=== PATIENT | male | born 1955 | race Caucasian/White ===

== ENCOUNTER 2023-02-25 12:20 | Outpatient (OUT) | payer MEDICARE, OTHER, SELFPAY ==
--- NOTE | 2023-02-25 | CT_ITS ---
The [address] [address] Patient Name: JC THOMAS MRN: [id number] date: 1955 Sex: M Assigned Patient Location: CT Current Patient Location: CT Accession/Order Number: [id number] Exam Date: 02/25/2023 12:36 Report Date: 02/25/2023 12:59 At the request of: AMALIA GAN Procedure: CT abdomen pelvis wo con EXAM: CT abdomen pelvis wo con HISTORY: Gross hematuria R31.0 COMPARISON: None. TECHNIQUE: Axial soft tissue windows of the abdomen and pelvis with coronal and sagittal reformats. CT dose reduction technique was used including Automated Exposure Control. . Findings: Lack of intravenous contrast limits evaluation. ABDOMEN: The liver, spleen, and pancreas are unremarkable. Small stones within the gallbladder. Unremarkable left adrenal gland. Within the medial limb of the right adrenal gland there is a 1.1 cm nodule. This has signal characteristics most consistent of lipid rich adenoma. Mild nonspecific bilateral perinephric fat stranding. There are bilateral peripelvic cysts. No renal stones or collecting system dilatation. The bilateral ureters are nondilated. Evaluation of the bowel is limited given the absence of oral contrast. There are colonic diverticula. No bowel obstruction. Small hiatal hernia. The appendix is nondilated definitely identified. The aorta is normal caliber. No enlarged abdominal lymph nodes or free abdominal fluid. Small fat-containing umbilicus hernia. Pelvis: The bladder is fluid-filled. There is a hyperdense mass measuring approximately 4.7 x 3.5 x 2.7 cm. This originates from the dome of the bladder. There are small calcifications The prostate is not significantly enlarged. No enlarged pelvic lymph nodes or free pelvic fluid. No aggressive sclerotic or lytic osseous lesions. 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 CT/CT abdomen pelvis wo con IMPRESSION: 1. No bladder mass concerning for malignancy. Recommend cystoscopy. 2. Cholelithiasis. 3. Right adrenal lipid rich adenoma 4. Bilateral renal peripelvic cyst 5. Diverticulosis. Electronically authenticated by: EARL DEAN Date: 02/25/2023 12:59
== END 2023-02-25 12:21 | disposition home or self-care (01) ==
LOC: CT 12:22
PROVIDERS: PCP Family Medicine; Visit Provider Nurse Practitioner Family
DX: R31.0 Gross hematuria (principal); K80.20 Calculus of gallbladder without cholecystitis without obstruction; K57.90 Diverticulosis of intestine, part unspecified, without perforation or abscess without bleeding; N28.1 Cyst of kidney, acquired
CPT/HCPCS: 74176

== ENCOUNTER 2023-03-16 08:51 | Outpatient (OUT) | payer MEDICARE, OTHER, SELFPAY ==
--- NOTE | 2023-03-16 08:53 | XR_ITS ---
The [address] [address] Patient Name: JC THOMAS MRN: [id number] date: 1955 Sex: M Assigned Patient Location: [facility] Current Patient Location: [facility] Accession/Order Number: [id number] Exam Date: 03/16/2023 09:40 Report Date: 03/16/2023 10:17 At the request of: SOLEDAD MEJIAS Procedure: XR chest 2V EXAM: XR chest 2V HISTORY: Preop exam COMPARISON: None. TECHNIQUE: PA and lateral views of the chest. FINDINGS: The cardiomediastinal silhouette is normal. No focal consolidation is identified. There is no pneumothorax. No pleural effusion is noted. The osseous structures are intact. XR/XR chest 2V IMPRESSION: No acute cardiopulmonary process. Electronically authenticated by: ENE STORM Date: 03/16/2023 10:17
--- NOTE | 2023-03-16 08:53 | ECG_ITS ---
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
[2023-03-16 09:56] LABS: INR 0.98; Partial Thromboplastin Time 26.2 sec (22.3-36.2); Prothrombin Time 10.4 sec (9.0-11.6)
== END 2023-03-16 08:52 | disposition home or self-care (01) ==
LOC: PST 08:51
PROVIDERS: PCP Family Medicine; Visit Provider Urology
DX: Z01.810 Encounter for preprocedural cardiovascular examination (principal); Z01.812 Encounter for preprocedural laboratory examination; D49.4 Neoplasm of unspecified behavior of bladder; R31.0 Gross hematuria; E78.5 Hyperlipidemia, unspecified; N28.1 Cyst of kidney, acquired; Z79.01 Long term (current) use of anticoagulants
CPT/HCPCS: 71046; 80048; 85610; 85730; 93005

== ENCOUNTER 2023-03-26 10:41 | Day surgery (SDC) | payer MEDICARE, OTHER, SELFPAY ==
[2023-03-16 09:25] VITALS: BP 134/81; PULSE 73; RESP 18; TEMP 36.5; O2SAT 97; BMI 34.7
[2023-03-26] VITALS (9 sets, daily range): BP systolic 118–135; BP diastolic 70–86; PULSE 64–84; RESP 12–20; TEMP 35.9–36.4; O2SAT 92–98; BMI 33.9
[2023-03-26] MEDS: LACTATED RINGER'S SOLUTION 1,000 ML 50 ML IV (11:18)
[2023-03-26] MEDS: CEFAZOLIN SODIUM/DEXTROSE,ISO 1 GM/50 ML IV.SOLN IV (12:19)
--- NOTE | 2023-03-26 13:55 | P.URON_ITS ---
Urology Surgery Operative Note Operative Note Procedure Date: 03/26/23 Time Out Performed: yes Pre-op Diagnosis: Bladder tumors Post-op Diagnosis: same as pre-op Procedures performed: #1. Cystoscopy. #2. 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 Specimens: bladder tumor pieces Drains: 22 Tristanian three-way coud? Keating catheter to gravity with irrigation port plugged Indications for Procedures: this gentleman had gross hematuria which led 2 cystoscopy. This revealed he has classic papillary TCC tumors started on the back wall anterior wall and left wall. He now presents for cystoscopy and transurethral resection of bladder tumors. He has signed an informed consent after all risks were explained. Detailed description of Procedure: The patient was brought to the operating room and placed on the operating room table in the supine position. SCDs were placed on the lower extremities and turn ed on and functioning during the entire case. Timeout was done by all parties in the room. We all agreed upon the patient's identification and the planned procedures for this patient. Genn. anesthesia was then administered. The patient was then repositioned into the modified dorsal lithotomy position. All pressure points were satisfactorily padded. Genitalia were sterilely prepped and draped in usual fashion.I started by passing a 26 Tristanian resectoscope with the standard bipolar loop electrode per urethra and into the bladder. The tumors were quite a bit proximal to the ureteral orifices. I started on the floor and uniformly and deeply resected all of the tumors. The resection bed was coagulated. I then did the tumors on the back wall. The left lateral wall tumors were then resected in a similar fashion. There were couple small ones on the right wall and these were similarly resected. After getting copious amounts of tumor out and the tissue was sent for pathology I then used the coagulation/vaporization loop and massively coagulated all of the resection beds. Upon completion there was no tumor remaining in the bladder. There was no bleeding. Clear urine effluxed from both ureteral orifices. Scope was removed. A 22 Tristanian three-way coud? catheter was placed in the bladder. 10 mL of fluid was placed in the balloon. It was manually irrigated and it was clear. A leg bag was then attached. The anesthetic was then reversed. He was then transferred to a [facility] bed and wheeled to PACU in stable condition. He will be discharged to home with a prescription for Keflex 500 mg twice a day #14 and Vesicare 10 mg daily #7. Follow-up will be in a week for catheter removal and to review the pathology.
[2023-03-26] MEDS: SOLIFENACIN SUCCINATE 10 MG TABLET PO (14:06)
== END 2023-03-26 14:48 | disposition home or self-care (01) ==
PROVIDERS: PCP Family Medicine; Visit Provider Urology
PROC: (CPT 52240; principal; 2023-03-26 11:50)
DX: C67.9 Malignant neoplasm of bladder, unspecified (principal); E78.5 Hyperlipidemia, unspecified; N28.1 Cyst of kidney, acquired; Z79.01 Long term (current) use of anticoagulants; Z96.659 Presence of unspecified artificial knee joint; R31.0 Gross hematuria
CPT/HCPCS: 52240; 36415; 88307

== ENCOUNTER 2023-04-16 03:18 | Emergency (ER) | payer MEDICARE, OTHER, SELFPAY ==
[2023-04-16 03:21] VITALS: BP 130/97; PULSE 80; RESP 16; TEMP 36.5; O2SAT 97; BMI 33.5
[2023-04-16] MEDS: LIDOCAINE 2% JELLY 10 ML UR (03:28)
--- NOTE | 2023-04-16 03:57 | ED_ITS ---
HPI - Male Genitourinary General Chief complaint: Urogenital-Male Stated complaint: URINARY ISSUE Time Seen by Provider: 04/16/23 03:28 Source: patient Mode of arrival: walk-in Limitations: no limitations History of Present Illness HPI Narrative: This 68-year-old male presents for evaluation of acute urinary retention. The patient was recently diagnosed with bladder cancer after having a cystoscopy. He is supposed to have bacille Calmette-Carol instilled into his bladder but the medication is not readily available. He states that after his cystoscopy he had a Stevens catheter for a week. He has been passing bright red blood and some clots and his urine has been dark. He has not been able to empty his bladder for the past 7 hours. He states he has been dribbling a little bit and feels that there is a clot obstructing his urine flow. He has discomfort in his lower abdomen. He has no nausea or vomiting. He has no flank pain. He has not had a fever. Related Data Home Medications Medication Instructions Recorded Confirmed omega 7-qim-mid-fish oil 1,000 mg 1 cap PO DAILY 03/16/23 03/26/23 (120 mg-180 mg) capsule (Fish Oil) pravastatin 40 mg tablet 40 mg PO DAILY 03/16/23 04/16/23 Previous Rx's Medication Instructions Recorded solifenacin 10 mg tablet (Vesicare) 10 mg PO DAILY #7 tabs 03/26/23 Allergies Allergy/AdvReac Type Severity Reaction Status Date / Time No Known Drug Allergies Allergy Verified 04/16/23 03:24 Review of Systems ROS Status of ROS 10 or more systems reviewed and unremarkable except as noted in history and below [facility] Medical History (Updated 04/16/23 @ 04:57 by La Faria MD) Bladder mass ?N32.89 - Other specified disorders of bladder (ICD-10) Bladder tumor ?D49.4 - Neoplasm of unspecified behavior of bladder (ICD-10) Gross hematuria ?R31.0 - Gross hematuria (ICD-10) High cholesterol ?E78.00 - Pure hypercholesterolemia, unspecified (ICD-10) Lesion of bladder ?N32.9 - Bladder disorder, unspecified (ICD-10) Osteoarthritis ?M19.90 - Unspecified osteoarthritis, unspecified site (ICD-10) Renal cyst ?N28.1 - Cyst of kidney, acquired (ICD-10) Surgical History (Updated 03/16/23 @ 09:16 by Mary Moreira NP) History of appendectomy ?Z90.49 - Acquired absence of other specified parts of digestive tract (ICD- 10) History of arthroplasty of knee ?Z96.659 - Presence of unspecified artificial knee joint (ICD-10) History of arthroplasty of knee ?Z96.659 - Presence of unspecified artificial knee joint (ICD-10) History of arthroscopy of knee ?Z98.890 - Other specified postprocedural states (ICD-10) History of arthroscopy of knee ?Z98.890 - Other specified postprocedural states (ICD-10) History of arthroscopy of shoulder ?Z98.890 - Other specified postprocedural states (ICD-10) History of colonoscopy ?Z98.890 - Other specified postprocedural states (ICD-10) History of foot surgery ?Z98.890 - Other specified postprocedural states (ICD-10) History of hernia repair ?Z98.890 - Other specified postprocedural states (ICD-10) ?Z87.19 - Personal history of other diseases of the digestive system (ICD-10) History of nasal septoplasty ?Z98.890 - Other specified postprocedural states (ICD-10) History of tonsillectomy ?Z90.89 - Acquired absence of other organs (ICD-10) Family History (Updated 03/16/23 @ 09:16 by Mary Moreira NP) Other Family history of colon cancer Family history of emphysema Social History (Updated 03/16/23 @ 09:11 by Mary Moreira NP) Within the past year, how often did you have a drink containing alcohol: never Score interpretation: A score less than 4 is consistent with normal alcohol consumption. Smoking status: Never smoker Highest level of school completed/degree received: high school graduate Exam Narrative Exam Narrative: Nurses note and vital signs reviewed and patient is not hypoxic. Blood pressure is noted to be elevated at 130/97 General: The patient appears well and in no apparent distress. Patient is resting comfortably on cart. Skin: Warm, dry, no pallor noted. There is no rash noted. Head: Normocephalic, atraumatic Eye: Normal conjunctiva, no drainage, EOMI. PERRL Ears, Nose, Mouth, and Throat: oral mucosa is moist. Cardiovascular: Regular Rate and Rhythm Respiratory: Patient is in no distress, no accessory muscle use, lungs are clear to auscultation, no wheezing, rales or rhonchi Back: non-tender, no CVA tenderness bilaterally to percussion. GI: Normal bowel sounds, no tenderness to palpation, Fullness over urinary bladder, Bladder scan noted >600cc of urine in the bladder Neurological: A&O x4, normal speech Psychiatric: Cooperative Constitutional Vital Signs, click to edit/add: Last Vital Signs Temp 97.7 F 04/16/23 03:21 Pulse 80 04/16/23 03:21 Resp 16 04/16/23 03:21 BP 130/97 H 04/16/23 03:21 Pulse Ox 97 04/16/23 03:21 O2 Del Method Room Air 04/16/23 03:21 Course Vital Signs Vital signs: Vital Signs Temperature 97.7 F 04/16/23 03:21 Pulse Rate 80 04/16/23 03:21 Respiratory Rate 16 04/16/23 03:21 Blood Pressure 130/97 H 04/16/23 03:21 Pulse Oximetry 97 04/16/23 03:21 Oxygen Delivery Method Room Air 04/16/23 03:21 Temperature 97.7 F 04/16/23 03:21 Pulse Rate 80 04/16/23 03:21 Respiratory Rate 16 04/16/23 03:21 Blood Pressure 130/97 H 04/16/23 03:21 Pulse Oximetry 97 04/16/23 03:21 Oxygen Delivery Method Room Air 04/16/23 03:21 MDM - Male Genitourinary MDM Narrative Medical decision making narrative: This 68-year-old male who was recently diagnosed with bladder cancer after having a cystoscopy due to painless hematuria presents for evaluation of urinary retention that has been present for the past 7 hours. He has been dribbling. He has been passing small clots in his urine has been dark. He has not had a fever. He denies any abdominal pain but has some fullness over his urinary bladder. He has no flank pain or vomiting. A 3 way stevens catheter was placed for drainage and irrigation purposes. The urine was dark and cloudy and sent for culture. Bladder irrigation was performed until clear. He will be discharged home with the stevens in place for 48-72 hours and instructed to return to the ER for recu rrent blood in his urine or if the catheter stops draining. Discharge Plan Discharge Chief Complaint: Urogenital-Male Clinical Impression: Acute retention of urine, Hematuria Prescriptions / Home Meds: No Action pravastatin 40 mg tablet 40 mg PO DAILY omega 5-vhq-igl-fish oil [Fish Oil] 1,000 mg (120 mg-180 mg) capsule 1 cap PO DAILY solifenacin [Vesicare] 10 mg tablet 10 mg PO DAILY Qty: 7 0RF Referrals: ISIS LILLY [Primary Care Provider] - 1 week
[2023-04-16] MEDS: WATER FOR IRRIGATION, STERILE 1,000 ML IRRIG.SOLN 1000 ML IRR (04:07)
== END 2023-04-16 05:31 | disposition home or self-care (01) ==
LOC: ER 03:23
PROVIDERS: Emergency Provider Emergency Medicine; PCP Family Medicine
DX: R33.9 Retention of urine, unspecified (principal); R31.9 Hematuria, unspecified; C67.9 Malignant neoplasm of bladder, unspecified; E78.00 Pure hypercholesterolemia, unspecified; M19.90 Unspecified osteoarthritis, unspecified site; Z79.899 Other long term (current) drug therapy; Z90.49 Acquired absence of other specified parts of digestive tract; Z96.659 Presence of unspecified artificial knee joint; Z98.890 Other specified postprocedural states; Z90.89 Acquired absence of other organs
CPT/HCPCS: 51702; 87086; 99284

== ENCOUNTER 2023-04-17 18:29 | Emergency (ER) | payer MEDICARE, OTHER, SELFPAY ==
[2023-04-17 18:57] VITALS: BP 128/88; PULSE 96; RESP 20; TEMP 37; O2SAT 98; BMI 33.5
[2023-04-17 19:36] VITALS: BP 146/94; PULSE 88; RESP 20; O2SAT 97
--- NOTE | 2023-04-17 19:53 | PC.NURSE ---
Keating catheter irrigated with 120 ml of NS with immediate return 530 ml of everett colored urine with a few small flecks of blood clot noted. Patient reports immediate relief from bladder discomfort. Keating draining dark yellow/pink urine at this time.
--- NOTE | 2023-04-17 20:23 | ED.GENADUL1 ---
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 Patient had hematuria in early to mid February and a mass was found on his bladder on CT scanning. He had cystoscopy with removal of bladder lesions on Mar 26 and had been doing well until yesterday when he developed hematuria and had to have a 3 way urethral bladder placed. There was a lot of blood and so he had a 3L bag flush of the bladder before being discharged home yesterday. He now returns - complaining of abdominal pain and bladder fullness with nothing passing out of the urethral catheter for the last several hours. Related Data Home Medications Medication Instructions Recorded Confirmed omega 2-ips-nya-fish oil 1,000 mg 1 cap PO DAILY 03/16/23 03/26/23 (120 mg-180 mg) capsule (Fish Oil) pravastatin 40 mg tablet 40 mg PO DAILY 03/16/23 04/16/23 Previous Rx's Medication Instructions Recorded solifenacin 10 mg tablet (Vesicare) 10 mg PO DAILY #7 tabs 03/26/23 Allergies Allergy/AdvReac Type Severity Reaction Status Date / Time No Known Drug Allergies Allergy Verified 04/16/23 03:24 [facility] Medical History (Updated 04/17/23 @ 20:29 by Phuc Coleman) Bladder mass ?N32.89 - Other specified disorders of bladder (ICD-10) Bladder tumor ?D49.4 - Neoplasm of unspecified behavior of bladder (ICD-10) Gross hematuria ?R31.0 - Gross hematuria (ICD-10) High cholesterol ?E78.00 - Pure hypercholesterolemia, unspecified (ICD-10) Lesion of bladder ?N32.9 - Bladder disorder, unspecified (ICD-10) Osteoarthritis ?M19.90 - Unspecified osteoarthritis, unspecified site (ICD-10) Renal cyst ?N28.1 - Cyst of kidney, acquired (ICD-10) Surgical History (Updated 03/16/23 @ 09:16 by Mary Moreira NP) History of appendectomy ?Z90.49 - Acquired absence of other specified parts of digestive tract (ICD-10) History of arthroplasty of knee ?Z96.659 - Presence of unspecified artificial knee joint (ICD-10) History of arthroplasty of knee ?Z96.659 - Presence of unspecified artificial knee joint (ICD-10) History of arthroscopy of knee ?Z98.890 - Other specified postprocedural states (ICD-10) History of arthroscopy of knee ?Z98.890 - Other specified postprocedural states (ICD-10) History of arthroscopy of shoulder ?Z98.890 - Other specified postprocedural states (ICD-10) History of colonoscopy ?Z98.890 - Other specified postprocedural states (ICD-10) History of foot surgery ?Z98.890 - Other specified postprocedural states (ICD-10) History of hernia repair ?Z98.890 - Other specified postprocedural states (ICD-10) ?Z87.19 - Personal history of other diseases of the digestive system (ICD-10) History of nasal septoplasty ?Z98.890 - Other specified postprocedural states (ICD-10) History of tonsillectomy ?Z90.89 - Acquired absence of other organs (ICD-10) Family History (Updated 03/16/23 @ 09:16 by Mary Moreira NP) Other Family history of colon cancer Family history of emphysema Social History (Updated 03/16/23 @ 09:11 by Mary Moreira NP) Within the past year, how often did you have a drink containing alcohol: never Score interpretation: A score less than 4 is consistent with normal alcohol consumption. Smoking status: Never smoker Highest level of school completed/degree received: high school graduate Exam Narrative Exam Narrative: Nurses notes and vital signs reviewed and patient is not hypoxic. afebrile General: Well-appearing and in no apparent distress. Skin: Warm, dry, no pallor noted. Eye: Pupils are equal, round and EOMI. No scleral icterus. Cardiovascular: Regular Rate and Rhythm without murmur, gallop or rub. Respiratory: No accessory muscle use or respiratory distress. Lungs are clear to auscultation, no wheezing, rales or rhonchi Back: No CVA tenderness GI: Abdomen is soft, non-distended. Normal bowel sounds. No masses appreciated. Suprapubic tenderness to palpation initially =- gone after stevens draining following flush. No rebound, guarding, or rigidity noted. Neurological: A&O x4. No cranial nerve dysfunction observed. No truncal ataxia. Moves all extremities. Sensation intact. Psychiatric: Cooperative and interactive. Normal mood and affect. Constitutional Vital Signs, click to edit/add: Last Vital Signs Temp 98.6 F 04/17/23 18:57 Pulse 88 04/17/23 19:36 Resp 20 04/17/23 19:36 BP 146/94 H 04/17/23 19:36 Pulse Ox 97 04/17/23 19:36 O2 Del Method Room Air 04/17/23 18:57 Course Vital Signs Vital signs: Vital Signs Temperature 98.6 F 04/17/23 18:57 Pulse Rate 96 H 04/17/23 18:57 Respiratory Rate 20 04/17/23 18:57 Blood Pressure 128/88 04/17/23 18:57 Pulse Oximetry 98 04/17/23 18:57 Oxygen Delivery Method Room Air 04/17/23 18:57 Temperature 98.6 F 04/17/23 18:57 Pulse Rate 88 04/17/23 19:36 Respiratory Rate 20 04/17/23 19:36 Blood Pressure 146/94 H 04/17/23 19:36 Pulse Oximetry 97 04/17/23 19:36 Oxygen Delivery Method Room Air 04/17/23 18:57 Medical Decision Making MDM Narrative Medical decision making narrative: Greater than 400mL on bladder scan. ED nurse flushed the stevens and retrieved some debris/small clots and the urine began to flow freely - more yellow than red and the patient had immediate relief. Now the urine passing is yellow. Patient discharged home and will see the urologist on Thursday - he had spoken with them by phone earlier today when the office was open. ED return if he worsens. Discharge Plan Discharge Chief Complaint: Recheck/Abnormal Lab/Rx Clinical Impression: Indwelling urethral catheter present, Acute retention of urine Time of Disposition Decision: 20:28 Prescriptions / Home Meds: No Action pravastatin 40 mg tablet 40 mg PO DAILY omega 7-oee-fqx-fish oil [Fish Oil] 1,000 mg (120 mg-180 mg) capsule 1 cap PO DAILY solifenacin [Vesicare] 10 mg tablet 10 mg PO DAILY Qty: 7 0RF Instructions: Urinary Retention in Men (ED), How to Care for Your Suprapubic Catheter (DC) Stand Alone Forms: Portal Instructions Referrals: [facility] LILLY [Primary Care Provider] - 1 week
== END 2023-04-17 20:48 | disposition home or self-care (01) ==
PROVIDERS: Emergency Provider Emergency Medicine; PCP Family Medicine
DX: R39.9 Unspecified symptoms and signs involving the genitourinary system (principal); Z96.0 Presence of urogenital implants; Z79.899 Other long term (current) drug therapy; E78.00 Pure hypercholesterolemia, unspecified; M19.90 Unspecified osteoarthritis, unspecified site; Z90.49 Acquired absence of other specified parts of digestive tract; Z96.659 Presence of unspecified artificial knee joint; Z98.890 Other specified postprocedural states; Z90.89 Acquired absence of other organs
CPT/HCPCS: 99284

== ENCOUNTER 2023-07-03 09:25 | Outpatient (OUT) | payer MEDICARE, OTHER, SELFPAY ==
--- OUTSIDE RECORDS SUMMARY | 2023-07-03 09:28 | XMS_ITS | CCD ---
Author Name Unknown Address [address] [place] [address] Organization [facility] Care Team Providers Care Java Lead Developer Name Role Phone DIDIER CYNTHIA Unavailable Unavailable DIDIER, CYNTHIA Unavailable Unavailable MAXXDAVID ArandaEN Unavailable Unavailable DIDIER, CYNTHIA Unavailable Unavailable LORRAINE LANDAVERDE Unavailable Unavailable CAMERON MARCUM Unavailable Unavailable ISIS LILLY Primary Care Physician Isis Lilly MD Unavailable Immanuel Osorio MD Unavailable [phone] Ian PROGRAMMING SPECIALIST.Edel SUTHERLAND Unavailable Xochilt RN, Isaías Unavailable Isis Lilly MD Primary Care Provider IMMANUEL OSORIO Attending Unavailable SOLEDAD SANDERS Referring Unavailable EDEL CHRISTINE Referring Unavailable EDEL CHRISTINE Referring Unavailable EDEL CHRISTINE Referring Unavailable IMMANUEL OSORIO Referring Unavailable IMMANUEL OSORIO Attending Unavailable MAXX, RUGEN MABALAY Primary Care Unavailable EDEL CHRISTINE Referring Unavailable MAXX, RUGEN MABALAY Primary Care Unavailable EDEL CHRISTINE Referring Unavailable MAXX, RUGEN MABALAY Primary Care Unavailable MAXX, RUGEN MABALAY Primary Care Unavailable EDEL CHRISTINE Referring Unavailable LITOANKIMMANUEL ALLEN Referring Unavailable ABIMMANUEL BABCOCK Attending Unavailable MAXX, RUGEN MABALAY Primary Care Unavailable Soledad SANDERS Attending Unavailable Soledad SANDERS Attending Unavailable Soledad SANDERS Attending Unavailable Soledad SANDERS Attending Unavailable ISAMAR DAVIDSON COMPLIANCE SPECIALIST-C Referring Unavailable Soledad SANDERS Referring Unavailable Soledad SANDERS Attending Unavailable Soledad SANDERS Admitting Unavailable Soledad SANDERS Admitting Unavailable MAGALIE Soledad Linton Attending Unavailable MAGALIE, Soledad Linton Attending Unavailable MAGALIE, Soledad Linton Admitting Unavailable MAGALIE, Soledad Linton Attending Unavailable MAGALIE, Soledad Linton Attending Unavailable Medications Current Medications Medication Drug Class(es) Dates Sig (Normalized) Sig (Original) Aspirin (4 sources) Platelet Aggregation Inhibitor, Nonsteroidal Anti-inflammatory Drug Start: 03-02-2023 aspirin Refills(s) 0 Start Date: 03/02/23 Status: Ordered Fish Oils (4 sources) Start: 10-23-2015 take 1 capsule by mouth twice daily Fish Oil 1200 mg oral capsule 1,200 mg = 1 cap(s), Oral, BID, Refills(s) 0 Start Date: 10/23/15 Status: Ordered pravastatin sodium 40 mg oral tablet (7 sources) HMG-CoA Reductase Inhibitor Start: 03-02-2023 pravastatin 40 mg Tab Refills(s) 0 Start Date: 03/02/23 Status: Ordered Comment on above: TAKE 1 TABLET BY PORFIRIO TH EVERY DAY AT THE SAME TIME Completed/Discontinued Medications Medication Drug Class(es) Dates Sig (Normalized) Sig (Original) ciprofloxacin 500 mg oral tablet (3 sources) Quinolone Antimicrobial Start: 04-24-2023 take 1 tablet by mouth every three months Cipro 500 mg Tab 500 mg = 1 tab(s), Oral, Daily, Take 1 tablet the day before the procedure and 1 tablet after the procedure every 3 months, # 8 tab(s), Refills(s) 0, Pharmacy: [facility]/pharmacy #[id number], 180, cm, 04/03/23 10:43:00 EST, Height/Length Dosing, 109, kg, 04/03/23 10:43:00 EST, Weight Dosing Start Date: 04/24/23 Status: Ordered ferrous sulfate 325 mg oral tablet (1 source) take 1 tablet by mouth once daily ferrous sulfate (IRON) 325 mg (65 mg iron) tablet Take 325 mg by mouth once daily. 0 Active Comment on above: Take 325 mg by mouth once daily. omega-3 DHA-EPA (FISH OIL) 1,200 (144-216) mg capsule (3 sources) omega-3 DHA-EPA (FISH OIL) 1,200 (144-216) mg capsule 1 capsule. 0 Active Comment on above: 1 capsule. Problems Problem Classification Problem Date Documented Date Episodic/Chronic Cancer of bladder (10 sources) Malignant tumor of urinary bladder; Translations: [Malignant neoplasm of bladder, unspecified] Onset: 04-03-2023 Chronic Deficiency and other anemia (2 sources) Iron deficiency anemia due to blood loss; Translations: [Iron deficiency anemia secondary to blood loss (chronic)] Onset: 06-18-2023 06-18-2023 Chronic Disorders of lipid metabolism (8 sources) Hypercholesterolemia; Translations: [Hypertriglyceridemia ] 10-23-2015 Chronic Joint disorders and dislocations; trauma-related (4 sources) Tear of medial meniscus of knee 10-23-2015 Episodic Comment on above: left knee Osteoarthritis (4 sources) Osteoarthritis 10-23-2015 Chronic Other diseases of bladder and urethra (4 sources) Mass of urinary bladder 03-02-2023 Chronic Other diseases of kidney and ureters (1 source) Acquired renal cyst without neoplastic change; Translations: [Cyst of kidney, acquired] Onset: 04-03-2023 Episodic Other diseases of kidney and ureters (4 sources) Cyst of kidney 03-02-2023 Episodic Results Test Name Value Interpretation Reference Range Facility Ambulatory Visit Summaryon 0 06-29-2023 Ambulatory Visit Summary JC CAMACHO :1955 Visit Date:06/29/2023 Ambulatory Visit Instructions Your Diagnosis Bladder cancer Your Care Team Attending Physician - MAGALIE DORMAN, Soledad Linton Primary Care Physician - MAXX DORMAN, ISIS Stoddard This Is Your Medications List aspirin ciprofloxacin (Cipro 500 mg Tab) omega-3 polyunsaturated fatty acids (Fish Oil 1200 mg oral capsule) pravastatin (pravastatin 40 mg Tab) Procedures Performed TURBT - Transurethral resection of bladder tumor (03/26/2023), Total knee replacement (07/08/2021), Arthroscopic knee operation (11/02/2015), Appendix, Arthroscopy of knee, Bilateral bone spurs of shoulders, Colonoscopy, FESS - Functional endoscopic sinus surgery, inguinal hernia repair, Knee arthroplasty, multiple surgeries right knee, Plantar fasciitis, Plantar fasciotomy, Tonsillectomy. What to do next You Need to Complete the Following Urine Cytology ([facility]), Urine, Routine collect, 06/29/23, Order for future visit, Nurse collect, Bladder cancer, Not Required, Print Label By Order Location, Voided, 1, Urine, Technical Only Medications What How Much When Instructions Unchanged aspirin Unchanged ciprofloxacin (Cipro 500 mg Tab) 1 Tablets By Mouth Every day Take 1 tablet the day before the procedure and 1 tablet after the procedure every 3 months Unchanged omega-3 polyunsaturated fatty acids (Fish Oil 1200 mg oral capsule) 1 Capsules By Mouth 2 times a day Unchanged pravastatin (pravastatin 40 mg Tab) Allergies No Known Allergies Problems Ongoing - Any problem that you are currently receiving treatment for. Bilateral renal cysts Bladder cancer Bladder mass Patient Survey You may receive a survey via text or e-mail asking about your office visit. Please share your experience with us by completing your survey. We appreciate your feedback and thank you for choosing us for your care. [facility] Consultation Noteon 06-19-19 24 Consultation Note [id number]. [id number] [facility] CNOVSPon 06-18-2023 CNOVSP Visit (SP) Office ([place]) JC CAMACHO ([id number]) 1955 M Date Time Provider Department 06/18/23 3:15 PM IMMANUEL OSORIO During your visit today, we recorded the following information about you: Temperature Pulse Respiration Blood pressure 98 degrees 108/minute 18/minute 134/89 Weight Height 114.4 kg 1.803 m Immanuel Osorio MD 06/18/2023 9:23 PM Signed NAME: Jc Camacho CLINIC NO.: [id number] DATE OF SERVICE: June 18, 2023 (Amber) Some elements in this clinic note that are critical to medical decision making have been carefully reviewed and included from a prior clinic note dated: May 21, 2023 (Amber) Referring Provider: Soledad Sanders Additional Clinicians involved in Jc Orozcogermaine's care: DIAGNOSIS: High-grade bladder cancer ASSESSMENT: 68 year old man with a 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 Given extent of disease, he will need immunotherapy with BCG. Anemia - Appears to be improving with iron replacement. 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 Satellite tumors noted adjacent to the mass on the floor of the bladder. 02/25/2023 - CT abdomen pelvis without contrast: hyperdense mass measuring 4.7 x 3.5 x 2.7 cm in the bladder. Bilateral renal parapelvic cysts. Updated Visit, June 18, 2023: Jc returns today with Snehal, doing pretty good. Completed his induction BCG last week. His Hgb has improved but he is still anemic. B12 is lower, which is normal. He has scopes scheduled for next month (07/06). Updated Visit, May 21, 2023: Jc returns today with his Snehal. He denies any problems since starting the BCG. Reviewed his labs, his anemia appears to be improving. We discussed taking his iron supplements with water or something acidic, as opposed to something like milk that will neutralize the acid in his stomach. Discussed surveillance plans once he finishes last BCG, he will need maintenance doses around September and November. Reports he has been dealing with a cough the past few weeks and is planning to discuss with his PCP, not a productive cough. Taking Robitussin-D and feels he has gotten a little better, Snehal disagrees and thinks he has sounded the same. Initial Visit, April 30, 2023: Jc Camacho presents today accompanied by his Snehal for Hematology and Oncology evaluation. He is a 68 year old male who first noticed a large amount of bleeding in his urine for the first time back in early February 2023. He had a catheter placed at the ER, which was removed on 03/03 after his cystoscopy. The day before Thanksgiving on 04/15, he ended up in the ER due to the presence of blood once again. He needed a catheter due to clotting. Starting 04/21, he has not had any bleeding and has had the cath removed. Reports exposure to many different chemicals through his work even with extended efforts to maximize efficiency of PPE. He also had significant exposure to asbestos due to taking care of that with work too. We reviewed his labs, he is slightly anemic. This is likely as a result of the bleeding in his urine. 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 - REVIEW OF SYSTEMS Per HPI and otherwise negative by full review of organ systems. - ECOG PERFORMANCE STATUS: 0 PHYSICAL EXAMINATION: Vitals: BP 134/89 Pulse 108 Temp (Src) 98 (Temporal) Resp 18 Ht 5' 10.984 (1.80m) Wt 252 lb 3.3 oz (114.4kg) SpO2 96% BMI 35.19 kg/(m2). Body surface area is 2.39 meters squared. Exam limited to gross visualization where appropriate. Gen.: This is an age-appropriate patient in no acute distress. Head: Appears atraumatic with no visible lesions. Eyes: Pupils equally round and reactive to light, extraocular muscles are intact. Neck: Supple. Respiratory: Appears to be respiring comfortably. Neurologic: Nonfocal to gross visualization. Alert and oriented ?3. Psychiatric: No evidence of maurice (more content not included)... Normal [facility] Reminderson 06-16-2023 Reminders - From: Carole Garcia To: EU - Recalls Sanders; Cc: Carole Garcia; Sent: 04/03/2023 11:38:24 EST Show up: 05/25/2023 11:38:00 EST Subject: Cysto/FISH/cytol Due Date/Time: 06/15/2023 11:38:00 EST Reminder/Recall Patient is due in Jun 2023 for 3 month cysto/fish/Cytol (bt ck) Patient sched for 07/06/23 at [facility]. He will be due in September 2023.LG Normal [facility] CBC W Auto Differential pane l (Bld)on 06-11-2023 Basophils (Bld) [#/Vol] 0.04 10*3/uL Normal <0.11 [facility] Comment on above: Order Comment: Annmarie craven Type: BLOOD SPECIMENOrdering Facility: [facility] Address: [address] [place] [address] Performed By: #### 5 7021-8 ####[facility] LABCLIA [id number] [place] [address] Basophils/100 WBC (Bld) 0.7 % Normal [facility] Comment on above: Order Comment: Annmarie craven Type: BLOOD SPECIMENOrdering Facility: [facility] Address: [address] [place] [address] Performed By: #### 5 7021-8 ####[facility] LABCLIA [id number] [place] [address] Differential cell count method Nom (Bld) Auto Normal [facility] Comment on above: Order Comment: Annmarie craven Type: BLOOD SPECIMENOrdering Facility: [facility] Address: [address] [place] [address] Performed By: #### 5 7021-8 ####[facility] LABCLIA [id number] [place] [address] Eosinophils (Bld) [#/Vol] 0.18 10*3/uL Normal <0.46 [facility] Comment on above: Order Comment: Speci men Type: BLOOD SPECIMENOrdering Facility: [facility] Address: [address] [place] [address] Performed By: #### 5 7021-8 ####[facility] LABCLIA [id number] [place] [address] Eosinophils/100 WBC (Bld) 3.3 % Normal [facility] Comment on above: Order Comment: Speci men Type: BLOOD SPECIMENOrdering Facility: [facility] Address: [address] [place] [address] Performed By: #### 5 7021-8 ####[facility] LABCLIA [id number] [place] [address] Erythrocyte distribution width (RBC) [Ratio] 21.7 % High 11.5-15.0 [facility] Comment on above: Order Comment: Speci men Type: BLOOD SPECIMENOrdering Facility: [facility] Address: [address] [place] [address] Performed By: #### 5 7021-8 ####[facility] LABCLIA [id number] [place] [address] Hematocrit (Bld) [Volume fraction] 42.9 % Normal 39.0-51.0 [facility] Comment on above: Order Comment: Speci men Type: BLOOD SPECIMENOrdering Facility: [facility] Address: [address] [place] [address] Performed By: #### 5 7021-8 ####[facility] LABCLIA [id number] [place] [address] Hemoglobin (Bld) [Mass/Vol] 13.2 g/dL Normal 13.0-17.0 [facility] Comment on above: Order Comment: Speci men Type: BLOOD SPECIMENOrdering Facility: [facility] Address: [address] [place] [address] Performed By: #### 5 7021-8 ####[facility] LABCLIA [id number] [place] [address] Immature granulocytes (Bld) [#/Vol] 0.04 10*3/uL Normal <0.10 [facility] Comment on above: Order Comment: Speci men Type: BLOOD SPECIMENOrdering Facility: [facility] Address: [address] [place] [address] Performed By: #### 5 7021-8 ####[facility] LABCLIA [id number] [place] [address] Immature granulocytes/100 WBC (Bld) 0.7 % Normal [facility] Comment on above: Order Comment: Speci men Type: BLOOD SPECIMENOrdering Facility: [facility] Address: [address] [place] [address] Performed By: #### 5 7021-8 ####[facility] LABCLIA [id number] [place] [address] Lymphocytes (Bld) [#/Vol] 1.28 10*3/uL Normal 1.00-4.00 [facility] Comment on above: Order Comment: Speci men Type: BLOOD SPECIMENOrdering Facility: [facility] Address: [address] [place] [address] Performed By: #### 5 7021-8 ####[facility] LABCLIA [id number] [place] [address] Lymphocytes/100 WBC (Bld) 23.3 % Normal [facility] Comment on above: Order Comment: Speci men Type: BLOOD SPECIMENOrdering Facility: [facility] Address: [address] [place] [address] Performed By: #### 5 7021-8 ####[facility] LABCLIA [id number] [place] [address] MCH (RBC) [Entitic mass] 25.4 pg Low 26.0-34.0 [facility] Comment on above: Order Comment: Speci men Type: BLOOD SPECIMENOrdering Facility: [facility] Address: [address] [place] [address] Performed By: #### 5 7021-8 ####[facility] LABCLIA [id number] [place] [address] MCHC (RBC) [Mass/Vol] 30.8 g/dL Normal 30.5-36.0 [facility] Comment on above: Order Comment: Speci men Type: BLOOD SPECIMENOrdering Facility: [facility] Address: [address] [place] [address] Performed By: #### 5 7021-8 ####[facility] LABCLIA [id number] [place] [address] MCV (RBC) [Entitic vol] 82.7 fL Normal 80.0-100.0 [facility] Comment on above: Order Comment: Speci men Type: BLOOD SPECIMENOrdering Facility: [facility] Address: [address] [place] [address] Performed By: #### 5 7021-8 ####[facility] LABCLIA [id number] [place] [address] Monocytes (Bld) [#/Vol] 0.65 10*3/uL Normal <0.87 [facility] Comment on above: Order Comment: Speci men Type: BLOOD SPECIMENOrdering Facility: [facility] Address: [address] [place] [address] Performed By: #### 5 7021-8 ####[facility] LABCLIA [id number] [place] [address] Monocytes/100 WBC (Bld) 11.8 % Normal [facility] Comment on above: Order Comment: Speci men Type: BLOOD SPECIMENOrdering Facility: [facility] Address: [address] [place] [address] Performed By: #### 5 7021-8 ####[facility] LABCLIA [id number] [place] [address] Neutrophils (Bld) [#/Vol] 3.31 10*3/uL Normal 1.45-7.50 [facility] Comment on above: Order Comment: Speci men Type: BLOOD SPECIMENOrdering Facility: [facility] Address: [address] [place] [address] Performed By: #### 5 7021-8 ####[facility] LABCLIA [id number] [place] [address] Neutrophils/100 WBC (Bld) 60.2 % Normal [facility] Comment on above: Order Comment: Speci men Type: BLOOD SPECIMENOrdering Facility: [facility] Address: [address] [place] [address] Performed By: #### 5 7021-8 ####[facility] LABCLIA [id number] [place] [address] Nucleated RBC (Bld) [#/Vol] 10*3/uL Normal <0.01 [facility] Comment on above: Order Comment: Speci men Type: BLOOD SPECIMENOrdering Facility: [facility] Address: [address] [place] [address] Performed By: #### 5 7021-8 ####[facility] LABCLIA [id number] [place] [address] Nucleated RBC/100 WBC (Bld) [Ratio] 0.0 /100 WBC Normal [facility] Comment on above: Order Comment: Speci men Type: BLOOD SPECIMENOrdering Facility: [facility] Address: [address] [place] [address] Performed By: #### 5 7021-8 ####[facility] LABCLIA [id number] [place] [address] Platelet mean volume (Bld) [Entitic vol] 9.3 fL Normal 9.0-12.7 [facility] Comment on above: Order Comment: Speci men Type: BLOOD SPECIMENOrdering Facility: [facility] Address: [address] [place] [address] Performed By: #### 5 7021-8 ####[facility] LABCLIA [id number] [place] [address] Platelets (Bld) [#/Vol] 281 10*3/uL Normal 150-400 [facility] Comment on above: Order Comment: Speci men Type: BLOOD SPECIMENOrdering Facility: [facility] Address: [address] [place] [address] Performed By: #### 5 7021-8 ####[facility] LABIA [id number] [place] [address] RBC (Bld) [#/Vol] 5.19 10*6/uL Normal 4.20-6.00 [facility] Comment on above: Order Comment: Speci men Type: BLOOD SPECIMENOrdering Facility: [facility] Address: [address] [place] [address] Performed By: #### 5 7021-8 ####[facility] LABIA [id number] [place] [address] WBC (Bld) [#/Vol] 5.50 10*3/uL Normal 3.70-11.00 [facility] Comment on above: Order Comment: Speci men Type: BLOOD SPECIMENOrdering Facility: [facility] Address: [address] [place] [address] Performed By: #### 5 7021-8 ####[facility] LABIA [id number] [place] [address] Comprehensive metabolic 2000 panelon 06-11-2023 Albumin [Mass/Vol] 4.3 g/dL Normal 3.9-4.9 [facility] Comment on above: Order Comment: Speci men Type: BLOOD SPECIMENOrdering Facility: [facility] Address: [address] [place] [address] Performed By: #### 2 4323-8 ####[facility] LABCLIA [id number] [place] [address] ALP [Catalytic activity/Vol] 88 U/L Normal 38-113 [facility] Comment on above: Order Comment: Speci men Type: BLOOD SPECIMENOrdering Facility: [facility] Address: [address] [place] [address] Performed By: #### 2 4323-8 ####[facility] LABCLIA [id number] [place] [address] ALT [Catalytic activity/Vol] 17 U/L Normal 10-54 [facility] Comment on above: Order Comment: Speci men Type: BLOOD SPECIMENOrdering Facility: [facility] Address: [address] [place] [address] Performed By: #### 2 4323-8 ####[facility] LABCLIA [id number] [place] [address] Anion gap [Moles/Vol] 10 mmol/L Normal 9-18 [facility] Comment on above: Order Comment: Speci men Type: BLOOD SPECIMENOrdering Facility: [facility] Address: [address] [place] [address] Performed By: #### 2 4323-8 ####[facility] LABCLIA [id number] [place] [address] AST [Catalytic activity/Vol] 19 U/L Normal 14-40 [facility] Comment on above: Order Comment: Speci men Type: BLOOD SPECIMENOrdering Facility: [facility] Address: [address] [place] [address] Performed By: #### 2 4323-8 ####[facility] LABCLIA [id number] [place] [address] Bilirubin [Mass/Vol] 0.4 mg/dL Normal 0.2-1.3 [facility] Comment on above: Order Comment: Speci men Type: BLOOD SPECIMENOrdering Facility: [facility] Address: [address] [place] [address] Performed By: #### 2 4323-8 ####[facility] LABCLIA [id number] [place] [address] Calcium [Mass/Vol] 9.7 mg/dL Normal 8.5-10.2 [facility] Comment on above: Order Comment: Speci men Type: BLOOD SPECIMENOrdering Facility: [facility] Address: [address] [place] [address] Performed By: #### 2 4323-8 ####[facility] LABCLIA [id number] [place] [address] Chloride [Moles/Vol] 105 mmol/L Normal 97-105 [facility] Comment on above: Order Comment: Speci men Type: BLOOD SPECIMENOrdering Facility: [facility] Address: [address] [place] [address] Performed By: #### 2 4323-8 ####[facility] LABCLIA [id number] [place] [address] CO2 [Moles/Vol] 27 mmol/L Normal 22-30 [facility] Comment on above: Order Comment: Speci men Type: BLOOD SPECIMENOrdering Facility: [facility] Address: [address] [place] [address] Performed By: #### 2 4323-8 ####[facility] LABCLIA [id number] [place] [address] Creatinine [Mass/Vol] 0.90 mg/dL Normal 0.73-1.22 [facility] Comment on above: Order Comment: Speci men Type: BLOOD SPECIMENOrdering Facility: [facility] Address: [address] [place] [address] Performed By: #### 2 4323-8 ####[facility] LABCLIA [id number] [place] [address] Creatinine and Glomerular filtration rate.predicted panel (S/P/Bld) 93 mL/min/1.73m??? Normal >=60 [facility] Comment on above: Order Comment: Annmarie craven Type: BLOOD SPECIMENOrdering Facility: [facility] Address: [address] [place] [address] Result Comment: Bouchra mated Glomerular Filtration Rate (eGFR) is calculated using the 2020 CKD-EPI creatinine equation. This equation utilizes serum creatinine, sex, and age as parameters. The creatinine assay has traceable calibration to isotope dilution-mass spectrometry. Refer to KDIGO guidelines for clinical interpretation. In patients with unstable renal function, e.g. those with acute kidney injury, the eGFR may not accurately reflect actual GFR. Performed By: #### 2 4323-8 ####[facility] LABCLIA [id number] [place] [address] Glucose [Mass/Vol] 98 mg/dL Normal 74-99 [facility] Comment on above: Order Comment: Annmarie craven Type: BLOOD SPECIMENOrdering Facility: [facility] Address: [address] [place] [address] Result Comment: The [place] Diabetes Association (ADA) provides guidance for cutoff values for fasting glucose and random glucose. The ADA defines fasting as no caloric intake for at least 8 hours. Fasting plasma glucose results between 100 to 125 mg/dL indicate increased risk for diabetes (prediabetes). Fasting plasma glucose results greater than or equal to 126 mg/dL meet the criteria for diagnosis of diabetes. In the absence of unequivocal hyperglycemia, results should be confirmed by repeat testing. In a patient with classic symptoms of hyperglycemia or hyperglycemic crisis, random plasma glucose results greater than or equal to 200 mg/dL meet the criteria for diagnosis of diabetes. Reference: Standards of Medical Care in Diabetes 2016, [place] Diabetes Association. Diabetes Care. 2016.39(Suppl 1). Performed By: #### 2 4323-8 ####[facility] LABCLIA [id number] [place] [address] Potassium [Moles/Vol] 4.5 mmol/L Normal 3.7-5.1 [facility] Comment on above: Order Comment: Annmarie craven Type: BLOOD SPECIMENOrdering Facility: [facility] Address: [address] [place] [address] Performed By: #### 2 4323-8 ####[facility] LABCLIA [id number] [place] [address] Protein [Mass/Vol] 7.4 g/dL Normal 6.3-8.0 [facility] Comment on above: Order Comment: Speci men Type: BLOOD SPECIMENOrdering Facility: [facility] Address: [address] [place] [address] Performed By: #### 2 4323-8 ####[facility] LABCLIA [id number] [place] [address] Sodium [Moles/Vol] 142 mmol/L Normal 136-144 [facility] Comment on above: Order Comment: Speci men Type: BLOOD SPECIMENOrdering Facility: [facility] Address: [address] [place] [address] Performed By: #### 2 4323-8 ####[facility] LABCLIA [id number] [place] [address] Urea nitrogen [Mass/Vol] 21 mg/dL Normal 9-24 [facility] Comment on above: Order Comment: Speci men Type: BLOOD SPECIMENOrdering Facility: [facility] Address: [address] [place] [address] Performed By: #### 2 4323-8 ####[facility] LABCLIA [id number] [place] [address] Ferritin [facility] Ferritin [Mass/Vol] 54.3 ng/mL Normal 30.3-565.7 [facility] Comment on above: Order Comment: Speci men Type: BLOOD SPECIMENOrdering Facility: [facility] Address: [address] [place] [address] Performed By: #### 5 0190-8, 2132-9, 2276-4, 2284-8 ####[facility] LABCLIA [id number] [place] [address] [place] Folate SerPl-mCncon 06-11-19 Folate [Mass/Vol] 12.7 ng/mL Normal >4.7 [facility] Comment on above: Order Comment: Speci men Type: BLOOD SPECIMENOrdering Facility: [facility] Address: [address] [place] [address] Performed By: #### 5 0190-8, 9, 2275-08, 2283-12 ####[facility] LABCLIA [id number] [place] [address] [place] Iron and Iron binding capaci ty panelon 06-11-2023 Iron [Mass/Vol] 39 ug/dL Low 41-186 [facility] Comment on above: Order Comment: Speci men Type: BLOOD SPECIMENOrdering Facility: [facility] Address: [address] [place] [address] Performed By: #### 5 0190-8, 9, 2275-08, 2283-12 ####[facility] LABIA [id number] [place] [address] [place] Iron binding capacity [Mass/Vol] 420 ug/dL High 232-386 [facility] Comment on above: Order Comment: Speci men Type: BLOOD SPECIMENOrdering Facility: [facility] Address: [address] [place] [address] Performed By: #### 5 0190-8, 9, 2275-08, 2283-12 ####[facility] LABIA [id number] [place] [id number] [place] Iron/TIBC [Molar ratio] 9.3 % Low 15.0-57.0 [facility] Comment on above: Order Comment: Speci men Type: BLOOD SPECIMENOrdering Facility: [facility] Address: [address] [place] [address] Performed By: #### 5 0190-8, 9, 2275-08, 2283-12 ####[facility] LABCLIA [id number] [place] [address] [place] Vit B12 [facility] 01-18-2 024 Cobalamin (Vitamin B12) [Mass/Vol] 527 pg/mL Normal 232-1245 [facility] Comment on above: Order Comment: Speci men Type: BLOOD SPECIMENOrdering Facility: [facility] Address: [address] [place] [address] Performed By: #### 5 0190-8, 2132-9, 2276-4, 2284-8 ####[facility] LABCLIA [id number] [place] [address] [place] CBC W Auto Differential pane l (Bld)on 05-21-2023 Basophils (Bld) [#/Vol] 10*3/uL Normal <0.11 [facility] Comment on above: Order Comment: Speci men Type: BLOOD SPECIMENOrdering Facility: [facility] Address: [address] [place] [address] Performed By: #### 5 7021-8 ####[facility] LABIA [id number] [place] [address] Basophils/100 WBC (Bld) 0.5 % Normal [facility] Comment on above: Order Comment: Speci men Type: BLOOD SPECIMENOrdering Facility: [facility] Address: [address] [place] [address] Performed By: #### 5 7021-8 ####[facility] LABCLIA [id number] [place] [address] Differential cell count method Nom (Bld) Auto Normal [facility] Comment on above: Order Comment: Speci men Type: BLOOD SPECIMENOrdering Facility: [facility] Address: [address] [place] [address] Performed By: #### 5 7021-8 ####[facility] LABCLIA [id number] [place] [address] Eosinophils (Bld) [#/Vol] 0.14 10*3/uL Normal <0.46 [facility] Comment on above: Order Comment: Speci men Type: BLOOD SPECIMENOrdering Facility: [facility] Address: [address] [place] [address] Performed By: #### 5 7021-8 ####[facility] LABCLIA [id number] [place] [address] Eosinophils/100 WBC (Bld) 3.5 % Normal [facility] Comment on above: Order Comment: Speci men Type: BLOOD SPECIMENOrdering Facility: [facility] Address: [address] [place] [address] Performed By: #### 5 7021-8 ####[facility] LABCLIA [id number] [place] [address] Erythrocyte distribution width (RBC) [Ratio] 19.9 % High 11.5-15.0 [facility] Comment on above: Order Comment: Speci men Type: BLOOD SPECIMENOrdering Facility: [facility] Address: [address] [place] [address] Performed By: #### 5 7021-8 ####[facility] LABCLIA [id number] [place] [address] Hematocrit (Bld) [Volume fraction] 39.6 % Normal 39.0-51.0 [facility] Comment on above: Order Comment: Speci men Type: BLOOD SPECIMENOrdering Facility: [facility] Address: [address] [place] [address] Performed By: #### 5 7021-8 ####[facility] LABCLIA [id number] [place] [address] Hemoglobin (Bld) [Mass/Vol] 12.0 g/dL Low 13.0-17.0 [facility] Comment on above: Order Comment: Speci men Type: BLOOD SPECIMENOrdering Facility: [facility] Address: [address] [place] [address] Performed By: #### 5 7021-8 ####[facility] LABCLIA [id number] [place] [address] Immature granulocytes (Bld) [#/Vol] 10*3/uL Normal <0.10 [facility] Comment on above: Order Comment: Speci men Type: BLOOD SPECIMENOrdering Facility: [facility] Address: [address] [place] [address] Performed By: #### 5 7021-8 ####[facility] LABCLIA [id number] [place] [address] Immature granulocytes/100 WBC (Bld) 0.5 % Normal [facility] Comment on above: Order Comment: Speci men Type: BLOOD SPECIMENOrdering Facility: [facility] Address: [address] [place] [address] Performed By: #### 5 7021-8 ####[facility] LABCLIA [id number] [place] [address] Lymphocytes (Bld) [#/Vol] 1.33 10*3/uL Normal 1.00-4.00 [facility] Comment on above: Order Comment: Speci men Type: BLOOD SPECIMENOrdering Facility: [facility] Address: [address] [place] [address] Performed By: #### 5 7021-8 ####[facility] LABCLIA [id number] [place] [address] Lymphocytes/100 WBC (Bld) 33.6 % Normal [facility] Comment on above: Order Comment: Speci men Type: BLOOD SPECIMENOrdering Facility: [facility] Address: [address] [place] [address] Performed By: #### 5 7021-8 ####[facility] LABCLIA [id number] [place] [address] MCH (RBC) [Entitic mass] 24.6 pg Low 26.0-34.0 [facility] Comment on above: Order Comment: Speci men Type: BLOOD SPECIMENOrdering Facility: [facility] Address: [address] [place] [address] Performed By: #### 5 7021-8 ####[facility] LABCLIA [id number] [place] [address] MCHC (RBC) [Mass/Vol] 30.3 g/dL Low 30.5-36.0 [facility] Comment on above: Order Comment: Speci men Type: BLOOD SPECIMENOrdering Facility: [facility] Address: [address] [place] [address] Performed By: #### 5 7021-8 ####[facility] LABCLIA [id number] [place] [address] MCV (RBC) [Entitic vol] 81.3 fL Normal 80.0-100.0 [facility] Comment on above: Order Comment: Speci men Type: BLOOD SPECIMENOrdering Facility: [facility] Address: [address] [place] [address] Performed By: #### 5 7021-8 ####[facility] LABCLIA [id number] [place] [address] Monocytes (Bld) [#/Vol] 0.38 10*3/uL Normal <0.87 [facility] Comment on above: Order Comment: Speci men Type: BLOOD SPECIMENOrdering Facility: [facility] Address: [address] [place] [address] Performed By: #### 5 7021-8 ####[facility] LABCLIA [id number] [place] [address] Monocytes/100 WBC (Bld) 9.6 % Normal [facility] Comment on above: Order Comment: Speci men Type: BLOOD SPECIMENOrdering Facility: [facility] Address: [address] [place] [address] Performed By: #### 5 7021-8 ####[facility] LABCLIA [id number] [place] [address] Neutrophils (Bld) [#/Vol] 2.07 10*3/uL Normal 1.45-7.50 [facility] Comment on above: Order Comment: Speci men Type: BLOOD SPECIMENOrdering Facility: [facility] Address: [address] [place] [address] Performed By: #### 5 7021-8 ####[facility] LABCLIA [id number] [place] [address] Neutrophils/100 WBC (Bld) 52.3 % Normal [facility] Comment on above: Order Comment: Speci men Type: BLOOD SPECIMENOrdering Facility: [facility] Address: [address] [place] [address] Performed By: #### 5 7021-8 ####[facility] LABCLIA [id number] [place] [address] Nucleated RBC (Bld) [#/Vol] 10*3/uL Normal <0.01 [facility] Comment on above: Order Comment: Speci men Type: BLOOD SPECIMENOrdering Facility: [facility] Address: [address] [place] [address] Performed By: #### 5 7021-8 ####[facility] LABCLIA [id number] [place] [address] Nucleated RBC/100 WBC (Bld) [Ratio] 0.0 /100 WBC Normal [facility] Comment on above: Order Comment: Speci men Type: BLOOD SPECIMENOrdering Facility: [facility] Address: [address] [place] [address] Performed By: #### 5 7021-8 ####[facility] LABCLIA [id number] [place] [address] Platelet mean volume (Bld) [Entitic vol] 9.4 fL Normal 9.0-12.7 [facility] Comment on above: Order Comment: Speci men Type: BLOOD SPECIMENOrdering Facility: [facility] Address: [address] [place] [address] Performed By: #### 5 7021-8 ####[facility] LABIA [id number] [place] [address] Platelets (Bld) [#/Vol] 280 10*3/uL Normal 150-400 [facility] Comment on above: Order Comment: Speci men Type: BLOOD SPECIMENOrdering Facility: [facility] Address: [address] [place] [address] Performed By: #### 5 7021-8 ####[facility] LABIA [id number] [place] [address] RBC (Bld) [#/Vol] 4.87 10*6/uL Normal 4.20-6.00 [facility] Comment on above: Order Comment: Speci men Type: BLOOD SPECIMENOrdering Facility: [facility] Address: [address] [place] [address] Performed By: #### 5 7021-8 ####[facility] [id number] [place] [address] WBC (Bld) [#/Vol] 3.96 10*3/uL Normal 3.70-11.00 [facility] Comment on above: Order Comment: Speci men Type: BLOOD SPECIMENOrdering Facility: [facility] Address: [address] [place] [address] Performed By: #### 5 7021-8 ####[facility] [id number] [place] [address] CNOVSPon 05-21-2023 CNOVS Visit (SP) Office ([facility]) JC CAMACHO ([id number]) 1955 M Date Time Provider Department 05/21/23 8:30 AM IMMANUEL OSORIO During your visit today, we recorded the following information about you: Temperature Pulse Respiration Blood pressure 98.3 degrees 85/minute 16/minute 146/73 Weight Height 111.6 kg 1.803 m Immanuel Osorio MD 05/22/2023 8:15 AM Signed NAME: Jc Camacho CLINIC NO.: [id number] DATE OF SERVICE: May 21, 2023 (Amber) Some elements in this clinic note that are critical to medical decision making have been carefully reviewed and included from a prior clinic note dated: April 30, 2023 (Amber). 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 Given extent of disease, he will need immunotherapy with BCG. Anemia - Appears to be improving with iron replacement. PLAN: Continue BCG weekly as scheduled x 6 next week. On last day of BCG on , draw anemia labs. 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 Satellite tumors noted adjacent to the mass on the floor of the bladder. 02/25/2023 - CT abdomen pelvis without contrast: hyperdense mass measuring 4.7 x 3.5 x 2.7 cm in the bladder. Bilateral renal parapelvic cysts. Updated Visit, May 21, 2023: Jc returns today with his Snehal. He denies any problems since starting the BCG. Reviewed his labs, his anemia appears to be improving. We discussed taking his iron supplements with water or something acidic, as opposed to something like milk that will neutralize the acid in his stomach. Discussed surveillance plans once he finishes last BCG, he will need maintenance doses around September and November. Reports he has been dealing with a cough the past few weeks and is planning to discuss with his PCP, not a productive cough. Taking Robitussin-D and feels he has gotten a little better, Snehal disagrees and thinks he has sounded the same. Initial Visit, April 30, 2023: Jc Camacho presents today accompanied by his Snehal for Hematology and Oncology evaluation. He is a 68 year old male who first noticed a large amount of bleeding in his urine for the first time back in early February 2023. He had a catheter placed at the ER, which was removed on 03/03 after his cystoscopy. The day before Thanksgiving on 04/15, he ended up in the ER due to the presence of blood once again. He needed a catheter due to clotting. Starting 04/21, he has not had any bleeding and has had the cath removed. Reports exposure to many different chemicals through his work even with extended efforts to maximize efficiency of PPE. He also had significant exposure to asbestos due to taking care of that with work too. We reviewed his labs, he is slightly anemic. This is likely as a result of the bleeding in his urine. 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 - REVIEW OF SYSTEMS Per HPI and otherwise negative by full review of organ systems. - ECOG PERFORMANCE STATUS: 0 PHYSICAL EXAMINATION: Vitals: BP 146/73 Pulse 85 Temp (Src) 98.3 (Temporal) Resp 16 Ht 5' 10.984 (1.80m) Wt 246 lb 0.5 oz (111.6kg) SpO2 96% BMI 34.33 kg/(m2). Body surface area is 2.36 meters squared. Exam limited to gross visualization where appropriate. Gen.: This is an age-appropriate patient in no acute distress. Head: Appears atraumatic with no visible lesions. Eyes: Pupils equally round and reactive to light, extraocular muscles are intact. Neck: Supple. Respiratory: Appears to be respiring comfortably. Neurologic: Nonfocal to gross visualization. Alert and oriented ?3. Psychiatric: No evidence of inappropriate anxiety or depression. Skin: Visible areas of skin without rash, lesions, wounds or petechiae. - ALLERGIES: ALLERGIES No Known Allergies MED (more content not included)... Normal [facility] Comprehensive metabolic 2000 panelon 05-21-2023 Albumin [Mass/Vol] 4.0 g/dL Normal 3.9-4.9 [facility] Comment on above: Order Comment: Speci men Type: BLOOD SPECIMENOrdering Facility: [facility] Address: [address] [place] [address] Performed By: #### 2 4323-8 ####[facility] LABCLIA [id number] [place] [address] ALP [Catalytic activity/Vol] 114 U/L High 38-113 [facility] Comment on above: Order Comment: Speci men Type: BLOOD SPECIMENOrdering Facility: [facility] Address: [address] [place] [address] Performed By: #### 2 4323-8 ####[facility] LABCLIA [id number] [place] [address] ALT [Catalytic activity/Vol] 39 U/L Normal 10-54 [facility] Comment on above: Order Comment: Speci men Type: BLOOD SPECIMENOrdering Facility: [facility] Address: [address] [place] [address] Performed By: #### 2 4323-8 ####[facility] LABCLIA [id number] [place] [address] Anion gap [Moles/Vol] 11 mmol/L Normal 9-18 [facility] Comment on above: Order Comment: Speci men Type: BLOOD SPECIMENOrdering Facility: [facility] Address: [address] [place] [address] Performed By: #### 2 4323-8 ####[facility] LABCLIA [id number] [place] [address] AST [Catalytic activity/Vol] 46 U/L High 14-40 [facility] Comment on above: Order Comment: Speci men Type: BLOOD SPECIMENOrdering Facility: [facility] Address: [address] [place] [address] Performed By: #### 2 4323-8 ####[facility] LABCLIA [id number] [place] [address] Bilirubin [Mass/Vol] 0.2 mg/dL Normal 0.2-1.3 [facility] Comment on above: Order Comment: Speci men Type: BLOOD SPECIMENOrdering Facility: [facility] Address: [address] [place] [address] Performed By: #### 2 4323-8 ####[facility] LABCLIA [id number] [place] [address] Calcium [Mass/Vol] 9.1 mg/dL Normal 8.5-10.2 [facility] Comment on above: Order Comment: Speci men Type: BLOOD SPECIMENOrdering Facility: [facility] Address: [address] [place] [address] Performed By: #### 2 4323-8 ####[facility] LABCLIA [id number] [place] [address] Chloride [Moles/Vol] 104 mmol/L Normal 97-105 [facility] Comment on above: Order Comment: Speci men Type: BLOOD SPECIMENOrdering Facility: [facility] Address: [address] [place] [address] Performed By: #### 2 4323-8 ####[facility] LABCLIA [id number] [place] [address] CO2 [Moles/Vol] 26 mmol/L Normal 22-30 [facility] Comment on above: Order Comment: Speci men Type: BLOOD SPECIMENOrdering Facility: [facility] Address: [address] [place] [address] Performed By: #### 2 4323-8 ####[facility] LABCLIA [id number] [place] [address] Creatinine [Mass/Vol] 0.84 mg/dL Normal 0.73-1.22 [facility] Comment on above: Order Comment: Speci men Type: BLOOD SPECIMENOrdering Facility: [facility] Address: [address] [place] [address] Performed By: #### 2 4323-8 ####[facility] LABCLIA [id number] [place] [address] Creatinine and Glomerular filtration rate.predicted panel (S/P/Bld) 95 mL/min/1.73m??? Normal >=60 [facility] Comment on above: Order Comment: Speci men Type: BLOOD SPECIMENOrdering Facility: [facility] Address: [address] [place] [address] Result Comment: Bouchra mated Glomerular Filtration Rate (eGFR) is calculated using the 2020 CKD-EPI creatinine equation. This equation utilizes serum creatinine, sex, and age as parameters. The creatinine assay has traceable calibration to isotope dilution-mass spectrometry. Refer to KDIGO guidelines for clinical interpretation. In patients with unstable renal function, e.g. those with acute kidney injury, the eGFR may not accurately reflect actual GFR. Performed By: #### 2 4323-8 ####[facility] LABCLIA [id number] [place] [address] Glucose [Mass/Vol] 208 mg/dL High 74-99 [facility] Comment on above: Order Comment: Annmarie craven Type: BLOOD SPECIMENOrdering Facility: [facility] Address: [address] [place] [id number] Result Comment: The [place] Diabetes [employer] (ADA) provides guidance for cutoff values for fasting glucose and random glucose. The ADA defines fasting as no caloric intake for at least 8 hours. Fasting plasma glucose results between 100 to 125 mg/dL indicate increased risk for diabetes (prediabetes). Fasting plasma glucose results greater than or equal to 126 mg/dL meet the criteria for diagnosis of diabetes. In the absence of unequivocal hyperglycemia, results should be confirmed by repeat testing. In a patient with classic symptoms of hyperglycemia or hyperglycemic crisis, random plasma glucose results greater than or equal to 200 mg/dL meet the criteria for diagnosis of diabetes. Reference: Standards of Medical Care in Diabetes 2016, [place] [employer]. Diabetes Care. 2016.39(Suppl 1). Performed By: #### 2 4323-8 ####[facility] LABCLIA [id number] [place] [address] Potassium [Moles/Vol] 4.0 mmol/L Normal 3.7-5.1 [facility] Comment on above: Order Comment: Annmarie craven Type: BLOOD SPECIMENOrdering Facility: [facility] Address: [address] [place] [address] Performed By: #### 2 4323-8 ####[facility] LABCLIA [id number] [place] [address] Protein [Mass/Vol] 7.1 g/dL Normal 6.3-8.0 [facility] Comment on above: Order Comment: Annmarie craven Type: BLOOD SPECIMENOrdering Facility: [facility] Address: [address] [place] [address] Performed By: #### 2 4323-8 ####[facility] [facility] [id number] [place] [address] Sodium [Moles/Vol] 141 mmol/L Normal 136-144 [facility] Comment on above: Order Comment: Speci men Type: BLOOD SPECIMENOrdering Facility: [facility] Address: [address] [place] [address] Performed By: #### 2 4323-8 ####[facility] LABCLIA [id number] [place] [address] Urea nitrogen [Mass/Vol] 20 mg/dL Normal 9-24 [facility] Comment on above: Order Comment: Speci men Type: BLOOD SPECIMENOrdering Facility: [facility] Address: [address] [place] [address] Performed By: #### 2 4323-8 ####[facility] LABCLIA [id number] [place] [address] [place] 05-14-2023 CNPN Telephone (HEMTSA) JC CAMACHO ([id number]) 1955 M Date Time Provider Department 05/14/23 FINANCIAL NAVIGATOR TY HEMTSA During your visit today, we recorded the following information about you: Cb Roberto 05/14/2023 9:29 AM Signed Patient on 1st time treatment. Patient getting BCG treatment (non chemo) Patient holds medicare coverage with supplement. No financial liability at this time. Allergies As of Date: 05/14/2023 (No Known Allergies) Date Reviewed: 05/07/2023 Reviewed by: Taylor Tovar RN - Fully Assessed Reason for Visit: Benefits Investigation [3758] Prescriptions as of 05/14/2023 - pravastatin (PRAVACHOL) 40 mg tablet TAKE 1 TABLET BY MOUTH EVERY DAY AT THE SAME TIME - omega-3 DHA-EPA (FISH OIL) 1,200 (144-216) mg capsule 1 capsule. Problem List As Of Date: 05/14/2023 (None) Encounter Status:Closed by CB ROBERTO on 05/14/23 [facility] 05-11-2023 CNPN Telephone (HEMASA) JC CAMACHO ([id number]) 1955 M Date Time Provider Department 05/11/23 ISAÍAS LEMON During your visit today, we recorded the following information about you: Isaías Lemon RN 05/11/2023 3:46 PM Signed CYCLE 1/DAY 1 POST TREATMENT CALL Today's date: May 11, 2023 Treatment Regimen: BCG C1D1 Date: 05/07/23 Called patient to follow-up on symptom management. Spoke with patient. SYMPTOM ASSESSMENT Neuro: None CV/Resp: None GI/: Bladder/Urinary Changes: None Integument: None Activity: Patient reported no changes in energy level, energy level good Pain: No=0 (pain 0 on a scale of 0-10). Fever: No Chills: No Any new referrals needed? No Reinforced CURRENT treatment education based on current and anticipated symptoms. Discussed port/line care and patient verbalizes understanding: Not Applicable Patient instructed to contact office or after hours Hematology/Oncology fellow for: temperature ? 100.4; questions or concerns. Patient verbalized understanding of when to seek medical attention and after hours number protocol. Isaías Lemon RN Allergies As of Date: 05/11/2023 (No Known Allergies) Date Reviewed: 05/07/2023 Reviewed by: [place] Tovar RN - Fully Assessed Reason for Visit: Care Coordination [8704] Cmt: C1D1 Post Treatment Call Prescriptions as of 05/11/2023 - pravastatin (PRAVACHOL) 40 mg tablet TAKE 1 TABLET BY MOUTH EVERY DAY AT THE SAME TIME - omega-3 DHA-EPA (FISH OIL) 1,200 (144-216) mg capsule 1 capsule. Problem List As Of Date: 05/11/2023 (None) Encounter Status:Closed by ISAÍAS LEMON on 05/11/23 [facility] [place] 05-08-2023 CNPN Telephone (HEMASA) JC CAMACHO ([id number]) 1955 M Date Time Provider Department 05/08/23 ELLYN OROURKE HEMASA During your visit today, we recorded the following information about you: Ellyn Orourke RN 05/08/2023 3:38 PM Signed ----- Message from Immanuel Osorio MD sent at 05/08/2023 3:30 PM EST ----- He needs iron infusions weekly with BCG. Or if he wants to try oral iron first. Needs iron studies when he returns Ellyn Orourke RN 05/08/2023 3:41 PM Signed KIKI: Pt wants to try oral first. He will get the OTC and start KARLENE. When do you want the levels rechecked? With labs 05/14 or your visit appt? CHRISTINA Cárdenas Vivek, MD 05/09/2023 10:08 AM Signed Just CBC on return with me I'll order next set of labs for 3 months.. Allergies As of Date: 05/08/2023 (No Known Allergies) Date Reviewed: 05/07/2023 Reviewed by: [place] Tovar RN - Fully Assessed Reason for Visit: Results [95] Primary Visit Diagnosis:Malignant neoplasm of overlapping sites of bladder (HCC) [C67.8] Other Visit Diagnosis:Iron deficiency anemia due to chronic blood loss [D50.0] Order(s):CBC + DIFF [SQCBCDIF] Order #: [id number] FUTURE COMP METABOLIC PANEL [SQCMP] Order #: [id number] FUTURE IRON + TIBC [SQIRON] Order #: [id number] FUTURE FERRITIN BLD [SQFERR] Order #: [id number] FUTURE VITAMIN B12 BLOOD [SQB12] Order #: [id number] FUTURE FOLATE SERUM [SQSERFOL] Order #: [id number] FUTURE Prescriptions as of 05/11/2023 - pravastatin (PRAVACHOL) 40 mg tablet TAKE 1 TABLET BY MOUTH EVERY DAY AT THE SAME TIME - omega-3 DHA-EPA (FISH OIL) 1,200 (144-216) mg capsule 1 capsule. Problem List As Of Date: 05/08/2023 (None) Encounter Status:Closed by ELLYN OROURKE on 05/11/23 Normal [facility] CBC W Auto Differential pane l (Bld)on 05-07-2023 Basophils (Bld) [#/Vol] 10*3/uL Normal <0.11 [facility] Comment on above: Order Comment: Speci men Type: BLOOD SPECIMENOrdering Facility: [facility] Address: [address] [place] [address] Performed By: #### 5 7021-8 ####[facility]CLIA [id number] [place] [address] Basophils/100 WBC (Bld) 0.4 % Normal [facility] Comment on above: Order Comment: Speci men Type: BLOOD SPECIMENOrdering Facility: [facility] Address: [address] [place] [address] Performed By: #### 5 7021-8 ####[facility]CLIA [id number] [place] [address] Differential cell count method Nom (Bld) Auto Normal [facility] Comment on above: Order Comment: Speci men Type: BLOOD SPECIMENOrdering Facility: [facility] Address: [address] [place] [address] Performed By: #### 5 7021-8 ####[facility]CLIA [id number] [place] [address] Eosinophils (Bld) [#/Vol] 0.13 10*3/uL Normal <0.46 [facility] Comment on above: Order Comment: Speci men Type: BLOOD SPECIMENOrdering Facility: [facility] Address: [address] [place] [address] Performed By: #### 5 7021-8 ####[facility]CL[facility] [id number] [place] [address] Eosinophils/100 WBC (Bld) 2.9 % Normal [facility] Comment on above: Order Comment: Speci men Type: BLOOD SPECIMENOrdering Facility: [facility] Address: [address] [place] [address] Performed By: #### 5 7021-8 ####[facility]CLIA [id number] [place] [address] Erythrocyte distribution width (RBC) [Ratio] 17.0 % High 11.5-15.0 [facility] Comment on above: Order Comment: Speci men Type: BLOOD SPECIMENOrdering Facility: [facility] Address: [address] [place] [address] Performed By: #### 5 7021-8 ####[facility]CLIA [id number] [place] [address] Hematocrit (Bld) [Volume fraction] 36.5 % Low 39.0-51.0 [facility] Comment on above: Order Comment: Speci men Type: BLOOD SPECIMENOrdering Facility: [facility] Address: [address] [place] [address] Performed By: #### 5 7021-8 ####[facility]CL[facility] [id number] [place] [address] Hemoglobin (Bld) [Mass/Vol] 11.1 g/dL Low 13.0-17.0 [facility] Comment on above: Order Comment: Speci men Type: BLOOD SPECIMENOrdering Facility: [facility] Address: [address] [place] [address] Performed By: #### 5 7021-8 ####[facility]CL[facility] [id number] [place] [address] Immature granulocytes (Bld) [#/Vol] 10*3/uL Normal <0.10 [facility] Comment on above: Order Comment: Speci men Type: BLOOD SPECIMENOrdering Facility: [facility] Address: [address] [place] [address] Performed By: #### 5 7021-8 ####[facility]CL[facility] [id number] [place] [address] Immature granulocytes/100 WBC (Bld) 0.4 % Normal [facility] Comment on above: Order Comment: Speci men Type: BLOOD SPECIMENOrdering Facility: [facility] Address: [address] [place] [address] Performed By: #### 5 7021-8 ####[facility]CLIA [id number] [place] [address] Lymphocytes (Bld) [#/Vol] 1.35 10*3/uL Normal 1.00-4.00 [facility] Comment on above: Order Comment: Speci men Type: BLOOD SPECIMENOrdering Facility: [facility] Address: [address] [place] [address] Performed By: #### 5 7021-8 ####[facility]CL[facility] [id number] [place] [address] Lymphocytes/100 WBC (Bld) 29.6 % Normal [facility] Comment on above: Order Comment: Speci men Type: BLOOD SPECIMENOrdering Facility: [facility] Address: [address] [place] [address] Performed By: #### 5 7021-8 ####[facility]CLIA [id number] [place] [address] MCH (RBC) [Entitic mass] 23.6 pg Low 26.0-34.0 [facility] Comment on above: Order Comment: Speci men Type: BLOOD SPECIMENOrdering Facility: [facility] Address: [address] [place] [address] Performed By: #### 5 7021-8 ####[facility] LABIA [id number] [place] [address] MCHC (RBC) [Mass/Vol] 30.4 g/dL Low 30.5-36.0 [facility] Comment on above: Order Comment: Speci men Type: BLOOD SPECIMENOrdering Facility: [facility] Address: [address] [place] [address] Performed By: #### 5 7021-8 ####[facility] LABIA [id number] [place] [address] MCV (RBC) [Entitic vol] 77.5 fL Low 80.0-100.0 [facility] Comment on above: Order Comment: Speci men Type: BLOOD SPECIMENOrdering Facility: [facility] Address: [address] [place] [address] Performed By: #### 5 7021-8 ####[facility] LABIA [id number] [place] [address] Monocytes (Bld) [#/Vol] 0.39 10*3/uL Normal <0.87 [facility] Comment on above: Order Comment: Speci men Type: BLOOD SPECIMENOrdering Facility: [facility] Address: [address] [place] [address] Performed By: #### 5 7021-8 ####[facility] LABIA [id number] [place] [address] Monocytes/100 WBC (Bld) 8.6 % Normal [facility] Comment on above: Order Comment: Speci men Type: BLOOD SPECIMENOrdering Facility: [facility] Address: [address] [place], [place] [address] Performed By: #### 5 7021-8 ####[facility]CLIA [id number] [place] [address] Neutrophils (Bld) [#/Vol] 2.65 10*3/uL Normal 1.45-7.50 [facility] Comment on above: Order Comment: Speci men Type: BLOOD SPECIMENOrdering Facility: [facility] Address: [address] [place] [address] Performed By: #### 5 7021-8 ####[facility]CLIA [id number] [place] [address] Neutrophils/100 WBC (Bld) 58.1 % Normal [facility] Comment on above: Order Comment: Speci men Type: BLOOD SPECIMENOrdering Facility: [facility] Address: [address] [place] [address] Performed By: #### 5 7021-8 ####[facility]CLIA [id number] [place] [address] Nucleated RBC (Bld) [#/Vol] 10*3/uL Normal <0.01 [facility] Comment on above: Order Comment: Speci men Type: BLOOD SPECIMENOrdering Facility: [facility] Address: [address] [place] [address] Performed By: #### 5 7021-8 ####[facility]CLIA [id number] [place] [address] Nucleated RBC/100 WBC (Bld) [Ratio] 0.0 /100 WBC Normal [facility] Comment on above: Order Comment: Speci men Type: BLOOD SPECIMENOrdering Facility: [facility] Address: [address] [place] [address] Performed By: #### 5 7021-8 ####[facility]CLIA [id number] [place] [address] Platelet mean volume (Bld) [Entitic vol] 9.2 fL Normal 9.0-12.7 [facility] Comment on above: Order Comment: Speci men Type: BLOOD SPECIMENOrdering Facility: [facility] Address: [address] [place] [address] Performed By: #### 5 7021-8 ####[facility] LABIA [id number] [place] [address] Platelets (Bld) [#/Vol] 318 10*3/uL Normal 150-400 [facility] Comment on above: Order Comment: Speci men Type: BLOOD SPECIMENOrdering Facility: [facility] Address: [address] [place] [address] Performed By: #### 5 7021-8 ####[facility] [id number] [place] [address] RBC (Bld) [#/Vol] 4.71 10*6/uL Normal 4.20-6.00 [facility] Comment on above: Order Comment: Speci men Type: BLOOD SPECIMENOrdering Facility: [facility] Address: [address] [place] [address] Performed By: #### 5 7021-8 ####[facility] LABIA [id number] [place] [address] WBC (Bld) [#/Vol] 4.56 10*3/uL Normal 3.70-11.00 [facility] Comment on above: Order Comment: Speci men Type: BLOOD SPECIMENOrdering Facility: [facility] Address: [address] [place] [address] Performed By: #### 5 7021-8 ####[facility] LABIA [id number] [place] [address] Comprehensive metabolic 2000 panelon 05-07-2023 Albumin [Mass/Vol] 4.1 g/dL Normal 3.9-4.9 [facility] Comment on above: Order Comment: Speci men Type: BLOOD SPECIMENOrdering Facility: [facility] Address: [address] [place] [address] Performed By: #### 2 4323-8 ####[facility] LABCLIA [id number] [place] [address] ALP [Catalytic activity/Vol] 117 U/L High 38-113 [facility] Comment on above: Order Comment: Speci men Type: BLOOD SPECIMENOrdering Facility: [facility] Address: [address] [place] [address] Performed By: #### 2 4323-8 ####[facility] LABCLIA [id number] [place] [address] ALT [Catalytic activity/Vol] 31 U/L Normal 10-54 [facility] Comment on above: Order Comment: Speci men Type: BLOOD SPECIMENOrdering Facility: [facility] Address: [address] [place] [address] Performed By: #### 2 4323-8 ####[facility] LABCLIA [id number] [place] [address] Anion gap [Moles/Vol] 8 mmol/L Low 9-18 [facility] Comment on above: Order Comment: Speci men Type: BLOOD SPECIMENOrdering Facility: [facility] Address: [address] [place] [address] Performed By: #### 2 4323-8 ####[facility] LABCLIA [id number] [place] [address] AST [Catalytic activity/Vol] 29 U/L Normal 14-40 [facility] Comment on above: Order Comment: Speci men Type: BLOOD SPECIMENOrdering Facility: [facility] Address: [address] [place] [address] Performed By: #### 2 4323-8 ####[facility] LABCLIA [id number] [place] [address] Bilirubin [Mass/Vol] 0.2 mg/dL Normal 0.2-1.3 [facility] Comment on above: Order Comment: Speci men Type: BLOOD SPECIMENOrdering Facility: [facility] Address: [address] [place] [address] Performed By: #### 2 4323-8 ####[facility] LABCLIA [id number] [place] [address] Calcium [Mass/Vol] 8.9 mg/dL Normal 8.5-10.2 [facility] Comment on above: Order Comment: Speci men Type: BLOOD SPECIMENOrdering Facility: [facility] Address: [address] [place] [address] Performed By: #### 2 4323-8 ####[facility] LABCLIA [id number] [place] [address] Chloride [Moles/Vol] 105 mmol/L Normal 97-105 [facility] Comment on above: Order Comment: Speci men Type: BLOOD SPECIMENOrdering Facility: [facility] Address: [address] [place] [address] Performed By: #### 2 4323-8 ####[facility] LABCLIA [id number] [place] [address] CO2 [Moles/Vol] 26 mmol/L Normal 22-30 [facility] Comment on above: Order Comment: Speci men Type: BLOOD SPECIMENOrdering Facility: [facility] Address: [address] [place] [address] Performed By: #### 2 4323-8 ####[facility] LABCLIA [id number] [place] [address] Creatinine [Mass/Vol] 0.88 mg/dL Normal 0.73-1.22 [facility] Comment on above: Order Comment: Speci men Type: BLOOD SPECIMENOrdering Facility: [facility] Address: [address] [place] [address] Performed By: #### 2 4323-8 ####[facility] LABCLIA [id number] [place] [address] Creatinine and Glomerular filtration rate.predicted panel (S/P/Bld) 94 mL/min/1.73m??? Normal >=60 [facility] Comment on above: Order Comment: Annmarie craven Type: BLOOD SPECIMENOrdering Facility: [facility] Address: [place] [address] Result Comment: Bouchra mated Glomerular Filtration Rate (eGFR) is calculated using the 2020 CKD-EPI creatinine equation. This equation utilizes serum creatinine, sex, and age as parameters. The creatinine assay has traceable calibration to isotope dilution-mass spectrometry. Refer to KDIGO guidelines for clinical interpretation. In patients with unstable renal function, e.g. those with acute kidney injury, the eGFR may not accurately reflect actual GFR. Performed By: #### 2 4323-8 ####[facility] LABCLIA [id number] [place] [address] Glucose [Mass/Vol] 146 mg/dL High 74-99 [facility] Comment on above: Order Comment: Annmarie craven Type: BLOOD SPECIMENOrdering Facility: [facility] Address: [place] [address] Result Comment: The [place] Diabetes Association (ADA) provides guidance for cutoff values for fasting glucose and random glucose. The ADA defines fasting as no caloric intake for at least 8 hours. Fasting plasma glucose results between 100 to 125 mg/dL indicate increased risk for diabetes (prediabetes). Fasting plasma glucose results greater than or equal to 126 mg/dL meet the criteria for diagnosis of diabetes. In the absence of unequivocal hyperglycemia, results should be confirmed by repeat testing. In a patient with classic symptoms of hyperglycemia or hyperglycemic crisis, random plasma glucose results greater than or equal to 200 mg/dL meet the criteria for diagnosis of diabetes. Reference: Standards of Medical Care in Diabetes 2016, [place] Diabetes Association. Diabetes Care. 2016.39(Suppl 1). Performed By: #### 2 4323-8 ####[facility] LABCLIA [id number] [place] [address] Potassium [Moles/Vol] 4.1 mmol/L Normal 3.7-5.1 [facility] Comment on above: Order Comment: Annmarie craven Type: BLOOD SPECIMENOrdering Facility: [facility] Address: [address] [id number] Performed By: #### 2 4323-8 ####[facility] LABCLIA [id number] [place] [address] Protein [Mass/Vol] 7.3 g/dL Normal 6.3-8.0 [facility] Comment on above: Order Comment: Speci men Type: BLOOD SPECIMENOrdering Facility: [facility] Address: [address] [place] [address] Performed By: #### 2 4323-8 ####[facility] LABCLIA [id number] [place] [address] Sodium [Moles/Vol] 139 mmol/L Normal 136-144 [facility] Comment on above: Order Comment: Speci men Type: BLOOD SPECIMENOrdering Facility: [facility] Address: [address] [place] [address] Performed By: #### 2 4323-8 ####[facility] LABCLIA [id number] [place] [address] Urea nitrogen [Mass/Vol] 24 mg/dL Normal 9-24 [facility] Comment on above: Order Comment: Speci men Type: BLOOD SPECIMENOrdering Facility: [facility] Address: [address] [place] [address] Performed By: #### 2 4323-8 ####[facility] LABCLIA [id number] [place] [address] Ferritin SerPl-mCncon 2022 Ferritin [Mass/Vol] 31.2 ng/mL Normal 30.3-565.7 [facility] Comment on above: Order Comment: Speci men Type: BLOOD SPECIMENOrdering Facility: [facility] Address: [address] [place] [address] Performed By: #### 2 284-8, 35277-9, 2132-9, 2276-4 ####[facility] LABCLIA [id number] [place] [address] [address] [place] Folate SerPl-mCncon 05-07-20 Folate [Mass/Vol] 15.3 ng/mL Normal >4.7 [facility] Comment on above: Order Comment: Speci men Type: BLOOD SPECIMENOrdering Facility: [facility] Address: [address] [place] [address] Performed By: #### 2 284-8, 57650-2, 2132-9, 6-4 ####[facility] LABCLIA [id number] [place] [address] [place] Iron and Iron binding capaci panel 05-07-2023 Iron [Mass/Vol] 18 ug/dL Low 41-186 [facility] Comment on above: Order Comment: Speci men Type: BLOOD SPECIMENOrdering Facility: [facility] Address: [address] [place] [address] Performed By: #### 2 284-8, 18953-8, 2131-9, 6-4 ####[facility] LABCLIA [id number] [place] [address] [place] Iron binding capacity [Mass/Vol] 399 ug/dL High 232-386 [facility] Comment on above: Order Comment: Speci men Type: BLOOD SPECIMENOrdering Facility: [facility] Address: [address] [place] [address] Performed By: #### 2 284-8, 81157-9, 2131-9, 2275-4 ####[facility] LABCLIA [id number] [place] [address] [place] Iron/TIBC [Molar ratio] 4.5 % Low 15.0-57.0 [facility] Comment on above: Order Comment: Speci men Type: BLOOD SPECIMENOrdering Facility: [facility] Address: [address] [place] [address] Performed By: #### 2 284-8, 19469-1, 2132-9, 6-4 ####[facility] LABCLIA [id number] [place] [address] [place] Vit B12 [facility] 14-2 023 Cobalamin (Vitamin B12) [Mass/Vol] 984 pg/mL Normal 232-1245 [facility] Comment on above: Order Comment: Speci men Type: BLOOD SPECIMENOrdering Facility: [facility] Address: [address] [place] [address] Performed By: #### 2 284-8, 65707-0, 2132-9, 2276-4 ####[facility] LABCLIA [id number] [place] [address] [place] Consultation Noteon 05-05-20 Consultation Note [id number] .[id number] Normal [facility] Consent for Procedure/Surger yon 05-01-2023 Consent for Procedure/Surgery [id number] .[id number] Normal [facility] CBC W Auto Differential pane l (Bld)on 04-30-2023 Basophils (Bld) [#/Vol] 0.06 10*3/uL Normal <0.11 [facility] Comment on above: Order Comment: Speci men Type: BLOOD SPECIMENOrdering Facility: [facility] Address: [address] [place] [address] Performed By: #### 5 7021-8 ####[facility] LABCLIA [id number] [place] [address] Basophils/100 WBC (Bld) 0.6 % Normal [facility] Comment on above: Order Comment: Speci men Type: BLOOD SPECIMENOrdering Facility: [facility] Address: [address] [place] [address] Performed By: #### 5 7021-8 ####[facility] LABCLIA [id number] [place] [address] Differential cell count method Nom (Bld) Auto Normal [facility] Comment on above: Order Comment: Speci men Type: BLOOD SPECIMENOrdering Facility: [facility] Address: [address] [place] [address] Performed By: #### 5 7021-8 ####[facility] LABCLIA [id number] [place] [address] Eosinophils (Bld) [#/Vol] 0.15 10*3/uL Normal <0.46 [facility] Comment on above: Order Comment: Speci men Type: BLOOD SPECIMENOrdering Facility: [facility] Address: [address] [place] [address] Performed By: #### 5 7021-8 ####[facility] LABCLIA [id number] [place] [address] Eosinophils/100 WBC (Bld) 1.5 % Normal [facility] Comment on above: Order Comment: Speci men Type: BLOOD SPECIMENOrdering Facility: [facility] Address: [address] [place] [address] Performed By: #### 5 7021-8 ####[facility] LABCLIA [id number] [place] [address] Erythrocyte distribution width (RBC) [Ratio] 17.1 % High 11.5-15.0 [facility] Comment on above: Order Comment: Speci men Type: BLOOD SPECIMENOrdering Facility: [facility] Address: [address] [place] [address] Performed By: #### 5 7021-8 ####[facility] LABCLIA [id number] [place] [address] Hematocrit (Bld) [Volume fraction] 38.0 % Low 39.0-51.0 [facility] Comment on above: Order Comment: Speci men Type: BLOOD SPECIMENOrdering Facility: [facility] Address: [address] [place] [address] Performed By: #### 5 7021-8 ####[facility] LABCLIA [id number] [place] [address] Hemoglobin (Bld) [Mass/Vol] 11.9 g/dL Low 13.0-17.0 [facility] Comment on above: Order Comment: Speci men Type: BLOOD SPECIMENOrdering Facility: [facility] Address: [address] [place] [address] Performed By: #### 5 7021-8 ####[facility] LABCLIA [id number] [place] [address] Immature granulocytes (Bld) [#/Vol] 0.04 10*3/uL Normal <0.10 [facility] Comment on above: Order Comment: Speci men Type: BLOOD SPECIMENOrdering Facility: [facility] Address: [address] [place] [address] Performed By: #### 5 7021-8 ####[facility] LABCLIA [id number] [place] [address] Immature granulocytes/100 WBC (Bld) 0.4 % Normal [facility] Comment on above: Order Comment: Speci men Type: BLOOD SPECIMENOrdering Facility: [facility] Address: [address] [place] [address] Performed By: #### 5 7021-8 ####[facility] LABCLIA [id number] [place] [address] Lymphocytes (Bld) [#/Vol] 1.44 10*3/uL Normal 1.00-4.00 [facility] Comment on above: Order Comment: Speci men Type: BLOOD SPECIMENOrdering Facility: [facility] Address: [address] [place] [address] Performed By: #### 5 7021-8 ####[facility] LABCLIA [id number] [place] [address] Lymphocytes/100 WBC (Bld) 14.6 % Normal [facility] Comment on above: Order Comment: Speci men Type: BLOOD SPECIMENOrdering Facility: [facility] Address: [address] [place] [address] Performed By: #### 5 7021-8 ####[facility] LABCLIA [id number] [place] [address] MCH (RBC) [Entitic mass] 24.1 pg Low 26.0-34.0 [facility] Comment on above: Order Comment: Speci men Type: BLOOD SPECIMENOrdering Facility: [facility] Address: [address] [place] [address] Performed By: #### 5 7021-8 ####[facility] LABCLIA [id number] [place] [address] MCHC (RBC) [Mass/Vol] 31.3 g/dL Normal 30.5-36.0 [facility] Comment on above: Order Comment: Speci men Type: BLOOD SPECIMENOrdering Facility: [facility] Address: [address] [place] [address] Performed By: #### 5 7021-8 ####[facility] LABCLIA [id number] [place] [address] MCV (RBC) [Entitic vol] 77.1 fL Low 80.0-100.0 [facility] Comment on above: Order Comment: Speci men Type: BLOOD SPECIMENOrdering Facility: [facility] Address: [address] [place] [address] Performed By: #### 5 7021-8 ####[facility] LABCLIA [id number] [place] [address] Monocytes (Bld) [#/Vol] 0.91 10*3/uL High <0.87 [facility] Comment on above: Order Comment: Speci men Type: BLOOD SPECIMENOrdering Facility: [facility] Address: [address] [place] [address] Performed By: #### 5 7021-8 ####[facility] LABCLIA [id number] [place] [address] Monocytes/100 WBC (Bld) 9.2 % Normal [facility] Comment on above: Order Comment: Speci men Type: BLOOD SPECIMENOrdering Facility: [facility] Address: [address] [place] [address] Performed By: #### 5 7021-8 ####[facility] LABCLIA [id number] [place] [address] Neutrophils (Bld) [#/Vol] 7.26 10*3/uL Normal 1.45-7.50 [facility] Comment on above: Order Comment: Speci men Type: BLOOD SPECIMENOrdering Facility: [facility] Address: [address] [place] [address] Performed By: #### 5 7021-8 ####[facility] LABCLIA [id number] [place] [address] Neutrophils/100 WBC (Bld) 73.7 % Normal [facility] Comment on above: Order Comment: Speci men Type: BLOOD SPECIMENOrdering Facility: [facility] Address: [address] [place] [address] Performed By: #### 5 7021-8 ####[facility] LABCLIA [id number] [place] [address] Nucleated RBC (Bld) [#/Vol] 10*3/uL Normal <0.01 [facility] Comment on above: Order Comment: Speci men Type: BLOOD SPECIMENOrdering Facility: [facility] Address: [address] [place] [address] Performed By: #### 5 7021-8 ####[facility] LABCLIA [id number] [place] [address] Nucleated RBC/100 WBC (Bld) [Ratio] 0.0 /100 WBC Normal [facility] Comment on above: Order Comment: Speci men Type: BLOOD SPECIMENOrdering Facility: [facility] Address: [address] [place] [address] Performed By: #### 5 7021-8 ####[facility] LABCLIA [id number] [place] [address] Platelet mean volume (Bld) [Entitic vol] 9.5 fL Normal 9.0-12.7 [facility] Comment on above: Order Comment: Speci men Type: BLOOD SPECIMENOrdering Facility: [facility] Address: [address] [place] [address] Performed By: #### 5 7021-8 ####[facility] LABCLIA [id number] [place] [address] Platelets (Bld) [#/Vol] 293 10*3/uL Normal 150-400 [facility] Comment on above: Order Comment: Speci men Type: BLOOD SPECIMENOrdering Facility: [facility] Address: [address] [place] [address] Performed By: #### 5 7021-8 ####[facility] LABIA [id number] [place] [address] RBC (Bld) [#/Vol] 4.93 10*6/uL Normal 4.20-6.00 [facility] Comment on above: Order Comment: Speci men Type: BLOOD SPECIMENOrdering Facility: [facility] Address: [address] [place] [address] Performed By: #### 5 7021-8 ####[facility] LABCLIA [id number] [place] [address] WBC (Bld) [#/Vol] 9.86 10*3/uL Normal 3.70-11.00 [facility] Comment on above: Order Comment: Speci men Type: BLOOD SPECIMENOrdering Facility: [facility] Address: [address] [place] [address] Performed By: #### 5 7021-8 ####[facility] LABCLIA [id number] [place] [address] Basophils (Bld) [#/Vol] 0.06 10*3/uL <0.11 k/uL [facility] Basophils/100 WBC (Bld) 0.6 % [facility] Differential cell count method Nom (Bld) Auto [facility] Eosinophils (Bld) [#/Vol] 0.15 10*3/uL <0.46 k/uL [facility] Eosinophils/100 WBC (Bld) 1.5 % [facility] Erythrocyte distribution width (RBC) [Ratio] 17.1 % High 11.5 - 15.0 % [facility] Hematocrit (Bld) [Volume fraction] 38.0 % Low 39.0 - 51.0 % [facility] Hemoglobin (Bld) [Mass/Vol] 11.9 g/dL Low 13.0 - 17.0 g/dL [facility] Immature granulocytes (Bld) [#/Vol] 0.04 10*3/uL <0.10 k/uL [facility] Immature granulocytes/100 WBC (Bld) 0.4 % [facility] Lymphocytes (Bld) [#/Vol] 1.44 10*3/uL 1.00 - 4.00 k/uL [facility] Lymphocytes/100 WBC (Bld) 14.6 % [facility] MCH (RBC) [Entitic mass] 24.1 pg Low 26.0 - 34.0 pg [facility] MCHC (RBC) [Mass/Vol] 31.3 g/dL 30.5 - 36.0 g/dL [facility] MCV (RBC) [Entitic vol] 77.1 fL Low 80.0 - 100.0 fL [facility] Monocytes (Bld) [#/Vol] 0.91 10*3/uL High <0.87 k/uL [facility] Monocytes/100 WBC (Bld) 9.2 % [facility] Neutrophils (Bld) [#/Vol] 7.26 10*3/uL 1.45 - 7.50 k/uL [facility] Neutrophils/100 WBC (Bld) 73.7 % [facility] Nucleated RBC (Bld) [#/Vol] <0.01 k/uL [facility] Nucleated RBC/100 WBC (Bld) [Ratio] 0.0 /100 WBC [facility] Platelet mean volume (Bld) [Entitic vol] 9.5 fL 9.0 - 12.7 fL [facility] Platelets (Bld) [#/Vol] 293 10*3/uL 150 - 400 k/uL [facility] RBC (Bld) [#/Vol] 4.93 10*6/uL 4.20 - 6.0 0 m/uL [facility] WBC (Bld) [#/Vol] 9.86 10*3/uL 3.70 - 11. 00 k/uL [facility] CNOVSPon 04-30-2023 CNOVSP Visit (SP) Office ([place]) JC CAMACHO ([id number]) 1955 M Date Time Provider Department 04/30/23 3:45 PM IMMANUEL OSORIO During your visit today, we recorded the following information about you: Temperature Pulse Respiration Blood pressure 99.1 degrees 102/minute 18/minute 143/82 Weight Height 111.9 kg 1.803 m Immanuel Osorio MD 04/30/2023 8:05 PM Signed NAME: Jc Camacho [facility] NO.: [id number] DATE OF SERVICE: April 30, 2023 (Amber) Referring Provider: Soledad Sanders Consultation requested by Dr. Sanders for an opinion regarding Mr. Jc Camacho, and my final recommendations will be communicated back to the requesting physician by way of shared medical record or letter via US mail. 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 Given extent of disease, he will need immunotherapy with BCG. Will also evaluate cause of anemia - most likely due to significant bleeding from bladder tumor recently. PLAN: Start BCG weekly x 6 next week. Labs on day of start to include anemia labs. RTC with me the third week of BCG. CBC same day. 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 Satellite tumors noted adjacent to the mass on the floor of the bladder. 02/25/2023 - CT abdomen pelvis without contrast: hyperdense mass measuring 4.7 x 3.5 x 2.7 cm in the bladder. Bilateral renal parapelvic cysts. Initial Visit, April 30, 2023: Jc Camacho presents today accompanied by his Snehal for Hematology and Oncology evaluation. He is a 68 year old male who first noticed a large amount of bleeding in his urine for the first time back in early February 2023. He had a catheter placed at the ER, which was removed on 03/03 after his cystoscopy. The day before Thanksgiving on 04/15, he ended up in the ER due to the presence of blood once again. He needed a catheter due to clotting. Starting 04/21, he has not had any bleeding and has had the cath removed. Reports exposure to many different chemicals through his work even with extended efforts to maximize efficiency of PPE. He also had significant exposure to asbestos due to taking care of that with work too. We reviewed his labs, he is slightly anemic. This is likely as a result of the bleeding in his urine. 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 - REVIEW OF SYSTEMS Per HPI and otherwise negative by full review of organ systems. - ECOG PERFORMANCE STATUS: 0 PHYSICAL EXAMINATION: Vitals: BP 143/82 Pulse 102 Temp (Src) 99.1 (Temporal) Resp 18 Ht 5' 11 (1.80m) Wt 246 lb 12.8 oz (111.9kg) SpO2 95% BMI 34.44 kg/(m2). Body surface area is 2.37 meters squared. Exam limited to gross visualization where appropriate. Gen.: This is an age-appropriate patient in no acute distress. Head: Appears atraumatic with no visible lesions. Eyes: Pupils equally round and reactive to light, extraocular muscles are intact. Neck: Supple. Respiratory: Appears to be respiring comfortably. Neurologic: Nonfocal to gross visualization. Alert and oriented ?3. Psychiatric: No evidence of inappropriate anxiety or depression. Skin: Visible areas of skin without rash, lesions, wounds or petechiae. - ALLERGIES: ALLERGIES No Known Allergies MEDICATIONS: pravastatin (PRAVACHOL) 40 mg tablet TAKE 1 TABLET BY MOUTH EVERY DAY AT THE SAME TIME omega-3 DHA-EPA (FISH OIL) 1,200 (144-216) mg capsule 1 capsule. - LABORATORY VALUES: WBC (k/uL) Date Value 04/30/2023 9.86 RBC (m/uL) Date Value 04/30/2023 4.93 Hemoglobin (g/dL) Date Value 04/30/2023 11.9 (L) Hematocrit (%) Date Value 04/30/2023 38.0 (L) MCV (fL) Date Value 04/30/2023 77.1 (L) MCH (pg) Date Value 04/30/2023 24.1 (L) MCHC (g/dL) Date Value 04/30/2023 31. (more content not included)... Normal [facility] Comprehensive metabolic 2000 panelon 04-30-2023 Albumin [Mass/Vol] 4.4 g/dL Normal 3.9-4.9 [facility] Comment on above: Order Comment: Speci men Type: BLOOD SPECIMENOrdering Facility: [facility] Address: [address] [place] [address] Performed By: #### 2 4323-8 ####[facility] LABCLIA [id number] [place] [address] ALP [Catalytic activity/Vol] 106 U/L Normal 38-113 [facility] Comment on above: Order Comment: Speci men Type: BLOOD SPECIMENOrdering Facility: [facility] Address: [address] [place] [address] Performed By: #### 2 4323-8 ####[facility] LABCLIA [id number] [place] [address] ALT [Catalytic activity/Vol] 19 U/L Normal 10-54 [facility] Comment on above: Order Comment: Speci men Type: BLOOD SPECIMENOrdering Facility: [facility] Address: [address] [place] [address] Performed By: #### 2 4323-8 ####[facility] LABCLIA [id number] [place] [address] Anion gap [Moles/Vol] 9 mmol/L Normal 9-18 [facility] Comment on above: Order Comment: Speci men Type: BLOOD SPECIMENOrdering Facility: [facility] Address: [address] [place] [address] Performed By: #### 2 4323-8 ####[facility] LABCLIA [id number] [place] [address] AST [Catalytic activity/Vol] 22 U/L Normal 14-40 [facility] Comment on above: Order Comment: Speci men Type: BLOOD SPECIMENOrdering Facility: [facility] Address: [address] [place] [address] Performed By: #### 2 4323-8 ####[facility] LABCLIA [id number] [place] [address] Bilirubin [Mass/Vol] 0.4 mg/dL Normal 0.2-1.3 [facility] Comment on above: Order Comment: Speci men Type: BLOOD SPECIMENOrdering Facility: [facility] Address: [address] [place] [address] Performed By: #### 2 4323-8 ####[facility] LABCLIA [id number] [place] [address] Calcium [Mass/Vol] 9.4 mg/dL Normal 8.5-10.2 [facility] Comment on above: Order Comment: Speci men Type: BLOOD SPECIMENOrdering Facility: [facility] Address: [address] [place] [address] Performed By: #### 2 4323-8 ####[facility] LABCLIA [id number] [place] [address] Chloride [Moles/Vol] 104 mmol/L Normal 97-105 [facility] Comment on above: Order Comment: Speci men Type: BLOOD SPECIMENOrdering Facility: [facility] Address: [address] [place] [address] Performed By: #### 2 4323-8 ####[facility] LABCLIA [id number] [place] [address] CO2 [Moles/Vol] 27 mmol/L Normal 22-30 [facility] Comment on above: Order Comment: Speci men Type: BLOOD SPECIMENOrdering Facility: [facility] Address: [address] [place] [address] Performed By: #### 2 4323-8 ####[facility] LABCLIA [id number] [place] [address] Creatinine [Mass/Vol] 0.88 mg/dL Normal 0.73-1.22 [facility] Comment on above: Order Comment: Speci men Type: BLOOD SPECIMENOrdering Facility: [facility] Address: [address] [place] [address] Performed By: #### 2 4323-8 ####[facility] LABCLIA [id number] [place] [address] Creatinine and Glomerular filtration rate.predicted panel (S/P/Bld) 94 mL/min/1.73m??? Normal >=60 [facility] Comment on above: Order Comment: Trani herber Type: BLOOD SPECIMENOrdering Facility: [facility] Address: [address] [place] [address] Result Comment: Bouchra mated Glomerular Filtration Rate (eGFR) is calculated using the 2020 CKD-EPI creatinine equation. This equation utilizes serum creatinine, sex, and age as parameters. The creatinine assay has traceable calibration to isotope dilution-mass spectrometry. Refer to KDIGO guidelines for clinical interpretation. In patients with unstable renal function, e.g. those with acute kidney injury, the eGFR may not accurately reflect actual GFR. Performed By: #### 2 4323-8 ####[facility] LABCLIA [id number] [place] [address] Glucose [Mass/Vol] 115 mg/dL High 74-99 [facility] Comment on above: Order Comment: Annmarie craven Type: BLOOD SPECIMENOrdering Facility: [facility] Address: [address] [place] [address] Result Comment: The [place] Diabetes Association (ADA) provides guidance for cutoff values for fasting glucose and random glucose. The ADA defines fasting as no caloric intake for at least 8 hours. Fasting plasma glucose results between 100 to 125 mg/dL indicate increased risk for diabetes (prediabetes). Fasting plasma glucose results greater than or equal to 126 mg/dL meet the criteria for diagnosis of diabetes. In the absence of unequivocal hyperglycemia, results should be confirmed by repeat testing. In a patient with classic symptoms of hyperglycemia or hyperglycemic crisis, random plasma glucose results greater than or equal to 200 mg/dL meet the criteria for diagnosis of diabetes. Reference: Standards of Medical Care in Diabetes 2016, [place] Diabetes Association. Diabetes Care. 2016.39(Suppl 1). Performed By: #### 2 4323-8 ####[facility] LABCLIA [id number] [place] [address] Potassium [Moles/Vol] 4.2 mmol/L Normal 3.7-5.1 [facility] Comment on above: Order Comment: Speci men Type: BLOOD SPECIMENOrdering Facility: [facility] Address: [address] [place] [address] Performed By: #### 2 4323-8 ####[facility] LABCLIA [id number] [place] [address] Protein [Mass/Vol] 7.5 g/dL Normal 6.3-8.0 [facility] Comment on above: Order Comment: Speci men Type: BLOOD SPECIMENOrdering Facility: [facility] Address: [address] [place] [address] Performed By: #### 2 4323-8 ####[facility] LABCLIA [id number] [place] [address] Sodium [Moles/Vol] 140 mmol/L Normal 136-144 [facility] Comment on above: Order Comment: Speci men Type: BLOOD SPECIMENOrdering Facility: [facility] Address: [address] [place] [address] Performed By: #### 2 4323-8 ####[facility] LABCLIA [id number] [place] [address] Urea nitrogen [Mass/Vol] 28 mg/dL High 9-24 [facility] Comment on above: Order Comment: Speci men Type: BLOOD SPECIMENOrdering Facility: [facility] Address: [address] [place], [place] [address] [address] Performed By: #### 2 4323-8 ####[facility] LABCLIA [id number] [place] [address] Albumin [Mass/Vol] 4.4 g/dL 3.9 - 4.9 g/dL [facility] ALP [Catalytic activity/Vol] 106 U/L 38 - 113 U/L [facility] ALT [Catalytic activity/Vol] 19 U/L 10 - 54 U/L [facility] Anion gap [Moles/Vol] 9 mmol/L 9 - 18 mmol/L [facility] AST [Catalytic activity/Vol] 22 U/L 14 - 40 U/L [facility] Bilirubin [Mass/Vol] 0.4 mg/dL 0.2 - 1.3 mg/dL [facility] Calcium [Mass/Vol] 9.4 mg/dL 8.5 - 10. 2 mg/dL [facility] Chloride [Moles/Vol] 104 mmol/L 97 - 105 mmol/L [facility] CO2 [Moles/Vol] 27 mmol/L 22 - 30 mmol/L [facility] Creatinine [Mass/Vol] 0.88 mg/dL 0.73 - 1.22 mg/dL [facility] Estimated Glomerular Filtration Rate 94 mL/min/1.73m >=60 mL/min/1.73m [facility] Glucose [Mass/Vol] 115 mg/dL High 74 - 99 mg/dL [facility] Potassium [Moles/Vol] 4.2 mmol/L 3.7 - 5.1 mmol/L [facility] Protein [Mass/Vol] 7.5 g/dL 6.3 - 8.0 g/dL [facility] Sodium [Moles/Vol] 140 mmol/L 136 - 144 mmol/L [facility] Urea nitrogen [Mass/Vol] 28 mg/dL High 9 - 24 mg/dL [facility] Ambulatory Visit Summaryon 06-25-2022 Ambulatory Visit Summary JC CAMACHO Thiago :1955 Visit Date:04/24/2023 Ambulatory Visit Instructions Your Care Team Attending Physician - MAGALIE DORMAN, Soledad Linton Primary Care Physician - MAXX DORMAN, ISIS Stoddard This Is Your Medications List aspirin omega-3 polyunsaturated fatty acids (Fish Oil 1200 mg oral capsule) pravastatin (pravastatin 40 mg Tab) Procedures Performed TURBT - Transurethral resection of bladder tumor (03/26/2023), Total knee replacement (07/08/2021), Arthroscopic knee operation (11/02/2015), Appendix, Arthroscopy of knee, Bilateral bone spurs of shoulders, Colonoscopy, FESS - Functional endoscopic sinus surgery, inguinal hernia repair, Knee arthroplasty, multiple surgeries right knee, Plantar fasciitis, Plantar fasciotomy, Tonsillectomy. What to do next Scheduled Follow-Up Appointments Thursday 9:00 AM EST Where: [facility] ED Note-Physicianon 04-21-20 ED Note-Physician [id number]. 00TIFF [facility] Physician Orderon 04-08-2023 Physician Order [id number] .00TIFF [facility] Ambulatory Visit Summaryon 1 06-03-2022 Ambulatory Visit Summary JC CAMACHO :1955 Visit Date:04/03/2023 Ambulatory Visit Instructions Your Diagnosis Bladder cancer Bilateral renal cysts Your Care Team Attending Physician - MAGALIE DORMAN, Soledad Linton Primary Care Physician - MAXX DORMAN, ISIS Stoddard This Is Your Medications List Contact prescribing physician if questions or concerns aspirin omega-3 polyunsaturated fatty acids (Fish Oil 1200 mg oral capsule) pravastatin (pravastatin 40 mg Tab) Procedures Performed TURBT - Transurethral resection of bladder tumor (03/26/2023), Total knee replacement (07/08/2021), Arthroscopic knee operation (11/02/2015), Appendix, Arthroscopy of knee, Bilateral bone spurs of shoulders, Colonoscopy, FESS - Functional endoscopic sinus surgery, inguinal hernia repair, Knee arthroplasty, multiple surgeries right knee, Plantar fasciitis, Plantar fasciotomy, Tonsillectomy. Discharge Vitals Heart Rate (Peripheral) 75 Respiratory Rate 16 Blood Pressure 138/88 Height 180 cm Height 71 in Weight 109 kg Weight 239.8 lb BMI 33.64 What to do next You Need to Schedule the Following Appointments Follow Up with MAGALIE DORMAN, DARLENE Patel When: Comments: 6 BCGs in 2 wks Where: [facility] [address] [place] [address] [phone] Medications What How Much When Instructions Unchanged aspirin Contact prescribing physician if questions or concerns Unchanged omega-3 polyunsaturated fatty acids (Fish Oil 1200 mg oral capsule) 1 Capsules By Mouth 2 times a day Contact prescribing physician if questions or concerns Unchanged pravastatin (pravastatin 40 mg Tab) Contact prescribing physician if questions or concerns Allergies No Known Allergies Problems Ongoing - Any problem that you are currently receiving treatment for. Bilateral renal cysts Bladder cancer Bladder mass Patient Survey You may receive a survey via text or e-mail asking about your office visit. Please share your experience with us by completing your survey. We appreciate your feedback and thank you for choosing us for your care. Education Materials Bladder Cancer Bladder cancer is a condition where abnormal tissue (a tumor) grows in the bladder. The bladder is the organ that holds urine. Two tubes (ureters) carry urine from the kidneys to the bladder. The bladder wall is made of layers of tissue. Cancer that spreads through these layers of the bladder wall becomes more difficult to treat. What increases the risk? The following factors may make you more likely to develop this condition: ? Smoking. ? Working where there are risks (occupational exposures), such as working with rubber, leather, clothing fabric, dyes, chemicals, or paint. ? Being 55 years of age or older. ? Being male. ? Having long-term bladder inflammation. ? Having a history of cancer. This includes: ? A family history of bladder cancer. ? Having had bladder cancer before. ? Having had certain treatments for cancer before, such as: ? Medicines to kill cancer cells (chemotherapy). ? Strong X-ray beams or high-energy capsules to kill cancer cells and shrink tumors (radiation therapy). ? Having been exposed to arsenic. This is a poisonous substance. What are the signs or symptoms? Early symptoms of this condition include: ? Blood in your urine. ? Pain when urinating. ? Infections of your urinary system (urinary tract infections or UTIs) that happen often. ? Having to urinate sooner or more often than normal. Late symptoms of this condition include: ? Not being able to urinate. ? Pain on one side of your lower back. ? Loss of appetite. ? Weight loss. ? Tiredness (fatigue). ? Swelling in your feet. ? Bone pain. How is this diagnosed? This condition is diagnosed based on: ? Your medical history. ? A physical exam. ? Lab tests, such as urine tests. ? Imaging tests. ? Your symptoms. You may also have other tests or procedures, such as: ? A cystoscopy. This involves putting a narrow tube into your urethra. The urethra is the organ that carries urine from your bladder to the outside of your body. This procedure is done to view the lining of your bladder for tumors. ? A biopsy. This involves removing a tissue sample to look at under a microscope to check for cancer. Blood tests or imaging tests may be needed. These show how far into the bladder wall cancer has grown, and if cancer has spread to any other parts of your body. Tests may include: ? CT scan. ? MRI. ? Bone scan. ? X-ray. How is this treated? Your health care provider may recommend one or more types of treatment based on the stage of your cancer. The most common treatments are: ? Surgery to remove the cancer. Types of surgeries include: ? Removing a tumor on the inside wall of the bladder (transurethral resection). ? Removing the bl (more content not included)... Normal [facility] Pathology Noteon 04-03-2023 Pathology Note [id number] .00TIFF Normal [facility] Patient Educationon 04-03-20 Patient Education Oncology Bladder Cancer Bladder cancer is a condition where abnormal tissue (a tumor) grows in the bladder. The bladder is the organ that holds urine. Two tubes (ureters) carry urine from the kidneys to the bladder. The bladder wall is made of layers of tissue. Cancer that spreads through these layers of the bladder wall becomes more difficult to treat. What increases the risk? The following factors may make you more likely to develop this condition: ? Smoking. ? Working where there are risks (occupational exposures), such as working with rubber, leather, clothing fabric, dyes, chemicals, or paint. ? Being 55 years of age or older. ? Being male. ? Having long-term bladder inflammation. ? Having a history of cancer. This includes: ? A family history of bladder cancer. ? Having had bladder cancer before. ? Having had certain treatments for cancer before, such as: ? Medicines to kill cancer cells (chemotherapy). ? Strong X-ray beams or high-energy capsules to kill cancer cells and shrink tumors (radiation therapy). ? Having been exposed to arsenic. This is a poisonous substance. What are the signs or symptoms? Early symptoms of this condition include: ? Blood in your urine. ? Pain when urinating. ? Infections of your urinary system (urinary tract infections or UTIs) that happen often. ? Having to urinate sooner or more often than normal. Late symptoms of this condition include: ? Not being able to urinate. ? Pain on one side of your lower back. ? Loss of appetite. ? Weight loss. ? Tiredness (fatigue). ? Swelling in your feet. ? Bone pain. How is this diagnosed? This condition is diagnosed based on: ? Your medical history. ? A physical exam. ? Lab tests, such as urine tests. ? Imaging tests. ? Your symptoms. You may also have other tests or procedures, such as: ? A cystoscopy. This involves putting a narrow tube into your urethra. The urethra is the organ that carries urine from your bladder to the outside of your body. This procedure is done to view the lining of your bladder for tumors. ? A biopsy. This involves removing a tissue sample to look at under a microscope to check for cancer. Blood tests or imaging tests may be needed. These show how far into the bladder wall cancer has grown, and if cancer has spread to any other parts of your body. Tests may include: ? CT scan. ? MRI. ? Bone scan. ? X-ray. How is this treated? Your health care provider may recommend one or more types of treatment based on the stage of your cancer. The most common treatments are: ? Surgery to remove the cancer. Types of surgeries include: ? Removing a tumor on the inside wall of the bladder (transurethral resection). ? Removing the bladder (cystectomy). ? Radiation therapy. This is often combined with chemotherapy. ? Chemotherapy. ? Immunotherapy. This uses medicines to help your body's disease-fighting system (immune system) destroy cancer cells. Follow these instructions at home: ? Take rnhy-sbp-qntkvtx and prescription medicines only as told by your health care provider. ? If you were prescribed an antibiotic medicine, take it as told by your health care provider. Do not stop using the antibiotic even if you start to feel better. ? Eat a healthy diet. Some treatments might affect your appetite. ? Do not use any products that contain nicotine or tobacco. These products include cigarettes, chewing tobacco, and vaping devices, such as e-cigarettes. If you need help quitting, ask your health care provider. ? Consider joining a support group. This may help you learn to deal with the stress of having bladder cancer. ? Tell your cancer care team if you develop side effects. Your team may be able to recommend ways to get relief. ? Keep all follow-up visits. This is important. Where to find more information ? [place] [employer] (ACS): cancer.org ? [employer] [place] (NCI): cancer.gov Contact a health care provider if: ? You have symptoms of a UTI. These include: ? Fever. ? Chills. ? Weakness. ? Muscle aches. ? Pain in your abdomen. ? Urge to urinate that is stronger and happens more often than normal. ? Burning in the bladder or urethra when you urinate. Get help right away if: ? There is blood in your urine. ? You cannot urinate. ? You have severe pain or other symptoms that do not go away. Summary ? Bladder cancer is a condition where tumors grow in the bladder. ? Diagnosis is based on your medical history, a physical exam, lab tests, imaging tests, and your symptoms. ? Your health care provider may recommend one or more types of treatment based on the stage of your cancer. ? Consider joining a support group. This may help you learn to deal with the stress of having bladder cancer. This information is not intended to replace advice given to you by your health care provider. Make sure you discuss any questions you have wi (more content not included)... Normal [facility] Urology Office/Clinic Noteon 04-03-2023 Urology Office/Clinic Note Chief Complaint bladder cancer HPI Staff F/u to TURBT for catheter removal and to review pathology. Previous dx of gross hematuria, bladder mass and bilateral renal cysts. Pt states that he last saw any blood in his urine on this past Thursday and it was small and cleared up quickly. Pt finished his Vesicare and Cephalexin prescriptions given after surgery yesterday. Hematuria: no Abdominal pain: no Flank pain: no History of Present Illness Tests reviewed: reviewed path report I have reviewed the previous health record information and history for this patient from Dr. Sanders. I have reviewed and verified the staff HPI to be accurate for this encounter. Review of Systems ROS - Provider Constitutional: denies weight loss, denies hot flashes. Eyes: denies eye problems. Gastrointestinal: denies nausea, denies vomiting. Cardiovascular: denies chest pain or angina. Integumentary: no dryness Musculoskeletal: denies musculoskeletal symptoms. ENMT: denies otolaryngeal symptoms. Respiratory: no shortness of breath. Heme/Lymph: denies easy bleeding tendency, denies easy bruising tendency. Psychiatric: no confusion, no anxiety. Genitourinary: See HPI. Physical Exam Vitals & Measurements HR: 75(Peripheral) RR: 16 BP: 138/88 HT: 71 in HT: 180 cm WT: 109 kg WT: 239.8 lb BMI: 33.64 General Appearance: alert, no distress, well nourished, well developed male. Genitourinary: normal scrotum, normal testes, normal urethra, normal epididymis, normal vas deferens/spermatic cord. Flank Pain: none. Bladder: nonpalpable. Procedure Pt's catheter has been removed in office with no complications. They have been advised to drink plenty of fluids. Pt. has been instructed to call the office in the event that they are not able to void in the next 4-6 hrs. Advised pt. to go to the ER if they experience any severe bleeding, fever over 101, and/or shaking chills. Assessment/Plan 1. Bladder cancer (C67.9: Malignant neoplasm of bladder, unspecified) No hx of smoking. 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 AP wo con 02/25/23 - hyperdense mass measuring 4.7 x 3.5 x 2.7 cm. S/p Cysto 03/03/23 - large blood clot/neoplasm with apparent necrosis on the floor of the bladder. Satellite tumors noted adjacent to mass on floor of the bladder. S/p TURBT 03/26/23 - multiple papillary TCC tumors on the anterior and back wall and the left wall. Pathology report showed invasive high-grade urothelial carcinoma with glandular differentiation. I had a long session of counseling with the patient today. The pathology report reveals that bladder cancer is present, and I discussed the nature of this cancer in detail, including the grade of the cancer and the apparent stage, utilizing diagrams. Discussed that pt's cancer is not invasive into the deep muscle but is invasive into the lamina propria. We discussed the different treatment options for the cancer, based on the grade and stage of tumor. Pt understands he is a candidate for BCG treatment. -6 BCGs in 2 weeks at [facility] oncology (due to BCG nathional shortage) -Cysto 1 month after completion of 6 BCGs 2. Bilateral renal cysts (N28.1: Cyst of kidney, acquired) CT AP wo con 02/25/23 - bilat renal peripelvic cysts. No indication for treatment. Follow-up With When Contact Information MAGALIE DORMAN, Soledad Linton, [facility] [address], [place] [address] [phone] Additional Instructions: 6 BCGs in 2 wks Patient Education Bladder Cancer I, Catherine Oseguera, personally scribed for Dr. Sanders on 04/03/2023 11:20:25. . Documentation recorded by the scribe, Catherine Oseguera, accurately reflects the services(s) I performed and decisions made by me. Authenticated by Dr. Sanders on 04/03/2023 11:24:07. Problem List/Past Medical History Ongoing Bilateral renal cysts Bladder cancer Bladder mass Historical No qualifying data Procedure/Surgical History TURBT - Transurethral resection of bladder tumor (03/26/2023), Total knee replacement (07/08/2021), Arthroscopic knee operation (11/02/2015), Appendix, Arthroscopy of knee, Bilateral bone spurs of shoulders, Colonoscopy, FESS - Functional endoscopic sinus surgery, inguinal hernia repair, Knee arthroplasty, multiple surgeries right knee, Plantar fasciitis, Plantar fasciotomy, Tonsillectomy. Medications aspirin Fish Oil 1200 mg oral capsule, 1200 mg= 1 cap(s), Oral, BID pravastatin 40 mg Tab Allergies No Known Allergies Social History Alcohol - Denies Alcohol Use, 10/23/2015 Substance Abuse - Denies Substance Abuse, 10/23/2015 Tobacco - Denies Tobacco Use, 10/23/2015 Never (less than 100 in lifetime) Tobacco Use:. Never Smokeless Tobacco Use:. Household tobacco concerns: No. Yes, 03/02/2023 Family History Emphysema: Father. Primary malignant neoplasm of colon: Mother. Immunizations Vaccine Date Status Comments influenza virus vaccine, inactivat (more content not included)... Normal [facility] Comment on above: Result Comment: Elec tronically Signed By: Soledad SANDERS MD\.br\Date and Time Signed: 04/03/23 11:24 EST\.br\Electronically Co-Signed By: Catherine Oseguera\.br\Date and Time Co-Signed: 04/03/23 11:21 EST Operative Reporton Operative Report [id number] .00TIFF Normal [facility] Lab Reportson 03-25-2023 Lab Reports [id number] .00TIFF Normal [facility] ECG 12-Leadon 03-18-2023 ECG 12-Lead [id number] .00TIFF Normal [facility] Lab Reportson 03-18-2023 Lab Reports [id number] .00TIFF Normal [facility] RAD - MISCon 03-18-2023 RAD - MISC [id number] .00TIFF Normal [facility] UroVysion Fish and Urine Cyt o ([facility])on 03-11-2023 UVFISH & UC Diagnosis Info Invalid Interpretation Code [facility] Comment on above: Result Comment: A:Ur ine,Urine:Voided Diagnosis Summary - 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 Diagnosis Summary - The UroVysion FISH product insert calls for at least 25 urothelial cells to be scored before a result can be rendered. This sample of urine is hypocellular and as such an appropriate UroVyion FISH result can not be reported on this sample. If clinically indicated a repeat UroVysion FISH test, correlation with urine cytology, and continued follow-up are recommended.* CPT 54605, 90233. Microscopic Notes - Microscopic Notes - Abnormal cells 9p21 deletions: Abnormal cells aneploid events: Total cells analyzed: 19 Hematuria: Gross Description Site ID:A color Brown fixative Alcohol Received 90 mls of cloudy brown fluid with the patient's name and, Urine on the vial. Electronically signed by : on: 03/11/2023 10:51:04 Performed By: #### 1 [id number] #### [facility] [address] [place] [address] Physician Orderon 03-09-2023 Physician Order [id number] 0 [id number] .00TIFF Normal [facility] Physician Order [id number] .00TIFF Normal [facility] RAD - CT Reporton 03-06-2023 RAD - CT Report [id number] .00TIFF Normal [facility] Physician Referralon 023 Physician Referral [id number] .00TIFF [facility] Consent for Procedure/Surger yon 03-03-2023 Consent for Procedure/Surgery [id number] .00TIFF [facility] Consent for Treatmenton 02-22 Consent for Treatment [id number] .00TIFF [facility] IntraOperative Documentson 1 IntraOperative Documents [id number] .00TIFF [facility] Main OR Intraoperative Recor don 03-03-2023 Main OR Intraoperative Record IntraOp Document Type FTURO Summary Primary Physician: Soledad SANDERS MD Finalized Date/Time: 03/03/23 08:29:11 Pt. Name: JC CAMACHO/Sex: 1955 Male Med Rec #: [id number] Physician: Soledad SANDERS MD Financial #: [id number] Pt. Type: O Room/Bed: / Admit/Disch: 03/03/23 07:08:25 - Institution: Case Times FTURO Entry 1 Patient Times In Room 03/03/23 08:13:00 Out Room 03/03/23 08:28:00 Procedure Times Start 03/03/23 08:22:00 Stop 03/03/23 08:25:00 Anesthesia Times Last Modified By: Deepa Rodriguez RN 03/03/23 08:28:53 Case Attendance FTURO Entry 1 Entry 2 Entry 3 Case Attendee Soledad SANDERS MD, CST, Deepa Flores RN Role Performed Surgeon - Primary Scrub - Primary Plywood Stock Grader - Primary Time In 03/03/23 08:13:00 03/03/23 08:13:00 03/03/23 08:13:00 Time Out 03/03/23 08:28:00 03/03/23 08:28:00 03/03/23 08:28:00 Procedure CYSTOSCOPY LOCAL(.) CYSTOSCOPY LOCAL(.) CYSTOSCOPY LOCAL(.) Comments Last Modified By: Deepa Rodriguez RN, RN, Deepa Jordan RN 03/03/23 08:29:00 03/03/23 08:29:00 03/03/23 08:29:00 Surgical Procedures FTURO Entry 1 Procedure Description Procedure CYSTOSCOPY LOCAL Modifiers . Surgeon Description CYSTOSCOPY LOCAL Primary Procedure Yes Primary Surgeon Soledad SANDERS MD Start 03/03/23 08:22:00 Stop 03/03/23 08:25:00 Anesthesia Type Local Surgical Service Urology Wound Class 2 - Clean-Contaminated Last Modified By: Deepa Rodriguez RN 03/03/23 08:25:47 General Case Data FTURO Pre-Care Text: Classifies surgical wound, implements aseptic technique, initiates traffic control Entry 1 Case Information OR URO 1 FT Case Level None Wound Class 2 - Clean-Contaminated Specialty Urology Preop Diagnosis GROSS HEMATURIA, Postop Same As Preop Yes BLADDER MASS Postop Diagnosis GROSS HEMATURIA, Outcomes Met? Yes BLADDER MASS Last Modified By: Deepa Rodriguez RN 03/03/23 07:58:18 Post-Care Text: The patient is free from signs and symptoms of infection EU IntraOp - FTURO Pre-Care Text: Implements protective measures prior to operative or invasive procedure, confirms identity before the operative or invasive procedure, verifies operative procedure, surgical site, and laterality Entry 1 EU Perioperative Protocols Procedure(s) CYSTOSCOPY LOCAL(.) Patient Identity Birthday, ID Band Verified (select at Check, Patient least 2): Participation Consents / H and P HandP, Surgery/Procedure Operative Site N/A Verified Consent Marking Verified Surgical Site Yes Laterality Verified Yes Verified Procedure Verified Yes Correct Patient Yes Position Verified Availability Equipment, Medication Time Out Soledad SANDERS MD, Verified (If Participants Deepa Oropeza CST) Jennifer Aranda RN, Kimberly Y Time Out Complete 03/03/23 08:14:00 Allergies Reviewed? Yes Allergies Reviewed Self/Patient With Body Position Supine Prep Area PENIS Prep Agents Betadine Solution Skin. Condition Dry, Warm, Unable to Description UNABLE TO VISIUALIZE Visualize DUE TO PATIENT PARTIALLY CLOTHED Additional None Specimens Collected Vitals - EU Blood Pressure 160/98 Pulse 76 bpm Respirations 16 br/min SPO2 98 % EBL 0 IandO - EU Total Intake 0 mL Total Output 0 mL Outcomes Met? Yes Last Modified By: Deepa Rodriguez RN 03/03/23 08:15:34 Post-Care Text: The patient is free from signs and symptoms of injury caused by extraneous objects Sign Out FTURO Entry 1 Before Patient Leaves OR Nurse verbally Yes Nurse verbally Yes confirms with the confirms with the team the name of team that the procedure(s) instrument, sponge, recorded and needle counts are correct (or N/A) Nurse verbally Yes Nurse verbally Yes confirms with the confirms with the team how the team whether there specimen is labeled are any equipment (including patient problems to be name), if applicable addressed Sign Out Complete 03/03/23 08:25:00 Last Modified By: Deepa Rodriguez RN 03/03/23 08:25:45 Case Comments Finalized By: Deepa Rodriguez RN Document Signatures Signed By: Deepa Rodriguez RN 03/03/23 08:29 Normal [facility] Main OR Preoperative Recordo n 03-03-2023 Main OR Preoperative Record Holding Area Document Type FTURO Summary Primary Physician: Soledad SANDERS MD Finalized Date/Time: 03/03/23 08:06:38 Pt. Name: JC CAMACHO /Sex: 1955 Male Med Rec #: [id number] Physician: Soledad SANDERS MD Financial #: [id number] Pt. Type: O Room/Bed: / Admit/Disch: 03/03/23 07:08:25 - Institution: Case Times Holding FTURO Pre-Care Text: Verifies consent for planned procedure, identifies individual values and wishes concerning care, includes family members in perioperative teaching Secures patient's records' belongings, and valuables, maintains patient's dignity and privacy, and maintains patient confidentiality Entry 1 In Holding 03/03/23 07:41:00 Outcomes Met? Yes Last Modified By: Alba Childers LPN 03/03/23 07:41:24 Post-Care Text: The patient participates in decisions affecting his or her perioperative plan of care The patient's right to privacy is maintained Surgery Checklist FTURO Entry 1 Patient Birthday, ID Band Procedure Surgical Consent, With Identification: Check, Patient Verification: Patient Participation NPO after Midnight: n/a Date/Time: 03/03/23 07:41:00 Personal Items: Glasses, Jewelry Personal Items glasses, wedding band Comment: Complaints of Pain: n/a Skin Integrity Intact, [place], Warm, & Dry Vitals - EU Blood Pressure 160/98 Pulse 76 bpm Respirations 16 br/min SPO2 98 % RN Reviewed Yes Last Modified By: Deepa Rodriguez RN 03/03/23 08:06:36 General Comments: Temp 99.3 Finalized By: Deepa Rodriguez RN Document Signatures Signed By: Alba Childers LPN 03/03/23 07:45 Deepa Rodriguez RN 03/03/23 08:06 Normal [facility] Operative Reporton 3 Operative Report Patient: JC CAMACHO Age: 68 years Sex: Male : 1955 Associated Diagnoses: None Author: Soledad SANDERS MD Procedure Operative Information Pre-Op Dx: Gross Hematuria - R31.0. Post-Op Dx: Same. Anesthesia Type: Local. Procedure: Local Cystoscopy. Complications: None. Risks/Benefits/Inform ed Consent: Surgical risks, benefits, details of the procedure have been explained to the patient, Full informed consent has been obtained. Intraoperative Information Prepped: Patient is brought back to the endoscopy suite, Patient is placed in supine position, Patient prepped in the usual fashion with Betadine solution, 2% Xylocaine Jelly is placed per Urethra, After waiting several minutes the Cystoscope is introduced. The Bladder is: Abnormal, Trabeculated (Mild (1), Large blood clot /neoplasm with apparent necrosis on the floor of the bladder. I am unable to determine if it is occluding the ureteral orifices. I tried not to to do anything aggressive so as to stir up bleeding from this mass. 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 I could not appreciate any other tumors on the lateral nelson or the anterior surface.). The ureteral orifices: Show efflux of clear urine. Devices Implanted: None. Removal: Cystoscope is removed, The patient tolerated it well. Postoperative Information Discharge: Patient is discharged home with antibiotic coverage, Follow up arranged. We will get him scheduled for cystoscopy/TURBT/poss ible bilateral ureteroscopy and stent placement.. Normal [facility] Comment on above: Result Comment: Elec tronically Signed By: MAGALIE DORMAN, Soledad Linton\.br\Date and Time Signed: 03/03/23 08:43 EDT Physician Referralon 023 Physician Referral [id number] .00TIFF Normal [facility] Ambulatory Visit Summaryon 1 Ambulatory Visit Summary JC CAMACHO :1955 Visit Date:03/02/2023 Ambulatory Visit Instructions Your Diagnosis Gross hematuria Bladder mass Bilateral renal cysts Tests Performed Urnls Dip Stick Auto w/o Microscopy POC 35794 Your Care Team Attending Physician - MAGALIE DORMAN, Soledad Linton Primary Care Physician - MAXX DORMAN, ISIS Stoddard Referring Physician - ISAMAR DAVIDSON This Is Your Medications List Contact prescribing physician if questions or concerns aspirin ciprofloxacin (ciprofloxacin 500 mg Tab) omega-3 polyunsaturated fatty acids (Fish Oil 1200 mg oral capsule) pravastatin (pravastatin 40 mg Tab) Procedures Performed Total knee replacement (07/08/2021), Arthroscopic knee operation (11/02/2015), Appendix, Arthroscopy of knee, Bilateral bone spurs of shoulders, Colonoscopy, FESS - Functional endoscopic sinus surgery, inguinal hernia repair, Knee arthroplasty, multiple surgeries right knee, Plantar fasciitis, Plantar fasciotomy, Tonsillectomy. Discharge Vitals Heart Rate (Peripheral) 79 Respiratory Rate 16 Blood Pressure 140/87 Height 180 cm Height 71 in Weight 109 kg Weight 239.8 lb BMI 33.64 What to do next You Need to Schedule the Following Appointments Follow Up with MAGALIE DORMAN, DARLENE Patel When: Comments: Sched Cysto Where: [facility] [address], [place] [address]- Medications What How Much When Instructions Unchanged aspirin Contact prescribing physician if questions or concerns Unchanged ciprofloxacin (ciprofloxacin 500 mg Tab) Contact prescribing physician if questions or concerns Unchanged omega-3 polyunsaturated fatty acids (Fish Oil 1200 mg oral capsule) 1 Capsules By Mouth 2 times a day Contact prescribing physician if questions or concerns Unchanged pravastatin (pravastatin 40 mg Tab) Contact prescribing physician if questions or concerns Test Results Urnls Dip Stick Auto w/o Microscopy POC 37101 (03/02/2023) Bilirubin Urine Dipstick - 1+ Small Blood Urine Dipstick - 3+ Large Glucose Urine Dipstick - Negative Ketones Urine Dipstick - Negative Leukocytes Urine Dipstick - Negative Nitrite Urine Dipstick - Negative Protein Urine Dipstick - 3+ (300 mg/dl) Specific [place] Urine Dipstick - >=1.030 Urine Appearance Urine Dipstick - Cloudy Urine Color Urine Dipstick - Rahel Urobilinogen Urine Dipstick - Normal 0.2-1 EU/dl pH Urine Dipstick - 8.5 Allergies No Known Allergies Problems Ongoing - Any problem that you are currently receiving treatment for. Bilateral renal cysts Bladder mass Education Materials Cystoscopy Cystoscopy is a procedure that is used to help diagnose and sometimes treat conditions that affect the lower urinary tract. The lower urinary tract includes the bladder and the urethra. The urethra is the tube that drains urine from the bladder. Cystoscopy is done using a thin, tube-shaped instrument with a light and camera at the end (cystoscope). The cystoscope may be hard or flexible, depending on the goal of the procedure. The cystoscope is inserted through the urethra, into the bladder. Cystoscopy may be recommended if you have: ? Urinary tract infections that keep coming back. ? Blood in the urine (hematuria). ? An inability to control when you urinate (urinary incontinence) or an overactive bladder. ? Unusual cells found in a urine sample. ? A blockage in the urethra, such as a urinary stone. ? Painful urination. ? An abnormality in the bladder found during an intravenous pyelogram (IVP) or CT scan. Cystoscopy may also be done to remove a sample of tissue to be examined under a microscope (biopsy). Tell a health care provider about: ? Any allergies you have. ? All medicines you are taking, including vitamins, herbs, eye drops, creams, and genm-mwb-bpbkmoi medicines. ? Any problems you or family members have had with anesthetic medicines. ? Any blood disorders you have. ? Any surgeries you have had. ? Any medical conditions you have. ? Whether you are or may be . What are the risks? Generally, this is a safe procedure. However, problems may occur, including: ? Infection. ? Bleeding. ? Allergic reactions to medicines. ? Damage to other structures or organs. What happens before the procedure? Medicines Ask your health care provider about: ? Changing or stopping your regular medicines. This is especially important if you are taking diabetes medicines or blood thinners. ? Taking medicines such as aspirin and ibuprofen. These medicines can thin your blood. Do not take these medicines unless your health care provider tells you to take them. ? Taking atnp-dgx-sjpkrqp medicines, vitamins, herbs, and supplements. Tests You may have an exam or testing, such as: ? X-rays of the bladder, urethra, or kidneys. ? CT scan of the abdomen or pelvis. ? Urine tests to check for sig (more content not included)... Normal [facility] Fish and Urine Cyt o ([facility])on 03-02-2023 [facility] Method of Extraction Voided Normal [facility] Comment on above: Performed By: #### 1 [id number] #### [facility] [address] [place] [address] [facility] Number of Jars 1 Invalid Interpretation Code [facility] Comment on above: Performed By: #### 1 [id number] #### [facility] [address] [place] [address] [facility] Specimen Urine Normal [facility] Comment on above: Performed By: #### 1 [id number] #### [facility] [address] [place] [address] [facility] Type of Service Technical Only Normal [facility] Comment on above: Performed By: #### 1 [id number] #### [facility] [address] [place] [address] Complete Blood Count with Au to Diffon 05-16-2021 Basophils (Bld) [#/Vol] 0.02 10*3/uL Normal 0.00-0.20 [facility] [employer] Comment on above: Performed By: #### C BCAD, CMP, LIPD #### [facility] [address] [place], [place] [id number] Basophils/100 WBC (Bld) 0.4 % Normal [facility] Specialist Comment on above: Performed By: #### C BCAD, CMP, LIPD #### [facility] [address] [place], [place] [id number] Eosinophils (Bld) [#/Vol] 0.22 10*3/uL Normal 0.02-0.50 [facility] [employer] Comment on above: Performed By: #### C BCAD, CMP, LIPD #### [facility] [address] [place], [place] [id number] Eosinophils/100 WBC (Bld) 4.5 % Normal [facility] [employer] Comment on above: Performed By: #### C BCAD, CMP, LIPD #### [facility] [address] [place], [place] [id number] Erythrocyte distribution width (RBC) [Ratio] 13.6 % Normal 11.0-15.0 [facility] [employer] Comment on above: Performed By: #### C BCAD, CMP, LIPD #### [facility] [address] [place], [place] [id number] Hematocrit (Bld) [Volume fraction] 46.8 % Normal 38.5-50.0 [facility] [employer] Comment on above: Performed By: #### C BCAD, CMP, LIPD #### [facility] [address] [facility] [place] [id number] Hemoglobin (Bld) [Mass/Vol] 15.3 g/dL Normal 13.0-17.1 [facility] Specialist Comment on above: Performed By: #### C BCAD, CMP, LIPD #### [facility] [address] [facility] [place] [id number] Lymphocytes (Bld) [#/Vol] 1.4 10*3/uL Normal 0.9-3.9 [facility] Special[facility] Comment on above: Performed By: #### C BCAD, CMP, LIPD #### [facility] [address] [facility] [place] [id number] Lymphocytes/100 WBC (Bld) 29.2 % Normal [facility] Special[facility] Comment on above: Performed By: #### C BCAD, CMP, LIPD #### [facility] [address] [place], [place] [id number] MCH (RBC) [Entitic mass] 30.2 pg Normal 27.0-33.0 [facility] Comment on above: Performed By: #### C BCAD, CMP, LIPD #### [facility] [address] [facility] [place] [id number] MCHC (RBC) [Mass/Vol] 32.7 g/dL Normal 32.0-36.0 [facility] Comment on above: Performed By: #### C BCAD, CMP, LIPD #### [facility] [address] [facility] [place] [id number] MCV (RBC) [Entitic vol] 92 fL Normal 80-100 [facility] Comment on above: Performed By: #### C BCAD, CMP, LIPD #### [facility] [address] [facility] [place] [id number] Monocytes (Bld) [#/Vol] 0.4 10*3/uL Normal 0.2-0.9 [facility] Comment on above: Performed By: #### C BCAD, CMP, LIPD #### [facility] [address] [facility] [place] [id number] Monocytes/100 WBC (Bld) 8.0 % Normal [facility] Special[facility] Comment on above: Performed By: #### C BCAD, CMP, LIPD #### [facility] [address] [place], [place] [id number] Neutrophils (Bld) [#/Vol] 2.8 10*3/uL Normal 1.5-7.8 [facility] Comment on above: Performed By: #### C BCAD, CMP, LIPD #### [facility] [address] [place], [place] [id number] Neutrophils/100 WBC (Bld) 57.5 % Normal [facility] Special[facility] Comment on above: Performed By: #### C BCAD, CMP, LIPD #### [facility] [address] [place], [place] [id number] Platelet mean volume (Bld) [Entitic vol] 10.20 fL Normal 7.50-12.50 [facility] Special[facility] Comment on above: Performed By: #### C BCAD, CMP, LIPD #### [facility] [address] [place], [place] [id number] Platelets (Bld) [#/Vol] 251 10*3/uL Normal 140-400 [facility] Special[facility] Comment on above: Performed By: #### C BCAD, CMP, LIPD #### [facility] [address] [place], [place] [id number] RBC (Bld) [#/Vol] 5.07 10*6/uL Normal 4.20-5.80 [facility] Special[facility] Comment on above: Performed By: #### C BCAD, CMP, LIPD #### [facility] [address] [place], [place] [id number] RDW-SD 46.2 fL Normal 37.0-50.0 [facility] Special[facility] Comment on above: Performed By: #### C BCAD, CMP, LIPD #### [facility] [address] [place], [place] [id number] WBC (Bld) [#/Vol] 4.9 10*3/uL Normal 3.8-11.0 [facility] Specialist Comment on above: Performed By: #### C BCAD, CMP, LIPD #### [facility] [address] [place], [place] [id number] Comprehensive Metabolic Pane sara 12-23-2021 Albumin [Mass/Vol] 4.5 g/dL Normal 3.6-5.1 [facility] Comment on above: Performed By: #### C BCAD, CMP, LIPD #### [facility] [address] [place], [place] [id number] Albumin/Globulin [Mass ratio] 1.8 {ratio} Normal 1.0-2.5 [facility] Comment on above: Performed By: #### C BCAD, CMP, LIPD #### [facility] [address] [place], [place] [id number] ALP [Catalytic activity/Vol] 83 U/L Normal 40-129 [facility] Comment on above: Performed By: #### C BCAD, CMP, LIPD #### [facility] [address] [place], [place] [id number] ALT [Catalytic activity/Vol] 24 U/L Normal 9-46 [facility] Comment on above: Result Comment: 04/24 Female reference range changed. Performed By: #### C BCAD, CMP, LIPD #### [facility] [address] [place], [place] [id number] Anion gap [Moles/Vol] 18 mmol/L Normal 12-20 [facility] Special[facility] Comment on above: Result Comment: Effe ctive 05/30/2019 reference range changed. Performed By: #### C BCAD, CMP, LIPD #### [facility] [address] [place], [place] [id number] AST [Catalytic activity/Vol] 21 U/L Normal 10-40 [facility] Comment on above: Performed By: #### C BCAD, CMP, LIPD #### [facility] [address] [facility] [place] [id number] Bilirubin [Mass/Vol] 0.50 mg/dL Normal 0.30-1.20 [facility] Comment on above: Performed By: #### C BCAD, CMP, LIPD #### [facility] [address] [facility] [place] [id number] BUN/CREA 36 Ratio High 6-22 [facility] Special[facility] Comment on above: Performed By: #### C BCAD, CMP, LIPD #### [facility] [address] [facility] [place] [id number] Calcium [Mass/Vol] 9.5 mg/dL Normal 8.6-10.2 [facility] Clerk Cashier Comment on above: Performed By: #### C BCAD, CMP, LIPD #### [facility] [address] [facility] [place] [id number] Chloride [Moles/Vol] 105 mmol/L Normal 98-107 [facility] [employer] Comment on above: Performed By: #### C BCAD, CMP, LIPD #### [facility] [address] [facility] [place] [id number] CO2 [Moles/Vol] 23 mmol/L Normal 20-31 [facility] Special[facility] Comment on above: Performed By: #### C BCAD, CMP, LIPD #### [facility] [address] [facility] [place] [id number] Creatinine [Mass/Vol] 0.7 mg/dL Normal 0.7-1.4 [facility] Special[facility] Comment on above: Performed By: #### C BCAD, CMP, LIPD #### [facility] [address] [facility] [place] [id number] eGFRAA 130 mL/min/1.73m2 Normal >60 [facility] Store Clerk Cashier Comment on above: Performed By: #### C BCAD, CMP, LIPD #### [facility] [address] [facility] [place] [id number] eGFRNAA 107 mL/min/1.73m2 Normal >60 [facility] Store Clerk Cashier Comment on above: Performed By: #### C BCAD, CMP, LIPD #### [facility] [address] [place], [place] [id number] Globulin (S) [Mass/Vol] 2.5 g/dL Normal 1.9-3.7 [facility] [employer] Comment on above: Performed By: #### C BCAD, CMP, LIPD #### [facility] [address] [facility] [place] [id number] Glucose [Mass/Vol] 100 mg/dL High 65-99 [facility] Store Clerk Cash[employer] Comment on above: Result Comment: For FASTING Glucose --- ADA reference ranges: Normal 65-99 mg/dl Prediabetes 100-125 Diabetes >/= 126 Performed By: #### C BCAD, CMP, LIPD #### [facility] [address] [place], [place] [id number] Potassium [Moles/Vol] 4.3 mmol/L Normal 3.5-5.5 [facility] [employer] Comment on above: Performed By: #### C BCAD, CMP, LIPD #### [facility] [address] [place], [place] [id number] Protein [Mass/Vol] 7.0 g/dL Normal 6.1-8.1 [facility] [place] [facility] [employer] Comment on above: Performed By: #### C BCAD, CMP, LIPD #### [facility] [address] [place], [place] [id number] Sodium [Moles/Vol] 142 mmol/L Normal 135-146 [facility] [place] [facility] [employer] Comment on above: Performed By: #### C BCAD, CMP, LIPD #### [facility] [address] [place], [place] [id number] Urea nitrogen [Mass/Vol] 26 mg/dL High 7-25 [facility] [employer] Comment on above: Performed By: #### C BCAD, CMP, LIPD #### [facility] [address] [place], [place] [id number] Lipid Panelon 05-16-2021 Cholesterol [Mass/Vol] 215 mg/dL High 125-200 [facility] [employer] Comment on above: Result Comment: Low risk < 200mg/dL Borderline risk 201-239 mg/dl High risk > or equal to 240 Performed By: #### C BCAD, CMP, LIPD #### [facility] [address] [place], [place] [id number] Cholesterol in HDL [Mass/Vol] 50 mg/dL Normal >40 [facility] [employer] Comment on above: Result Comment: High Cardiovascular Risk HDL <40 mg/dL Low Cardiovascular Risk HDL > or equal to 60 mg/dl Performed By: #### C BCAD, CMP, LIPD #### [facility] [address] [place], [place] [id number] Cholesterol in LDL [Mass/Vol] 122 mg/dL Normal [facility] [employer] Comment on above: Result Comment: LDL ATP III CLASSIFICATION LDL less than 100 mg/dl Optimal LDL 100-129 mg/dl Near or above optimal LDL 130-159 Borderline high LDL 160-189 High LDL greater than 189 mg/dl Very High Performed By: #### C BCAD, CMP, LIPD #### [facility] [address] [place], [place] [id number] Cholesterol in VLDL [Mass/Vol] 43 mg/dL Normal [facility] Special[facility] Comment on above: Performed By: #### C BCAD, CMP, LIPD #### [facility] [address] [place], [place] [id number] Cholesterol.total/C holesterol in HDL [Mass ratio] 4 {ratio} Normal [facility] Special[facility] Comment on above: Performed By: #### C BCAD, CMP, LIPD #### [facility] [address] [place], [place] [id number] Triglyceride [Mass/Vol] 214 mg/dL High 30-150 [facility] [employer] Comment on above: Result Comment: TRIG ATPIII CLASSIFICATIONS TRIG less than 150 mg/dl Normal TRIG 150-199 mg/dl Borderline High TRIG 200-500 mg/dl High TRIG greather than 500 mg/dl Very High Performed By: #### C BCAD, CMP, LIPD #### [facility] [address] [place], [place] [id number] PSA SCREEN (MEDICARE)on 04-25 TPSA 1.060 ng/mL Normal <4.000 [facility] Specialist Comment on above: Result Comment: PSA Test Method: ECLIA/Ronnie e 601 Performed By: #### P SA #### [facility] [address] [place], [place] [id number] OPERATIVE NOTEon 04-20-2017 OPERATIVE NOTE OPERATIVE NOTEOPERATION DATE: 93-65-16DMURVBHZET:IV sedation, MAC.PREOPERATIVE DIAGNOSIS:Screening colonoscopy.POSTOPERA TIVE DIAGNOSIS: Diverticulosis coli.PROCEDURE NAME:Colonoscopy to the cecum.ESTIMATED BLOOD LOSS: None.COMPLICATIONS: None.DISPOSITION: To the Recovery Room in stable condition.PROCEDURE: The patient was brought to the Endoscopy Suite where monitoringdevices were attached. He was sedated, prepped and draped in the usual fashionfor this procedure. A digital rectal examination demonstrated no mucosalabnormalities. An Olympus colonoscope was inserted into the rectal vault andadvanced under direct visualization through to the cecum. It was then carefullywithdrawn. The cecum, ascending, transverse, descending and sigmoid colons wereunremarkable. The sigmoid colon was notable only for diverticulosis coli. Thereis no sign of diverticulitis. In the rectal vault the scope was retroverted andthere were no mucosal abnormalities seen. The scope was withdrawn. The patienttolerated the procedure well and was taken to the Recovery Room in stablecondition. He should undergo a repeat colonoscopy in 7-10 years. Normal [facility] Vital Signs Date Time Vital Sign Value Performing Clinician Facility 06-18-2023 15:16-0500 Body height 180.3 cm Immanuel Osorio MD Work Phone: [facility] 06-18-2023 15:16-0500 Body temperature 98.01 [degF] Immanuel Osorio MD Work Phone: [facility] 06-18-2023 15:16-0500 Body weight 114.4 kg Immanuel Osorio MD Work Phone: [facility] 06-18-2023 15:16-0500 Diastolic blood pressure 89 mm[Hg] Immanule Osorio MD Work Phone: [facility] 06-18-2023 15:16-0500 Heart rate 108 /min Immanuel Osorio MD Work Phone: [facility] 06-18-2023 15:16-0500 Respiratory rate 18 /min Immanuel Osorio MD Work Phone: [facility] 06-18-2023 15:16-0500 SaO2% (BldA) [Mass fraction] 96 % Immanuel Osorio MD Work Phone: [facility] 06-18-2023 15:16-0500 Systolic blood pressure 134 mm[Hg] Immanuel Osorio MD Work Phone: [facility] 04-30-2023 15:54-0500 Body height 180.3 cm Immanuel Osorio MD Work Phone: [facility] 04-30-2023 15:54-0500 Body temperature 99.1 [degF] Immanuel Osorio MD Work Phone: [facility] 04-30-2023 15:54-0500 Body weight 111.95 kg Immanuel Osorio MD Work Phone: [facility] 04-30-2023 15:54-0500 Diastolic blood pressure 82 mm[Hg] Immanuel Osorio MD Work Phone: [facility] 04-30-2023 15:54-0500 Heart rate 102 /min Immanuel Osorio MD Work Phone: [facility] 04-30-2023 15:54-0500 Respiratory rate 18 /min Immanuel Osorio MD Work Phone: [facility] 04-30-2023 15:54-0500 SaO2% (BldA) [Mass fraction] 95 % Immanuel Osorio MD Work Phone: [facility] 04-30-2023 15:54-0500 Systolic blood pressure 143 mm[Hg] Immanuel Osorio MD Work Phone: [facility] 04-03-2023 10:41-0500 Blood Pressure Location Soledad SANDERS [facility] 04-03-2023 10:41-0500 Diastolic blood pressure 88 mm[Hg] Soledad SANDERS [facility] 04-03-2023 10:41-0500 Heart rate 75 /min Soledad SANDERS [facility] 04-03-2023 10:41-0500 Respiratory rate 16 /min Soledad SANDERS [facility] 04-03-2023 10:41-0500 Systolic blood pressure 138 mm[Hg] Soledad MAGALIE [facility] Encounters Encounter Date Encounter Type Care Provider Facility Start: 06-29-2023 End: 06-29-2023 Lab Drop off Soledad Shaila MAGALIE [facility] Start: 06-29-2023 End: 06-30-2023 ambulatory Soledad SANDERS Facility:[facility] Start: 06-29-2023 End: 06-29-2023 Patient encounter procedure Soledad SANDERS [facility] Start: 06-18-2023 End: 06-18-2023 ambulatory IMMANUEL OSORIO Facility:[facility] Start: 06-18-2023 End: 06-18-2023 Office outpatient visit 15 minutes Immanuel Osorio MD Work Phone: Hematology/Oncology Comment on above: Malignant neoplasm o f overlapping sites of bladder (HCC) (Primary Dx); Iron deficiency anemia due to chronic blood loss Start: 06-11-2023 End: 06-11-2023 ambulatory RUGEN MABALAY MAXX Facility:[facility] Start: 06-04-2023 End: 06-05-2023 ambulatory RUGEN MABALAY MAXX Facility:[facility] Start: 05-28-2023 End: 05-28-2023 ambulatory RUGEN MABALAY MAXX Facility:[facility] Start: 05-21-2023 End: 05-21-2023 ambulatory IMMANUEL ABHYNAPOLEON Facility:[facility] Start: 05-14-2023 Telephone encounter Financial Navigator Ty Work Phone: Hematology/Oncology Comment on above: Benefits Investigati on Start: 05-14-2023 End: 05-14-2023 ambulatory EDEL CHRISTINE Facility:[facility] Start: 05-07-2023 End: 05-08-2023 ambulatory EDEL CHRISTINE Facility:[facility] Start: 04-30-2023 End: 05-01-2023 ambulatory IMMANUEL OSORIO Facility:[facility] Start: 04-30-2023 End: 04-30-2023 Office outpatient new 60 minutes Immanuel Osorio MD Work Phone: Hematology/Oncology Comment on above: Malignant neoplasm o f overlapping sites of bladder (HCC) (Primary Dx) Start: 04-24-2023 End: 04-25-2023 ambulatory Soledad Shaila SANDERS Facility:[facility] Start: 04-24-2023 End: 04-24-2023 Patient encounter procedure Soledad SANDERS [facility] Start: 04-03-2023 End: 04-04-2023 ambulatory Soledadmary SANDRES Facility:[facility] Start: 04-03-2023 End: 04-03-2023 Patient encounter procedure Soledad SANDERS [facility] Start: 03-26-2023 End: 03-27-2023 ambulatory Soledad SANDERS Facility:[id number] Start: 03-03-2023 End: 03-04-2023 ambulatory Soledad R SANDERS Facility:[facility] Start: 03-02-2023 End: 03-03-2023 ambulatory Soledad R SANDERS Facility:[facility] Start: 03-02-2023 End: 03-03-2023 ambulatory Soledad Shaila SANDERS Facility:[facility] Start: 02-27-2023 ambulatory Soledad SANDERS Facility :[facility] Start: 04-20-2017 End: 04-20-2017 Ambulatory CYNTHIA VELÁSQUEZ Facility: Procedures Date Procedure Procedure Detail Performing Clinician Start: 03-26-2023 Transurethral resect ion of bladder neoplasm Soledad SANDERS Start: 02-27-2023 Lipid 1996 panel - S fabian or Plasma Immanuel Osorio MD Work Phone: Start: 07-08-2021 Total knee replacement Soledad SANDERS Start: 11-02-2015 Arthroscopic knee operation Soledad SANDERS Comment on above: left Appendix structure ( body structure) Soledad SANDERS Arthroplasty of knee Soledad SANDERS Comment on above: right Arthroscopy of knee Soledad SANDERS Bone spur of bilater al shoulders Soledad SANDERS Colonoscopy Soledad SANDERS Fasciotomy of foot Soledad TORRES Comment on above: left Functional endoscopi c sinus surgery (qualifier value) Soledad SANDERS Comment on above: x2 inguinal hernia repair Dwain SANDERS multiple surgeries r ight knee Soledad SANDERS Plantar fasciitis (disorder) Soledad SANDERS Tonsillectomy Soledad SANDERS Plan of Treatment Date Care Activity Detail Author Start: 02-28-2028 Lipid 1996 panel - S fabian or Plasma Lipid Screening [facility] Start: 02-28-2028 Lipid panel Lipid Screening [facility] Start: 02-28-2028 Prostate Cancer Screening Discussion Prostate Cancer Screening Discussion [facility] Start: 02-28-2028 Prostate specific antigen measurement Prostate Cancer Screening Discussion [facility] Start: 06-11-2026 Diabetes Screening Diabetes Screenin [facility] Start: 05-07-2026 Diabetes Screening Diabetes Screenin [facility] Start: 04-30-2026 Diabetes Screening Diabetes Screenin [facility] Start: 09-17-2023 End: 06-18-2024 CBC W Auto Differential panel - Blood CBC + DIFF Lab Routine Malignant neoplasm of overlapping sites of bladder (HCC) Iron deficiency anemia due to chronic blood loss Expected: 09/17/2023 (Approximate), Expires: 06/18/2024 [facility] Work Phone: Comment on above: Expected: 09/17/2023 (Approximate), Expires: 06/18/2024 Start: 09-17-2023 End: 06-18-2024 Cobalamin (Vitamin B12) [Mass/volume] in Serum or Plasma VITAMIN B12 BLOOD Lab Routine Malignant neoplasm of overlapping sites of bladder (HCC) Iron deficiency anemia due to chronic blood loss Expected: 09/17/2023 (Approximate), Expires: 06/18/2024 [facility] Work Phone: Comment on above: Expected: 09/17/2023 (Approximate), Expires: 06/18/2024 Start: 09-17-2023 End: 06-18-2024 Comprehensive metabolic 2000 panel - Serum or Plasma COMP METABOLIC PANEL Lab Routine Malignant neoplasm of overlapping sites of bladder (HCC) Iron deficiency anemia due to chronic blood loss Expected: 09/17/2023 (Approximate), Expires: 06/18/2024 [facility] Work Phone: Comment on above: Expected: 09/17/2023 (Approximate), Expires: 06/18/2024 Start: 09-17-2023 End: 06-18-2024 Ferritin [Mass/volume] in Serum or Plasma FERRITIN BLD Lab Routine Malignant neoplasm of overlapping sites of bladder (HCC) Iron deficiency anemia due to chronic blood loss Expected: 09/17/2023 (Approximate), Expires: 06/18/2024 [facility] Work Phone: Comment on above: Expected: 09/17/2023 (Approximate), Expires: 06/18/2024 Start: 09-17-2023 End: 06-18-2024 Folate [Mass/volume] in Serum or Plasma FOLATE SERUM Lab Routine Malignant neoplasm of overlapping sites of bladder (HCC) Iron deficiency anemia due to chronic blood loss Expected: 09/17/2023 (Approximate), Expires: 06/18/2024 [facility] Work Phone: Comment on above: Expected: 09/17/2023 (Approximate), Expires: 06/18/2024 Start: 09-17-2023 End: 06-18-2024 Iron and Iron binding capacity panel - Serum or Plasma IRON + TIBC Lab Routine Malignant neoplasm of overlapping sites of bladder (HCC) Iron deficiency anemia due to chronic blood loss Expected: 09/17/2023 (Approximate), Expires: 06/18/2024 [facility] Work Phone: Comment on above: Expected: 09/17/2023 (Approximate), Expires: 06/18/2024 Start: 07-06-2023 ambulatory Ambulatory Facility:C [id number] Start: 05-25-2023 Advance Directive Discussion Advance Directive Discussion [facility] Start: 05-25-2023 Depression Assessment Depression Ass essment [facility] Start: 05-07-2023 End: 04-30-2024 CBC W Auto Differential panel - Blood CBC + DIFF Lab Routine Malignant neoplasm of overlapping sites of bladder (HCC) Expected: 05/07/2023 (Approximate), Expires: 04/30/2024 [facility] Work Phone: Comment on above: Expected: 05/07/2023 (Approximate), Expires: 04/30/2024 Start: 05-07-2023 End: 04-30-2024 Cobalamin (Vitamin B12) [Mass/volume] in Serum or Plasma VITAMIN B12 BLOOD Lab Routine Malignant neoplasm of overlapping sites of bladder (HCC) Expected: 05/07/2023 (Approximate), Expires: 04/30/2024 [facility] Work Phone: Comment on above: Expected: 05/07/2023 (Approximate), Expires: 04/30/2024 Start: 05-07-2023 End: 04-30-2024 Comprehensive metabolic 2000 panel - Serum or Plasma COMP METABOLIC PANEL Lab Routine Malignant neoplasm of overlapping sites of bladder (HCC) Expected: 05/07/2023 (Approximate), Expires: 04/30/2024 [facility] Work Phone: Comment on above: Expected: 05/07/2023 (Approximate), Expires: 04/30/2024 Start: 05-07-2023 End: 04-30-2024 Ferritin [Mass/volume] in Serum or Plasma FERRITIN BLD Lab Routine Malignant neoplasm of overlapping sites of bladder (HCC) Expected: 05/07/2023 (Approximate), Expires: 04/30/2024 [facility] Work Phone: Comment on above: Expected: 05/07/2023 (Approximate), Expires: 04/30/2024 Start: 05-07-2023 End: 04-30-2024 Folate [Mass/volume] in Serum or Plasma FOLATE SERUM Lab Routine Malignant neoplasm of overlapping sites of bladder (HCC) Expected: 05/07/2023 (Approximate), Expires: 04/30/2024 [facility] Work Phone: Comment on above: Expected: 05/07/2023 (Approximate), Expires: 04/30/2024 Start: 05-07-2023 End: 04-30-2024 Iron and Iron binding capacity panel - Serum or Plasma IRON + TIBC Lab Routine Malignant neoplasm of overlapping sites of bladder (HCC) Expected: 05/07/2023 (Approximate), Expires: 04/30/2024 [facility] Work Phone: Comment on above: Expected: 05/07/2023 (Approximate), Expires: 04/30/2024 Start: 01-23-2023 Covid-19 Vaccine (2022- season) Covid-19 Vaccine (2022- season) [facility] Start: 05-25-2022 Advance Directive Discussion Advance Directive Discussion [facility] Start: 05-25-2022 Depression Assessment Depression Ass essment [facility] Start: 2015 RSV Vaccine (1 - 1-d ose 60+ series) RSV Vaccine (1 - 1-dose 60+ series) [facility] Start: 2005 Shingrix Vaccine (1 of 2) Shingrix Vaccine (1 of 2) [facility] Start: 01-30-2000 Cologuard (FIT-DNA) Cologuard (FIT-D NA) [facility] Start: 01-30-2000 Colonoscopy Colonoscopy [facility] Start: 01-30-2000 Colorectal Cancer Screening Colorectal Cancer Screening [facility] Start: 01-30-[address] Colonography [facility] Start: 01-30-2000 Fecal Occult Blood Fecal Occult Bloo d [facility] Start: 01-30-2000 Screening for malign ant neoplasm of colon [facility] Start: 01-30-2000 [facility] Start: 1974 Urine microalbumin profile DTaP,Tdap,Td Vaccine (1 - Tdap) [facility] Start: 1973 Hepatitis C Screening Hepatitis C [facility] Start: 1973 Hepatitis C screening Hepatitis C [facility] End: 04-29-2024 CBC W Auto Differential panel - Blood CBC + DIFF Lab Routine Malignant neoplasm of overlapping sites of bladder (HCC) Every 3 weeks for 18 Occurrences starting 04/30/2023 until 04/29/2024 [facility] Work Phone: Comment on above: Every 3 weeks for 18 Occurrences starting 04/30/2023 until 04/29/2024 End: 04-29-2024 Comprehensive metabolic 2000 panel - Serum or Plasma COMP METABOLIC PANEL Lab Routine Malignant neoplasm of overlapping sites of bladder (HCC) Every 3 weeks for 18 Occurrences starting 04/30/2023 until 04/29/2024 [facility] Work Phone: Comment on above: Every 3 weeks for 18 Occurrences starting 04/30/2023 until 04/29/2024 [facility] Immunizations Immunization Date Immunization Notes Care Provider [facility] 02-25-2023 influenza virus vacc ine, unspecified formulation Soledad SANDERS [facility] 03-28-2021 influenza virus vacc ine, unspecified formulation Soledad SANDERS [facility] 03-28-2021 pneumococcal polysaccharide vaccine, 23 valent Soledad SANDERS [facility] 08-17-2020 COVID-19, mRNA, LNP- S, PF, 30 mcg/0.3 mL dose Soledad SANDERS [facility] Comment on above: Reason for Medicatio n: Prophylaxis 07-27-2020 COVID-19, mRNA, LNP- S, PF, 30 mcg/0.3 mL dose Soledad SANDERS [facility] Comment on above: Reason for Medicatio n: Prophylaxis 04-05-2020 pneumococcal conjuga te vaccine, 13 valent Soledad SANDERS [facility] 03-22-2020 influenza virus vacc ine, unspecified formulation Soledadmary SANDERS [facility] 03-23-2019 influenza virus vacc ine, unspecified formulation Soledadmary SANDERS [facility] 02-27-2018 influenza virus vacc ine, unspecified formulation Soledad SANDERS [facility] 02-16-2017 influenza virus vacc ine, unspecified formulation Soledad SANDERS [facility] 02-28-2015 influenza virus vacc ine, unspecified formulation Soledad SANDERS [facility] 03-27-2014 influenza virus vacc ine, unspecified formulation Soledad SANDERS [facility] 03-14-2013 influenza virus vacc ine, unspecified formulation Soledadmary SANDERS [facility] Payers Date Payer Category Payer Unknown MMO MMO MEDICARE SUPPLEMENT [id number] 2022-Present [phone] [address] [place] [address] Indemnity [id number] 2021 Medicare [id number] 2020 Medicare MEDICARE MEDICAR E A AND B [id number] 2020-Present [phone] [address] [address] [place] [address] Medicare [id number] 2020 Medicare [id number] 1959 Private Health Insurance [id number] 1955 Unknown [id number] 1955 Unknown [id number] 1955 Unknown [id number] 1955 Unknown [id number] 1955 Unknown [id number] 727 1955 Unknown [id number] 727 1955 Unknown [id number] 727 1955 Unknown [id number] 727 1955 Unknown [id number] Social History Date Type Detail Facility Start: 03-02-2023 End: 04-30-2023 Tobacco smoking status Never smoked tobacco (finding) [facility] Tobacco smoking status Never [facility] Start: 04-30-2023 End: 06-18-2023 Sex Assigned At Male [facility] Start: 04-30-2023 Tobacco use and exposure Smokeless tobacco non-user [facility] Start: 04-30-2023 End: 06-18-2023 Alcohol intake Lifetime non-drinker (finding) [facility] Start: 04-30-2023 End: 06-18-2023 History of Social function [facility] Start: 1955 Sex Assigned At Not on file [facility] Medical Equipment Procedure Code Equipment Code Equipment Origin al Text Equipment Identifier Dates KNEE TOTAL ARTHROPLASTY Jalen Taylor DO 07/08/21 Non Biological Knee L [id number] 0630 [facility] Start: 07-08-2021 Functional Status Date Assessment Result Facility 04-03-2023 Functional Status N/A [facility] Clinical Notes 03-02-2023 to 06-29-2023 Patient InstructionsAbImmanuel babcock MD - 06/18/2023 3:15 PM ESTTelephone Encounter - Stief Rcm Fc, Cb Holliday - 05/14/2023 9:24 AM ESTPatient Instructions Note Date & Type Note Facility 06-29-2023 Evaluation + Plan note Diagnostic Tests PendingUrine Cytology ([facility]) 06/29/23 [facility] 06-18-2023 Note HNO ID: [id number] Author: IMMANUEL OSORIO MD Service: ? 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 Given extent of disease, he will need immunotherapy with BCG. Anemia - Appears to be improving with iron replacement. 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 Satellite tumors noted adjacent to the mass on the floor of the bladder. 02/25/2023 - CT abdomen pelvis without contrast: hyperdense mass measuring 4.7 x 3.5 x 2.7 cm in the bladder. Bilateral renal parapelvic cysts. Updated Visit, June 18, 2023: Jc returns today with Snehal, doing pretty good. Completed his induction BCG last week. His Hgb has improved but he is still anemic. B12 is lower, which is normal. He has scopes scheduled for next month (07/06). Updated Visit, May 21, 2023: Jc returns today with his Snehal. He denies any problems since starting the BCG. Reviewed his labs, his anemia appears to be improving. We discussed taking his iron supplements with water or something acidic, as opposed to something like milk that will neutralize the acid in his stomach. Discussed surveillance plans once he finishes last BCG, he will need maintenance doses around September and November. Reports he has been dealing with a cough the past few weeks and is planning to discuss with his PCP, not a productive cough. Taking Robitussin-D and feels he has gotten a little better, Snehal disagrees and thinks he has sounded the same. Initial Visit, April 30, 2023: Jc Camacho presents today accompanied by his Snehal for Hematology and Oncology evaluation. He is a 68 year old male who first noticed a large amount of bleeding in his urine for the first time back in early February 2023. He had a catheter placed at the ER, which was removed on 03/03 after his cystoscopy. The day before Thanksgiving on 04/15, he ended up in the ER due to the presence of blood once again. He needed a catheter due to clotting. Starting 04/21, he has not had any bleeding and has had the cath removed. Reports exposure to many different chemicals through his work even with extended efforts to maximize efficiency of PPE. He also had significant exposure to asbestos due to taking care of that with work too. We reviewed his labs, he is slightly anemic. This is likely as a result of the bleeding in his urine. 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 REVIEW OF SYSTEMS Per HPI and otherwise negative by full review of organ systems. ECOG PERFORMANCE STATUS: 0 PHYSICAL EXAMINATION: Vitals: BP 134/89 Pulse 108 Temp (Src) 98 (Temporal) Resp 18 Ht 5' 10.984 (1.80m) Wt 252 lb 3.3 oz (114.4kg) SpO2 96% BMI 35.19 kg/(m2). Body surface area is 2.39 meters squared. Exam limited to gross visualization where appropriate. Gen.: This is an age-appropriate patient in no acute distress. Head: Appears atraumatic with no visible lesions. Eyes: Pupils equally round and reactive to light, extraocular muscles are intact. Neck: Supple. Respiratory: Appears to be respiring comfortably. Neurologic: Nonfocal to gross visualization. Alert and oriented ?3. Psychiatric: No evidence of inappropriate anxiety or depression. Skin: Visible areas of skin without rash, lesions, wounds or petechiae. ALLERGIES: ALLERGIES No Known Allergies MEDICATIONS: ferrous sulfate (IRON) 325 mg (65 mg iron) tablet Take 325 mg (more content not included)... [facility] 06-18-2023 Instructions Jamilah Mckeon - 06/18/2023 3:29 PM EST Continue oral iron RTC in 3 months Anticipate maintenance BCG, labs same day documented in this encounter [facility] 06-18-2023 History of Presen t illness Narrative Images from the original note were not included. 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 Given extent of disease, he will need immunotherapy with BCG. Anemia - Appears to be improving with iron replacement. 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 Satellite tumors noted adjacent to the mass on the floor of the bladder. 02/25/2023 - CT abdomen pelvis without contrast: hyperdense mass measuring 4.7 x 3.5 x 2.7 cm in the bladder. Bilateral renal parapelvic cysts. Updated Visit, June 18, 2023: Jc returns today with Snehal, doing pretty good. Completed his induction BCG last week. His Hgb has improved but he is still anemic. B12 is lower, which is normal. He has scopes scheduled for next month (07/06). Updated Visit, May 21, 2023: Jc returns today with his Snehal. He denies any problems since starting the BCG. Reviewed his labs, his anemia appears to be improving. We discussed taking his iron supplements with water or something acidic, as opposed to something like milk that will neutralize the acid in his stomach. Discussed surveillance plans once he finishes last BCG, he will need maintenance doses around September and November. Reports he has been dealing with a cough the past few weeks and is planning to discuss with his PCP, not a productive cough. Taking Robitussin-D and feels he has gotten a little better, Snehal disagrees and thinks he has sounded the same. Initial Visit, April 30, 2023: Jc Camacho presents today accompanied by his Snehal for Hematology and Oncology evaluation. He is a 68 year old male who first noticed a large amount of bleeding in his urine for the first time back in early February 2023. He had a catheter placed at the ER, which was removed on 03/03 after his cystoscopy. The day before Thanksgiving on 04/15, he ended up in the ER due to the presence of blood once again. He needed a catheter due to clotting. Starting 04/21, he has not had any bleeding and has had the cath removed. Reports exposure to many different chemicals through his work even with extended efforts to maximize efficiency of PPE. He also had significant exposure to asbestos due to taking care of that with work too. We reviewed his labs, he is slightly anemic. This is likely as a result of the bleeding in his urine. He previously worked at a [employer] plant for over 30 years. REVIEW OF SYSTEMS Per HPI and otherwise negative by full review of organ systems. ECOG PERFORMANCE STATUS: 0 PHYSICAL EXAMINATION: Vitals: BP 134/89 Pulse 108 Temp (Src) 98 (Temporal) Resp 18 Ht 5' 10.984 (1.80m) Wt 252 lb 3.3 oz (114.4kg) SpO2 96% BMI 35.19 kg/(m^2). Body surface area is 2.39 meters squared. Exam limited to gross visualization where appropriate. Gen.: This is an age-appropriate patient in no acute distress. Head: Appears atraumatic with no visible lesions. Eyes: Pupils equally round and reactive to light, extraocular muscles are intact. Neck: Supple. Respiratory: Appears to be respiring comfortably. Neurologic: Nonfocal to gross visualization. Alert and oriented 3. Psychiatric: No evidence of inappropriate anxiety or depression. Skin: Visible areas of skin without rash, lesions, wounds or petechiae. ALLERGIES: ALLERGIES No Known Allergies MEDICATIONS: ferrous sulfate (IRON) 325 mg (65 mg iron) tablet Take 325 mg by mouth once daily. pravastatin (PRAVACHOL) 40 mg tablet TAKE 1 TABLET BY MOUTH EVERY DAY AT THE SAME TIME omega-3 DHA-EPA (FISH OIL) 1,200 (144-216) mg capsule 1 capsule. LABORATORY VALUES: WBC (k/uL) Date Value 06/11/2023 5.50 RBC (m/uL) Date Value 06/11/2023 5.19 Hemoglobin (g/dL) Date Value 06/11/2023 13.2 Hematocrit (%) Date Value 06/11/2023 42.9 MCV (fL) Date Value 06/11/2023 82.7 MCH (pg) Date Value 06/11/2023 25.4 (L) MCHC (g/dL) Date Value 06/11/2023 30.8 RDW-CV (%) Date Value 06/11/2023 21.7 (H) Platelet Count (k/uL) Date Value 06/11/2023 281 MPV (fL) Date Value 06/11/2023 9.3 Glucose (mg/dL) Date Value 06/11/2023 98 BUN (mg/dL) Date Value 06/11/2023 21 Creatinine (mg/dL) Date Value 06/11/2023 0.90 Sodium (mmol/L) Date Value 06/11/2023 142 Potassium (mmol/L) Date Value 06/11/2023 4.5 Chloride (mmol/L) Date Value 06/11/2023 105 CO2 (mmol/L) Date Value 06/11/2023 27 Protein, Total (g/dL) Date Value 06/11/2023 7.4 Albumin (g/dL) Date Value 06/11/2023 4.3 Calcium, Total (mg/dL) Date Value 06/11/2023 9.7 Alkaline Phosphatase (U/L) Date Value 06/11/2023 88 Bilirubin, Total (mg/dL) Date Value 06/11/2023 0.4 AST (U/L) Date Value 06/11/2023 19 ALT (U/L) Date Value 06/11/2023 17 DIAGNOSIS: (C67.8) Malignant neoplasm of overlapping sites of bladder (HCC) (primary encounter diagnosis) Plan: CBC + DIFF, COMP METABOLIC PANEL, IRON + TIBC, FERRITIN BLD, VITAMIN B12 BLOOD, FOLATE SERUM (D50.0) Iron deficiency anemia due to chronic blood loss Plan: CBC + DIFF, COMP METABOLIC PANEL, IRON + TIBC, FERRITIN BLD, VITAMIN B12 BLOOD, FOLATE SERUM PAST MEDICAL HISTORY Diagnosis Date Bladder cancer (HCC) Renal cyst PAST SURGICAL HISTORY Procedure Laterality Date COLONOSCOPY HERNIA REPAIR HX TONSILLECTOMY HX TOTAL KNEE REPLACEMENT Bilateral 7 knee surgeries Social History Tobacco Use Smoking status: Never Smokeless tobacco: Never Vaping Use Vaping Use: Never used Substance Use Topics Alcohol use: Never Drug use: Never FAMILY HISTORY Problem Relation Age of Onset Colon Cancer Mother Heart disease Mother Hypertension Mother Emphysema Father Alcohol abuse Maternal Grandmother I spent a total of 20 minutes on the date of the service which included preparing to see the patient, [id number] patient care, completing clinical documentation, performing a medically appropriate examination, counseling and educating the patient/family/caregiver, ordering medications, tests, or procedures, independently interpreting results (not separately reported), communicating results to the patient/family/caregiver, and care coordination (not separately reported). Immanuel Osorio MD, CPE Hematology and Oncology Services Provided at: [place], [place] Scribe Attestation: This note was scribed by Jamilah Mckeon on June 18, 2023 under the direction and supervision of Dr. Immanuel Osorio. I attest that all of the information documented is correct to the best of my knowledge. Provider Attestation: I, Immanuel Osorio MD, attest that all information documented by the above scribe is correct, and was supervised by me and under my direction. CC: Soledad Sanders [address] [place] [address] No primary care provider on file. No primary provider on file. documented in this encounter [facility] 06-11-2023 Note HNO ID: [id number] Author: TAYLOR TOVAR RN Service: ? Author Type: Registered Nurse Type: Progress Notes Filed: 06/11/2023 12:28 Note Text: Treatment complete. Stevens cath unclamped 500 ml total noted in collection bag. Stevens DC as ordered per policy, patient tolerated well. No further questions or concerns Taylor Tovar RN [facility] 06-11-2023 Note HNO ID: [id number] Author: TAYLOR TOVAR RN Service: ? Author Type: Registered Nurse Type: Progress Notes Filed: 06/11/2023 12:28 Note Text: Patient has arrived for #6/6 BCG, 16 fr stevens catheter inserted utilizing lidocaine as ordered per protocol. Patient tolerated well, approx 150 ml clear yellow urine noted in collection bag. Taylor Tovar RN [facility] 06-04-2023 Note HNO ID: [id number] Author: NOA GERARD RN Service: ? Author Type: Registered Nurse Type: Progress Notes Filed: 06/04/2023 11:56 Note Text: 0907 -- 16 fr stevens catheter placed via sterile technique with slight resistance during insertion. No pain for pt during attempt, eventually inserted with immediate clear, yellow urine drainage. Pt aware allowing bladder to fully drain prior to BCG instillation. No needs, tubing secured to right thigh, call narayan in reach. 0928 -- Pt feels bladder to be fully empty, 100 mL of clear, yellow urine noted in collection bag. Stevens tubing clamped at this time and BCG instilled per orders without issue. Pt aware and able to rotate self every 15 minutes for 2 hours. No needs, call narayan in reach. 1005 -- Pt resting in position of comfort on cart, rotating self every 15 minutes without issue, denies pain/leakage/spasms. Call narayan in reach, will continue to monitor. 1108 -- Pt resting in position of comfort on cart, no issues with spasms/leakage or pain. Pt continuing to rotate self every 15 mins for duration of BCG. Pt aware of remaining time, denies needs, call narayan in reach. 1128 -- BCG dwell time completed; no issues during time of instillation. Stevens tubing unclamped at this time, allowing bladder to drain prior to stevens d/c. 1139 -- Bladder drainage completed, 10 mL NS deflated from catheter balloon and stevens d/c'ed without issue. Pt dressing independently and ambulatory to exit. Noa Gerard RN [facility] 05-28-2023 Note HNO ID: [id number] Author: LORETTA DOWNEY RN Service: ? Author Type: Registered Nurse Type: Progress Notes Filed: 05/28/2023 11:52 Note Text: 0855: 16F stevens catheter inserted via sterile technique without problems. Clear yellow urine draining via gravity. 0915: 150 mL urine noted in drain bag prior to instillation. BCG instilled and stevens clamped. Pt instructed to turn from side to side every 15 minutes. Pt verbalizes understanding and using phone timer. Will monitor. 1015: Pt doing well, denies complaints and continues to turn. 1115: Stevens unclamped and draining via gravity. 1125: 600 mL total urine noted in drain bag. Stevens dc'd per protocol without problems. Pt tolerated well. Loretta Downey RN [facility] 05-21-2023 Note HNO ID: [id number] Author: Bobbi Garcia RN Service: ? Author Type: Registered Nurse Type: Progress Notes Filed: 05/21/2023 12:05 PM Note Text: 0930 inserted stevens catheter. Clear yellow urine draining to gravity. 0950 instilled BCG and instructed patient to turn every 15 minutes. Patient denied needing anything at this time. Catheter clamped with approximately 125 mls of clear yellow urine. 1050 patient lying on right side, comfortable, denies needs at this time. Will continue to monitor. 1150 unclamped patient's stevens to gravity drain. Patient tolerated BCG well. No questions or concerns. 1202-patient stevens d/c'd after approximately 150 mls clear yellow urine drained after BCG. No questions or concerns. Patient instructed to d/c home whenever he and his family member are ready. Bobbi Garcia RN [facility] 05-21-2023 Note HNO ID: [id number] Author: Immanuel Osorio MD Service: ? Author Type: Physician Type: Progress Notes Filed: 05/22/2023 8:15 AM Note Text: NAME: Jc Camacho CLINIC NO.: [id number] DATE OF SERVICE: May 21, 2023 (Amber) Some elements in this clinic note that are critical to medical decision making have been carefully reviewed and included from a prior clinic note dated: April 30, 2023 (Amber). 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 Given extent of disease, he will need immunotherapy with BCG. Anemia - Appears to be improving with iron replacement. PLAN: Continue BCG weekly as scheduled x 6 next week. On last day of BCG on , draw anemia labs. RTC in 4 weeks No labs HPI: CASE HISTORY: Reverse Chronological Order 03/26/2023 - TURBT-multiple papillary transitional cell carcinomas on the anterior and back wall and left wall pathology consistent with invasive high-grade urothelial carcinoma with glandular differentiation invasion into lamina propria but not into muscle 03/03/2023 - cystoscopy: notable for large blood clot with neoplasm and apparent necrosis on the floor the bladder. Satellite tumors noted adjacent to the mass on the floor of the bladder. 02/25/2023 - CT abdomen pelvis without contrast: hyperdense mass measuring 4.7 x 3.5 x 2.7 cm in the bladder. Bilateral renal parapelvic cysts. Updated Visit, May 21, 2023: Jc returns today with his Snehal. He denies any problems since starting the BCG. Reviewed his labs, his anemia appears to be improving. We discussed taking his iron supplements with water or something acidic, as opposed to something like milk that will neutralize the acid in his stomach. Discussed surveillance plans once he finishes last BCG, he will need maintenance doses around September and November. Reports he has been dealing with a cough the past few weeks and is planning to discuss with his PCP, not a productive cough. Taking Robitussin-D and feels he has gotten a little better, Snehal disagrees and thinks he has sounded the same. Initial Visit, April 30, 2023: Jc Camacho presents today accompanied by his Snehal for Hematology and Oncology evaluation. He is a 68 year old male who first noticed a large amount of bleeding in his urine for the first time back in early February 2023. He had a catheter placed at the ER, which was removed on 03/03 after his cystoscopy. The day before Thanksgiving on 04/15, he ended up in the ER due to the presence of blood once again. He needed a catheter due to clotting. Starting 04/21, he has not had any bleeding and has had the cath removed. Reports exposure to many different chemicals through his work even with extended efforts to maximize efficiency of PPE. He also had significant exposure to asbestos due to taking care of that with work too. We reviewed his labs, he is slightly anemic. This is likely as a result of the bleeding in his urine. 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 REVIEW OF SYSTEMS Per HPI and otherwise negative by full review of organ systems. ECOG PERFORMANCE STATUS: 0 PHYSICAL EXAMINATION: Vitals: BP 146/73 Pulse 85 Temp (Src) 98.3 (Temporal) Resp 16 Ht 5' 10.984 (1.80m) Wt 246 lb 0.5 oz (111.6kg) SpO2 96% BMI 34.33 kg/(m2). Body surface area is 2.36 meters squared. Exam limited to gross visualization where appropriate. Gen.: This is an age-appropriate patient in no acute distress. Head: Appears atraumatic with no visible lesions. Eyes: Pupils equally round and reactive to light, extraocular muscles are intact. Neck: Supple. Respiratory: Appears to be respiring comfortably. Neurologic: Nonfocal to gross visualization. Alert and oriented ?3. Psychiatric: No evidence of inappropriate anxiety or depression. Skin: Visible areas of skin without rash, lesions, wounds or petechiae. ALLERGIES: ALLERGIES No Known Allergies MEDICATIONS: ferrous sulfate (IRON) 325 mg (65 mg iron) tablet Take 325 mg by mouth once daily. pravastatin (PRAVACHOL) 40 mg tablet TAKE 1 TABLET BY MOUTH EVERY DAY AT THE SAME TIME omega-3 DHA-EPA (FISH OIL) 1,200 (144-216) mg capsule 1 capsule. (more content not included)... [facility] 05-14-2023 Note HNO ID: [id number] Author: Zoila Acosta RN Service: ? Author Type: Registered Nurse Type: Progress Notes Filed: 05/14/2023 11:54 AM Note Text: 0840: 16FR stevens catheter inserted successfully using sterile technique. Balloon intact prior to insertion. Approximately 100 ml clear yellow urine collected in urine bag. Patient denies any discomfort or needs at this time. 0901: BCG inserted through stevens then clamped. Patient aware to turn every 15 minutes and plans to time and turn himself. Pt denies needs at this time. 0928: Patient turning as instructed with no complaints at this time. 1010: Patient continues to turn as instructed with no complaints. 1047: Patient turning and denies any spasms or discomfort. 1101: Stevens catheter unclamped. 1109: Catheter discontinued, balloon intact. Approximately 200 ml clear yellow urine collected in urine bag. Side rail put down for pt to dress. Patient denies any needs and encouraged to leave when ready. Zoila Acosta RN [facility] 05-14-2023 Miscellaneous Notes Patient on 1st time treatment. Patient getting BCG treatment (non chemo) Patient holds medicare coverage with supplement. No financial liability at this time. documented in this encounter [facility] 05-07-2023 Note HNO ID: [id number] Author: Taylor Tovar RN Service: ? Author Type: Registered Nurse Type: Progress Notes Filed: 05/07/2023 4:41 PM Note Text: Instill time complete and stevens cath DC per protocol as ordered. 200 ml dark yellow urine noted in collection container. Patient has tolerated well Taylor Tovar RN [facility] 05-07-2023 Note Education (THIERRY) JC CAMACHO ([id number]) 1955 M Date Time Provider Department 05/07/23 ISAÍAS LEMON Reason for Visit: Non-Chemotherapy Treatment [795] Cmt: BCG Primary Visit Diagnosis:Malignant neoplasm of overlapping sites of bladder (HCC) [C67.8] During your visit today, we recorded the following information about you: Allergies As of Date: 05/07/2023 (No Known Allergies) Date Reviewed: 05/07/2023 Reviewed by: Isaías Lemon RN - Fully Assessed Prescriptions as of 05/07/2023 - pravastatin (PRAVACHOL) 40 mg tablet TAKE 1 TABLET BY MOUTH EVERY DAY AT THE SAME TIME - omega-3 DHA-EPA (FISH OIL) 1,200 (144-216) mg capsule 1 capsule. Encounter Status:Closed by ISAÍAS LEMON on 05/07/23 [facility] 05-07-2023 Note HNO ID: [id number] Author: Isaías Lemon RN Service: ? Author Type: Registered Nurse Type: Progress Notes Filed: 05/07/2023 12:05 PM Note Text: ONCOLOGY PATIENT EDUCATION NOTE TOPIC: Intravesicular Treatment, Medications: BCG READINESS TO LEARN: COGNITIVE ABILITY: Alert and oriented MOTIVATION TO LEARN: Interested FAMILY SUPPORT: High - Very involved in pt care INSTRUCTION PROVIDED TO: Patient and Spouse INSTRUCTION PROVIDED BY: Nurse Coordinator PATIENT LEARNS BEST BY: Multiple Methods FACTORS AFFECTING LEARNING: None PHYSICAL LIMITATIONS AFFECTING LEARNING: None LEARNING RESPONSE DIAGNOSIS: Bladder Cancer METHOD OF INSTRUCTION: Individual instruction Written instruction - handouts Verbal instruction PATIENT/FAMILY RESPONSE: Verbalizes understanding of: CHEMOTHERAPY-Regimen, toxicity and side effects EQUIPMENT USE-Correct use of Equipment INFECTION MANAGEMENT-Signs and symptoms of an infection and importance of contacting the physician POST-PROCEDURE INSTRUCTIONS-Correct actions to take to reduce post procedure complications PRE-PROCEDURE INSTRUCTIONS-Correct action to take to follow pre-procedure instructions SYMPTOM MANAGEMENT-Correct actions to take to manage symptoms associated with his/her disease/illness WORSENING CONDITION-Signs and symptoms of a worsening condition that warrant a call to the physician Information received as demonstrated by interest and questions FOLLOW UP PLAN: Patient instructed to call with any further issues Contact information given. SUPPLEMENTAL MATERIAL: Written material was provided at this visit with the following information: - Intravesicular education was provided by a pharmacist NO - Side effect management information was provided/discussed including but not limited to: fatigue, infection, hematuria, bladder irritation. YES - Provided important phone numbers and contacts during and after hours. YES - Provided information on symptoms that require immediate assistance. YES - Provided Intravesicular when to call handouts YES - Preventing infection. YES - Treatment schedule and confirmation of appointment times. YES - Available support groups. YES - The importance of contraception during the course of chemotherapy YES - 4th Hao Information. YES - Patient services information. YES Time Spent: 30 minutes REFERRAL (RECOMMENDATION): N/A Isaías Lemon RN [facility] 04-30-2023 Note HNO ID: [id number] Author: Immanuel Osorio MD Service: ? Author Type: Physician Type: Progress Notes Filed: 04/30/2023 8:05 PM Note Text: NAME: Jc Camacho [facility] NO.: [id number] DATE OF SERVICE: April 30, 2023 (Amber) Referring Provider: Soledad Sanders Consultation requested by Dr. Sanders for an opinion regarding Mr. Jc Camacho, and my final recommendations will be communicated back to the requesting physician by way of shared medical record or letter via [place] mail. 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 Given extent of disease, he will need immunotherapy with BCG. Will also evaluate cause of anemia - most likely due to significant bleeding from bladder tumor recently. PLAN: Start BCG weekly x 6 next week. Labs on day of start to include anemia labs. RTC with me the third week of BCG. CBC same day. 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 Satellite tumors noted adjacent to the mass on the floor of the bladder. 02/25/2023 - CT abdomen pelvis without contrast: hyperdense mass measuring 4.7 x 3.5 x 2.7 cm in the bladder. Bilateral renal parapelvic cysts. Initial Visit, April 30, 2023: Jc Camacho presents today accompanied by his Snehal for Hematology and Oncology evaluation. He is a 68 year old male who first noticed a large amount of bleeding in his urine for the first time back in early February 2023. He had a catheter placed at the ER, which was removed on 03/03 after his cystoscopy. The day before Thanksgiving on 04/15, he ended up in the ER due to the presence of blood once again. He needed a catheter due to clotting. Starting 04/21, he has not had any bleeding and has had the cath removed. Reports exposure to many different chemicals through his work even with extended efforts to maximize efficiency of PPE. He also had significant exposure to asbestos due to taking care of that with work too. We reviewed his labs, he is slightly anemic. This is likely as a result of the bleeding in his urine. 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 REVIEW OF SYSTEMS Per HPI and otherwise negative by full review of organ systems. ECOG PERFORMANCE STATUS: 0 PHYSICAL EXAMINATION: Vitals: BP 143/82 Pulse 102 Temp (Src) 99.1 (Temporal) Resp 18 Ht 5' 11 (1.80m) Wt 246 lb 12.8 oz (111.9kg) SpO2 95% BMI 34.44 kg/(m2). Body surface area is 2.37 meters squared. Exam limited to gross visualization where appropriate. Gen.: This is an age-appropriate patient in no acute distress. Head: Appears atraumatic with no visible lesions. Eyes: Pupils equally round and reactive to light, extraocular muscles are intact. Neck: Supple. Respiratory: Appears to be respiring comfortably. Neurologic: Nonfocal to gross visualization. Alert and oriented ?3. Psychiatric: No evidence of inappropriate anxiety or depression. Skin: Visible areas of skin without rash, lesions, wounds or petechiae. ALLERGIES: ALLERGIES No Known Allergies MEDICATIONS: pravastatin (PRAVACHOL) 40 mg tablet TAKE 1 TABLET BY MOUTH EVERY DAY AT THE SAME TIME omega-3 DHA-EPA (FISH OIL) 1,200 (144-216) mg capsule 1 capsule. LABORATORY VALUES: WBC (k/uL) Date Value 04/30/2023 9.86 RBC (m/uL) Date Value 04/30/2023 4.93 Hemoglobin (g/dL) Date Value 04/30/2023 11.9 (L) Hematocrit (%) Date Value 04/30/2023 38.0 (L) MCV (fL) Date Value 04/30/2023 77.1 (L) MCH (pg) Date Value 04/30/2023 24.1 (L) MCHC (g/dL) Date Value 04/30/2023 31.3 RDW-CV (%) Date Value 04/30/2023 17.1 (H) Platelet Count (k/uL) Date Value 04/30/2023 293 MPV (fL) Date Value 04/30/2023 9.5 Glucose (mg/dL) Date Value 04/30/2023 115 (H) BUN (mg/dL) Date Value 04/30/2023 28 (H) Creatinine (mg/dL) Date Value 04/30/2023 0.88 Sodium (mmol/L) Date (more content not included)... [facility] 04-30-2023 Instructions Immanuel Osorio MD - 04/30/2023 4:40 PM EST Start BCG weekly x 6 next week. Labs on day of start to include anemia labs. RTC with me the third week of BCG. CBC same day. documented in this encounter [facility] 04-30-2023 History of Presen t illness Narrative Images from the original note were not included. NAME: Jc Camacho [facility] NO.: [id number] DATE OF SERVICE: April 30, 2023 (Amber) Referring Provider: Soledad Sanders Consultation requested by Dr. Sanders for an opinion regarding Mr. Jc Camacho, and my final recommendations will be communicated back to the requesting physician by way of shared medical record or letter via [place] mail. 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 Given extent of disease, he will need immunotherapy with BCG. Will also evaluate cause of anemia - most likely due to significant bleeding from bladder tumor recently. PLAN: Start BCG weekly x 6 next week. Labs on day of start to include anemia labs. RTC with me the third week of BCG. CBC same day. 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 Satellite tumors noted adjacent to the mass on the floor of the bladder. 02/25/2023 - CT abdomen pelvis without contrast: hyperdense mass measuring 4.7 x 3.5 x 2.7 cm in the bladder. Bilateral renal parapelvic cysts. Initial Visit, April 30, 2023: Jc Camacho presents today accompanied by his Snehal for Hematology and Oncology evaluation. He is a 68 year old male who first noticed a large amount of bleeding in his urine for the first time back in early February 2023. He had a catheter placed at the ER, which was removed on 03/03 after his cystoscopy. The day before Thanksgiving on 04/15, he ended up in the ER due to the presence of blood once again. He needed a catheter due to clotting. Starting 04/21, he has not had any bleeding and has had the cath removed. Reports exposure to many different chemicals through his work even with extended efforts to maximize efficiency of PPE. He also had significant exposure to asbestos due to taking care of that with work too. We reviewed his labs, he is slightly anemic. This is likely as a result of the bleeding in his urine. 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 REVIEW OF SYSTEMS Per HPI and otherwise negative by full review of organ systems. ECOG PERFORMANCE STATUS: 0 PHYSICAL EXAMINATION: Vitals: BP 143/82 Pulse 102 Temp (Src) 99.1 (Temporal) Resp 18 Ht 5' 11 (1.80m) Wt 246 lb 12.8 oz (111.9kg) SpO2 95% BMI 34.44 kg/(m^2). Body surface area is 2.37 meters squared. Exam limited to gross visualization where appropriate. Gen.: This is an age-appropriate patient in no acute distress. Head: Appears atraumatic with no visible lesions. Eyes: Pupils equally round and reactive to light, extraocular muscles are intact. Neck: Supple. Respiratory: Appears to be respiring comfortably. Neurologic: Nonfocal to gross visualization. Alert and oriented 3. Psychiatric: No evidence of inappropriate anxiety or depression. Skin: Visible areas of skin without rash, lesions, wounds or petechiae. ALLERGIES: ALLERGIES No Known Allergies MEDICATIONS: pravastatin (PRAVACHOL) 40 mg tablet TAKE 1 TABLET BY MOUTH EVERY DAY AT THE SAME TIME omega-3 DHA-EPA (FISH OIL) 1,200 (144-216) mg capsule 1 capsule. LABORATORY VALUES: WBC (k/uL) Date Value 04/30/2023 9.86 RBC (m/uL) Date Value 04/30/2023 4.93 Hemoglobin (g/dL) Date Value 04/30/2023 11.9 (L) Hematocrit (%) Date Value 04/30/2023 38.0 (L) MCV (fL) Date Value 04/30/2023 77.1 (L) MCH (pg) Date Value 04/30/2023 24.1 (L) MCHC (g/dL) Date Value 04/30/2023 31.3 RDW-CV (%) Date Value 04/30/2023 17.1 (H) Platelet Count (k/uL) Date Value 04/30/2023 293 MPV (fL) Date Value 04/30/2023 9.5 Glucose (mg/dL) Date Value 04/30/2023 115 (H) BUN (mg/dL) Date Value 04/30/2023 28 (H) Creatinine (mg/dL) Date Value 04/30/2023 0.88 Sodium (mmol/L) Date Value 04/30/2023 140 Potassium (mmol/L) Date Value 04/30/2023 4.2 Chloride (mmol/L) Date Value 04/30/2023 104 CO2 (mmol/L) Date Value 04/30/2023 27 Protein, Total (g/dL) Date Value 04/30/2023 7.5 Albumin (g/dL) Date Value 04/30/2023 4.4 Calcium, Total (mg/dL) Date Value 04/30/2023 9.4 Alkaline Phosphatase (U/L) Date Value 04/30/2023 106 Bilirubin, Total (mg/dL) Date Value 04/30/2023 0.4 AST (U/L) Date Value 04/30/2023 22 ALT (U/L) Date Value 04/30/2023 19 DIAGNOSIS: (C67.8) Malignant neoplasm of overlapping sites of bladder (HCC) (primary encounter diagnosis) Plan: bcg 50 mg in NaCl 0.9% 50 mL, lidocaine urojet 2 % 11 mL topical gel (GLYDO), bcg 50 mg in NaCl 0.9% 50 mL, lidocaine urojet 2 % 11 mL topical gel (GLYDO), bcg 50 mg in NaCl 0.9% 50 mL, lidocaine urojet 2 % 11 mL topical gel (GLYDO), bcg 50 mg in NaCl 0.9% 50 mL, lidocaine urojet 2 % 11 mL topical gel (GLYDO), bcg 50 mg in NaCl 0.9% 50 mL, lidocaine urojet 2 % 11 mL topical gel (GLYDO), bcg 50 mg in NaCl 0.9% 50 mL, lidocaine urojet 2 % 11 mL topical gel (GLYDO), CBC + DIFF, COMP METABOLIC PANEL, CBC + DIFF, COMP METABOLIC PANEL, IRON + TIBC, FERRITIN BLD, VITAMIN B12 BLOOD, FOLATE SERUM, CBC + DIFF, COMP METABOLIC PANEL PAST MEDICAL HISTORY Diagnosis Date Bladder cancer (HCC) Renal cyst PAST SURGICAL HISTORY Procedure Laterality Date COLONOSCOPY HERNIA REPAIR HX TONSILLECTOMY HX TOTAL KNEE REPLACEMENT Bilateral 7 knee surgeries Social History Tobacco Use Smoking status: Never Smokeless tobacco: Never Vaping Use Vaping Use: Never used Substance Use Topics Alcohol use: Never Drug use: Never FAMILY HISTORY Problem Relation Age of Onset Colon Cancer Mother Heart disease Mother Hypertension Mother Emphysema Father Alcohol abuse Maternal Grandmother I spent a total of 60 minutes on the date of the service which included preparing to see the patient, [id number] patient care, completing clinical documentation, obtaining and/or reviewing separately obtained history, performing a medically appropriate examination, counseling and educating the patient/family/caregiver, ordering medications, tests, or procedures, independently interpreting results (not separately reported), communicating results to the patient/family/caregiver, and care coordination (not separately reported). Immanuel Osorio MD, CPE Hematology and Oncology Services Provided at: [place], [place] Scribe Attestation: This note was scribed by Rupinder aBrrera on April 30, 2023 under the direction and supervision of Dr. Immanuel Osorio. I attest that all of the information documented is correct to the best of my knowledge. Provider Attestation: I, Immanuel Osorio MD, attest that all information documented by the above scribe is correct, and was supervised by me and under my direction. CC: Soledad Shaila Sanders [address] [place] [address] No primary care provider on file. No primary provider on file. documented in this encounter [facility] 04-03-2023 Hospital Discharg e instructions Patient Education 04/03/2023 11:01:01 Bladder Cancer Bladder Cancer Bladder cancer is a condition where abnormal tissue (a tumor) grows in the bladder. The bladder is the organ that holds urine. Two tubes (ureters) carry urine from the kidneys to the bladder. The bladder wall is made of layers of tissue. Cancer that spreads through these layers of the bladder wall becomes more difficult to treat. What increases the risk? The following factors may make you more likely to develop this condition: Smoking. Working where there are risks (occupational exposures), such as working with rubber, leather, clothing fabric, dyes, chemicals, or paint. Being 55 years of age or older. Being male. Having long-term bladder inflammation. Having a history of cancer. This includes: ?A family history of bladder cancer. ?Having had bladder cancer before. ?Having had certain treatments for cancer before, such as: ?Medicines to kill cancer cells (chemotherapy). ?Strong X-ray beams or high-energy capsules to kill cancer cells and shrink tumors (radiation therapy). Having been exposed to arsenic. This is a poisonous substance. What are the signs or symptoms? Early symptoms of this condition include: Blood in your urine. Pain when urinating. Infections of your urinary system (urinary tract infections or UTIs) that happen often. Having to urinate sooner or more often than normal. Late symptoms of this condition include: Not being able to urinate. Pain on one side of your lower back. Loss of appetite. Weight loss. Tiredness (fatigue). Swelling in your feet. Bone pain. How is this diagnosed? This condition is diagnosed based on: Your medical history. A physical exam. Lab tests, such as urine tests. Imaging tests. Your symptoms. You may also have other tests or procedures, such as: A cystoscopy. This involves putting a narrow tube into your urethra. The urethra is the organ that carries urine from your bladder to the outside of your body. This procedure is done to view the lining of your bladder for tumors. A biopsy. This involves removing a tissue sample to look at under a microscope to check for cancer. Blood tests or imaging tests may be needed. These show how far into the bladder wall cancer has grown, and if cancer has spread to any other parts of your body. Tests may include: CT scan. MRI. Bone scan. X-ray. How is this treated? Your health care provider may recommend one or more types of treatment based on the stage of your cancer. The most common treatments are: Surgery to remove the cancer. Types of surgeries include: ?Removing a tumor on the inside wall of the bladder (transurethral resection). ?Removing the bladder (cystectomy). Radiation therapy. This is often combined with chemotherapy. Chemotherapy. Immunotherapy. This uses medicines to help your body's disease-fighting system (immune system) destroy cancer cells. Follow these instructions at home: Take myyj-gzc-ymrmnif and prescription medicines only as told by your health care provider. If you were prescribed an antibiotic medicine, take it as told by your health care provider. Do not stop using the antibiotic even if you start to feel better. Eat a healthy diet. Some treatments might affect your appetite. Do not use any products that contain nicotine or tobacco. These products include cigarettes, chewing tobacco, and vaping devices, such as e-cigarettes. If you need help quitting, ask your health care provider. Consider joining a support group. This may help you learn to deal with the stress of having bladder cancer. Tell your cancer care team if you develop side effects. Your team may be able to recommend ways to get relief. Keep all follow-up visits. This is important. Where to find more information [place] [employer] (ACS): cancer.org National Cancer [place] (NCI): cancer.gov Contact a health care provider if: You have symptoms of a UTI. These include: ?Fever. ?Chills. ?Weakness. ?Muscle aches. ?Pain in your abdomen. ?Urge to urinate that is stronger and happens more often than normal. ?Burning in the bladder or urethra when you urinate. Get help right away if: There is blood in your urine. You cannot urinate. You have severe pain or other symptoms that do not go away. Summary Bladder cancer is a condition where tumors grow in the bladder. Diagnosis is based on your medical history, a physical exam, lab tests, imaging tests, and your symptoms. Your health care provider may recommend one or more types of treatment based on the stage of your cancer. Consider joining a support group. This may help you learn to deal with the stress of having bladder cancer. This information is not intended to replace advice given to you by your health care provider. Make sure you discuss any questions you have with your health care provider. Document Revised: 04/21/2022 Document Reviewed: 04/21/2022 [employer] Patient Education 2022 [employer]. Follow Up Care 03/06/2023 14:30:19 With:MAGALIE DORMAN, Soledad Linton, URL Address: [facility] [address], [place] [address] [phone] When: Unknown Comments:6 BCGs in 2 wks [facility] 03-03-2023 Note [id number] [facility] 03-03-2023 Note Custom Cystoscopy ? Voiding after the procedure: there may be some pain, burning, urgency, frequency and blood tinged urine following the procedure. These symptoms usually resolve within 2-5 days. Drink the amount of fluid it takes to keep the urine pink to yellow or clear in color. Drinking enough water and fluids will help to ease any discomfort after your procedure. ? If you are having problems that seem out of the ordinary, please call. ? If unable to contact your physician and you feel it is an emergency, go to the nearest emergency room or call 911 ? Diet ? you may resume your normal diet. ? Activity ? you may resume your normal activities ? Call if you have a fever over 100 degrees. [facility] 03-02-2023 Note Chief Complaint Referral *Gross Hematuria HPI Staff Evaluation requested by Isamar Davidson NP due to gross hematuria & Bladder Mass. Pt is a new pt, never before seen in our office. CT 02/25/23 (No prior imaging) PSA 05/20/19- 1.020 PSA 05/15/20- 0.971 PSA 05/16/21- 1.290 PSA 02/27/23- 0.93 CMP 02/27/23 Bright red blood in urine that started this past Thursday morning. Denies Family Hx of Bladder/Prostate Cancer. Denies Hx of Smoking Denies Hx of Kidney Stones. No prior complications urinating. Feels like something in his urethra shuts off at the end of the stream, since seeing blood, does cause a little discomfort. History of Present Illness Tests reviewed: reviewed UA and External Records. I have reviewed the previous health record information and history for this patient from External Provider. I have reviewed and verified the staff HPI to be accurate for this encounter. There have been no associated fever, chills, flank pain, or blood in the urine. Denies any urinary infections since last encounter. Review of Systems PHQ Score Initial Depression Screen Score: 0 ROS - Provider Constitutional: denies weight loss, denies hot flashes. Eyes: denies eye problems. Gastrointestinal: denies nausea, denies vomiting. Cardiovascular: denies chest pain or angina. Integumentary: no dryness Musculoskeletal: denies musculoskeletal symptoms. ENMT: denies otolaryngeal symptoms. Respiratory: no shortness of breath. Heme/Lymph: denies easy bleeding tendency, denies easy bruising tendency. Psychiatric: no confusion, no anxiety. Genitourinary: See HPI. Physical Exam Vitals & Measurements HR: 79(Peripheral) RR: 16 BP: 140/87 HT: 71 in HT: 180 cm WT: 109 kg WT: 239.8 lb BMI: 33.64 General Appearance: alert, no distress, well nourished, well developed male. Head: normocephalic . Eyes: normal orbit and globe. ENMT: normal examination of external ears. Chest: Lungs CTA, respirations non labored. Cardiovascular: regular rate and rhythm. Abdomen: soft, non distended, no tenderness, no mass or organomegaly, no hernia. Genitourinary: normal scrotum, normal testes, normal urethra, normal epididymis, normal vas deferens/spermatic cord. Flank Pain: none. Bladder: nonpalpable. Penis: normal shaft, normal glans. Lymph Nodes: unremarkable palpation of the cervical area. Skin: warm, dry, no bruising. Psychiatric: cooperative, affect appropriate for age, normal judgement, euthymic mood. Assessment/Plan 1. Gross hematuria (R31.0: Gross hematuria) Bright red blood in urine that started this past Thursday morning, currently a purple color. Has past clots, has not passed any in the last day or so. Denies Family Hx of Bladder/Prostate Cancer. 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 Denies Hx of Smoking Denies Hx of Kidney Stones. No prior complications urinating. Feels like something in his urethra shuts off at the end of the stream, since seeing blood, does cause a little discomfort. Has a slight burning towards the end of voiding. Pt was started on Cipro 500mg BID h20sjop, has been on them for 5 days, still has to finish the course. UA today shows large blood and no signs of infection. Advised pt that a cysto is needed due to imaging findings and hx of working in a chemical plant. -Continue Cipro for Cysto. -See #3 2. Bladder mass (N32.89: Other specified disorders of bladder) CT AP wo Cont 02/25/23 - hyperdense mass measuring 4.7x3.5x2.7cm Advised pt that with the recent image done it is hard to determine if this is a true growth or clots. Recommended pt to have a cysto done. Pt states that he would like to do this. Counseled pt on the next steps depending on the findings from the cysto. Advised pt that there is a chance of bladder cancer due to occupational risks. -Will schedule cysto. The risks and benefits for cystoscopy have been discussed. The risks include bleeding, infection, and irritation of the bladder and urinary channel, among others. The patient, after being informed of procedural details and after questions have been answered, wishes to proceed. Full informed consent has been obtained. Will order Local anesthesia. 3. Bilateral renal cysts (N28.1: Cyst of kidney, acquired) CT AP wo Con 02/25/23 - bilat renal peripelvic cysts Follow-up With When Contact Information MAGALIE DORMAN, Soledad Linton, URL [facility] [address], [place] [address]- Additional Instructions: Sched Cysto Patient Education Cystoscopy I, Becca Downs , personally scribed for Dr. Sanders on 03/02/2023 11:44:16. . Documentation recorded by the Becca perry, accurately reflects the services(s) I performed and decisions made by me. Problem List/Past Medical History Ongoing Bilateral renal cysts Bladder mass Historical No qualifying data Procedure/Surgical History (more content not included)... [facility] Comment on above: Result Comment: Elec tronically Signed By: Soledad SANDERS MD\.br\Date and Time Signed: 03/02/23 11:47 EDT\.br\Electronically Co-Signed By: Becca Downs\.br\Date and Time Co-Signed: 03/02/23 11:44 EDT 03-02-2023 Note Urology Cystoscopy Cystoscopy is a procedure that is used to help diagnose and sometimes treat conditions that affect the lower urinary tract. The lower urinary tract includes the bladder and the urethra. The urethra is the tube that drains urine from the bladder. Cystoscopy is done using a thin, tube-shaped instrument with a light and camera at the end (cystoscope). The cystoscope may be hard or flexible, depending on the goal of the procedure. The cystoscope is inserted through the urethra, into the bladder. Cystoscopy may be recommended if you have: ? Urinary tract infections that keep coming back. ? Blood in the urine (hematuria). ? An inability to control when you urinate (urinary incontinence) or an overactive bladder. ? Unusual cells found in a urine sample. ? A blockage in the urethra, such as a urinary stone. ? Painful urination. ? An abnormality in the bladder found during an intravenous pyelogram (IVP) or CT scan. Cystoscopy may also be done to remove a sample of tissue to be examined under a microscope (biopsy). Tell a health care provider about: ? Any allergies you have. ? All medicines you are taking, including vitamins, herbs, eye drops, creams, and ygig-aof-dbxmwcn medicines. ? Any problems you or family members have had with anesthetic medicines. ? Any blood disorders you have. ? Any surgeries you have had. ? Any medical conditions you have. ? Whether you are or may be . What are the risks? Generally, this is a safe procedure. However, problems may occur, including: ? Infection. ? Bleeding. ? Allergic reactions to medicines. ? Damage to other structures or organs. What happens before the procedure? Medicines Ask your health care provider about: ? Changing or stopping your regular medicines. This is especially important if you are taking diabetes medicines or blood thinners. ? Taking medicines such as aspirin and ibuprofen. These medicines can thin your blood. Do not take these medicines unless your health care provider tells you to take them. ? Taking ypdp-sck-nzaixcd medicines, vitamins, herbs, and supplements. Tests You may have an exam or testing, such as: ? X-rays of the bladder, urethra, or kidneys. ? CT scan of the abdomen or pelvis. ? Urine tests to check for signs of infection. General instructions ? Follow instructions from your health care provider about eating or drinking restrictions. ? Ask your health care provider what steps will be taken to help prevent infection. These steps may include: ? Washing skin with a germ-killing soap. ? Taking antibiotic medicine. ? Plan to have a responsible adult take you home from the hospital or clinic. What happens during the procedure? ? You will be given one or more of the following: ? A medicine to help you relax (sedative). ? A medicine to numb the area (local anesthetic). ? The area around the opening of your urethra will be cleaned. ? The cystoscope will be passed through your urethra into your bladder. ? Germ-free (sterile) fluid will flow through the cystoscope to fill your bladder. The fluid will stretch your bladder so that your health care provider can clearly examine your bladder nelson. ? Your doctor will look at the urethra and bladder. Your doctor may take a biopsy or remove stones. ? The cystoscope will be removed, and your bladder will be emptied. The procedure may vary among health care providers and hospitals. What can I expect after the procedure? After the procedure, it is common to have: ? Some soreness or pain in your abdomen and urethra. ? Urinary symptoms. These include: ? Mild pain or burning when you urinate. Pain should stop within a few minutes after you urinate. This may last for up to 1 week. ? A small amount of blood in your urine for several days. ? Feeling like you need to urinate but producing only a small amount of urine. Follow these instructions at home: Medicines ? Take gzft-fuo-lyzjwgo and prescription medicines only as told by your health care provider. ? If you were prescribed an antibiotic medicine, take it as told by your health care provider. Do not stop taking the antibiotic even if you start to feel better. General instructions ? Return to your normal activities as told by your health care provider. Ask your health care provider what activities are safe for you. ? If you were given a sedative during the procedure, it can affect you for several hours. Do not drive or operate machinery until your health care provider says that it is safe. ? Watch for any blood in your urine. If the amount of blood in your urine increases, call your health care provider. ? Follow instructions from your health care provider about eating or drinking restrictions. ? If a tissue sample was removed for testing (biopsy) during your procedure, it is up to you to get your test results. Ask your health care provider, or the department th (more content not included)... [facility] Evaluation + Plan note No data available for this section [facility] Evaluation + Plan note Future Appointments Appointment Date:06/29/2023 09:00:00 AM Scheduled Provider: Location:[facility] Appointment Type:URO Nurse Visit [facility] Evaluation note Diagnosis Malignant neoplasm of overlapping sites of bladder (HCC)- Primary Malignant neoplasm of other specified sites of bladder [facility] Malignant neoplasm of overlapping sites of bladder (HCC)- Primary Malignant neoplasm of other specified sites of bladder Iron deficiency anemia due to chronic blood loss Iron deficiency anemia secondary to blood loss (chronic) documented in this encounter [facility] Discharge instructions No data available for this section [facility] progress note No data available for this section [facility] Summary Purpose Family History No Family History Records FoundNo Family History Records Found No data available for this section No data available for this section No Family History Records FoundNo Family History Records Found No data available for this section No data available for this section Advance Directives No Advanced Directives Records FoundNo Advanced Directives Records FoundNo Advanced Directives Records FoundNo Advanced Directives Records Found Additional Source Comments (unrecognized sect ion and content) No Status Records FoundNo Status Records FoundNo Status Records FoundNo Status Records Found INFORMATION SOURCE (unrecogn ized section and content) DATE CREATED AUTHOR 11/17/2017 [facility] [place] [facility] DATE CREATED AUTHOR AUTHOR'S ORGANIZ ATION 05/17/2021 [facility] dical Specialist DATE CREATED AUTHOR AUTHOR'S ORGANIZ ATION 06/20/2023 [facility] DATE CREATED AUTHOR AUTHOR'S ORGANIZ ATION 06/30/2023 [facility] Patient Care team informatio n (unrecognized section and content) Personnel Name: MAXX DORMAN, ISIS Stoddard Address: Address: [address] [place] [address] Java Lead Developer Relationship Specialty Start Date End Date Isis Lilly MD [address] [place] [address] [address] [place] [address] Family Medicine 04/30/23 Java Lead Developer Relationship Specialty Start Date End Date Isis Lilly MD [address] [place] [address] [address] [place] [address] Family Medicine 04/30/23 Immanuel Osorio MD [address] [place] [address] [place] [address] Physician Hematology/Oncology 05/04/23 Edel Christine APRN.RESIDENCE LEASING AGENT [address] [place] [address] Nurse Practitioner Hematology/Oncology 05/04/23 Isaías Lemon, CHRISTINA [address] [place] [address] Specialty Director Of Music Hematology/Oncology 05/04/23 Java Lead Developer Relationship Specialty Start Date End Date Isis Lilly MD [address] [facility] [address] [place] [address] PCP - General Family Medicine 05/28/23 Isis Lilly MD [address] [place] [address] Family Medicine 04/30/23 Immanuel Osorio MD [address] [place] [address] Physician Hematology/Oncology 05/04/23 Edel Christine APRN.RESIDENCE LEASING AGENT [address] [place] [address] Nurse Practitioner Hematology/Oncology 05/04/23 Isaías Lemon, CHRISTINA [address] [place] [address] Specialty Director Of Music Hematology/Oncology 05/04/23 Source Comments (unrecognize d section and content) In the event this informatio n is protected by the Federal Confidentiality of Alcohol and Drug Abuse Patient Records regulations: The Federal rules restrict any use of the information to criminally investigate or prosecute any alcohol or drug abuse patient.[facility] the event this information is protected by the Federal Confidentiality of Alcohol and Drug Abuse Patient Records regulations: The Federal rules restrict any use of the information to criminally investigate or prosecute any alcohol or drug abuse patient.[facility] the event this information is protected by the Federal Confidentiality of Alcohol and Drug Abuse Patient Records regulations: The Federal rules restrict any use of the information to criminally investigate or prosecute any alcohol or drug abuse patient.[facility] Reason for Visit (unrecogniz ed section and content) Reason Comments Consult Reason Comments Benefits Investigation Reason Comments Bladder Cancer FOR RECORDS PERTAINING TO PATIENTS WHO ARE OR HAVE BEEN ENROLLED IN A CHEMICAL DEPENDENCY/SUBSTANCEABUSE PROGRAM, SOME INFORMATION MAY BE OMITTED. This clinical summary was aggregated from multiple sources. Caution should be exercised in using it in the provision of clinical care. This summary normalizes information from multiple sources, and as a consequence, information in this document may materially change the coding, format and clinical context of patient data. In addition, data may be omitted in some cases. CLINICAL DECISIONS SHOULD BE BASED ON THE PRIMARY CLINICAL RECORDS. [employer] [facility]. provides no warranty or guarantee of the accuracy or completeness of information in this document.
== END 2023-07-03 09:26 | disposition home or self-care (01) ==
LOC: PST 09:25
PROVIDERS: PCP Family Medicine; Visit Provider Urology
DX: Z01.818 Encounter for other preprocedural examination (principal); Z85.51 Personal history of malignant neoplasm of bladder; E78.5 Hyperlipidemia, unspecified; N28.1 Cyst of kidney, acquired

== ENCOUNTER 2023-07-06 07:15 | Day surgery (SDC) | payer MEDICARE, OTHER, SELFPAY ==
--- OUTSIDE RECORDS SUMMARY | 2023-07-06 07:19 | XMS_ITS | CCD ---
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 Name Role Phone DIDIER CYNTHIA Unavailable Unavailable DIDIER, CYNTHIA Unavailable Unavailable MAXXDAVID ArandaEN Unavailable Unavailable DIDIER, CYNTHIA Unavailable Unavailable LORRAINE LANDAVERDE Unavailable Unavailable CAMERON MARCUM Unavailable Unavailable ISIS LILLY Primary Care Physician Isis Lilly MD Unavailable [phone] Immanuel Osorio MD Unavailable [phone] Ian AUTO BODY REPAIR TEACHER.Edel SUTHERLAND Unavailable Xochilt RN, Isaías Unavailable [phone] Isis Lilly MD Primary Care Provider IMAMNUEL OSORIO Attending Unavailable SOLEDAD SANDERS Referring Unavailable [...] Unavailable Soledad SANDERS Attending Unavailable ISAMAR DAVIDSON [employer]OM[employer] EXPERT-C Referring Unavailable Soledad SANDERS Referring Unavailable Soledad [...] months, # 8 tab(s), Refills(s) 0, Pharmacy: [id number], 180, cm, 04/03/23 10:43:00 EST, Height/Length [...] Test Name Value Interpretation Reference Range Facility Urine Cytology ( Labs)on 0 07-02-2023 Urine Cytology Diagnosis Info Invalid Interpretation Code [facility] Comment on above: Result Comment: A:Ur ine,Urine:Voided Interpretation - MicroScopic Description - Adequacy - Gross Description Site ID:A color Shanita fixative Alcohol Specimen designated Urine received in alcohol preservative and labeled with the patient?s name, consists of 100ml clear shanita fluid. Electronically signed by : on: 07/02/2023 10:21:32 Performed By: #### 1 [id number] #### [facility] [address] [place] [address] Ambulatory Visit Summaryon 0 06-29-2023 Ambulatory Visit [...] you for choosing us for your care. Normal [facility] Urine Cytology ([facility])on 06-29-2023 Method of Extraction Voided Normal [facility] Comment on above: Performed By: #### 1 [id number] #### [facility] [address] [id number] Number of Jars 1 Invalid Interpretation Code [facility] Comment on above: Performed By: #### 1 [id number] #### [facility] [address] [place] [address] Specimen Urine Normal [facility] Comment on above: Performed By: #### 1 [id number] #### [facility] [address] [place] [address] Type of Service Technical Only Normal Fi [facility] Comment on above: Performed By: #### 1 [id number] #### [facility] [address] [facility] [place] [address] Consultation Noteon 06-19-19 24 Consultation Note [id number]#1. 00TIFF Isa Babcock [facility] CNOVSPon 06-18-2023 OVSP Visit (SP) Office ([place]) JC CAMACHO ([id number]) 1955 M Date Time Provider Department 06/18/23 3:15 PM IMMANUEL OSORIO HEMSAVANA During your visit today, we recorded the following information about you: Temperature Pulse Respiration Blood pressure 98 degrees 108/minute 18/minute 134/89 Weight Height 114.4 kg 1.803 m Immanuel Osorio MD 06/18/2023 9:23 PM Signed NAME: Jc Camacho CLINIC NO.: [id number] DATE OF SERVICE: June 18, 2023 (Amber) Some elements in this clinic note that are critical to medical decision making have been carefully reviewed and included from a prior clinic note dated: May 21, 2023 (Amber) Referring Provider: Soledad Sanders Additional Clinicians involved in Jc Thiago Camacho's care: DIAGNOSIS: High-grade bladder cancer ASSESSMENT: [...] of maurice (more content not included)... Normal [facility] Reminderson 06-16-2023 Reminders - From: Carole Garcia To: EU - Recalls Sanders; Cc: Carole Garcia; Sent: 04/03/2023 11:38:24 EST Show up: 05/25/2023 11:38:00 EST Subject: Cysto/FISH/cytol Due Date/Time: 06/15/2023 11:38:00 EST Reminder/Recall Patient is due in Jun 2023 for 3 month cysto/fish/Cytol (bt ck) Patient sched for 07/06/23 at [facility]. He will be due in September 2023.LG Normal [facility] CBC W Auto Differential pane l (Bld)on 06-11-2023 Basophils (Bld) [#/Vol] 0.04 10*3/uL Normal <0.11 [facility] Comment on above: Order Comment: Speci men Type: BLOOD SPECIMENOrdering Facility: [facility] Address: [address] [place] [address] Performed By: #### 5 7021-8 ####[facility] LABCLIA [id number] [place] [address] Basophils/100 WBC (Bld) 0.7 % Normal [facility] Comment on above: Order Comment: Speci men Type: BLOOD SPECIMENOrdering Facility: [facility] Address: [address] [place] [address] Performed By: #### 5 7021-8 ####[facility] LABCLIA [id number] [place] [address] Differential cell count method Nom (Bld) Auto Normal [facility] Comment on above: Order Comment: Speci men Type: BLOOD SPECIMENOrdering Facility: [facility] Address: [address] [place] [address] Performed By: #### 5 7021-8 ####[facility] LABCLIA [id number] [place] [address] Eosinophils (Bld) [#/Vol] 0.18 10*3/uL Normal <0.46 [facility] Comment on above: Order Comment: Speci men Type: BLOOD SPECIMENOrdering Facility: [facility] Address: [address] [place] [address] Performed By: #### 5 7021-8 ####[facility] LABCLIA [id number] [place] [address] Eosinophils/100 WBC (Bld) 3.3 % Normal [facility] Comment on above: Order Comment: Speci men Type: BLOOD SPECIMENOrdering Facility: [facility] Address: [address] [place] [address] Performed By: #### 5 7021-8 ####[facility] LABCLIA [id number] [place] [address] Erythrocyte distribution width (RBC) [Ratio] 21.7 % High 11.5-15.0 [facility] Comment on above: Order Comment: Speci men Type: BLOOD SPECIMENOrdering Facility: [facility] Address: [address] [place] [address] Performed By: #### 5 7021-8 ####[facility] LABCLIA [id number] [place] [address] Hematocrit (Bld) [Volume fraction] 42.9 % Normal 39.0-51.0 [facility] Comment on above: Order Comment: Speci men Type: BLOOD SPECIMENOrdering Facility: [facility] Address: [address] [place] [address] Performed By: #### 5 7021-8 ####[facility] LABCLIA [id number] [place] [address] Hemoglobin (Bld) [Mass/Vol] 13.2 g/dL Normal 13.0-17.0 [facility] Comment on above: Order Comment: Speci men Type: BLOOD SPECIMENOrdering Facility: [facility] Address: [address] [place] [address] Performed By: #### 5 7021-8 ####[facility] LABCLIA [id number] [place] [address] Immature granulocytes (Bld) [#/Vol] 0.04 10*3/uL Normal <0.10 [facility] Comment on above: Order Comment: Speci men Type: BLOOD SPECIMENOrdering Facility: [facility] Address: [address] [place] [address] Performed By: #### 5 7021-8 ####[facility] LABCLIA [id number] [place] [address] Immature granulocytes/100 WBC (Bld) 0.7 % Normal [facility] Comment on above: Order Comment: Speci men Type: BLOOD SPECIMENOrdering Facility: [facility] Address: [address] [place] [address] Performed By: #### 5 7021-8 ####[facility] LABCLIA [id number] [place] [address] Lymphocytes (Bld) [#/Vol] 1.28 10*3/uL Normal 1.00-4.00 [facility] Comment on above: Order Comment: Speci men Type: BLOOD SPECIMENOrdering Facility: [facility] Address: [address] [place] [address] Performed By: #### 5 7021-8 ####[facility] LABCLIA [id number] [place] [address] Lymphocytes/100 WBC (Bld) 23.3 % Normal [facility] Comment on above: Order Comment: Speci men Type: BLOOD SPECIMENOrdering Facility: [facility] Address: [address] [place] [address] Performed By: #### 5 7021-8 ####[facility] LABCLIA [id number] [place] [address] MCH (RBC) [Entitic mass] 25.4 pg Low 26.0-34.0 [facility] Comment on above: Order Comment: Speci men Type: BLOOD SPECIMENOrdering Facility: [facility] Address: [address] [place] [address] Performed By: #### 5 7021-8 ####[facility] LABCLIA [id number] [place] [address] MCHC (RBC) [Mass/Vol] 30.8 g/dL Normal 30.5-36.0 [facility] Comment on above: Order Comment: Speci men Type: BLOOD SPECIMENOrdering Facility: [facility] Address: [address] [place] [address] Performed By: #### 5 7021-8 ####[facility] LABCLIA [id number] [place] [address] MCV (RBC) [Entitic vol] 82.7 fL Normal 80.0-100.0 [facility] Comment on above: Order Comment: Speci men Type: BLOOD SPECIMENOrdering Facility: [facility] Address: [address] [place] [address] Performed By: #### 5 7021-8 ####[facility] LABCLIA [id number] [place] [address] Monocytes (Bld) [#/Vol] 0.65 10*3/uL Normal <0.87 [facility] Comment on above: Order Comment: Speci men Type: BLOOD SPECIMENOrdering Facility: [facility] Address: [address] [place] [address] Performed By: #### 5 7021-8 ####[facility] LABCLIA [id number] [place] [address] Monocytes/100 WBC (Bld) 11.8 % Normal [facility] Comment on above: Order Comment: Speci men Type: BLOOD SPECIMENOrdering Facility: [facility] Address: [address] [place] [address] Performed By: #### 5 7021-8 ####[facility] LABCLIA [id number] [place] [address] Neutrophils (Bld) [#/Vol] 3.31 10*3/uL Normal 1.45-7.50 [facility] Comment on above: Order Comment: Speci men Type: BLOOD SPECIMENOrdering Facility: [facility] Address: [address] [place] [address] Performed By: #### 5 7021-8 ####[facility] LABCLIA [id number] [place] [address] Neutrophils/100 WBC (Bld) 60.2 % Normal [facility] Comment on above: Order Comment: Speci men Type: BLOOD SPECIMENOrdering Facility: [facility] Address: [address] [place] [address] Performed By: #### 5 7021-8 ####[facility] LABCLIA [id number] [place] [address] Nucleated RBC (Bld) [#/Vol] 10*3/uL Normal <0.01 [facility] Comment on above: Order Comment: Speci men Type: BLOOD SPECIMENOrdering Facility: [facility] Address: [address] [place] [address] Performed By: #### 5 7021-8 ####[facility] LABCLIA [id number] [place] [address] Nucleated RBC/100 WBC (Bld) [Ratio] 0.0 /100 WBC Normal [facility] Comment on above: Order Comment: Speci men Type: BLOOD SPECIMENOrdering Facility: [facility] Address: [address] [place] [address] Performed By: #### 5 7021-8 ####[facility] LABCLIA [id number] [place] [address] Platelet mean volume (Bld) [Entitic vol] 9.3 fL Normal 9.0-12.7 [facility] Comment on above: Order Comment: Speci men Type: BLOOD SPECIMENOrdering Facility: [facility] Address: [address] [place] [address] Performed By: #### 5 7021-8 ####[facility] LABCLIA [id number] [place] [address] Platelets (Bld) [#/Vol] 281 10*3/uL Normal 150-400 [facility] Comment on above: Order Comment: Speci men Type: BLOOD SPECIMENOrdering Facility: [facility] Address: [address] [place] [address] Performed By: #### 5 7021-8 ####[facility] LABCLIA [id number] [place] [address] RBC (Bld) [#/Vol] 5.19 10*6/uL Normal 4.20-6.00 [facility] Comment on above: Order Comment: Speci men Type: BLOOD SPECIMENOrdering Facility: [facility] Address: [address] [place] [address] Performed By: #### 5 7021-8 ####[facility] LABCLIA [id number] [place] [address] WBC (Bld) [#/Vol] 5.50 10*3/uL Normal 3.70-11.00 [facility] Comment on above: Order Comment: Speci men Type: BLOOD SPECIMENOrdering Facility: [facility] Address: [address] [place] [address] Performed By: #### 5 7021-8 ####[facility] LABCLIA [id number] [place] [address] Comprehensive metabolic 2000 panelon 06-11-2023 Albumin [Mass/Vol] 4.3 g/dL Normal 3.9-4.[address] [facility] Comment on above: Order Comment: Speci men Type: BLOOD SPECIMENOrdering Facility: [facility] Address: [address] [place] [address] Performed By: #### 2 4323-8 ####[facility] LABCLIA [id number] [place] [address] ALP [Catalytic activity/Vol] 88 U/L Normal 38-113 [facility] Comment on above: Order Comment: Speci men Type: BLOOD SPECIMENOrdering Facility: [facility] Address: [address] [place] [address] Performed By: #### 2 4323-8 ####[facility] LABCLIA [id number] [place] [address] ALT [Catalytic activity/Vol] 17 U/L Normal 10-54 [facility] Comment on above: Order Comment: Speci men Type: BLOOD SPECIMENOrdering Facility: [facility] Address: [address] [place] [address] Performed By: #### 2 4323-8 ####[facility] LABCLIA [id number] [place] [address] Anion gap [Moles/Vol] 10 mmol/L Normal 9-18 [facility] Comment on above: Order Comment: Speci men Type: BLOOD SPECIMENOrdering Facility: [facility] Address: [address] [place] [address] Performed By: #### 2 4323-8 ####[facility] LABCLIA [id number] [place] [address] AST [Catalytic activity/Vol] 19 U/L Normal 14-40 [facility] Comment on above: Order Comment: Speci men Type: BLOOD SPECIMENOrdering Facility: [facility] Address: [address] [place] [address] Performed By: #### 2 4323-8 ####[facility] LABCLIA [id number] [place] [address] Bilirubin [Mass/Vol] 0.4 mg/dL Normal 0.2-1.3 [facility] Comment on above: Order Comment: Speci men Type: BLOOD SPECIMENOrdering Facility: [facility] Address: [address] [place] [address] Performed By: #### 2 4323-8 ####[facility] LABCLIA [id number] [place] [address] Calcium [Mass/Vol] 9.7 mg/dL Normal 8.5-10.[address] [facility] Comment on above: Order Comment: Speci men Type: BLOOD SPECIMENOrdering Facility: [facility] Address: [address] [place] [address] Performed By: #### 2 4323-8 ####[facility] LABCLIA [id number] [place] [address] Chloride [Moles/Vol] 105 mmol/L Normal 97-105 [facility] Comment on above: Order Comment: Speci men Type: BLOOD SPECIMENOrdering Facility: [facility] Address: [address] [place] [address] Performed By: #### 2 4323-8 ####[facility] LABCLIA [id number] [place] [address] CO2 [Moles/Vol] 27 mmol/L Normal 22-30 [facility] Comment on above: Order Comment: Speci men Type: BLOOD SPECIMENOrdering Facility: [facility] Address: [address] [place] [address] Performed By: #### 2 4323-8 ####[facility] LABCLIA [id number] [place] [address] Creatinine [Mass/Vol] 0.90 mg/dL Normal 0.73-1.22 [facility] Comment on above: Order Comment: Speci men Type: BLOOD SPECIMENOrdering Facility: [facility] Address: [address] [place] [address] Performed By: #### 2 4323-8 ####[facility] LABCLIA [id number] [place] [address] Creatinine and Glomerular filtration rate.predicted panel (S/P/Bld) 93 mL/min/1.73m??? Normal >=60 [facility] Comment on above: Order Comment: Speci men Type: BLOOD SPECIMENOrdering Facility: [facility] Address: [address] [place] [address] Result Comment: Bouchra mated Glomerular Filtration Rate [...] actual GFR. Performed By: #### 2 4323-8 ####[facility] LABCLIA [id number] [place] [address] Glucose [Mass/Vol] 98 mg/dL Normal 74-[address] [facility] Comment on above: Order Comment: Speci men Type: BLOOD SPECIMENOrdering Facility: [facility] Address: [address] [place] [address] Result Comment: The [place] [employer] (ADA) provides guidance for cutoff [...] Standards of Medical Care in Diabetes 2016, [place] [employer]. Diabetes Care. 2016.39(Suppl 1). Performed By: #### 2 4323-8 ####[facility] LABCLIA [id number] [place] [address] Potassium [Moles/Vol] 4.5 mmol/L Normal 3.7-5.1 [facility] Comment on above: Order Comment: Speci men Type: BLOOD SPECIMENOrdering Facility: [facility] Address: [address] [place] [address] Performed By: #### 2 4323-8 ####[facility] LABCLIA [id number] [place] [address] Protein [Mass/Vol] 7.4 g/dL Normal 6.3-8.[address] [facility] Comment on above: Order Comment: Trani men Type: BLOOD SPECIMENOrdering Facility: [facility] Address: [address] [place] [address] Performed By: #### 2 4323-8 ####[facility] LABCLIA [id number] [place] [address] Sodium [Moles/Vol] 142 mmol/L Normal 136-[address] [facility] Comment on above: Order Comment: Speci men Type: BLOOD SPECIMENOrdering Facility: [facility] Address: [address] [place] [address] Performed By: #### 2 4323-8 ####[facility] LABCLIA [id number] [place] [address] Urea nitrogen [Mass/Vol] 21 mg/dL Normal 9-24 [facility] Comment on above: Order Comment: Speci men Type: BLOOD SPECIMENOrdering Facility: [facility] Address: [address] [place] [address] Performed By: #### 2 4323-8 ####[facility] LABCLIA [id number] [place] [address] Ferritin SerPl-mCncon 2023 Ferritin [Mass/Vol] 54.3 ng/mL Normal 30.3-565.7 [facility] Comment on above: Order Comment: Speci men Type: BLOOD SPECIMENOrdering Facility: [facility] Address: [address] [place] [address] Performed By: #### 5 0190-8, 2131-9, 2275-4, 2283-8 ####[facility] LABCLIA [id number] [place] [address] [place] Folate SerPl-mCncon 06-11-19 Folate [Mass/Vol] 12.7 ng/mL Normal >4.7 [facility] Comment on above: Order Comment: Speci men Type: BLOOD SPECIMENOrdering Facility: [facility] Address: [address] [place] [address] Performed By: #### 5 0190-8, 2131-9, 2275-4, 2283-8 ####[facility] LABCLIA [id number] [place] [address] [place] Iron and Iron binding capaci ty panelon 06-11-2023 Iron [Mass/Vol] 39 ug/dL Low 41-186 [facility] Comment on above: Order Comment: Speci men Type: BLOOD SPECIMENOrdering Facility: [facility] Address: [address] [place] [address] Performed By: #### 5 0190-8, 9, 2275-08, 2283-12 ####[facility] LABCLIA [id number] [place] [address] [place] Iron binding capacity [Mass/Vol] 420 ug/dL High 232-386 [facility] Comment on above: Order Comment: Speci men Type: BLOOD SPECIMENOrdering Facility: [facility] Address: [address] [place] [address] Performed By: #### 5 0190-8, 9, 2275-08, 2283-12 ####[facility] LABCLIA [id number] [place] [address] [place] Iron/TIBC [Molar ratio] 9.3 % Low 15.0-57.0 [facility] Comment on above: Order Comment: Speci men Type: BLOOD SPECIMENOrdering Facility: [facility] Address: [address] [place] [address] Performed By: #### 5 0190-8, 9, 2275-08, 2283-12 ####[facility] LABCLIA [id number] [place] [id number] [place] Vit B12 SerPl-mCncon 024 Cobalamin (Vitamin B12) [Mass/Vol] 527 pg/mL Normal 232-1245 [facility] Comment on above: Order Comment: Speci men Type: BLOOD SPECIMENOrdering Facility: [facility] Address: [address] [place] [address] Performed By: #### 5 0190-8, 2132-01, 2275-08, 2283-12 ####[facility] LABCLIA [id number] [facility] [place] [id number] [place] CBC W Auto Differential pane l (Bld)on 05-21-2023 Basophils (Bld) [#/Vol] 10*3/uL Normal <0.11 [facility] Comment on above: Order Comment: Speci men Type: BLOOD SPECIMENOrdering Facility: [facility] Address: [address] [place] [address] Performed By: #### 5 7021-8 ####[facility] LABCLIA [id number] [place] [address] Basophils/100 WBC (Bld) 0.5 % Normal [facility] Comment on above: Order Comment: Speci men Type: BLOOD SPECIMENOrdering Facility: [facility] Address: [address] [place] [address] Performed By: #### 5 7021-8 ####[facility] LABCLIA [id number] [place] [address] Differential cell count method Nom (Bld) Auto Normal [facility] Comment on above: Order Comment: Speci men Type: BLOOD SPECIMENOrdering Facility: [facility] Address: [address] [place] [address] Performed By: #### 5 7021-8 ####[facility] LABCLIA [id number] [place] [address] Eosinophils (Bld) [#/Vol] 0.14 10*3/uL Normal <0.46 [facility] Comment on above: Order Comment: Speci men Type: BLOOD SPECIMENOrdering Facility: [facility] Address: [address] [place] [address] Performed By: #### 5 7021-8 ####[facility] LABCLIA [id number] [place] [address] Eosinophils/100 WBC (Bld) 3.5 % Normal [facility] Comment on above: Order Comment: Speci men Type: BLOOD SPECIMENOrdering Facility: [facility] Address: [address] [place] [address] Performed By: #### 5 7021-8 ####[facility] LABCLIA [id number] [place] [address] Erythrocyte distribution width (RBC) [Ratio] 19.9 % High 11.5-15.0 [facility] Comment on above: Order Comment: Speci men Type: BLOOD SPECIMENOrdering Facility: [facility] Address: [address] [place] [address] Performed By: #### 5 7021-8 ####[facility] LABCLIA [id number] [place] [address] Hematocrit (Bld) [Volume fraction] 39.6 % Normal 39.0-51.0 [facility] Comment on above: Order Comment: Speci men Type: BLOOD SPECIMENOrdering Facility: [facility] Address: [address] [place] [address] Performed By: #### 5 7021-8 ####[facility] LABCLIA [id number] [place] [address] Hemoglobin (Bld) [Mass/Vol] 12.0 g/dL Low 13.0-17.0 [facility] Comment on above: Order Comment: Speci men Type: BLOOD SPECIMENOrdering Facility: [facility] Address: [address] [place] [address] Performed By: #### 5 7021-8 ####[facility] LABCLIA [id number] [place] [address] Immature granulocytes (Bld) [#/Vol] 10*3/uL Normal <0.10 [facility] [facility] Comment on above: Order Comment: Speci men Type: BLOOD SPECIMENOrdering Facility: [facility] Address: [address] [place] [address] Performed By: #### 5 7021-8 ####[facility] LABCLIA [id number] [place] [address] Immature granulocytes/100 WBC (Bld) 0.5 % Normal [facility] Comment on above: Order Comment: Speci men Type: BLOOD SPECIMENOrdering Facility: [facility] Address: [address] [place] [address] Performed By: #### 5 7021-8 ####[facility] LABCLIA [id number] [place] [address] Lymphocytes (Bld) [#/Vol] 1.33 10*3/uL Normal 1.00-4.00 [facility] Comment on above: Order Comment: Speci men Type: BLOOD SPECIMENOrdering Facility: [facility] Address: [address] [place] [address] Performed By: #### 5 7021-8 ####[facility] LABCLIA [id number] [place] [address] Lymphocytes/100 WBC (Bld) 33.6 % Normal [facility] Comment on above: Order Comment: Speci men Type: BLOOD SPECIMENOrdering Facility: [facility] Address: [address] [place] [address] Performed By: #### 5 7021-8 ####[facility] LABCLIA [id number] [place] [address] MCH (RBC) [Entitic mass] 24.6 pg Low 26.0-34.0 [facility] Comment on above: Order Comment: Speci men Type: BLOOD SPECIMENOrdering Facility: [facility] Address: [address] [place] [address] Performed By: #### 5 7021-8 ####[facility] LABCLIA [id number] [place] [address] MCHC (RBC) [Mass/Vol] 30.3 g/dL Low 30.5-36.0 [facility] Comment on above: Order Comment: Speci men Type: BLOOD SPECIMENOrdering Facility: [facility] Address: [address] [place] [address] Performed By: #### 5 7021-8 ####[facility] LABCLIA [id number] [place] [address] MCV (RBC) [Entitic vol] 81.3 fL Normal 80.0-100.0 [facility] Comment on above: Order Comment: Speci men Type: BLOOD SPECIMENOrdering Facility: [facility] Address: [address] [place] [address] Performed By: #### 5 7021-8 ####[facility] LABCLIA [id number] [place] [address] Monocytes (Bld) [#/Vol] 0.38 10*3/uL Normal <0.87 [facility] Comment on above: Order Comment: Speci men Type: BLOOD SPECIMENOrdering Facility: [facility] Address: [address] [place] [address] Performed By: #### 5 7021-8 ####[facility] LABCLIA [id number] [place] [address] Monocytes/100 WBC (Bld) 9.6 % Normal [facility] Comment on above: Order Comment: Speci men Type: BLOOD SPECIMENOrdering Facility: [facility] Address: [address] [place] [address] Performed By: #### 5 7021-8 ####[facility] LABCLIA [id number] [place] [address] Neutrophils (Bld) [#/Vol] 2.07 10*3/uL Normal 1.45-7.50 [facility] Comment on above: Order Comment: Speci men Type: BLOOD SPECIMENOrdering Facility: [facility] Address: [address] [place] [address] Performed By: #### 5 7021-8 ####[facility] LABCLIA [id number] [place] [address] Neutrophils/100 WBC (Bld) 52.3 % Normal [facility] Comment on above: Order Comment: Speci men Type: BLOOD SPECIMENOrdering Facility: [facility] Address: [address] [place] [address] Performed By: #### 5 7021-8 ####[facility] LABCLIA [id number] [place] [address] Nucleated RBC (Bld) [#/Vol] 10*3/uL Normal <0.01 [facility] Comment on above: Order Comment: Speci men Type: BLOOD SPECIMENOrdering Facility: [facility] Address: [address] [place] [address] Performed By: #### 5 7021-8 ####[facility] LABCLIA [id number] [place] [address] Nucleated RBC/100 WBC (Bld) [Ratio] 0.0 /100 WBC Normal [facility] Comment on above: Order Comment: Speci men Type: BLOOD SPECIMENOrdering Facility: [facility] Address: [address] [place] [address] Performed By: #### 5 7021-8 ####[facility] LABCLIA [id number] [place] [address] Platelet mean volume (Bld) [Entitic vol] 9.4 fL Normal 9.0-12.7 [facility] Comment on above: Order Comment: Speci men Type: BLOOD SPECIMENOrdering Facility: [facility] Address: [address] [place] [address] Performed By: #### 5 7021-8 ####[facility] LABCLIA [id number] [place] [address] Platelets (Bld) [#/Vol] 280 10*3/uL Normal 150-400 [facility] Comment on above: Order Comment: Speci men Type: BLOOD SPECIMENOrdering Facility: [facility] Address: [address] [place] [address] Performed By: #### 5 7021-8 ####[facility] LABCLIA [id number] [place] [address] RBC (Bld) [#/Vol] 4.87 10*6/uL Normal 4.20-6.00 [facility] Comment on above: Order Comment: Speci men Type: BLOOD SPECIMENOrdering Facility: [facility] Address: [address] [place] [id number] Performed By: #### 5 7021-8 ####[facility] LABCLIA [id number] [place] [address] WBC (Bld) [#/Vol] 3.96 10*3/uL Normal 3.70-11.00 [facility] Comment on above: Order Comment: Speci men Type: BLOOD SPECIMENOrdering Facility: [facility] Address: [address] [place] [address] Performed By: #### 5 7021-8 ####[facility] LABCLIA [id number] [place] [address] CNOVSPon 05-21-2023 CNOVSP Visit (SP) Office (HEMASA) JC CAMACHO ([id number]) 1955 M Date Time Provider Department 05/21/23 8:30 AM IMMANUEL OSORIO HEMASA During your visit today, we recorded the following information about you: Temperature Pulse Respiration Blood pressure 98.3 degrees 85/minute 16/minute 146/73 Weight Height 111.6 kg 1.803 m Immanuel Osorio MD 05/22/2023 8:15 AM Signed NAME: Janice Jc CLINIC NO.: [id number] DATE OF SERVICE: May 21, 2023 (Amber) [...] Allergies MED (more content not included)... Normal [facility] Comprehensive metabolic 2000 panelon 05-21-2023 Albumin [Mass/Vol] 4.0 g/dL Normal 3.9-4.[address] [facility] Comment on above: Order Comment: Speci men Type: BLOOD SPECIMENOrdering Facility: [facility] Address: [address] [place] [address] Performed By: #### 2 4323-8 ####[facility] LABCLIA [id number] [place] [address] ALP [Catalytic activity/Vol] 114 U/L High 38-113 [facility] Comment on above: Order Comment: Speci men Type: BLOOD SPECIMENOrdering Facility: [facility] Address: [address] [place] [address] Performed By: #### 2 4323-8 ####[facility] LABCLIA [id number] [place] [address] ALT [Catalytic activity/Vol] 39 U/L Normal 10-54 [facility] Comment on above: Order Comment: Speci men Type: BLOOD SPECIMENOrdering Facility: [facility] Address: [address] [place] [address] Performed By: #### 2 4323-8 ####[facility] LABCLIA [id number] [place] [address] Anion gap [Moles/Vol] 11 mmol/L Normal 9-18 [facility] Comment on above: Order Comment: Speci men Type: BLOOD SPECIMENOrdering Facility: [facility] Address: [address] [place] [address] Performed By: #### 2 4323-8 ####[facility] LABCLIA [id number] [place] [address] AST [Catalytic activity/Vol] 46 U/L High 14-40 [facility] Comment on above: Order Comment: Speci men Type: BLOOD SPECIMENOrdering Facility: [facility] Address: [address] [place] [address] Performed By: #### 2 4323-8 ####[facility] LABCLIA [id number] [place] [address] Bilirubin [Mass/Vol] 0.2 mg/dL Normal 0.2-1.3 [facility] Comment on above: Order Comment: Speci men Type: BLOOD SPECIMENOrdering Facility: [facility] Address: [address] [place] [address] Performed By: #### 2 4323-8 ####[facility] LABCLIA [id number] [place] [address] Calcium [Mass/Vol] 9.1 mg/dL Normal 8.5-10.[address] [facility] Comment on above: Order Comment: Speci men Type: BLOOD SPECIMENOrdering Facility: [facility] Address: [address] [place] [address] Performed By: #### 2 4323-8 ####[facility] LABCLIA [id number] [place] [address] Chloride [Moles/Vol] 104 mmol/L Normal 97-105 [facility] Comment on above: Order Comment: Speci men Type: BLOOD SPECIMENOrdering Facility: [facility] Address: [address] [place] [address] Performed By: #### 2 4323-8 ####[facility] LABCLIA [id number] [place] [address] CO2 [Moles/Vol] 26 mmol/L Normal 22-30 [facility] Comment on above: Order Comment: Speci men Type: BLOOD SPECIMENOrdering Facility: [facility] Address: [address] [place] [address] Performed By: #### 2 4323-8 ####[facility] LABCLIA [id number] [place] [address] Creatinine [Mass/Vol] 0.84 mg/dL Normal 0.73-1.22 [facility] Comment on above: Order Comment: Speci men Type: BLOOD SPECIMENOrdering Facility: [facility] Address: [address] [place] [address] Performed By: #### 2 4323-8 ####[facility] LABCLIA [id number] [place] [address] Creatinine and Glomerular filtration rate.predicted panel (S/P/Bld) 95 mL/min/1.73m??? Normal >=60 [facility] Comment on above: Order Comment: Speci men Type: BLOOD SPECIMENOrdering Facility: [facility] Address: [address] [place] [address] Result Comment: Bouchar mated Glomerular Filtration Rate (eGFR) is calculated [...] actual GFR. Performed By: #### 2 4323-8 ####[facility] LABCLIA [id number] [place] [address] Glucose [Mass/Vol] 208 mg/dL High 74-[address] [facility] Comment on above: Order Comment: Speci men Type: BLOOD SPECIMENOrdering Facility: [facility] Address: [address], [place] [address] Result Comment: The [place] [employer] (ADA) provides guidance for cutoff [...] Standards of Medical Care in Diabetes 2016, [place] [employer]. Diabetes Care. 2016.39(Suppl 1). Performed By: #### 2 4323-8 ####[facility] LABCLIA [id number] [place] [address] Potassium [Moles/Vol] 4.0 mmol/L Normal 3.7-5.1 [facility] Comment on above: Order Comment: Speci men Type: BLOOD SPECIMENOrdering Facility: [facility] Address: [address] [place] [address] Performed By: #### 2 4323-8 ####[facility] LABCLIA [id number] [place] [address] Protein [Mass/Vol] 7.1 g/dL Normal 6.3-8.[address] [facility] Comment on above: Order Comment: Speci men Type: BLOOD SPECIMENOrdering Facility: [facility] Address: [address] [place] [address] Performed By: #### 2 4323-8 ####[facility] LABCLIA [id number] [place] [address] Sodium [Moles/Vol] 141 mmol/L Normal 136-[address] [facility] Comment on above: Order Comment: Speci men Type: BLOOD SPECIMENOrdering Facility: [facility] Address: [address] [place] [address] Performed By: #### 2 4323-8 ####[facility] LABCLIA [id number] [place] [address] Urea nitrogen [Mass/Vol] 20 mg/dL Normal 9-24 [facility] Comment on above: Order Comment: Speci men Type: BLOOD SPECIMENOrdering Facility: [facility] Address: [place] [address] Performed By: #### 2 4323-8 ####[facility] LABCLIA [id number] [place] [address] [facility] 05-14-2023 CNPN Telephone (HEMTSA) JC CAMACHO ([id number]) 1955 Date Time Provider Department 05/14/23 [employer] TY PARTIDA During your visit today, we recorded the [...] Fully Assessed Reason for Visit: Benefits Investigation [4098] Prescriptions as of 05/14/2023 - pravastatin (PRAVACHOL) 40 mg tablet TAKE 1 TABLET BY MOUTH EVERY DAY AT THE SAME TIME - omega-3 DHA-EPA (FISH OIL) 1,200 (144-216) mg capsule 1 capsule. Problem List As Of Date: 05/14/2023 (None) Encounter Status:Closed by CB ROBERTO on 05/14/23 Normal [facility] CNPNon 05-11-2023 CNPN Telephone (HEMASA) JC CAMACHO ([id number]) 1955 M Date Time Provider Department 05/11/23 [...] Fully Assessed Reason for Visit: Care Coordination [3491] Cmt: C1D1 Post Treatment Call Prescriptions as of 05/11/2023 - pravastatin (PRAVACHOL) 40 mg tablet TAKE 1 TABLET BY MOUTH EVERY DAY AT THE SAME TIME - omega-3 DHA-EPA (FISH OIL) 1,200 (144-216) mg capsule 1 capsule. Problem List As Of Date: 05/11/2023 (None) Encounter Status:Closed by ISAÍAS LEMON on 05/11/23 [facility] [place] [facility] ([id number]) 1955 M Date Time Provider Department 05/08/23 ELLYN OROURKE During your visit today, we recorded the [...] [D50.0] Order(s):CBC + DIFF [SQCBCDIF] Order #: [id number] FUTURE COMP METABOLIC PANEL [SQCMP] Order #: [id number] FUTURE IRON + TIBC [SQIRON] Order #: [id number] FUTURE FERRITIN BLD [SQFERR] Order #: [id number] FUTURE VITAMIN B12 BLOOD [SQB12] Order #: [id number] FUTURE FOLATE SERUM [SQSERFOL] Order #: [id number] FUTURE Prescriptions as of 05/11/2023 - pravastatin (PRAVACHOL) 40 mg tablet TAKE 1 TABLET BY MOUTH EVERY DAY AT THE SAME TIME - omega-3 DHA-EPA (FISH OIL) 1,200 (144-216) mg capsule 1 capsule. Problem List As Of Date: 05/08/2023 (None) Encounter Status:Closed by ELLYN OROURKE on 05/11/23 Normal [facility] CBC W Auto Differential pane l (Bld)on 05-07-2023 Basophils (Bld) [#/Vol] 10*3/uL Normal <0.11 [facility] Comment on above: Order Comment: Speci men Type: BLOOD SPECIMENOrdering Facility: [facility] Address: [address] [place] [address] Performed By: #### 5 7021-8 ####[facility] LABCLIA [id number] [place] [address] Basophils/100 WBC (Bld) 0.4 % Normal [facility] Comment on above: Order Comment: Speci men Type: BLOOD SPECIMENOrdering Facility: [facility] Address: [address] [place] [address] Performed By: #### 5 7021-8 ####[facility] LABCLIA [id number] [place] [address] Differential cell count method Nom (Bld) Auto Normal [facility] Comment on above: Order Comment: Speci men Type: BLOOD SPECIMENOrdering Facility: [facility] Address: [address] [place] [address] Performed By: #### 5 7021-8 ####[facility] LABCLIA [id number] [place] [address] Eosinophils (Bld) [#/Vol] 0.13 10*3/uL Normal <0.46 [facility] Comment on above: Order Comment: Speci men Type: BLOOD SPECIMENOrdering Facility: [facility] Address: [address] [place] [address] Performed By: #### 5 7021-8 ####[facility] LABCLIA [id number] [place] [address] Eosinophils/100 WBC (Bld) 2.9 % Normal [facility] Comment on above: Order Comment: Speci men Type: BLOOD SPECIMENOrdering Facility: [facility] Address: [address] [place] [address] Performed By: #### 5 7021-8 ####[facility] LABCLIA [id number] [place] [address] Erythrocyte distribution width (RBC) [Ratio] 17.0 % High 11.5-15.0 [facility] Comment on above: Order Comment: Speci men Type: BLOOD SPECIMENOrdering Facility: [facility] Address: [address] [place] [address] Performed By: #### 5 7021-8 ####[facility] LABCLIA [id number] [place] [address] Hematocrit (Bld) [Volume fraction] 36.5 % Low 39.0-51.0 [facility] Comment on above: Order Comment: Speci men Type: BLOOD SPECIMENOrdering Facility: [facility] Address: [address] [place] [address] Performed By: #### 5 7021-8 ####[facility] LABCLIA [id number] [place] [address] Hemoglobin (Bld) [Mass/Vol] 11.1 g/dL Low 13.0-17.0 [facility] Comment on above: Order Comment: Speci men Type: BLOOD SPECIMENOrdering Facility: [facility] Address: [address] [place] [address] Performed By: #### 5 7021-8 ####[facility] LABCLIA [id number] [place] [address] Immature granulocytes (Bld) [#/Vol] 10*3/uL Normal <0.10 [facility] Comment on above: Order Comment: Speci men Type: BLOOD SPECIMENOrdering Facility: [facility] Address: [address] [place] [address] Performed By: #### 5 7021-8 ####[facility] LABCLIA [id number] [place] [address] Immature granulocytes/100 WBC (Bld) 0.4 % Normal [facility] Comment on above: Order Comment: Speci men Type: BLOOD SPECIMENOrdering Facility: [facility] Address: [address] [place] [address] Performed By: #### 5 7021-8 ####[facility] LABCLIA [id number] [place] [address] Lymphocytes (Bld) [#/Vol] 1.35 10*3/uL Normal 1.00-4.00 [facility] Comment on above: Order Comment: Speci men Type: BLOOD SPECIMENOrdering Facility: [facility] Address: [address] [place] [address] Performed By: #### 5 7021-8 ####[facility] LABCLIA [id number] [place] [address] Lymphocytes/100 WBC (Bld) 29.6 % Normal [facility] Comment on above: Order Comment: Speci men Type: BLOOD SPECIMENOrdering Facility: [facility] Address: [address] [place] [address] Performed By: #### 5 7021-8 ####[facility] LABCLIA [id number] [place] [address] MCH (RBC) [Entitic mass] 23.6 pg Low 26.0-34.0 [facility] Comment on above: Order Comment: Speci men Type: BLOOD SPECIMENOrdering Facility: [facility] Address: [address] [place] [address] Performed By: #### 5 7021-8 ####[facility] LABCLIA [id number] [place] [address] MCHC (RBC) [Mass/Vol] 30.4 g/dL Low 30.5-36.0 [facility] Comment on above: Order Comment: Speci men Type: BLOOD SPECIMENOrdering Facility: [facility] Address: [address] [place] [address] Performed By: #### 5 7021-8 ####[facility] LABCLIA [id number] [place] [address] MCV (RBC) [Entitic vol] 77.5 fL Low 80.0-100.0 [facility] Comment on above: Order Comment: Speci men Type: BLOOD SPECIMENOrdering Facility: [facility] Address: [address] [place] [address] Performed By: #### 5 7021-8 ####[facility] LABCLIA [id number] [place] [address] Monocytes (Bld) [#/Vol] 0.39 10*3/uL Normal <0.87 [facility] Comment on above: Order Comment: Speci men Type: BLOOD SPECIMENOrdering Facility: [facility] Address: [address] [place] [address] Performed By: #### 5 7021-8 ####[facility] LABIA [id number] [place] [address] Monocytes/100 WBC (Bld) 8.6 % Normal [facility] Comment on above: Order Comment: Speci men Type: BLOOD SPECIMENOrdering Facility: [facility] Address: [address] [place] [address] Performed By: #### 5 7021-8 ####[facility] LABCLIA [id number] [place] [address] Neutrophils (Bld) [#/Vol] 2.65 10*3/uL Normal 1.45-7.50 [facility] Comment on above: Order Comment: Speci men Type: BLOOD SPECIMENOrdering Facility: [facility] Address: [address] [place] [address] Performed By: #### 5 7021-8 ####[facility] LABCLIA [id number] [place] [address] Neutrophils/100 WBC (Bld) 58.1 % Normal [facility] Comment on above: Order Comment: Speci men Type: BLOOD SPECIMENOrdering Facility: [facility] Address: [address] [place] [address] Performed By: #### 5 7021-8 ####[facility] LABCLIA [id number] [place] [address] Nucleated RBC (Bld) [#/Vol] 10*3/uL Normal <0.01 [facility] Comment on above: Order Comment: Speci men Type: BLOOD SPECIMENOrdering Facility: [facility] Address: [address] [place] [address] Performed By: #### 5 7021-8 ####[facility] LABIA [id number] [place] [address] Nucleated RBC/100 WBC (Bld) [Ratio] 0.0 /100 WBC Normal [facility] Comment on above: Order Comment: Speci men Type: BLOOD SPECIMENOrdering Facility: [facility] Address: [address] [place] [address] Performed By: #### 5 7021-8 ####[facility] LABCLIA [id number] [place] [address] Platelet mean volume (Bld) [Entitic vol] 9.2 fL Normal 9.0-12.7 [facility] Comment on above: Order Comment: Speci men Type: BLOOD SPECIMENOrdering Facility: [facility] Address: [address] [place] [address] Performed By: #### 5 7021-8 ####[facility] LABCLIA [id number] [place] [address] Platelets (Bld) [#/Vol] 318 10*3/uL Normal 150-400 [facility] Comment on above: Order Comment: Speci men Type: BLOOD SPECIMENOrdering Facility: [facility] Address: [address] [place] [address] Performed By: #### 5 7021-8 ####[facility] LABCLIA [id number] [place] [address] RBC (Bld) [#/Vol] 4.71 10*6/uL Normal 4.20-6.00 [facility] Comment on above: Order Comment: Speci men Type: BLOOD SPECIMENOrdering Facility: [facility] Address: [address] [place] [address] Performed By: #### 5 7021-8 ####[facility] LABCLIA [id number] [place] [address] WBC (Bld) [#/Vol] 4.56 10*3/uL Normal 3.70-11.00 [facility] Comment on above: Order Comment: Speci men Type: BLOOD SPECIMENOrdering Facility: [facility] Address: [address] [place] [address] Performed By: #### 5 7021-8 ####[facility] LABIA [id number] [place] [address] Comprehensive metabolic 2000 panelon 05-07-2023 Albumin [Mass/Vol] 4.1 g/dL Normal 3.9-4.[address] [facility] Comment on above: Order Comment: Speci men Type: BLOOD SPECIMENOrdering Facility: [facility] Address: [address] [place] [address] Performed By: #### 2 4323-8 ####[facility] LABCLIA [id number] [place] [address] ALP [Catalytic activity/Vol] 117 U/L High 38-113 [facility] Comment on above: Order Comment: Speci men Type: BLOOD SPECIMENOrdering Facility: [facility] Address: [address] [place] [address] Performed By: #### 2 4323-8 ####[facility] LABCLIA [id number] [place] [address] ALT [Catalytic activity/Vol] 31 U/L Normal 10-54 [facility] Comment on above: Order Comment: Speci men Type: BLOOD SPECIMENOrdering Facility: [facility] Address: [address] [place] [address] Performed By: #### 2 4323-8 ####[facility] LABCLIA [id number] [place] [address] Anion gap [Moles/Vol] 8 mmol/L Low 9-18 [facility] [facility] Comment on above: Order Comment: Speci men Type: BLOOD SPECIMENOrdering Facility: [facility] Address: [address] [place] [address] Performed By: #### 2 4323-8 ####[facility] LABCLIA [id number] [place] [address] AST [Catalytic activity/Vol] 29 U/L Normal 14-40 [facility] Comment on above: Order Comment: Speci men Type: BLOOD SPECIMENOrdering Facility: [facility] Address: [address] [place] [address] Performed By: #### 2 4323-8 ####[facility] LABCLIA [id number] [place] [address] Bilirubin [Mass/Vol] 0.2 mg/dL Normal 0.2-1.3 [facility] Comment on above: Order Comment: Speci men Type: BLOOD SPECIMENOrdering Facility: [facility] Address: [address] [place] [address] Performed By: #### 2 4323-8 ####[facility] LABCLIA [id number] [place] [address] Calcium [Mass/Vol] 8.9 mg/dL Normal 8.5-10.[address] [facility] Comment on above: Order Comment: Speci men Type: BLOOD SPECIMENOrdering Facility: [facility] Address: [address] [place] [address] Performed By: #### 2 4323-8 ####[facility] LABCLIA [id number] [place] [address] Chloride [Moles/Vol] 105 mmol/L Normal 97-105 [facility] Comment on above: Order Comment: Speci men Type: BLOOD SPECIMENOrdering Facility: [facility] Address: [address] [place] [address] Performed By: #### 2 4323-8 ####[facility] LABCLIA [id number] [place] [address] CO2 [Moles/Vol] 26 mmol/L Normal 22-30 [facility] Comment on above: Order Comment: Speci men Type: BLOOD SPECIMENOrdering Facility: [facility] Address: [address] [place] [address] Performed By: #### 2 4323-8 ####[facility] LABCLIA [id number] [place] [address] Creatinine [Mass/Vol] 0.88 mg/dL Normal 0.73-1.22 [facility] Comment on above: Order Comment: Speci men Type: BLOOD SPECIMENOrdering Facility: [facility] Address: [address] [place] [address] Performed By: #### 2 4323-8 ####[facility] LABCLIA [id number] [place] [address] Creatinine and Glomerular filtration rate.predicted panel (S/P/Bld) 94 mL/min/1.73m??? Normal >=60 [facility] Comment on above: Order Comment: Speci men Type: BLOOD SPECIMENOrdering Facility: [facility] Address: [address] [place] [address] Result Comment: Bouchra mated Glomerular Filtration Rate [...] actual GFR. Performed By: #### 2 4323-8 ####[facility] LABCLIA [id number] [place] [address] Glucose [Mass/Vol] 146 mg/dL High 74-[address] [facility] Comment on above: Order Comment: Speci men Type: BLOOD SPECIMENOrdering Facility: [facility] Address: [address] [place] [address] Result Comment: The [place] [employer] (ADA) provides guidance for cutoff [...] Standards of Medical Care in Diabetes 2016, [place] [employer]. Diabetes Care. 2016.39(Suppl 1). Performed By: #### 2 4323-8 ####[facility] LABCLIA [id number] [place] [address] Potassium [Moles/Vol] 4.1 mmol/L Normal 3.7-5.1 [facility] Comment on above: Order Comment: Speci men Type: BLOOD SPECIMENOrdering Facility: [facility] Address: [address] [place] [address] Performed By: #### 2 4323-8 ####[facility] LABCLIA [id number] [place] [address] Protein [Mass/Vol] 7.3 g/dL Normal 6.3-8.[address] [facility] Comment on above: Order Comment: Speci men Type: BLOOD SPECIMENOrdering Facility: [facility] Address: [address] [place] [address] Performed By: #### 2 4323-8 ####[facility] LABCLIA [id number] [place] [address] Sodium [Moles/Vol] 139 mmol/L Normal 136-[address] [facility] Comment on above: Order Comment: Speci men Type: BLOOD SPECIMENOrdering Facility: [facility] Address: [address] [place] [id number] Performed By: #### 2 4323-8 ####[facility] LABCLIA [id number] [place] [address] Urea nitrogen [Mass/Vol] 24 mg/dL Normal 9-24 [facility] Comment on above: Order Comment: Speci men Type: BLOOD SPECIMENOrdering Facility: [facility] Address: [address] [place] [address] Performed By: #### 2 4323-8 ####[facility] LABCLIA [id number] [place] [address] Ferritin SerPl-mCncon 2022 Ferritin [Mass/Vol] 31.2 ng/mL Normal 30.3-565.7 [facility] Comment on above: Order Comment: Speci men Type: BLOOD SPECIMENOrdering Facility: [facility] Address: [address] [place] [address] Performed By: #### 2 284-8, 20047-4, 2131-9, 6-4 ####[facility] LABCLIA [id number] [place] [id number] [place] Folate SerPl-mCncon 05-07-20 Folate [Mass/Vol] 15.3 ng/mL Normal >4.7 [facility] Comment on above: Order Comment: Speci men Type: BLOOD SPECIMENOrdering Facility: [facility] Address: [address] [place] [address] Performed By: #### 2 284-8, 02049-6, 2-9, 6-4 ####[facility] LABCLIA [id number] [place] [id number] [place] Iron and Iron binding capaci ty panelon 05-07-2023 Iron [Mass/Vol] 18 ug/dL Low 41-186 [facility] Comment on above: Order Comment: Speci men Type: BLOOD SPECIMENOrdering Facility: [facility] Address: [address] [place] [address] Performed By: #### 2 284-8, 90828-7, 2131-9, 2275-4 ####[facility] LABCLIA [id number] [place] [address] [place] Iron binding capacity [Mass/Vol] 399 ug/dL High 232-386 [facility] Comment on above: Order Comment: Speci men Type: BLOOD SPECIMENOrdering Facility: [facility] Address: [address] [place] [address] Performed By: #### 2 284-8, 66930-4, 9, 2275-4 ####[facility] LABCLIA [id number] [place] [address] [place] Iron/TIBC [Molar ratio] 4.5 % Low 15.0-57.0 [facility] Comment on above: Order Comment: Speci men Type: BLOOD SPECIMENOrdering Facility: [facility] Address: [address] [place] [address] Performed By: #### 2 284-8, 90078-8, 9, 2275-4 ####[facility] LABCLIA [id number] [place] [id number] [place] Vit B12 [facility] Cobalamin (Vitamin B12) [Mass/Vol] 984 pg/mL Normal 232-1245 [facility] Comment on above: Order Comment: Speci men Type: BLOOD SPECIMENOrdering Facility: [facility] Address: [address] [place] [address] Performed By: #### 2 284-8, 71068-7, 9, 2275-4 ####[facility] LABCLIA [id number] [facility] [id number] [address] [place] Consultation Noteon 05-05-20 Consultation Note [id number]#1 .00TIFF Normal [facility] Consent for Procedure/Surger yon 05-01-2023 Consent for Procedure/Surgery [id number] .00TIFF Normal [facility] CBC W Auto Differential pane l (Bld)on 04-30-2023 Basophils (Bld) [#/Vol] 0.06 10*3/uL Normal <0.11 [facility] Comment on above: Order Comment: Speci men Type: BLOOD SPECIMENOrdering Facility: [facility] Address: [address] [place] [address] Performed By: #### 5 7021-8 ####[facility] LABCLIA [id number] [place] [address] Basophils/100 WBC (Bld) 0.6 % Normal [facility] Comment on above: Order Comment: Speci men Type: BLOOD SPECIMENOrdering Facility: [facility] Address: [address] [place] [address] Performed By: #### 5 7021-8 ####[facility] LABCLIA [id number] [place] [address] Differential cell count method Nom (Bld) Auto Normal [facility] Comment on above: Order Comment: Speci men Type: BLOOD SPECIMENOrdering Facility: [facility] Address: [address] [place] [address] Performed By: #### 5 7021-8 ####[facility] LABIA [id number] [place] [address] Eosinophils (Bld) [#/Vol] 0.15 10*3/uL Normal <0.46 [facility] Comment on above: Order Comment: Speci men Type: BLOOD SPECIMENOrdering Facility: [facility] Address: [address] [place] [address] Performed By: #### 5 7021-8 ####[facility] LABCLIA [id number] [place] [address] Eosinophils/100 WBC (Bld) 1.5 % Normal [facility] Comment on above: Order Comment: Speci men Type: BLOOD SPECIMENOrdering Facility: [facility] Address: [address] [place] [address] Performed By: #### 5 7021-8 ####[facility] LABCLIA [id number] [place] [address] Erythrocyte distribution width (RBC) [Ratio] 17.1 % High 11.5-15.0 [facility] Comment on above: Order Comment: Speci men Type: BLOOD SPECIMENOrdering Facility: [facility] Address: [address] [place] [address] Performed By: #### 5 7021-8 ####[facility] LABCLIA [id number] [place] [address] Hematocrit (Bld) [Volume fraction] 38.0 % Low 39.0-51.0 [facility] Comment on above: Order Comment: Speci men Type: BLOOD SPECIMENOrdering Facility: [facility] Address: [address] [place] [address] Performed By: #### 5 7021-8 ####[facility] LABCLIA [id number] [place] [address] Hemoglobin (Bld) [Mass/Vol] 11.9 g/dL Low 13.0-17.0 [facility] Comment on above: Order Comment: Speci men Type: BLOOD SPECIMENOrdering Facility: [facility] Address: [address] [place] [address] Performed By: #### 5 7021-8 ####[facility] LABCLIA [id number] [place] [address] Immature granulocytes (Bld) [#/Vol] 0.04 10*3/uL Normal <0.10 [facility] Comment on above: Order Comment: Speci men Type: BLOOD SPECIMENOrdering Facility: [facility] Address: [address] [place] [address] Performed By: #### 5 7021-8 ####[facility] LABCLIA [id number] [place] [address] Immature granulocytes/100 WBC (Bld) 0.4 % Normal [facility] Comment on above: Order Comment: Speci men Type: BLOOD SPECIMENOrdering Facility: [facility] Address: [address] [place] [address] Performed By: #### 5 7021-8 ####[facility] LABCLIA [id number] [place] [address] Lymphocytes (Bld) [#/Vol] 1.44 10*3/uL Normal 1.00-4.00 [facility] Comment on above: Order Comment: Speci men Type: BLOOD SPECIMENOrdering Facility: [facility] Address: [address] [place] [address] Performed By: #### 5 7021-8 ####[facility] LABCLIA [id number] [place] [address] Lymphocytes/100 WBC (Bld) 14.6 % Normal [facility] Comment on above: Order Comment: Speci men Type: BLOOD SPECIMENOrdering Facility: [facility] Address: [address] [place] [address] Performed By: #### 5 7021-8 ####[facility] LABCLIA [id number] [place] [address] MCH (RBC) [Entitic mass] 24.1 pg Low 26.0-34.0 [facility] Comment on above: Order Comment: Speci men Type: BLOOD SPECIMENOrdering Facility: [facility] Address: [address] [place] [address] Performed By: #### 5 7021-8 ####[facility] LABCLIA [id number] [place] [address] MCHC (RBC) [Mass/Vol] 31.3 g/dL Normal 30.5-36.0 [facility] Comment on above: Order Comment: Speci men Type: BLOOD SPECIMENOrdering Facility: [facility] Address: [address] [place] [address] Performed By: #### 5 7021-8 ####[facility] LABCLIA [id number] [place] [address] MCV (RBC) [Entitic vol] 77.1 fL Low 80.0-100.0 [facility] Comment on above: Order Comment: Speci men Type: BLOOD SPECIMENOrdering Facility: [facility] Address: [address] [place] [address] Performed By: #### 5 7021-8 ####[facility] LABCLIA [id number] [place] [address] Monocytes (Bld) [#/Vol] 0.91 10*3/uL High <0.87 [facility] Comment on above: Order Comment: Speci men Type: BLOOD SPECIMENOrdering Facility: [facility] Address: [address] [place] [address] Performed By: #### 5 7021-8 ####[facility] LABCLIA [id number] [place] [address] Monocytes/100 WBC (Bld) 9.2 % Normal [facility] Comment on above: Order Comment: Speci men Type: BLOOD SPECIMENOrdering Facility: [facility] Address: [address] [place] [address] Performed By: #### 5 7021-8 ####[facility] LABCLIA [id number] [place] [address] Neutrophils (Bld) [#/Vol] 7.26 10*3/uL Normal 1.45-7.50 [facility] Comment on above: Order Comment: Speci men Type: BLOOD SPECIMENOrdering Facility: [facility] Address: [address] [place] [address] Performed By: #### 5 7021-8 ####[facility] LABCLIA [id number] [place] [address] Neutrophils/100 WBC (Bld) 73.7 % Normal [facility] Comment on above: Order Comment: Speci men Type: BLOOD SPECIMENOrdering Facility: [facility] Address: [address] [place] [address] Performed By: #### 5 7021-8 ####[facility] LABCLIA [id number] [place] [address] Nucleated RBC (Bld) [#/Vol] 10*3/uL Normal <0.01 [facility] Comment on above: Order Comment: Speci men Type: BLOOD SPECIMENOrdering Facility: [facility] Address: [address] [place] [address] Performed By: #### 5 7021-8 ####[facility] LABCLIA [id number] [place] [address] Nucleated RBC/100 WBC (Bld) [Ratio] 0.0 /100 WBC Normal [facility] Comment on above: Order Comment: Speci men Type: BLOOD SPECIMENOrdering Facility: [facility] Address: [address] [place] [address] Performed By: #### 5 7021-8 ####[facility] LABIA [id number] [place] [address] Platelet mean volume (Bld) [Entitic vol] 9.5 fL Normal 9.0-12.7 [facility] Comment on above: Order Comment: Speci men Type: BLOOD SPECIMENOrdering Facility: [facility] Address: [address] [place] [address] Performed By: #### 5 7021-8 ####[facility] LABCLIA [id number] [place] [address] Platelets (Bld) [#/Vol] 293 10*3/uL Normal 150-400 [facility] Comment on above: Order Comment: Speci men Type: BLOOD SPECIMENOrdering Facility: [facility] Address: [address] [place] [address] Performed By: #### 5 7021-8 ####[facility] LABCLIA [id number] [place] [address] RBC (Bld) [#/Vol] 4.93 10*6/uL Normal 4.20-6.00 [facility] Comment on above: Order Comment: Speci men Type: BLOOD SPECIMENOrdering Facility: [facility] Address: [address] [place] [address] Performed By: #### 5 7021-8 ####[facility] LABCLIA [id number] [place] [address] WBC (Bld) [#/Vol] 9.86 10*3/uL Normal 3.70-11.00 [facility] Comment on above: Order Comment: Speci men Type: BLOOD SPECIMENOrdering Facility: [facility] Address: [address] [place] [address] Performed By: #### 5 7021-8 ####[facility] LABCLIA [id number] [place] [address] Basophils (Bld) [#/Vol] 0.06 10*3/uL <0.11 k/uL [facility] Basophils/100 WBC (Bld) 0.6 % [facility] Differential cell count method Nom (Bld) Auto [facility] Eosinophils (Bld) [#/Vol] 0.15 10*3/uL <0.46 k/uL [facility] Eosinophils/100 WBC (Bld) 1.5 % [facility] Erythrocyte distribution width (RBC) [Ratio] 17.1 % High 11.5 - 15.0 % [facility] Hematocrit (Bld) [Volume fraction] 38.0 % Low 39.0 - 51.0 % [facility] Hemoglobin (Bld) [Mass/Vol] 11.9 g/dL Low 13.0 - 17.0 g/dL [facility] Immature granulocytes (Bld) [#/Vol] 0.04 10*3/uL <0.10 k/uL [facility] Immature granulocytes/100 WBC (Bld) 0.4 % [facility] Lymphocytes (Bld) [#/Vol] 1.44 10*3/uL 1.00 - 4.00 k/uL [facility] Lymphocytes/100 WBC (Bld) 14.6 % [facility] MCH (RBC) [Entitic mass] 24.1 pg Low 26.0 - 34.0 pg [facility] MCHC (RBC) [Mass/Vol] 31.3 g/dL 30.5 - 36.0 g/dL [facility] MCV (RBC) [Entitic vol] 77.1 fL Low 80.0 - 100.0 fL [facility] Monocytes (Bld) [#/Vol] 0.91 10*3/uL High <0.87 k/uL [facility] Monocytes/100 WBC (Bld) 9.2 % [facility] Neutrophils (Bld) [#/Vol] 7.26 10*3/uL 1.45 - 7.50 k/uL [facility] Neutrophils/100 WBC (Bld) 73.7 % [facility] Nucleated RBC (Bld) [#/Vol] <0.01 k/uL [facility] Nucleated RBC/100 WBC (Bld) [Ratio] 0.0 /100 WBC [facility] Platelet mean volume (Bld) [Entitic vol] 9.5 fL 9.0 - 12.7 fL [facility] Platelets (Bld) [#/Vol] 293 10*3/uL 150 - 400 k/uL [facility] RBC (Bld) [#/Vol] 4.93 10*6/uL 4.20 - 6.0 0 m/uL [facility] WBC (Bld) [#/Vol] 9.86 10*3/uL 3.70 - 11. 00 k/uL [facility] CNOVSPon 04-30-2023 CNOVSP Visit (SP) Office ([facility]) JC CAMACHO ([id number]) 1955 M Date Time Provider Department 04/30/23 3:45 PM IMMANUEL OSORIO During your visit today, we recorded the following information about you: Temperature Pulse Respiration Blood pressure 99.1 degrees 102/minute 18/minute 143/82 Weight Height 111.9 kg 1.803 m Immanuel Osorio MD 04/30/2023 8:05 PM Signed NAME: Jc Camacho CLINIC NO.: [id number] DATE OF SERVICE: April 30, 2023 (Amber) [...] 04/30/2023 31. (more content not included)... Normal [facility] Comprehensive metabolic 2000 panelon 04-30-2023 Albumin [Mass/Vol] 4.4 g/dL Normal 3.9-4.[address] [facility] Comment on above: Order Comment: Speci men Type: BLOOD SPECIMENOrdering Facility: [facility] Address: [address] [place] [address] Performed By: #### 2 4323-8 ####[facility] LABCLIA [id number] [place] [address] ALP [Catalytic activity/Vol] 106 U/L Normal 38-113 [facility] Comment on above: Order Comment: Speci men Type: BLOOD SPECIMENOrdering Facility: [facility] Address: [address] [place] [address] Performed By: #### 2 4323-8 ####[facility] LABCLIA [id number] [place] [address] ALT [Catalytic activity/Vol] 19 U/L Normal 10-54 [facility] Comment on above: Order Comment: Speci men Type: BLOOD SPECIMENOrdering Facility: [facility] Address: [address] [place] [address] Performed By: #### 2 4323-8 ####[facility] LABCLIA [id number] [place] [address] Anion gap [Moles/Vol] 9 mmol/L Normal 9-18 [facility] Comment on above: Order Comment: Speci men Type: BLOOD SPECIMENOrdering Facility: [facility] Address: [address] [place] [address] Performed By: #### 2 4323-8 ####[facility] LABCLIA [id number] [place] [address] AST [Catalytic activity/Vol] 22 U/L Normal 14-40 [facility] Comment on above: Order Comment: Speci men Type: BLOOD SPECIMENOrdering Facility: [facility] Address: [address] [place] [address] Performed By: #### 2 4323-8 ####[facility] LABCLIA [id number] [place] [address] Bilirubin [Mass/Vol] 0.4 mg/dL Normal 0.2-1.3 [facility] Comment on above: Order Comment: Speci men Type: BLOOD SPECIMENOrdering Facility: [facility] Address: [address] [place] [address] Performed By: #### 2 4323-8 ####[facility] LABCLIA [id number] [place] [address] Calcium [Mass/Vol] 9.4 mg/dL Normal 8.5-10.[address] [facility] Comment on above: Order Comment: Speci men Type: BLOOD SPECIMENOrdering Facility: [facility] Address: [address] [place] [address] Performed By: #### 2 4323-8 ####[facility] LABCLIA [id number] [place] [address] Chloride [Moles/Vol] 104 mmol/L Normal 97-105 [facility] Comment on above: Order Comment: Speci men Type: BLOOD SPECIMENOrdering Facility: [facility] Address: [address] [place] [address] Performed By: #### 2 4323-8 ####[facility] LABCLIA [id number] [place] [address] CO2 [Moles/Vol] 27 mmol/L Normal 22-30 [facility] Comment on above: Order Comment: Speci men Type: BLOOD SPECIMENOrdering Facility: [facility] Address: [address] [place] [address] Performed By: #### 2 4323-8 ####[facility] LABCLIA [id number] [place] [address] Creatinine [Mass/Vol] 0.88 mg/dL Normal 0.73-1.22 [facility] Comment on above: Order Comment: Speci men Type: BLOOD SPECIMENOrdering Facility: [facility] Address: [address] [place] [address] Performed By: #### 2 4323-8 ####[facility] LABCLIA [id number] [place] [address] Creatinine and Glomerular filtration rate.predicted panel (S/P/Bld) 94 mL/min/1.73m??? Normal >=60 [facility] Comment on above: Order Comment: Speci men Type: BLOOD SPECIMENOrdering Facility: [facility] Address: [address] [place] [address] Result Comment: Bouchra mated Glomerular Filtration Rate [...] actual GFR. Performed By: #### 2 4323-8 ####[facility] LABCLIA [id number] [place] [address] Glucose [Mass/Vol] 115 mg/dL High 74-[address] [facility] Comment on above: Order Comment: Trani herber Type: BLOOD SPECIMENOrdering Facility: [facility] Address: [address] [place] [address] Result Comment: The [place] [employer] (ADA) provides guidance for cutoff [...] Standards of Medical Care in Diabetes 2016, [place] [employer]. Diabetes Care. 2016.39(Suppl 1). Performed By: #### 2 4323-8 ####[facility] LABCLIA [id number] [place] [address] Potassium [Moles/Vol] 4.2 mmol/L Normal 3.7-5.1 [facility] Comment on above: Order Comment: Speci men Type: BLOOD SPECIMENOrdering Facility: [facility] Address: [address] [place] [address] Performed By: #### 2 4323-8 ####[facility] LABCLIA [id number] [place] [address] Protein [Mass/Vol] 7.5 g/dL Normal 6.3-8.[address] [facility] Comment on above: Order Comment: Speci men Type: BLOOD SPECIMENOrdering Facility: [facility] Address: [address] [place] [address] Performed By: #### 2 4323-8 ####[facility] LABCLIA [id number] [place] [address] Sodium [Moles/Vol] 140 mmol/L Normal 136-[address] [facility] Comment on above: Order Comment: Speci men Type: BLOOD SPECIMENOrdering Facility: [facility] Address: [address] [place] [address] Performed By: #### 2 4323-8 ####[facility] LABCLIA [id number] [place] [address] Urea nitrogen [Mass/Vol] 28 mg/dL High 9-24 [facility] Comment on above: Order Comment: Speci men Type: BLOOD SPECIMENOrdering Facility: [facility] Address: [address] [place] [address] Performed By: #### 2 [id number] ####[facility] LABCLIA [id number] [place] [address] Albumin [Mass/Vol] 4.4 g/dL 3.9 - 4.9 g/dL [facility] ALP [Catalytic activity/Vol] 106 U/L 38 - 113 U/L [facility] ALT [Catalytic activity/Vol] 19 U/L 10 - 54 U/L [facility] Anion gap [Moles/Vol] 9 mmol/L 9 - 18 mmol/L [facility] AST [Catalytic activity/Vol] 22 U/L 14 - 40 U/L [facility] Bilirubin [Mass/Vol] 0.4 mg/dL 0.2 - 1.3 mg/dL [facility] Calcium [Mass/Vol] 9.4 mg/dL 8.5 - 10. 2 mg/dL [facility] Chloride [Moles/Vol] 104 mmol/L 97 - 105 mmol/L [facility] CO2 [Moles/Vol] 27 mmol/L 22 - 30 mmol/L [facility] Creatinine [Mass/Vol] 0.88 mg/dL 0.73 - 1.22 mg/dL [facility] Estimated Glomerular Filtration Rate 94 mL/min/1.73m >=60 mL/min/1.73m [facility] Glucose [Mass/Vol] 115 mg/dL High 74 - 99 mg/dL [facility] Potassium [Moles/Vol] 4.2 mmol/L 3.7 - 5.1 mmol/L [facility] Protein [Mass/Vol] 7.5 g/dL 6.3 - 8.0 g/dL [facility] Sodium [Moles/Vol] 140 mmol/L 136 - 144 mmol/L [facility] Urea nitrogen [Mass/Vol] 28 mg/dL High 9 - 24 mg/dL [facility] Ambulatory Visit Summaryon 1 06-25-2022 Ambulatory Visit Summary JC CAMACHO :1955 Visit Date:04/24/2023 Ambulatory Visit Instructions Your [...] 9:00 AM EST Where: [facility] ED Note-Physicianon 04-21-20 ED Note-Physician [id number]#1. 00TIFF [facility] Physician Orderon 04-08-2023 Physician Order [id number]#1 .00TIFF [facility] Ambulatory Visit Summaryon 1 06-03-2022 Ambulatory Visit Summary JC CAMACHO :1955 Visit Date:04/03/2023 Ambulatory Visit Instructions Your Diagnosis Bladder cancer Bilateral renal cysts Your Care Team Attending Physician - MAGALIE DORMAN, Soledad Linton Primary Care Physician - ISIS LILLY MD This Is Your Medications List Contact prescribing [...] Following Appointments Follow Up with MAGALIE DORMAN, Soledad Linton, URL When: Comments: 6 BCGs in 2 wks Where: [facility] [address] [place] [phone] Medications What How Much When Instructions Unchanged [...] the bl (more content not included)... Normal [facility] Pathology Noteon 04-03-2023 Pathology Note [id number]#1 .00TIFF Normal [facility] Patient Educationon 04-03-20 Patient Education Oncology Bladder [...] Follow these instructions at home: ? Take qrqz-vyh-ilxekmi and prescription medicines only as told by [...] important. Where to find more information ? [place] [employer] (ACS): cancer.org ? National Cancer [place] (NCI): cancer.gov Contact a health care provider [...] have wi (more content not included)... Normal [facility] Urology Office/Clinic Noteon 04-03-2023 Urology Office/Clinic Note [...] of smoking. 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 -6 BCGs in 2 weeks at [facility] oncology (due to BCG nathional shortage) -Cysto 1 month after completion of 6 BCGs 2. Bilateral renal cysts (N28.1: Cyst of kidney, acquired) CT AP wo con 02/25/23 - bilat renal peripelvic cysts. No indication for treatment. Follow-up With When Contact Information Soledad SANDERS MD, URL [facility] [address], [place] [phone] Additional Instructions: 6 BCGs in 2 wks [...] vaccine, inactivat (more content not included)... Normal [facility] Comment on above: Result Comment: Elec tronically Signed By: Soledad SANDERS MD\.br\Date and Time Signed: 04/03/23 11:24 EST\.br\Electronically Co-Signed By: Catherine Oseguera\.br\Date and Time Co-Signed: 04/03/23 11:21 EST Operative Reporton 3 Operative Report [id number]#1 .00TIFF Normal [facility] Lab Reportson 03-25-2023 Lab Reports [id number]#1 .00TIFF Normal [facility] ECG 12-Leadon 03-18-2023 ECG 12-Lead [id number]#1 .00TIFF Normal [facility] Lab Reportson 03-18-2023 Lab Reports [id number]#1 .00TIFF Normal [facility] RAD - MISCon 03-18-2023 RAD - MISC [id number]#1 .00TIFF Normal [facility] UroVysion Fish and Urine Cyt o ([facility])on 03-11-2023 UVFISH & UC Diagnosis Info Invalid Interpretation Code [facility] Comment on above: Result Comment: A:Ur ine,Urine:Voided [...] cytology, and continued follow-up are recommended.* CPT 14725, 23792. Microscopic Notes - Microscopic Notes - Abnormal cells 9p21 deletions: Abnormal cells aneploid events: Total cells analyzed: 19 Hematuria: Gross Description Site ID:A color Brown fixative Alcohol Received 90 mls of cloudy brown fluid with the patient's name and, Urine on the vial. Electronically signed by : on: 03/11/2023 10:51:04 Performed By: #### 1 [id number] #### [facility] [address] [place] [address] Physician Orderon 03-09-2023 Physician Order [id number]#1 .00TIFF Normal [facility] Physician Order [id number]#1 .00TIFF Normal [facility] RAD - CT Reporton 03-06-2023 RAD - CT Report [id number]#1 .00TIFF Normal [facility] Physician Referralon 023 Physician Referral [id number]#1 .00TIFF Normal [facility] Consent for Procedure/Surger yon 03-03-2023 Consent for Procedure/Surgery [id number]#1 .00[facility] Consent for Treatmenton 02-22 Consent for Treatment [id number]#1 .00TIFF [facility] IntraOperative Documentson IntraOperative Documents [id number]#1 .00TIFF [facility] Main OR Intraoperative Recor don 03-03-2023 Main OR Intraoperative Record IntraOp Document Type FTURO Summary Primary Physician: Soledad SANDERS MD Finalized Date/Time: 03/03/23 08:29:11 Pt. Name: JC CAMACHO/Sex: 1955 Male Med Rec #: [id number] Physician: Soledad SANDERS MD Financial #: [id number] Pt. Type: O Room/Bed: / Admit/Disch: 03/03/23 07:08:25 - Institution: Case Times FTURO Entry 1 Patient Times In Room 03/03/23 08:13:00 Out Room 03/03/23 08:28:00 Procedure Times Start 03/03/23 08:22:00 Stop 03/03/23 08:25:00 Anesthesia Times Last Modified By: Jennifer VASQUEZ, Deepa Perez 03/03/23 08:28:53 Case Attendance FTURO Entry 1 Entry 2 Entry 3 Case Attendee Soledad SANDERS MD B[employer] WORKER, Deepa Rodriguez RN, Deepa Perez Role Performed Surgeon - Primary Scrub - Primary Oncology Radiation Physician - Primary Time In 03/03/23 08:13:00 03/03/23 08:13:00 03/03/23 08:13:00 Time Out 03/03/23 08:28:00 03/03/23 08:28:00 03/03/23 08:28:00 Procedure CYSTOSCOPY LOCAL(.) CYSTOSCOPY LOCAL(.) CYSTOSCOPY LOCAL(.) Comments Last Modified By: Jennifer VASQUEZ, Deepa Rodriguez RN, Deepa Jordan RN 03/03/23 08:29:00 03/03/23 [...] SANDERS MD, Verified (If Participants Deepa Oropeza CST Applicable) Jennifer Aranda RN, Kimberly Y Time Out [...] By: Deepa Rodriguez RN 03/03/23 08:29 Normal [facility] Main OR Preoperative Recordo n 03-03-2023 Main OR Preoperative Record Holding Area Document Type FTURO Summary Primary Physician: Soledad SANDERS MD Finalized Date/Time: 03/03/23 08:06:38 Pt. Name: JC CAMACHO./Sex: 1955 Male Med Rec #: [id number] Physician: Soledad SANDERS MD Financial #: [id number] Pt. Type: O Room/Bed: / Admit/Disch: 03/03/23 [...] Complaints of Pain: n/a Skin Integrity Intact, [place], Warm, & Dry Vitals - EU Blood Pressure 160/98 Pulse 76 bpm Respirations 16 br/min SPO2 98 % RN Reviewed Yes Last Modified By: Deepa Rodriguez RN 03/03/23 08:06:36 General Comments: Temp 99.3 Finalized By: Deepa Rodriguez RN Document Signatures Signed By: Alba Childers LPN 03/03/23 07:45 Deepa Rodriguez RN 03/03/23 08:06 Normal [facility] Operative Reporton 3 Operative Report Patient: JC [...] ible bilateral ureteroscopy and stent placement.. Normal [facility] Comment on above: Result Comment: Elec tronically Signed By: MAGALIE DORMAN, Soledad Linton\.br\Date and Time Signed: 03/03/23 08:43 EDT Physician Referralon 023 Physician Referral [id number] .00TIFF Normal [facility] Ambulatory Visit Summaryon 1 Ambulatory Visit Summary JC CAMACHO :1955 Visit Date:03/02/2023 Ambulatory Visit Instructions Your Diagnosis Gross hematuria Bladder mass Bilateral renal cysts Tests Performed Urnls Dip Stick Auto w/o Microscopy POC 27694 Your Care Team Attending Physician - Soledad SANDERS MD Primary Care Physician - ISIS LILLY MD Referring Physician - ISAMAR [facility] This Is Your Medications List Contact prescribing [...] [facility] [address], [place] [address]- Medications What How Much When Instructions Unchanged [...] Urnls Dip Stick Auto w/o Microscopy POC 70804 (03/02/2023) Bilirubin Urine Dipstick - 1+ Small Blood Urine Dipstick - 3+ Large Glucose Urine Dipstick - Negative Ketones Urine Dipstick - Negative Leukocytes Urine Dipstick - Negative Nitrite Urine Dipstick - Negative Protein Urine Dipstick - 3+ (300 mg/dl) Specific Lares Urine Dipstick - >=1.030 Urine Appearance Urine Dipstick - Cloudy Urine Color Urine Dipstick - Shanita Urobilinogen Urine Dipstick - Normal 0.2-1 EU/dl [...] including vitamins, herbs, eye drops, creams, and cljv-gal-miszqyx medicines. ? Any problems you or family [...] tells you to take them. ? Taking gxbg-aqt-tpowepb medicines, vitamins, herbs, and supplements. Tests You may have an exam or testing, such as: ? X-rays of the bladder, urethra, or kidneys. ? CT scan of the abdomen or pelvis. ? Urine tests to check for sig (more content not included)... Normal [facility] UroVysion Fish and Urine Cyt o ([facility])on 03-02-2023 [facility] Method of Extraction Voided Normal [facility] Comment on above: Performed By: #### 1 [id number] #### [facility] [address] [place] [address] [facility] Number of Jars 1 Invalid Interpretation Code [facility] Comment on above: Performed By: #### 1 [id number] #### [facility] [address] [place] [address] [facility] Specimen Urine Normal [facility] Comment on above: Performed By: #### 1 [id number] #### [facility] [address] [place] [address] [facility] Type of Service Technical Only Normal [facility] Comment on above: Performed By: #### 1 [id number] #### [facility] [address] [place] [address] Complete Blood Count with Au to Diffon 05-16-2021 Basophils (Bld) [#/Vol] 0.02 10*3/uL Normal 0.00-0.20 [facility] [employer] Comment on above: Performed By: #### C BCAD, CMP, LIPD #### [facility] [address], [place] [id number] Basophils/100 WBC (Bld) 0.4 % Normal [facility] [employer] Comment on above: Performed By: #### C BCAD, CMP, LIPD #### [facility] [address], [place] [id number] Eosinophils (Bld) [#/Vol] 0.22 10*3/uL Normal 0.02-0.50 [facility] [employer] Comment on above: Performed By: #### C BCAD, CMP, LIPD #### [facility] [address], [place] [id number] Eosinophils/100 WBC (Bld) 4.5 % Normal [facility] [employer] Comment on above: Performed By: #### C BCAD, CMP, LIPD #### [facility] [address], [place] [id number] Erythrocyte distribution width (RBC) [Ratio] 13.6 % Normal 11.0-15.0 [facility] [employer] Comment on above: Performed By: #### C BCAD, CMP, LIPD #### [facility] [address], [place] [id number] Hematocrit (Bld) [Volume fraction] 46.8 % Normal 38.5-50.0 [facility] [employer] Comment on above: Performed By: #### C BCAD, CMP, LIPD #### [facility] [address], [place] [id number] Hemoglobin (Bld) [Mass/Vol] 15.3 g/dL Normal 13.0-17.1 [facility] [employer] Comment on above: Performed By: #### C BCAD, CMP, LIPD #### [facility] [address], [place] [id number] Lymphocytes (Bld) [#/Vol] 1.4 10*3/uL Normal 0.9-3.9 [facility] [employer] Comment on above: Performed By: #### C BCAD, CMP, LIPD #### [facility] [address] [facility] [place] [id number] Lymphocytes/100 WBC (Bld) 29.2 % Normal [facility] Specialist Comment on above: Performed By: #### C BCAD, CMP, LIPD #### [facility] [address], [place] [id number] MCH (RBC) [Entitic mass] 30.2 pg Normal 27.0-33.0 [facility] Specialist Comment on above: Performed By: #### C BCAD, CMP, LIPD #### [facility] [address], [place] [id number] MCHC (RBC) [Mass/Vol] 32.7 g/dL Normal 32.0-36.0 [facility] Specialist Comment on above: Performed By: #### C BCAD, CMP, LIPD #### [facility] [address], [place] [id number] MCV (RBC) [Entitic vol] 92 fL Normal 80-100 [facility] Specialist Comment on above: Performed By: #### C BCAD, CMP, LIPD #### [facility] [address], [place] [id number] Monocytes (Bld) [#/Vol] 0.4 10*3/uL Normal 0.2-0.9 [facility] Specialist Comment on above: Performed By: #### C BCAD, CMP, LIPD #### [facility] [address] [facility] [place] [id number] Monocytes/100 WBC (Bld) 8.0 % Normal [facility] Specialist Comment on above: Performed By: #### C BCAD, CMP, LIPD #### [facility] [address], [place] [id number] Neutrophils (Bld) [#/Vol] 2.8 10*3/uL Normal 1.5-7.8 [facility] Specialist Comment on above: Performed By: #### C BCAD, CMP, LIPD #### [facility] [address] [facility] [place] [id number] Neutrophils/100 WBC (Bld) 57.5 % Normal [facility] Specialist Comment on above: Performed By: #### C BCAD, CMP, LIPD #### [facility] [address], [place] [id number] Platelet mean volume (Bld) [Entitic vol] 10.20 fL Normal 7.50-12.50 [facility] [employer] Comment on above: Performed By: #### C BCAD, CMP, LIPD #### [facility] [address], [place] [id number] Platelets (Bld) [#/Vol] 251 10*3/uL Normal 140-400 [facility] [employer] Comment on above: Performed By: #### C BCAD, CMP, LIPD #### [facility] [address], [place] [id number] RBC (Bld) [#/Vol] 5.07 10*6/uL Normal 4.20-5.80 [facility] [employer] Comment on above: Performed By: #### C BCAD, CMP, LIPD #### [facility] [address], [place] [id number] RDW-SD 46.2 fL Normal 37.0-50.0 [facility] [employer] Comment on above: Performed By: #### C BCAD, CMP, LIPD #### [facility] [address], [place] [id number] WBC (Bld) [#/Vol] 4.9 10*3/uL Normal 3.8-11.0 [facility] [employer] Comment on above: Performed By: #### C BCAD, CMP, LIPD #### [facility] [address], [place] [id number] Comprehensive Metabolic Pane [facility] 05-16-2021 Albumin [Mass/Vol] 4.5 g/dL Normal 3.6-5.1 [facility] [employer] Comment on above: Performed By: #### C BCAD, CMP, LIPD #### [facility] [address], [place] [id number] Albumin/Globulin [Mass ratio] 1.8 {ratio} Normal 1.0-2.5 [facility] [employer] Comment on above: Performed By: #### C BCAD, CMP, LIPD #### [facility] [address], [place] [id number] ALP [Catalytic activity/Vol] 83 U/L Normal 40-129 [facility] Specialist Comment on above: Performed By: #### C BCAD, CMP, LIPD #### [facility] [address], [place] [id number] ALT [Catalytic activity/Vol] 24 U/L Normal 9-46 [facility] Specialist Comment on above: Result Comment: 04/24 Female reference range changed. Performed By: #### C BCAD, CMP, LIPD #### [facility] [address], [place] [id number] Anion gap [Moles/Vol] 18 mmol/L Normal 12-20 [facility] Specialist Comment on above: Result Comment: Effe ctive 05/30/2019 reference range changed. Performed By: #### C BCAD, CMP, LIPD #### [facility] [address], [place] [id number] AST [Catalytic activity/Vol] 21 U/L Normal 10-40 [facility] Specialist Comment on above: Performed By: #### C BCAD, CMP, LIPD #### [facility] [address], [place] [id number] Bilirubin [Mass/Vol] 0.50 mg/dL Normal 0.30-1.20 [facility] Specialist Comment on above: Performed By: #### C BCAD, CMP, LIPD #### [facility] [address], [place] [id number] BUN/CREA 36 Ratio High 6-22 [facility] Specialist Comment on above: Performed By: #### C BCAD, CMP, LIPD #### [facility] [address], [place] [id number] Calcium [Mass/Vol] 9.5 mg/dL Normal 8.6-10.2 [facility] Comment on above: Performed By: #### C BCAD, CMP, LIPD #### [facility] [address], [place] [id number] Chloride [Moles/Vol] 105 mmol/L Normal 98-107 [facility] Specialist Comment on above: Performed By: #### C BCAD, CMP, LIPD #### [facility] [address] [place], [place] [id number] CO2 [Moles/Vol] 23 mmol/L Normal 20-31 [facility] Specialist Comment on above: Performed By: #### C BCAD, CMP, LIPD #### [facility] [address], [place] [id number] Creatinine [Mass/Vol] 0.7 mg/dL Normal 0.7-1.4 [facility] Specialist Comment on above: Performed By: #### C BCAD, CMP, LIPD #### [facility] [address], [place] [id number] eGFRAA 130 mL/min/1.73m2 Normal >60 [facility] Comment on above: Performed By: #### C BCAD, CMP, LIPD #### [facility] [address], [place] [id number] eGFRNAA 107 mL/min/1.73m2 Normal >60 [facility] Comment on above: Performed By: #### C BCAD, CMP, LIPD #### [facility] [address], [place] [id number] Globulin (S) [Mass/Vol] 2.5 g/dL Normal 1.9-3.7 [facility] Specialist Comment on above: Performed By: #### C BCAD, CMP, LIPD #### [facility] [address], [place] [id number] Glucose [Mass/Vol] 100 mg/dL High 65-99 [facility] [place] Comment on above: Result Comment: For FASTING Glucose --- ADA reference ranges: Normal 65-99 mg/dl Prediabetes 100-125 Diabetes >/= 126 Performed By: #### C BCAD, CMP, LIPD #### [facility] [address], [place] [id number] Potassium [Moles/Vol] 4.3 mmol/L Normal 3.5-5.5 [facility] Specialist Comment on above: Performed By: #### C BCAD, CMP, LIPD #### [facility] [address], [place] [id number] Protein [Mass/Vol] 7.0 g/dL Normal 6.1-8.1 [facility] [place] [employer] Comment on above: Performed By: #### C BCAD, CMP, LIPD #### [facility] [address], [place] [id number] Sodium [Moles/Vol] 142 mmol/L Normal 135-146 Nora vasquez [place] [employer] Comment on above: Performed By: #### C BCAD, CMP, LIPD #### [facility] [address], [place] [id number] Urea nitrogen [Mass/Vol] 26 mg/dL High 7-25 [facility] [employer] Comment on above: Performed By: #### C BCAD, CMP, LIPD #### [facility] [address], [place] [id number] Lipid Panelon 05-16-2021 Cholesterol [Mass/Vol] 215 mg/dL High 125-200 [facility] [employer] Comment on above: Result Comment: Low risk < 200mg/dL Borderline risk 201-239 mg/dl High risk > or equal to 240 Performed By: #### C BCAD, CMP, LIPD #### [facility] [address], [place] [id number] Cholesterol in HDL [Mass/Vol] 50 mg/dL Normal >40 [facility] [employer] Comment on above: Result Comment: High Cardiovascular Risk HDL <40 mg/dL Low Cardiovascular Risk HDL > or equal to 60 mg/dl Performed By: #### C BCAD, CMP, LIPD #### [facility] [address], [place] [id number] Cholesterol in LDL [Mass/Vol] 122 mg/dL Normal [facility] [employer] Comment on above: Result Comment: LDL ATP III CLASSIFICATION LDL less than 100 mg/dl Optimal LDL 100-129 mg/dl Near or above optimal LDL 130-159 Borderline high LDL 160-189 High LDL greater than 189 mg/dl Very High Performed By: #### C BCAD, CMP, LIPD #### [facility] [address], [place] [id number] Cholesterol in VLDL [Mass/Vol] 43 mg/dL Normal [facility] [employer] Comment on above: Performed By: #### C BCAD, CMP, LIPD #### [facility] [address], [place] [id number] Cholesterol.total/C holesterol in HDL [Mass ratio] 4 {ratio} Normal [facility] [employer] Comment on above: Performed By: #### C BCAD, CMP, LIPD #### [facility] [address], [place] [id number] Triglyceride [Mass/Vol] 214 mg/dL High 30-150 [facility] [employer] Comment on above: Result Comment: TRIG ATPIII CLASSIFICATIONS TRIG less than 150 mg/dl Normal TRIG 150-199 mg/dl Borderline High TRIG 200-500 mg/dl High TRIG greather than 500 mg/dl Very High Performed By: #### C BCAD, CMP, LIPD #### [facility] [address], [place] [id number] PSA SCREEN (MEDICARE)on 04-25 TPSA 1.060 ng/mL Normal <4.000 [facility] [employer] Comment on above: Result Comment: PSA Test Method: ECLIA/Ronnie e 601 Performed By: #### P SA #### [facility] [address], [place] [id number] OPERATIVE NOTEon 04-20-2017 OPERATIVE NOTE OPERATIVE NOTEOPERATION DATE: 27-59-54ORZCVPLYGX:IV sedation, MAC.PREOPERATIVE DIAGNOSIS:Screening colonoscopy.POSTOPERA TIVE DIAGNOSIS: Diverticulosis [...] repeat colonoscopy in 7-10 years. Normal [facility] Vital Signs Date Time Vital Sign Value Performing Clinician Facility 06-18-2023 15:16-0500 Body height 180.3 cm Immanuel Osorio MD Work Phone: [facility] 06-18-2023 15:16-0500 Body temperature 98.01 [degF] Immanuel Osorio MD Work Phone: [facility] 06-18-2023 15:16-0500 Body weight 114.4 kg Immanuel Osorio MD Work Phone: [facility] 06-18-2023 15:16-0500 Diastolic blood pressure 89 mm[Hg] Immanuel Osorio MD Work Phone: [facility] 06-18-2023 15:16-0500 Heart rate 108 /min Immanuel Osorio MD Work Phone: [facility] 06-18-2023 15:16-0500 Respiratory rate 18 /min Immanuel Osorio MD Work Phone: [facility] 06-18-2023 15:16-0500 SaO2% (BldA) [Mass fraction] 96 % Immanuel Osorio MD Work Phone: [facility] 06-18-2023 15:16-0500 Systolic blood pressure 134 mm[Hg] Immanuel Osorio MD Work Phone: [facility] 04-30-2023 15:54-0500 Body height 180.3 cm Immanuel Osorio MD Work Phone: [facility] 04-30-2023 15:54-0500 Body temperature 99.1 [degF] Immanuel Osorio MD Work Phone: [facility] 04-30-2023 15:54-0500 Body weight 111.95 kg Immanuel Osorio MD Work Phone: [facility] 04-30-2023 15:54-0500 Diastolic blood pressure 82 mm[Hg] Immanuel Osorio MD Work Phone: [facility] 04-30-2023 15:54-0500 Heart rate 102 /min Immanuel Osorio MD Work Phone: [facility] 04-30-2023 15:54-0500 Respiratory rate 18 /min Immanuel Osorio MD Work Phone: [facility] 04-30-2023 15:54-0500 SaO2% (BldA) [Mass fraction] 95 % Immanuel Osorio MD Work Phone: [facility] 04-30-2023 15:54-0500 Systolic blood pressure 143 mm[Hg] Immanuel Osorio MD Work Phone: [facility] 04-03-2023 10:41-0500 Blood Pressure Location Soledad SANDERS [facility] 04-03-2023 10:41-0500 Diastolic blood pressure 88 mm[Hg] Soledad SANDERS [facility] 04-03-2023 10:41-0500 Heart rate 75 /min Soledad SANDERS [facility] 04-03-2023 10:41-0500 Respiratory rate 16 /min Soledad SANDERS [facility] 04-03-2023 10:41-0500 Systolic blood pressure 138 mm[Hg] Soledad SANDERS [facility] [facility] Encounters Encounter Date Encounter Type Care Provider Facility Start: 06-29-2023 End: 06-29-2023 Lab Drop off Soledad SANDERS [facility] Start: 06-29-2023 End: 06-30-2023 ambulatory Soledad SANDERS [place] [place]: 06-29-2023 End: 06-29-2023 Patient encounter procedure Soledad R SANDERS [facility] Start: 06-18-2023 End: 06-18-2023 ambulatory IMMANUEL ABHYANKAR Facility:[facility] Start: 06-18-2023 End: 06-18-2023 Office outpatient visit 15 minutes Immanuel Osorio MD Work Phone: Hematology/Oncology Comment on above: Malignant neoplasm o f overlapping sites of bladder (HCC) (Primary Dx); Iron deficiency anemia due to chronic blood loss Start: 06-11-2023 End: 06-11-2023 ambulatory RUGEN MABALAY MAXX Facility:[facility] Start: 06-04-2023 End: 06-05-2023 ambulatory [facility] Facility:[facility] Start: 05-28-2023 End: 05-28-2023 ambulatory [facility] Facility:[facility] Start: 05-21-2023 End: 05-21-2023 ambulatory IMMANUEL ABHYANKAR Facility:[facility] Start: 05-14-2023 Telephone encounter Financial Navigator Ty Work Phone: Hematology/Oncology Comment on above: Benefits Investigati on Start: 05-14-2023 End: 05-14-2023 ambulatory [facility] Facility:[facility] Start: 05-07-2023 End: 05-08-2023 ambulatory [facility] Facility:[facility] Start: 04-30-2023 End: 05-01-2023 ambulatory IMMANUEL ABHYSIMÓN Facility:[facility] Start: 04-30-2023 End: 04-30-2023 Office outpatient new 60 minutes Immanuel Osorio MD Work Phone: Hematology/Oncology Comment on above: Malignant neoplasm o f overlapping sites of bladder (HCC) (Primary Dx) Start: 04-24-2023 End: 04-25-2023 ambulatory Soledad SANDERS Facility: [place] Start: 04-24-2023 End: 04-24-2023 Patient encounter procedure Soledad SANDERS [facility] Start: 04-03-2023 End: 04-04-2023 ambulatory Soledad SANDERS Facility:[facility] [place] Start: 04-03-2023 End: 04-03-2023 Patient encounter procedure Soledad SANDERS [facility] Start: 03-26-2023 End: 03-27-2023 ambulatory Soledad SANDESR Facility:[id number] Start: 03-03-2023 End: 03-04-2023 ambulatory Soledad R SANDERS [place] [place] Start: 03-02-2023 End: 03-03-2023 ambulatory Soledad R SANDERS [place] [place] Start: 03-02-2023 End: 03-03-2023 ambulatory Soledad R MAGALIE Facility:[facility] Start: 02-27-2023 ambulatory Soledad SANDERS Facility :[facility] [place] Start: 04-20-2017 End: 04-20-2017 Ambulatory CYNTHIA VELÁSQUEZ Facility:[facility] Procedures Date Procedure Procedure Detail Performing Clinician Start: 03-26-2023 Transurethral resect ion of bladder neoplasm Soledad SANDERS Start: 02-27-2023 Lipid 1996 panel - S fabian or Jaylyn Osorio MD Work Phone: Start: 07-08-2021 Total knee replacement Soledad SANDERS Start: 11-02-2015 Arthroscopic knee operation Soledad SANDERS Comment on above: left Appendix structure ( body structure) Soledad SANDRES Arthroplasty of knee Soledad SANDERS Comment on above: right Arthroscopy of knee Soledad SANDERS Bone spur of bilater al shoulders Soledad SANDERS Colonoscopy Soledadmary SANDERS Fasciotomy of foot Soledad TORRES Comment on above: left Functional endoscopi c sinus surgery (qualifier value) Soledad SANDERS Comment on above: x2 inguinal hernia repair Dwain SANDERS multiple surgeries r ight knee Soledad SANDERS Plantar fasciitis (disorder) Soledad SANDERS Tonsillectomy Soledad SANDERS Plan of Treatment Date Care Activity Detail Author Start: 02-28-2028 Lipid 1996 panel - S fabian or Plasma Lipid Screening [facility] Start: 02-28-2028 Lipid panel Lipid Screening [facility] Start: 02-28-2028 Prostate Cancer Screening Discussion Prostate Cancer Screening Discussion [facility] Start: 02-28-2028 Prostate specific antigen measurement Prostate Cancer Screening Discussion [facility] Start: 06-11-2026 [facility]: 05-07-2026 [facility] Start: 04-30-2026 [facility] Start: 09-17-2023 End: 06-18-2024 CBC W Auto Differential panel - Blood CBC + DIFF Lab Routine Malignant neoplasm of overlapping sites of bladder (HCC) Iron deficiency anemia due to chronic blood loss Expected: 09/17/2023 (Approximate), Expires: 06/18/2024 [facility] Work Phone: Comment on above: Expected: 09/17/2023 (Approximate), Expires: 06/18/2024 Start: 09-17-2023 End: 06-18-2024 Cobalamin (Vitamin B12) [Mass/volume] in Serum or Plasma VITAMIN B12 BLOOD Lab Routine Malignant neoplasm of overlapping sites of bladder (HCC) Iron deficiency anemia due to chronic blood loss Expected: 09/17/2023 (Approximate), Expires: 06/18/2024 [facility] Work Phone: Comment on above: Expected: 09/17/2023 (Approximate), Expires: 06/18/2024 Start: 09-17-2023 End: 06-18-2024 Comprehensive metabolic 2000 panel - Serum or Plasma COMP METABOLIC PANEL Lab Routine Malignant neoplasm of overlapping sites of bladder (HCC) Iron deficiency anemia due to chronic blood loss Expected: 09/17/2023 (Approximate), Expires: 06/18/2024 [facility] Work Phone: Comment on above: Expected: 09/17/2023 (Approximate), Expires: 06/18/2024 Start: 09-17-2023 End: 06-18-2024 Ferritin [Mass/volume] in Serum or Plasma FERRITIN BLD Lab Routine Malignant neoplasm of overlapping sites of bladder (HCC) Iron deficiency anemia due to chronic blood loss Expected: 09/17/2023 (Approximate), Expires: 06/18/2024 [facility] Work Phone: Comment on above: Expected: 09/17/2023 (Approximate), Expires: 06/18/2024 Start: 09-17-2023 End: 06-18-2024 Folate [Mass/volume] in Serum or Plasma FOLATE SERUM Lab Routine Malignant neoplasm of overlapping sites of bladder (HCC) Iron deficiency anemia due to chronic blood loss Expected: 09/17/2023 (Approximate), Expires: 06/18/2024 [facility] Work Phone: Comment on above: Expected: 09/17/2023 (Approximate), Expires: 06/18/2024 Start: 09-17-2023 End: 06-18-2024 Iron and Iron binding capacity panel - Serum or Plasma IRON + TIBC Lab Routine Malignant neoplasm of overlapping sites of bladder (HCC) Iron deficiency anemia due to chronic blood loss Expected: 09/17/2023 (Approximate), Expires: 06/18/2024 [facility] Work Phone: Comment on above: Expected: 09/17/2023 (Approximate), Expires: 06/18/2024 Start: 07-06-2023 ambulatory Ambulatory Facility:C [id number] Start: 05-25-2023 Advance Directive Discussion Advance Directive Discussion [facility] Start: 05-25-2023 Depression Assessment Depression Ass essment [facility] Start: 05-07-2023 End: 04-30-2024 CBC W Auto Differential panel - Blood CBC + DIFF Lab Routine Malignant neoplasm of overlapping sites of bladder (HCC) Expected: 05/07/2023 (Approximate), Expires: 04/30/2024 [facility] Work Phone: Comment on above: Expected: 05/07/2023 (Approximate), Expires: 04/30/2024 Start: 05-07-2023 End: 04-30-2024 Cobalamin (Vitamin B12) [Mass/volume] in Serum or Plasma VITAMIN B12 BLOOD Lab Routine Malignant neoplasm of overlapping sites of bladder (HCC) Expected: 05/07/2023 (Approximate), Expires: 04/30/2024 [facility] Work Phone: Comment on above: Expected: 05/07/2023 (Approximate), Expires: 04/30/2024 Start: 05-07-2023 End: 04-30-2024 Comprehensive metabolic 2000 panel - Serum or Plasma COMP METABOLIC PANEL Lab Routine Malignant neoplasm of overlapping sites of bladder (HCC) Expected: 05/07/2023 (Approximate), Expires: 04/30/2024 [facility] Work Phone: Comment on above: Expected: 05/07/2023 (Approximate), Expires: 04/30/2024 Start: 05-07-2023 End: 04-30-2024 Ferritin [Mass/volume] in Serum or Plasma FERRITIN BLD Lab Routine Malignant neoplasm of overlapping sites of bladder (HCC) Expected: 05/07/2023 (Approximate), Expires: 04/30/2024 [facility] Work Phone: Comment on above: Expected: 05/07/2023 (Approximate), Expires: 04/30/2024 Start: 05-07-2023 End: 04-30-2024 Folate [Mass/volume] in Serum or Plasma FOLATE SERUM Lab Routine Malignant neoplasm of overlapping sites of bladder (HCC) Expected: 05/07/2023 (Approximate), Expires: 04/30/2024 [facility] Work Phone: Comment on above: Expected: 05/07/2023 (Approximate), Expires: 04/30/2024 Start: 05-07-2023 End: 04-30-2024 Iron and Iron binding capacity panel - Serum or Plasma IRON + TIBC Lab Routine Malignant neoplasm of overlapping sites of bladder (HCC) Expected: 05/07/2023 (Approximate), Expires: 04/30/2024 [facility] Work Phone: Comment on above: Expected: 05/07/2023 (Approximate), Expires: 04/30/2024 Start: 01-23-2023 Covid-19 Vaccine () Covid-19 Vaccine () [facility] Start: 05-25-2022 Advance Directive Discussion Advance Directive Discussion [facility] Start: 05-25-2022 Depression Assessment Depression Ass essment [facility] Start: 2015 RSV Vaccine (1 - 1-d ose 60+ series) RSV Vaccine (1 - 1-dose 60+ series) [facility] Start: 2005 Shingrix Vaccine (1 of 2) Shingrix Vaccine (1 of 2) [facility] Start: 01-30-2000 Cologuard (FIT-DNA) Cologuard (FIT-D NA) [facility] Start: 01-30-2000 Colonoscopy Colonoscopy [facility] Start: 01-30-2000 Colorectal Cancer Screening Colorectal Cancer Screening [facility] Start: 01-30-[address] Colonography [facility] Start: 01-30-2000 Fecal Occult Blood Fecal Occult Bloo d [facility] Start: 01-30-2000 Screening for malign ant neoplasm of colon [facility] Start: 01-30-2000 Sigmoidoscopy Sigmoidoscopy [facility] Start: 1974 Urine microalbumin profile DTaP,Tdap,Td Vaccine (1 - Tdap) [facility] Start: 1973 Hepatitis C Screening Hepatitis C [facility] Start: 1973 Hepatitis C screening Hepatitis C [facility] End: 04-29-2024 CBC W Auto Differential panel - Blood CBC + DIFF Lab Routine Malignant neoplasm of overlapping sites of bladder (HCC) Every 3 weeks for 18 Occurrences starting 04/30/2023 until 04/29/2024 [facility] Work Phone: Comment on above: Every 3 weeks for 18 Occurrences starting 04/30/2023 until 04/29/2024 End: 04-29-2024 Comprehensive metabolic 2000 panel - Serum or Plasma COMP METABOLIC PANEL Lab Routine Malignant neoplasm of overlapping sites of bladder (HCC) Every 3 weeks for 18 Occurrences starting 04/30/2023 until 04/29/2024 [facility] Work Phone: Comment on above: Every 3 weeks for 18 Occurrences starting 04/30/2023 until 04/29/2024 [facility] Immunizations Immunization Date Immunization Notes Care Provider Fa georgejamie 02-25-2023 influenza virus vacc ine, unspecified formulation Soledad SANDERS [facility] 03-28-2021 influenza virus vacc ine, unspecified formulation Soledad SANDERS [facility] 03-28-2021 pneumococcal polysaccharide vaccine, 23 valent Soledad SANDERS [facility] 08-17-2020 COVID-19, mRNA, LNP- S, PF, 30 mcg/0.3 mL dose Soledad Divitel [facility] Comment on above: Reason for Medicatio n: Prophylaxis 07-27-2020 COVID-19, mRNA, LNP- S, PF, 30 mcg/0.3 mL dose Soledad SANDERS [facility] Comment on above: Reason for Medicatio n: Prophylaxis 04-05-2020 pneumococcal conjuga te vaccine, 13 valent Soledad SANDERS [facility] 03-22-2020 influenza virus vacc ine, unspecified formulation Soledad SANDERS [facility] 03-23-2019 influenza virus vacc ine, unspecified formulation Soledad SANDERS [facility] 02-27-2018 influenza virus vacc ine, unspecified formulation Soleadd SANDERS [facility] 02-16-2017 influenza virus vacc ine, unspecified formulation Soledad SANDERS [facility] 02-28-2015 influenza virus vacc ine, unspecified formulation Soledad SANDERS [facility] 03-27-2014 influenza virus vacc ine, unspecified formulation Soledad SANDERS [facility] 03-14-2013 influenza virus vacc ine, unspecified formulation Soledad SANDERS [facility] Payers Date Payer Category Payer Unknown MMO MMO MEDICARE SUPPLEMENT [id number] 2022-Present [phone] [address] [place] [address] Indemnity [id number] 2021 Medicare [id number] 2020 Medicare MEDICARE MEDICAR E A AND B [id number] 2020-Present [phone] [address] [address] [place] [address] Medicare [id number] 2020 Medicare [id number] 1959 Private Health Insurance [id number] 1955 Unknown [id number] 1955 Unknown [id number] 727 1955 Unknown [id number] 727 1955 Unknown [id number] 727 1955 Unknown [id number] 727 1955 Unknown [id number] 727 1955 Unknown [id number] 727 1955 Unknown [id number] 727 1955 Unknown [id number] 72 Social History Date Type Detail Facility Start: 03-02-2023 End: 04-30-2023 Tobacco smoking status Never smoked tobacco (finding) [facility] Tobacco smoking status Never [facility] Start: 04-30-2023 End: 06-18-2023 Sex Assigned At Male [facility] Start: 04-30-2023 Tobacco use and exposure Smokeless tobacco non-user [facility] Start: 04-30-2023 End: 06-18-2023 Alcohol intake Lifetime non-drinker (finding) [facility] Start: 04-30-2023 End: 06-18-2023 History of Social function [facility] Start: 1955 Sex Assigned At Not on file [facility] Medical Equipment Procedure Code Equipment Code Equipment Origin al Text Equipment Identifier Dates KNEE TOTAL ARTHROPLASTY Jalen Taylor DO 07/08/21 Non Biological Knee L [id number] [id number] [facility] Start: 07-08-2021 Functional Status Date Assessment Result Facility 04-03-2023 Functional Status N/A [facility] Clinical Notes 03-02-2023 to 06-29-2023 Patient InstructionsAbImmanuel babcock MD - 06/18/2023 3:15 PM ESTTele[facility] - 05/14/2023 9:24 AM ESTPatient Instructions Note Date & Type Note Facility 06-29-2023 Evaluation + Plan note Diagnostic Tests PendingUrine Cytology ([facility]) 06/29/23 [facility] 06-18-2023 Note HNO ID: [id number] Author: IMMANUEL OSORIO MD Service: ? Author Type: Physician Type: Progress Notes Filed: 06/18/2023 21:23 Note Text: NAME: Jc Camacho CLINIC NO.: [id number] DATE OF SERVICE: June 18, 2023 (Amber) [...] Take 325 mg (more content not included)... [facility] 06-18-2023 Instructions Jamilah Mckeon - 06/18/2023 3:29 PM EST Continue oral iron RTC in 3 months Anticipate maintenance BCG, labs same day documented in this encounter [facility] 06-18-2023 History of Presen t illness Narrative Images from the original note were not included. NAME: Jc Camacho [facility] NO.: [id number] DATE OF SERVICE: June 18, 2023 (Amber) [...] which included preparing to see the patient, [id number] patient care, completing clinical documentation, performing a medically appropriate examination, counseling and educating the patient/family/caregiver, ordering medications, tests, or procedures, independently interpreting results (not separately reported), communicating results to the patient/family/caregiver, and care coordination (not separately reported). Immanuel Osorio MD, CPE Hematology and Oncology Services Provided at: [place], [place] Scribe Attestation: This note was scribed [...] and under my direction. CC: Soledad Sanders [address] [facility] [address] No primary care provider on file. No primary provider on file. documented in this encounter [facility] 06-11-2023 Note HNO ID: [id number] Author: TAYLOR TOVAR RN Service: ? Author Type: Registered Nurse Type: Progress Notes Filed: 06/11/2023 12:28 Note Text: Treatment complete. Stevens cath unclamped 500 ml total noted in collection bag. Stevens DC as ordered per policy, patient tolerated well. No further questions or concerns Taylor Tovar RN [facility] 06-11-2023 Note HNO ID: [id number] Author: TAYLOR TOVAR RN Service: ? Author Type: Registered Nurse Type: Progress Notes Filed: 06/11/2023 12:28 Note Text: Patient has arrived for #6/6 BCG, 16 fr stevens catheter inserted utilizing lidocaine as ordered per protocol. Patient tolerated well, approx 150 ml clear yellow urine noted in collection bag. Taylor Tovar RN [facility] 06-04-2023 Note HNO ID: [id number] Author: NOA GERARD RN Service: ? Author [...] and ambulatory to exit. Noa Gerard RN [facility] 05-28-2023 Note HNO ID: [id number] Author: LORETTA DOWNEY RN Service: ? Author [...] problems. Pt tolerated well. Loretta Downey RN [facility] 05-21-2023 Note HNO ID: [id number] Author: Bobbi Garcia RN Service: ? Author [...] family member are ready. Bobbi Garcia RN [facility] 05-21-2023 Note HNO ID: [id number] Author: Immanuel Osorio MD Service: ? Author Type: Physician Type: Progress Notes Filed: 05/22/2023 8:15 AM Note Text: NAME: Jc Camacho [facility] NO.: [id number] DATE OF SERVICE: May 21, 2023 (Amber) [...] capsule 1 capsule. (more content not included)... [facility] 05-14-2023 Note HNO ID: [id number] Author: Zoila Acosta RN Service: ? Author [...] to leave when ready. Zoila Acosta RN [facility] 05-14-2023 Miscellaneous Notes Patient on 1st time treatment. Patient getting BCG treatment (non chemo) Patient holds medicare coverage with supplement. No financial liability at this time. documented in this encounter [facility] 05-07-2023 Note HNO ID: [id number] Author: Taylor Tovar RN Service: ? Author Type: Registered Nurse Type: Progress Notes Filed: 05/07/2023 4:41 PM Note Text: Instill time complete and stevens cath DC per protocol as ordered. 200 ml dark yellow urine noted in collection container. Patient has tolerated well Taylor Tovar RN [facility] 05-07-2023 Note Education (HEMSAVANA) JC CAMACHO ([id number]) 1955 M Date Time Provider Department 05/07/23 ISAÍAS LEMON Reason for Visit: Non-Chemotherapy Treatment [795] Cmt: BCG Primary Visit Diagnosis:Malignant neoplasm of overlapping sites of bladder (HCC) [C67.8] During your visit today, we recorded the following information about you: Allergies As of Date: 05/07/2023 (No Known Allergies) Date Reviewed: 05/07/2023 Reviewed by: Isaías Lemon, CHRISTINA - Fully Assessed Prescriptions as of 05/07/2023 - pravastatin (PRAVACHOL) 40 mg tablet TAKE 1 TABLET BY MOUTH EVERY DAY AT THE SAME TIME - omega-3 DHA-EPA (FISH OIL) 1,200 (144-216) mg capsule 1 capsule. Encounter Status:Closed by ISAÍAS LEMON on 05/07/23 [facility] 05-07-2023 Note HNO ID: [id number] Author: Isaías Lemon RN Service: ? Author [...] minutes REFERRAL (RECOMMENDATION): N/A Isaías Lemon RN [facility] 04-30-2023 Note HNO ID: [id number] Author: Immanuel Osorio MD Service: ? Author Type: Physician Type: Progress Notes Filed: 04/30/2023 8:05 PM Note Text: NAME: Jc Camacho CLINIC NO.: [id number] DATE OF SERVICE: April 30, 2023 (Abhyankdarrion) Referring Provider: Soledad Sanders Consultation requested by [...] Sodium (mmol/L) Date (more content not included)... [facility] 04-30-2023 Instructions Immanuel Osorio MD - 04/30/2023 4:40 PM EST Start BCG weekly x 6 next week. Labs on day of start to include anemia labs. RTC with me the third week of BCG. CBC same day. documented in this encounter [facility] 04-30-2023 History of Presen t illness Narrative Images from the original note were not included. NAME: Jc Camacho [facility] NO.: [id number] DATE OF SERVICE: April 30, 2023 (Amber) [...] which included preparing to see the patient, rwev-fj-iqqs patient care, completing clinical documentation, obtaining and/or reviewing separately obtained history, performing a medically appropriate examination, counseling and educating the patient/family/caregiver, ordering medications, tests, or procedures, independently interpreting results (not separately reported), communicating results to the patient/family/caregiver, and care coordination (not separately reported). Immanuel Osorio MD, CPE Hematology and Oncology Services Provided at: [place], [place] Scribe Attestation: This note was scribed by Rupinder Barrera on April 30, 2023 under the direction and supervision of Dr. Immanuel Osorio. I attest that all of the information documented is correct to the best of my knowledge. Provider Attestation: I, Immanuel Osorio MD, attest that all information documented by the above scribe is correct, and was supervised by me and under my direction. CC: Soledad Sanders [address] [facility] [address] No primary care provider on file. No primary provider on file. documented in this encounter [facility] 04-03-2023 Hospital Discharg e instructions Patient Education [...] cells. Follow these instructions at home: Take uqqd-deh-ndgyizx and prescription medicines only as told by [...] is important. Where to find more information [employer] [employer] (ACS): cancer.org National Cancer [place] (NCI): cancer.gov Contact a health care provider [...] provider. Document Revised: 04/21/2022 Document Reviewed: 04/21/2022 Elsevier Patient Education 2022 [employer]. Follow Up Care 03/06/2023 14:30:19 With:MAGALIE DORMAN, Soledad Linton, URL Address: [facility] [address], [place] [id number] When: Unknown Comments:6 BCGs in 2 wks [facility] 03-03-2023 Note [id number] [facility] 03-03-2023 Note Custom Cystoscopy ? Voiding after [...] you have a fever over 100 degrees. [facility] 03-02-2023 Note Chief Complaint Referral *Gross Hematuria HPI Staff Evaluation requested by Isamar Davidson HOME ECONOMICS EXPERT due to gross hematuria & Bladder Mass. [...] Pt was started on Cipro 500mg BID [id number], has been on them for 5 days, [...] Soledad Linton, URL [facility] [address] [place] [address]- Additional Instructions: Sched Cysto Patient Education Cystoscopy I, Becca Downs , personally scribed for Dr. Sanders on 03/02/2023 11:44:16. . Documentation recorded by the scribeBecca, accurately reflects the services(s) I performed and decisions made by me. Problem List/Past Medical History Ongoing Bilateral renal cysts Bladder mass Historical No qualifying data Procedure/Surgical History (more content not included)... [facility] Comment on above: Result Comment: Elec tronically Signed By: Soledad SANDERS MD\.br\Date and Time Signed: 03/02/23 11:47 EDT\.br\Electronically Co-Signed By: Becca Downs.br\Date and Time Co-Signed: 03/02/23 11:44 EDT 03-02-2023 [...] including vitamins, herbs, eye drops, creams, and zami-pvl-dkhzwsk medicines. ? Any problems you or family [...] tells you to take them. ? Taking dakb-bsm-gaqjbrc medicines, vitamins, herbs, and supplements. Tests You [...] these instructions at home: Medicines ? Take xuav-qlg-twqkxqd and prescription medicines only as told by [...] the department th (more content not included)... [facility] Evaluation + Plan note No data available for this section [facility] Evaluation + Plan note Future Appointments Appointment Date:06/29/2023 09:00:00 AM Scheduled Provider: Location:[facility] Appointment Type:URO Nurse Visit [facility] Evaluation note Diagnosis Malignant neoplasm of overlapping sites of bladder (HCC)- Primary Malignant neoplasm of other specified sites of bladder [facility] Malignant neoplasm of overlapping sites of bladder (HCC)- Primary Malignant neoplasm of other specified sites of bladder Iron deficiency anemia due to chronic blood loss Iron deficiency anemia secondary to blood loss (chronic) [facility] No data available for this section [facility] progress note No data available for this section [facility] Summary Purpose Family History No Family History Records FoundNo Family History Records Found No data available for this section No data available for this section No Family History Records Found No data available for this section No data available for this section No Family History Records Found Advance Directives No Advanced Directives Records FoundNo Advanced Directives Records FoundNo Advanced Directives Records FoundNo Advanced Directives Records Found Additional Source Comments (unrecognized sect ion and content) No Status Records FoundNo Status Records FoundNo Status Records FoundNo Status Records Found INFORMATION SOURCE (unrecogn ized section and content) DATE CREATED AUTHOR 11/17/2017 [facility]ital DATE CREATED AUTHOR AUTHOR'S ORGANIZ ATION 05/17/2021 [facility] dical Specialist DATE CREATED AUTHOR AUTHOR'S ORGANIZ ATION 06/20/2023 [facility] DATE CREATED AUTHOR AUTHOR'S ORGANIZ ATION 07/03/2023 [facility] Patient Care team informatio n (unrecognized section and content) 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 Relationship Specialty Start Date End Date Isis Lilly MD [address] [facility] [address] [place] [address] Family Medicine 04/30/23 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 Relationship Specialty Start Date End Date Isis Lilly MD [address] [facility] [address] [place] [address] Family Medicine 04/30/23 Immanuel Osorio MD [address] [place] [address] Physician Hematology/Oncology 05/04/23 Edel Christine, AUTO BODY REPAIR TEACHER.INDUSTRIAL REHABILITATION CONSULTANT [address] [place] [address] Nurse Practitioner Hematology/Oncology 05/04/23 Isaías Lemon, CHRISTINA [address] [place] [address] Specialty Lead Caster Helper Hematology/Oncology 05/04/23 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 Relationship Specialty Start Date End Date Isis Lilly MD [address] [facility] [address] [place] [address] PCP - General Family Medicine 05/28/23 Isis Lilly MD [address] [facility] [address] [place] [address] Family Medicine 04/30/23 Immanuel Osorio MD [address] [place] [address] Physician Hematology/Oncology 05/04/23 Edel Christine, AUTO BODY REPAIR TEACHER.INDUSTRIAL REHABILITATION CONSULTANT [address] [place] [address] Nurse Practitioner Hematology/Oncology 05/04/23 Isaías Lemon, RN [address] [facility] [place] [place] [address] Specialty Lead Caster Helper Hematology/Oncology 05/04/23 Source Comments (unrecognize d section and content) In the event this informatio n is protected by the Federal Confidentiality of Alcohol and Drug Abuse Patient Records regulations: The Federal rules restrict any use of the information to criminally investigate or prosecute any alcohol or drug abuse patient.[facility] the event this information is protected by the Federal Confidentiality of Alcohol and Drug Abuse Patient Records regulations: The Federal rules restrict any use of the information to criminally investigate or prosecute any alcohol or drug abuse patient.[facility] the event this information is protected by the Federal Confidentiality of Alcohol and Drug Abuse Patient Records regulations: The Federal rules restrict any use of the information to criminally investigate or prosecute any alcohol or drug abuse patient.[facility] Reason for Visit (unrecogniz ed section and [...] BE BASED ON THE PRIMARY CLINICAL RECORDS. [facility] [employer] [facility] provides no warranty or guarantee of the accuracy or completeness of information in this document.
[2023-07-06 07:24] VITALS: BP 141/90; PULSE 87; RESP 20; TEMP 37; O2SAT 93
[2023-07-06] MEDS: LIDOCAINE 2% JELLY 10 ML UR (08:13)
[2023-07-06 08:16] VITALS: BP 124/80; PULSE 87; RESP 18; O2SAT 96
[2023-07-06 08:31] VITALS: BP 140/83; PULSE 77; RESP 18; O2SAT 95
--- NOTE | 2023-07-06 08:31 | P.URON_ITS ---
Urology Surgery Operative Note Operative Note Procedure Date: 07/06/23 Time Out Performed: yes Pre-op Diagnosis: High-grade invasive TCC of the bladder Post-op Diagnosis: same as pre-op Procedures performed: 1. Cystoscopy. Anesthesia: local Primary Surgeon: Blayne Sanders Complications: None Estimated blood loss (mL): 0 Findings: 1. No myah bladder tumors. 2. Diffuse erythematous irritation from BCG treatment done 3 weeks ago. Specimens: None Indications for Procedures: This gentleman had a TURBT on March 26, 2023. This revealed invasive high- grade TCC of the bladder. He has undergone 6 intravesical BCG treatments since then. He now presents for his first surveillance cystoscopy. He has signed an informed consent. Detailed description of Procedure: The patient was kept on the gurney bed and brought into the Endo suite. The genitalia were sterilely prepped and draped in the usual fashion. 2% lidocaine gel was passed per urethra. Timeout was done by all parties in the room. We all agreed upon the patient's identification and the planned procedures for this patient. I started by passing a flexible cystoscope per urethra and into the bladder. Anterior urethra was normal. Prostatic urethra showed bilobar obstruction. Careful panendoscopy in the bladder showed high-grade trabeculation with open diverticuli diffusely. There was fairly significant erythematous irritation to the mucosa on the floor and lateral wall. There was some bullous edema noted over prior resection sites also. No myah bladder tumors were seen. The scope was retroverted upon itself and no new findings were noted. The scope was then removed. He was then discharged to home. The plan will be that he will get 3 more treatments prior to his 3-month scope. We will make sure that it has been 1 full month since the last treatment before he gets his next scope.
== END 2023-07-06 08:37 | disposition home or self-care (01) ==
PROVIDERS: PCP Family Medicine; Visit Provider Urology
PROC: (CPT 52000; principal; 2023-07-06 07:45)
DX: Z85.51 Personal history of malignant neoplasm of bladder (principal)
CPT/HCPCS: 52000

== ENCOUNTER 2023-09-17 14:10 | Outpatient (OUT) | payer MEDICARE, OTHER, SELFPAY | END 2023-09-17 14:11 | disposition home or self-care (01) | LOC: PST 14:10 | PROVIDERS: PCP Family Medicine; Visit Provider Urology | DX: Z01.818 Encounter for other preprocedural examination (principal); Z85.51 Personal history of malignant neoplasm of bladder ==

== ENCOUNTER 2023-09-28 07:47 | Day surgery (SDC) | payer MEDICARE, OTHER, SELFPAY ==
[2023-09-28] MEDS: LIDOCAINE 2% JELLY 10 ML UR (08:47)
[2023-09-28 08:51] VITALS: BP 132/85; PULSE 73; O2SAT 95
[2023-09-28 09:01] VITALS: PULSE 72; O2SAT 97
--- NOTE | 2023-09-28 09:04 | P.URON_ITS ---
Urology Surgery Operative Note Operative Note Procedure Date: 09/28/23 Time Out Performed: yes Pre-op Diagnosis: Gross hematuria; history of high-grade invasive TCC of the bladder Post-op Diagnosis: other (Recurrent tumors now within the prostatic urethra) Procedures performed: 1. Cystoscopy. Anesthesia: local Primary Surgeon: Blayne Sanders Complications: None Estimated blood loss (mL): 5 Findings: 1. 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 Specimens: None Drains: None Indications for Procedures: This gentleman had a TURBT done March 26, 2023 and the path revealed high- grade invasive into the lamina propria but not the muscularis propria. He has undergone 6 BCG's and 3 maintenance. He did have 1 surveillance cystoscopy in June and this was essentially negative. He now presents for another cystoscopy because he has had intermittent bouts of gross hematuria since completing his BCG. He has signed an informed consent after risks were explained. Detailed description of Procedure: The patient was kept on his gurparrott bed and brought in the endoscopy suite. He was in the supine position. Timeout was done by all parties in the room. We all agreed upon the patient's identification and the planned procedures for this patient. 2% lidocaine gel was passed per urethra after the genitalia were sterilely prepped and draped in the usual fashion. I started by passing a flexible cystoscope per urethra. The anterior urethra was normal. Once I arrived at the Veru I found a dramatic change. He had bulky papillary TCC appearing tumors blocking his entire prostatic urethra. I was able to negotiate the scope underneath them and get into the bladder. It appeared as though these originated from the anterior prostatic urethral surface. Careful panendoscopy in the bladder showed no evidence of any tumors or stones. There was blood- tinged urine within the bladder so visibility was compromised. He did have high-grade trabeculation with open diverticuli diffusely. Minimal erythema within the bladder mucosa was appreciated. The scope was then removed. He was then discharged to home. The plan is that we will put him through a TURBT and TURP
[2023-09-28 09:05] VITALS: BP 155/72
== END 2023-09-28 09:13 | disposition home or self-care (01) ==
PROVIDERS: PCP Family Medicine; Visit Provider Urology
PROC: (CPT 52000; principal; 2023-09-28 08:30)
DX: C67.9 Malignant neoplasm of bladder, unspecified (principal); Z85.51 Personal history of malignant neoplasm of bladder; E78.00 Pure hypercholesterolemia, unspecified; N28.1 Cyst of kidney, acquired; R31.0 Gross hematuria; N32.89 Other specified disorders of bladder; Z96.659 Presence of unspecified artificial knee joint
CPT/HCPCS: 52000

== ENCOUNTER 2023-10-01 09:54 | Outpatient (OUT) | payer MEDICARE, OTHER, SELFPAY ==
--- NOTE | 2023-10-01 10:01 | ECG_ITS ---
[facility] Test Date: 2023-10-01 Pat Name: JC THOMAS Department: Room: - Gender: Male Clinic Supervisor: : 1955 Requested By: SOLEDAD MEJIAS Order Number: [id number] Reading MD: KIERRA HDEZ Measurements Intervals [place] Rate: 69 P: 17 MN: 144 QRS: 79 QRSD: 92 T: 54 QT: 345 QTc: 370 Interpretive Statements SINUS RHYTHM Compared to ECG 03/16/2023 09:28:23 No significant changes Electronically Signed On 10-02-2023 7:05:28 EDT by KIERRA HDEZ
--- NOTE | 2023-10-01 10:01 | XR_ITS ---
The [address] [address] Patient Name: JC THOMAS MRN: [id number] date: 1955 Sex: M Assigned Patient Location: [facility] Current Patient Location: Accession/Order Number: [id number] Exam Date: 10/01/2023 11:14 Report Date: 10/02/2023 10:13 At the request of: SOLEDAD MEJIAS Procedure: XR chest 2V EXAMINATION: XR chest 2V HISTORY: COPD COMPARISON: XR chest 03/16/2023 FINDINGS: LUNGS: Stable opacity within left lung base favoring a prominent pericardial fat pad. No acute infiltrates. VASCULATURE: No increased pulmonary vasculature. PLEURA: No pneumothorax, effusion, or pleural thickening. CARDIAC: No cardiomegaly or cardiac silhouette abnormality. MEDIASTINUM: No visible mass or adenopathy. BONES: No fracture or visible bone lesion. OTHER: Negative. XR/XR chest 2V IMPRESSION: 1. No acute cardiopulmonary process. 2. No significant hyperexpansion. Electronically authenticated by: ADA BROWN Date: 10/02/2023 10:13
--- OUTSIDE RECORDS SUMMARY | 2023-10-01 10:11 | XMS_ITS | CCD ---
Author Organization [facility] Care Team Providers Care Master Ship Name Role Phone SARAHY VELÁSQUEZIP Unavailable Unavailable DIDIER, CYNTHIA Unavailable Unavailable MAXX, RUGEN Unavailable Unavailable DIDIER, CYNTHIA Unavailable Unavailable LORRAINE LANDAVERDE Unavailable Unavailable CAMERON MARCUM Unavailable Unavailable ISIS LILLY Primary Care Physician Isis Lilly MD Unavailable [phone] Jo DORMAN, Immanuel Unavailable Edel Christine APRN.CNP Unavailable Xochilt RN, Isaías Unavailable [phone] Isis Lilly MD Primary Care Provider SARAN GUNN Referring Unavailable SARAN GUNN Attending Unavailable EDEL CHRISTINE Referring Unavailable MAXX, RUGEN MABALAY Primary Care Unavailable MAXX, RUGEN MABALAY Primary Care Unavailable NANCIEDEL Referring Unavailable MAXX, RUGEN MABALAY Primary Care Unavailable IMMANUEL OSORIO Attending Unavailable IMMANUEL OSORIO Referring Unavailable MAXX, RUGEN MABALAY Primary Care Unavailable EDEL CHRISTINE Referring Unavailable MAXX, RUGEN MABALAY Primary Care Unavailable NANCIANNAY Referring Unavailable MAXX, RUGEN MABALAY Primary Care Unavailable EDEL CHRISTINE Referring Unavailable MAXX, RUGEN MABALAY Primary Care Unavailable IMMANUEL OSORIO Attending Unavailable IMMANUEL OSORIO Referring Unavailable EDEL CHRISTINE Referring Unavailable MICHAELARIMMANUEL Attending Unavailable SOLEDAD MEJIAS Referring Unavailable EDEL CHRISTINE Referring Unavailable EDEL CHRISTINE Referring Unavailable EDEL CHRISTINE Referring Unavailable MAXX, RUGEN MABALAY Primary Care Unavailable Soledad MEJIAS Attending Unavailable Soledad MEJIAS Attending Unavailable Soledad MEJIAS Attending Unavailable Orzech, Geraldine X Attending Unavailable MEJIAS, Soledad R Attending Unavailable MEJIAS, Soledad R Attending Unavailable MEJIAS, Soledad R Attending Unavailable MEJIAS, Soledad R Attending Unavailable MEJIAS, Soledad R Attending Unavailable MEJIAS, Soledad R Attending Unavailable ISAMAR GAN Referring Unavailable MEJIAS, Soledad R Attending Unavailable MEJIAS, Soledad R Attending Unavailable MEJIAS, Soledad R Referring Unavailable MEJIAS, Soledad R Admitting Unavailable Orzech, Geraldine X Admitting Unavailable Orzech, Geraldine X Attending Unavailable MEJIAS, Soledad R Admitting Unavailable MEJIAS, Soledad R Attending Unavailable MEJIAS, Soledad R Attending Unavailable MEJIAS, Soledad R Admitting Unavailable MEJIAS, Soledad R Admitting Unavailable MEJIAS, Soledad R Attending Unavailable MEJIAS, Soledad R Attending Unavailable Medications Current Medications Medication Drug Class(es) Dates Sig (Normalized) Sig (Original) Aspirin (8 sources) Platelet Aggregation Inhibitor, Nonsteroidal Anti-inflammatory Drug Start: 03-02-2023 aspirin Refills(s) 0 Start Date: 03/02/23 Status: Ordered cephalexin 500 mg oral capsule (2 sources) Cephalosporin Antibacterial Start: 09-18-2023 End: 09-25-2023 take 1 capsule by mouth every twelve hours cephalexin 500 mg Cap 500 mg = 1 cap(s), Oral, q12hr, X 7 day(s), # 14 cap(s), Refills(s) 0, Pharmacy: [facility]/pharmacy #[id number], 180, cm, 04/03/23 10:43:00 EST, Height/Length Dosing, 109, kg, 04/03/23 10:43:00 EST, Weight Dosing Start Date: 09/18/23 Stop Date: 09/25/23 Status: Ordered Fish Oils (8 sources) Start: 10-23-2015 take 1 capsule by mouth twice daily Fish Oil 1200 mg oral capsule 1,200 mg = 1 cap(s), Oral, BID, Refills(s) 0 Start Date: 10/23/15 Status: Ordered pravastatin sodium 40 mg oral tablet (16 sources) HMG-CoA Reductase Inhibitor Start: 03-02-2023 pravastatin 40 mg Tab Refills(s) 0 Start Date: 03/02/23 Status: Ordered Comment on above: TAKE 1 TABLET BY PORFIRIO TH EVERY DAY AT THE SAME TIME Completed/Discontinued Medications Medication Drug Class(es) Dates Sig (Normalized) Sig (Original) bcg 50 mg in NaCl 0.9% 50 mL (3 sources) Start: 08-25-2023 End: 08-25-2023 bcg 50 mg in NaCl 0.9% 50 mL Start: 08-18-2023 End: 08-18-2023 bcg 50 mg in NaCl 0.9% 50 mL Start: 08-11-2023 End: 08-11-2023 bcg 50 mg in NaCl 0.9% 50 mL ciprofloxacin 500 mg oral tablet (7 sources) Quinolone Antimicrobial Start: 04-24-2023 take 1 tablet by mouth every three months Cipro 500 mg Tab 500 mg = 1 tab(s), Oral, Daily, Take 1 tablet the day before the procedure and 1 tablet after the procedure every 3 months, # 8 tab(s), Refills(s) 0, Pharmacy: [facility]/pharmacy #[id number], 180, cm, 04/03/23 10:43:00 EST, Height/Length Dosing, 109, kg, 04/03/23 10:43:00 EST, Weight Dosing Start Date: 04/24/23 Status: Ordered ferrous sulfate 325 mg oral tablet (6 sources) take 1 tablet by mouth once daily ferrous sulfate (IRON) 325 mg (65 mg iron) tablet Take 325 mg by mouth once daily. 0 Active Comment on above: Take 325 mg by mouth once daily. lidocaine hydrochloride 0.02 mg/mg topical gel (3 sources) Antiarrhythmic, Amide Local Anesthetic Start: 08-25-2023 End: 08-25-2023 lidocaine urojet 2 % 11 mL topical gel (GLYDO) Start: 08-18-2023 End: 08-18-2023 lidocaine urojet 2 % 11 mL t opical gel (GLYDO) Start: 08-11-2023 End: 08-11-2023 lidocaine urojet 2 % 11 mL t opical gel (GLYDO) omega-3 DHA-EPA (FISH OIL) 1 ,200 (144-216) mg capsule (8 sources) omega-3 DHA-EPA (FISH OIL) 1,200 (144-216) mg capsule 1 capsule. 0 Active Comment on above: 1 capsule. Problems Problem Classification Problem Date Documented Date Episodic/Chronic Cancer of bladder (20 sources) Malignant tumor of urinary bladder; Translations: [Malignant neoplasm of bladder, unspecified] Onset: 11-10-2023 Chronic Deficiency and other anemia (7 sources) Iron deficiency anemia due to blood loss; Translations: [Iron deficiency anemia secondary to blood loss (chronic)] Onset: 06-18-2023 06-18-2023 Chronic Disorders of lipid metabolism (16 sources) Hypercholesterolemia; Translations: [Hypertriglyceridemia ] 10-23-2015 Chronic Joint disorders and dislocations; trauma-related (8 sources) Tear of medial meniscus of knee 10-23-2015 Episodic Comment on above: left knee Osteoarthritis (8 sources) Osteoarthritis 10-23-2015 Chronic Other diseases of bladder and urethra (8 sources) Mass of urinary bladder 03-02-2023 Chronic Other diseases of kidney and ureters (1 source) Acquired renal cyst without neoplastic change; Translations: [Cyst of kidney, acquired] Onset: 04-03-2023 Episodic Other diseases of kidney and ureters (8 sources) Cyst of kidney 03-02-2023 Episodic Results Test Name Value Interpretation Reference Range Facility Consent for Procedure/Surger n 09-28-2023 Consent for Procedure/Surgery [id number] .00TIFF Normal [facility] Ambulatory Visit Summaryon 0 09-21-2023 Ambulatory Visit Summary JC THOMAS :1955 Visit Date:09/21/2023 Ambulatory Visit Instructions Your Diagnosis Bladder cancer Your Care Team Attending Physician - MAGALIE DORMAN, Soledad Linton Primary Care Physician - MAXX DORMAN, ISIS Stoddard This Is Your Medications List aspirin cephalexin (cephalexin 500 mg Cap) ciprofloxacin (Cipro 500 mg Tab) omega-3 polyunsaturated [...] knee, Plantar fasciitis, Plantar fasciotomy, Tonsillectomy. Medications What How Much When Instructions Unchanged aspirin Unchanged cephalexin (cephalexin 500 mg Cap) 1 Capsules By Mouth Every 12 hours Duration: 7 Days Unchanged ciprofloxacin (Cipro 500 mg Tab) 1 [...] you for choosing us for your care. [facility] C Urineon 09-17-2023 Bacteria identified Cx Nom (U) Microbiology PROCEDURE: Urine Culture [R1] SOURCE: U CleanCatch BODY SITE: COLLECTED DATE/TIME: 09/14/2023 13:31 EDT RECEIVED DATE/TIME: 09/14/2023 19:16 EDT START DATE/TIME: 09/14/2023 19:16 EDT FREE TEXT SOURCE: SARY Soares APRN, SARY Soares APRN, Geraldine X Geraldine X FINAL REPORTS Final Report [] Verified Date/Time: 09/17/2023 15:21 EDT 75,000 cfu/ml Staphylococcus hominis subsp. hominis SUSCEPTIBILITY RESULTS LEGEND: S=Susceptible, N/R=Not Reported, Blank=Data not available, or drug not advisable or tested, I=Intermediate, ESBL=Extended spectrum beta-lactamase, R=Resistant, TFG=Thymidine-depende nt strain, VALERIA=Beta-lactamase positive, XIANG=mcg/m;(mg/L), S*=Predicted susceptible interp, R*=Predicted resistant interp Stahomh Antibiotic XIANG Dilutn XIANG Interp Amoxicillin/ <=4/2 S Clavulanate Ampicillin/ <=8/4 S Sulbactam Cefazolin <=8 S Ciprofloxacin <=1 S Daptomycin <=1 S Gentamicin <=4 S Levofloxacin <=1 S Linezolid <=2 S Nitrofurantoin <=32 S Oxacillin <=0.25 S Penicillin <=0.03 S Rifampin <=1 S Tetracycline <=4 S Trimethoprim/ <=0.5/9.5 S Sulfa Vancomycin <=0.5 S Performing Locations R1: This test was performed at: [facility], [address] [place] [address], [facility] , , [facility] Comment on above: Performed By: #### 2 [id number] ####[place] [address] Ambulatory Visit Summaryon 0 09-14-2023 Ambulatory Visit Summary JC THOMAS :1955 Visit Date:09/14/2023 Ambulatory Visit Instructions Your Diagnosis Bladder cancer Your Care Team Attending Physician - Fany MCDERMOTT, SARY, Geraldine Lu Primary Care Physician - SIIS LILLY MD This Is Your Medications List aspirin ciprofloxacin [...] to do next Scheduled Follow-Up Appointments Thursday 10:30 AM EDT Where: [facility] Consent for Procedure/Surger yon 09-07-2023 Consent for Procedure/Surgery [id number] .00TIFF [facility] Reminderson 08-31-2023 Reminders - From: Carole Garcia To: [place] - Recalls Mejias; Cc: Carole Garcia; Sent: 04/03/2023 11:38:24 EST Show up: 05/25/2023 11:38:00 EST Subject: Cysto/FISH/cytol Due Date/Time: 06/15/2023 11:38:00 EST Reminder/Recall Patient is due in Jun 2023 for 3 month cysto/fish/Cytol (bt ck) Patient sched for 07/06/23 at [facility]. He will be due in September 2023.LG Patient sched for 09/28/23 at [facility]. He will be due in December 2023.[facility] 08-10-2023 CNPN Telephone (THIERRY) JC THOMAS ([id number]) 1955 M Date Time Provider Department 08/10/23 CANDICE SNYDER During your visit today, we recorded the following information about you: Candice Snyder RPh 08/10/2023 1:56 PM Signed Dory is on for BCG tomorrow, please place orders. Thank you Kei Snyder, PharmD, BCOP Immanuel Osorio MD 08/11/2023 9:45 AM Signed Orders in Allergies As of Date: 08/10/2023 (No Known Allergies) Date Reviewed: 06/18/2023 Reviewed by: Nidia Leone - Fully Assessed Reason for Visit: Treatment Planning [881] Cmt: Need for BCG orders to be placed Primary Visit Diagnosis:Malignant neoplasm of overlapping sites of bladder (HCC) [C67.8] Prescriptions as of 08/11/2023 - ferrous sulfate (IRON) 325 mg (65 mg iron) tablet Take 325 mg by mouth once daily. - pravastatin (PRAVACHOL) 40 mg tablet TAKE 1 TABLET BY MOUTH EVERY DAY AT THE SAME TIME - omega-3 DHA-EPA (FISH OIL) 1,200 (144-216) mg capsule 1 capsule. Problem List As Of Date 08/10/2023 Noted Resolved Malignant neoplasm of overlapping sites of blad*06/18/2023 Iron deficiency anemia due to chronic blood los*06/18/2023 Encounter Status:Closed by CANDICE SNYDER on 08/11/23 [facility] Telephone ([place]) JC THOMAS ([id number]) 1955 M Date Time Provider Department 08/10/23 ISAÍAS CRUZ During your visit today, we recorded the following information about you: Isaías Cruz, CHRISTINA 08/10/2023 12:08 PM Signed Pt's next round of maintenance BCG is due September 09. Dr Cast's office requests that this be moved up so that they can do his cysto in August. Would like him scheduled to start this week if possible. Kiki: Spoke w/ Ashley Glynn. Pt could come tomorrow afternoon for BCG. Are you ok w/ prewriting his treatment or do you need to see him this cycle? Isaías Cruz, Isaías Grider, CHRISTINA 08/10/2023 1:07 PM Signed Spoke w/ Dr Osorio. He does not need to see pt this cycle. Would like to see him following his cystoscopy. Bianca @ [facility] notified and will call and inform the pt of tomorrow's appointment at 1 PM. Anticipates pt's cystoscopy to be 09/28/23. Clerical: Pt will need scheduled for BCG once weekly x3. Will be in tomorrow @ 1 PM for his first of 3. Please schedule and make sure pt gets his appointment reminder at tomorrow's treatment. Thanks! Kiki: Please place orders for BCG x 3. CHRISTINA Barragan Anne M 08/10/2023 1:16 PM Signed Patient has been added for 3 doses of BCG in our Tx room. 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 Allergies As of Date: 08/10/2023 (No Known Allergies) Date Reviewed: 06/18/2023 Reviewed by: Nidia Leone - Fully Assessed Reason for Visit: Care Coordination [3491] Cmt: Treatment Request Prescriptions as of 08/10/2023 - ferrous sulfate (IRON) 325 mg (65 mg iron) tablet Take 325 mg by mouth once daily. - pravastatin (PRAVACHOL) 40 mg tablet TAKE 1 TABLET BY MOUTH EVERY DAY AT THE SAME TIME - omega-3 DHA-EPA (FISH OIL) 1,200 (144-216) mg capsule 1 capsule. Problem List As Of Date 08/10/2023 Noted Resolved Malignant neoplasm of overlapping sites of blad*06/18/2023 Iron deficiency anemia due to chronic blood los*06/18/2023 Encounter Status:Closed by NAN GOLDBERG on 08/10/23 [facility] Operative Reporton Operative Report [id number] .00TIFF Normal [facility] Urine Cytology ([facility])on 0 07-02-2023 Urine Cytology Diagnosis Info Invalid Interpretation Code [facility] Comment on above: Result Comment: A:Ur ine,Urine:Voided Interpretation - MicroScopic Description - Adequacy - Gross Description Site ID:A color Shanita fixative Alcohol Specimen designated Urine received in alcohol preservative and labeled with the patient?s name, consists of 100ml clear shanita fluid. Electronically signed by : on: 07/02/2023 10:21:32 Performed By: #### 1 [id number] ####[facility] [address] [place] [address] Ambulatory Visit Summaryon 0 06-29-2023 Ambulatory Visit Summary JC THOMAS :1955 Visit Date:06/29/2023 Ambulatory Visit Instructions Your [...] for choosing us for your care. Normal [facility] Urine Cytology ([facility])on 0 06-29-2023 Method of Extraction Voided Normal [facility] Comment on above: Performed By: #### 1 [id number] ####[facility] [id number] Number of Jars 1 Invalid Interpretation Code [facility] Comment on above: Performed By: #### 1 [id number] ####[facility] [id number] Specimen Urine Normal [facility] Comment on above: Performed By: #### 1 [id number] ####[place] [id number] Type of Service Technical Only Normal Fi [facility] Comment on above: Performed By: #### 1 [id number] ####[place] [address] Consultation Noteon 06-19-19 Consultation Note [id number]#1. 00TIFF Normal [facility] CNOVSPon 06-18-2023 CNOVSP Visit (SP) Office ([place]) JC THOMAS ([id number]) 1955 M Date Time Provider Department 06/18/23 3:15 PM IMMANUEL OSORIO During your visit today, we recorded the following information about you: Temperature Pulse Respiration Blood pressure 98 degrees 108/minute 18/minute 134/89 Weight Height 114.4 kg 1.803 m Immanuel Osorio MD 06/18/2023 9:23 PM Signed NAME: Jc Thomas CLINIC NO.: [id number] DATE OF SERVICE: June 18, 2023 (Jo) Some elements in this clinic note that are critical to medical decision making have been carefully reviewed and included from a prior clinic note dated: May 21, 2023 (Jo) Referring Provider: Soledad Mejias Additional Clinicians involved in Jc Thomas's care: DIAGNOSIS: High-grade bladder cancer ASSESSMENT: 68 [...] same. Initial Visit, April 30, 2023: Jc Thomas presents today accompanied by his Snehal for [...] of maurice (more content not included)... Normal [facility] CBC W Auto Differential pane l (Bld)on 06-11-2023 Basophils (Bld) [#/Vol] 0.04 10*3/uL Normal <0.11 [facility] Comment on above: Order Comment: Speci men Type: BLOOD SPECIMENOrdering Facility: [facility] Address: [address] [place] [address] Performed By: #### 5 7021-8 ####[facility] LABCLIA [id number] [place] [address] Basophils/100 WBC (Bld) 0.7 % Normal [facility] Comment on above: Order Comment: Speci men Type: BLOOD SPECIMENOrdering Facility: [facility] Address: [address] [place] [address] Performed By: #### 5 7021-8 ####[facility] LABCLIA [id number] [place] [address] Differential cell count method Nom (Bld) Auto Normal [facility] Comment on above: Order Comment: Speci men Type: BLOOD SPECIMENOrdering Facility: [facility] Address: [address] [place] [address] Performed By: #### 5 7021-8 ####[facility] LABCLIA [id number] [place] [address] Eosinophils (Bld) [#/Vol] 0.18 10*3/uL Normal <0.46 [facility] Comment on above: Order Comment: Speci men Type: BLOOD SPECIMENOrdering Facility: [facility] Address: [address] [place] [address] Performed By: #### 5 7021-8 ####[facility] LABCLIA [id number] [place] [address] Eosinophils/100 WBC (Bld) 3.3 % Normal [facility] Comment on above: Order Comment: Speci men Type: BLOOD SPECIMENOrdering Facility: [facility] Address: [address] [place] [address] Performed By: #### 5 7021-8 ####[facility] LABCLIA [id number] [place] [address] Erythrocyte distribution width (RBC) [Ratio] 21.7 % High 11.5-15.0 [facility] Comment on above: Order Comment: Speci men Type: BLOOD SPECIMENOrdering Facility: [facility] Address: [address] [place] [address] Performed By: #### 5 7021-8 ####[facility] LABCLIA [id number] [place] [address] Hematocrit (Bld) [Volume fraction] 42.9 % Normal 39.0-51.0 [facility] Comment on above: Order Comment: Speci men Type: BLOOD SPECIMENOrdering Facility: [facility] Address: [address] [place] [address] Performed By: #### 5 7021-8 ####[facility] LABCLIA [id number] [place] [address] Hemoglobin (Bld) [Mass/Vol] 13.2 g/dL Normal 13.0-17.0 [facility] Comment on above: Order Comment: Speci men Type: BLOOD SPECIMENOrdering Facility: [facility] Address: [address] [place] [address] Performed By: #### 5 7021-8 ####[facility] LABCLIA [id number] [place] [address] Immature granulocytes (Bld) [#/Vol] 0.04 10*3/uL Normal <0.10 [facility] Comment on above: Order Comment: Speci men Type: BLOOD SPECIMENOrdering Facility: [facility] Address: [address] [place] [address] Performed By: #### 5 7021-8 ####[facility] LABCLIA [id number] [place] [address] Immature granulocytes/100 WBC (Bld) 0.7 % Normal [facility] Comment on above: Order Comment: Speci men Type: BLOOD SPECIMENOrdering Facility: [facility] Address: [address] [place] [address] Performed By: #### 5 7021-8 ####[facility] LABCLIA [id number] [place] [address] Lymphocytes (Bld) [#/Vol] 1.28 10*3/uL Normal 1.00-4.00 [facility] Comment on above: Order Comment: Speci men Type: BLOOD SPECIMENOrdering Facility: [facility] Address: [address] [place] [address] Performed By: #### 5 7021-8 ####[facility] LABCLIA [id number] [place] [address] Lymphocytes/100 WBC (Bld) 23.3 % Normal [facility] Comment on above: Order Comment: Speci men Type: BLOOD SPECIMENOrdering Facility: [facility] Address: [address] [place] [address] Performed By: #### 5 7021-8 ####[facility] LABCLIA [id number] [place] [address] MCH (RBC) [Entitic mass] 25.4 pg Low 26.0-34.0 [facility] Comment on above: Order Comment: Speci men Type: BLOOD SPECIMENOrdering Facility: [facility] Address: [address] [place] [address] Performed By: #### 5 7021-8 ####[facility] LABCLIA [id number] [place] [address] MCHC (RBC) [Mass/Vol] 30.8 g/dL Normal 30.5-36.0 [facility] Comment on above: Order Comment: Speci men Type: BLOOD SPECIMENOrdering Facility: [facility] Address: [address] [place] [address] Performed By: #### 5 7021-8 ####[facility] LABCLIA [id number] [place] [address] MCV (RBC) [Entitic vol] 82.7 fL Normal 80.0-100.0 [facility] Comment on above: Order Comment: Speci men Type: BLOOD SPECIMENOrdering Facility: [facility] Address: [address] [place] [address] Performed By: #### 5 7021-8 ####[facility] LABCLIA [id number] [place] [address] Monocytes (Bld) [#/Vol] 0.65 10*3/uL Normal <0.87 [facility] Comment on above: Order Comment: Speci men Type: BLOOD SPECIMENOrdering Facility: [facility] Address: [address] [place] [address] Performed By: #### 5 7021-8 ####[facility] LABCLIA [id number] [place] [address] Monocytes/100 WBC (Bld) 11.8 % Normal [facility] Comment on above: Order Comment: Speci men Type: BLOOD SPECIMENOrdering Facility: [facility] Address: [address] [place] [address] Performed By: #### 5 7021-8 ####[facility] LABCLIA [id number] [place] [address] Neutrophils (Bld) [#/Vol] 3.31 10*3/uL Normal 1.45-7.50 [facility] Comment on above: Order Comment: Speci men Type: BLOOD SPECIMENOrdering Facility: [facility] Address: [address] [place] [address] Performed By: #### 5 7021-8 ####[facility] LABCLIA [id number] [place] [address] Neutrophils/100 WBC (Bld) 60.2 % Normal [facility] Comment on above: Order Comment: Speci men Type: BLOOD SPECIMENOrdering Facility: [facility] Address: [address] [place] [address] Performed By: #### 5 7021-8 ####[facility] LABCLIA [id number] [place] [address] Nucleated RBC (Bld) [#/Vol] 10*3/uL Normal <0.01 [facility] Comment on above: Order Comment: Speci men Type: BLOOD SPECIMENOrdering Facility: [facility] Address: [address] [place] [address] Performed By: #### 5 7021-8 ####[facility] LABCLIA [id number] [place] [address] Nucleated RBC/100 WBC (Bld) [Ratio] 0.0 /100 WBC Normal [facility] Comment on above: Order Comment: Speci men Type: BLOOD SPECIMENOrdering Facility: [facility] Address: [address] [place] [address] Performed By: #### 5 7021-8 ####[facility] LABCLIA [id number] [place] [address] Platelet mean volume (Bld) [Entitic vol] 9.3 fL Normal 9.0-12.7 [facility] Comment on above: Order Comment: Speci men Type: BLOOD SPECIMENOrdering Facility: [facility] Address: [address] [place] [address] Performed By: #### 5 7021-8 ####[facility] LABCLIA [id number] [place] [address] Platelets (Bld) [#/Vol] 281 10*3/uL Normal 150-400 [facility] Comment on above: Order Comment: Speci men Type: BLOOD SPECIMENOrdering Facility: [facility] Address: [address] [place] [address] Performed By: #### 5 7021-8 ####[facility] LABCLIA [id number] [place] [address] RBC (Bld) [#/Vol] 5.19 10*6/uL Normal 4.20-6.00 [facility] Comment on above: Order Comment: Speci men Type: BLOOD SPECIMENOrdering Facility: [facility] Address: [address] [place] [address] Performed By: #### 5 7021-8 ####[facility] LABCLIA [id number] [place] [address] WBC (Bld) [#/Vol] 5.50 10*3/uL Normal 3.70-11.00 [facility] Comment on above: Order Comment: Speci men Type: BLOOD SPECIMENOrdering Facility: [facility] Address: [address] [place] [address] Performed By: #### 5 7021-8 ####[facility] LABCLIA [id number] [place] [address] Comprehensive metabolic 2000 panelon 06-11-2023 Albumin [Mass/Vol] 4.3 g/dL Normal 3.9-4.9 [facility] Comment on above: Order Comment: Speci men Type: BLOOD SPECIMEN [facility]ing Facility: [facility] Address: [address] [place] [address] Performed By: #### 5 7021-8 #### [facility] CLIA [id number] [address] [place] [address] ALP [Catalytic activity/Vol] 88 U/L Normal 38-113 [facility] Comment on above: Order Comment: Speci men Type: BLOOD SPECIMEN Ordering Facility: [facility] Address: [address] [place] [address] Performed By: #### 5 7021-8 #### [facility] CLIA [id number] [address] [place] [address] ALT [Catalytic activity/Vol] 17 U/L Normal 10-54 [facility] Comment on above: Order Comment: Speci men Type: BLOOD SPECIMEN Ordering Facility: [facility] Address: [address] [place] [address] Performed By: #### 5 7021-8 #### [facility] CLIA [id number] [address] [place] [address] Anion gap [Moles/Vol] 10 mmol/L Normal 9-18 [facility] Comment on above: Order Comment: Speci men Type: BLOOD SPECIMEN Ordering Facility: [facility] Address: [address] [place] [address] Performed By: #### 5 7021-8 #### [facility] CLIA [id number] [address] [place] [address]257 AST [Catalytic activity/Vol] 19 U/L Normal 14-40 [facility] Comment on above: Order Comment: Speci men Type: BLOOD SPECIMEN [facility]ing Facility: [facility] Address: [address] [place] [address] Performed By: #### 5 7021-8 #### [facility] CLIA [id number] [address] [place] [address] Bilirubin [Mass/Vol] 0.4 mg/dL Normal 0.2-1.3 [facility] Comment on above: Order Comment: Speci men Type: BLOOD SPECIMEN [facility]ing Facility: [facility] Address: [address] [place] [address] Performed By: #### 5 7021-8 #### [facility] CLIA [id number] [address] [place] [address] Calcium [Mass/Vol] 9.7 mg/dL Normal 8.5-10.2 [facility] Comment on above: Order Comment: Speci men Type: BLOOD SPECIMEN [facility]ing Facility: [facility] Address: [address] [place] [address] Performed By: #### 5 7021-8 #### [facility] CLIA [id number] [address] [place] [address]7021 Chloride [Moles/Vol] 105 mmol/L Normal 97-105 [facility] Comment on above: Order Comment: Speci men Type: BLOOD SPECIMEN [facility]ing [facility] Address: [address] [place] [address] Performed By: #### 5 7021-8 #### [facility] CLIA [id number] [address] [place] [address] CO2 [Moles/Vol] 27 mmol/L Normal 22-30 [facility] Comment on above: Order Comment: Speci men Type: BLOOD SPECIMEN [facility]ing [facility] Address: [address] [place] [address] Performed By: #### 5 7021-8 #### [facility] CLIA [id number] [address] [place] [address] Creatinine [Mass/Vol] 0.90 mg/dL Normal 0.73-1.22 [facility] Comment on above: Order Comment: Speci men Type: BLOOD SPECIMEN [facility] Address: [address] [place] [address] Performed By: #### 5 7021-8 #### [facility] CLIA [id number] [address] [place] [address] Creatinine and Glomerular filtration rate.predicted panel (S/P/Bld) 93 mL/min/1.73m??? Normal >=60 [facility] Comment on above: Order Comment: Speci men Type: BLOOD SPECIMEN [facility]: [facility] Address: [address] [place] [address] Result Comment: Bouchra mated Glomerular Filtration Rate [...] accurately reflect actual GFR. Performed By: #### 5 7021-8 #### [facility] CLIA [id number] [address] [place] [address] Glucose [Mass/Vol] 98 mg/dL Normal 74-99 [facility] Comment on above: Order Comment: Speci men Type: BLOOD SPECIMEN Ordering Facility: [facility] Address: [address] [place] [address] Result Comment: The [place] [employer] (ADA) provides guidance for cutoff [...] Standards of Medical Care in Diabetes 2016, [place] [employer]. Diabetes Care. 2016.39(Suppl 1). Performed By: #### 5 7021-8 #### [facility] CLIA [id number] [address] [place] [address]771 Potassium [Moles/Vol] 4.5 mmol/L Normal 3.7-5.1 [facility] Comment on above: Order Comment: Speci men Type: BLOOD SPECIMEN Ordering Facility: [facility] Address: [address] [place] [address] Performed By: #### 5 7021-8 #### [facility] CLIA [id number] [address] [place] [address] Protein [Mass/Vol] 7.4 g/dL Normal 6.3-8.0 [facility] Comment on above: Order Comment: Speci men Type: BLOOD SPECIMEN [facility] Address: [address] [place] [address] Performed By: #### 5 7021-8 #### [facility] CLIA [id number] [address] [place] [address]120 Sodium [Moles/Vol] 142 mmol/L Normal 136-144 [facility] Comment on above: Order Comment: Speci men Type: BLOOD SPECIMEN [facility] Address: [address] [place] [address] Performed By: #### 5 7021-8 #### [facility] CLIA [id number] [address] [place] [address]308 Urea nitrogen [Mass/Vol] 21 mg/dL Normal 9-24 [facility] Comment on above: Order Comment: Speci men Type: BLOOD SPECIMEN [facility] Address: [address] [place] [address] Performed By: #### 5 7021-8 #### [facility] CLIA [id number] [address] [place] [address] Ferritin SerPl-mCncon 2023 Ferritin [Mass/Vol] 54.3 ng/mL Normal 30.3-565.7 [facility] Comment on above: Order Comment: Speci men Type: BLOOD SPECIMEN Order[facility] Address: [address] [place] [address] Performed By: #### 5 7021-8 #### [facility] CLIA [id number] [address] [place] [address] Folate SerPl-mCncon 06-11-19 Folate [Mass/Vol] 12.7 ng/mL Normal >4.7 [facility] Comment on above: Order Comment: Speci men Type: BLOOD SPECIMEN Order[facility] Address: [address] [place] [address] Performed By: #### 5 7021-8 #### [facility] CLIA [id number] [address] [place] [address]006 Iron and Iron binding capaci ty panelon 06-11-2023 Iron [Mass/Vol] 39 ug/dL Low 41-186 [facility] Comment on above: Order Comment: Speci men Type: BLOOD SPECIMEN [facility] Address: [address] [place] [address] Performed By: #### 5 7021-8 #### [facility] CLIA [id number] [address] [place], [place] [address] Iron binding capacity [Mass/Vol] 420 ug/dL High 232-386 [facility] Comment on above: Order Comment: Speci men Type: BLOOD SPECIMEN [facility] Address: [address] [place] [address] Performed By: #### 5 7021-8 #### [facility] CLIA [id number] [address] [place], [place] [address] Iron/TIBC [Molar ratio] 9.3 % Low 15.0-57.0 [facility] Comment on above: Order Comment: Speci men Type: BLOOD SPECIMEN [facility] Address: [address] [place] [address] Performed By: #### 5 7021-8 #### [facility] CLIA [id number] [address] [place], [place] [address] Vit B12 SerPl-ncon 024 Cobalamin (Vitamin B12) [Mass/Vol] 527 pg/mL Normal 232-1245 [facility] Comment on above: Order Comment: Speci men Type: BLOOD SPECIMEN [facility] Address: [address] [place] [address] Performed By: #### 5 7021-8 #### [facility] CLIA [id number] [address] [place] [address] 61327 CBC W Auto Differential pane l (Bld)on 05-21-2023 Basophils (Bld) [#/Vol] 10*3/uL Normal <0.11 [facility] Comment on above: Order Comment: Speci men Type: BLOOD SPECIMENOrdering Facility: [facility] Address: [address] [place] [address] Performed By: #### 5 7021-8 ####[facility] [id number] [place] [address] Basophils/100 WBC (Bld) 0.5 % Normal [facility] Comment on above: Order Comment: Speci men Type: BLOOD SPECIMENOrdering Facility: [facility] Address: [address] [place] [address] Performed By: #### 5 7021-8 ####[facility] [id number] [place] [address] Differential cell count method Nom (Bld) Auto Normal [facility] Comment on above: Order Comment: Speci men Type: BLOOD SPECIMENOrdering Facility: [facility] Address: [address] [place] [address] Performed By: #### 5 7021-8 ####[facility] [id number] [place] [address] Eosinophils (Bld) [#/Vol] 0.14 10*3/uL Normal <0.46 [facility] Comment on above: Order Comment: Speci men Type: BLOOD SPECIMENOrdering Facility: [facility] Address: [address] [place] [address] Performed By: #### 5 7021-8 ####[facility] [id number] [place] [address] Eosinophils/100 WBC (Bld) 3.5 % Normal [facility] Comment on above: Order Comment: Speci men Type: BLOOD SPECIMENOrdering Facility: [facility] Address: [address] [place] [address] Performed By: #### 5 7021-8 ####[facility] [id number] [place] [address] Erythrocyte distribution width (RBC) [Ratio] 19.9 % High 11.5-15.0 [facility] Comment on above: Order Comment: Speci men Type: BLOOD SPECIMENOrdering Facility: [facility] Address: [address] [place] [address] Performed By: #### 5 7021-8 ####[facility] [id number] [place] [address] Hematocrit (Bld) [Volume fraction] 39.6 % Normal 39.0-51.0 [facility] Comment on above: Order Comment: Speci men Type: BLOOD SPECIMENOrdering Facility: [facility] Address: [address] [place] [address] Performed By: #### 5 7021-8 ####[facility] [id number] [place] [address] Hemoglobin (Bld) [Mass/Vol] 12.0 g/dL Low 13.0-17.0 [facility] Comment on above: Order Comment: Speci men Type: BLOOD SPECIMENOrdering Facility: [facility] Address: [address] [place] [address] Performed By: #### 5 7021-8 ####[facility] [id number] [place] [address] Immature granulocytes (Bld) [#/Vol] 10*3/uL Normal <0.10 [facility] Comment on above: Order Comment: Speci men Type: BLOOD SPECIMENOrdering Facility: [facility] Address: [address] [place] [address] Performed By: #### 5 7021-8 ####[facility] [id number] [place] [address] Immature granulocytes/100 WBC (Bld) 0.5 % Normal [facility] Comment on above: Order Comment: Speci men Type: BLOOD SPECIMENOrdering Facility: [facility] Address: [address] [place] [address] Performed By: #### 5 7021-8 ####[facility] [id number] [place] [address] Lymphocytes (Bld) [#/Vol] 1.33 10*3/uL Normal 1.00-4.00 [facility] Comment on above: Order Comment: Speci men Type: BLOOD SPECIMENOrdering Facility: [facility] Address: [address] [place] [address] Performed By: #### 5 7021-8 ####[facility] [id number] [place] [address] Lymphocytes/100 WBC (Bld) 33.6 % Normal [facility] Comment on above: Order Comment: Speci men Type: BLOOD SPECIMENOrdering Facility: [facility] Address: [address] [place] [address] Performed By: #### 5 7021-8 ####[facility] [id number] [place] [address] MCH (RBC) [Entitic mass] 24.6 pg Low 26.0-34.0 [facility] Comment on above: Order Comment: Speci men Type: BLOOD SPECIMENOrdering Facility: [facility] Address: [address] [place] [address] Performed By: #### 5 7021-8 ####[facility] [id number] [place] [address] MCHC (RBC) [Mass/Vol] 30.3 g/dL Low 30.5-36.0 [facility] Comment on above: Order Comment: Speci men Type: BLOOD SPECIMENOrdering Facility: [facility] Address: [address] [place] [address] Performed By: #### 5 7021-8 ####[facility] [id number] [place] [address] MCV (RBC) [Entitic vol] 81.3 fL Normal 80.0-100.0 [facility] Comment on above: Order Comment: Speci men Type: BLOOD SPECIMENOrdering Facility: [facility] Address: [address] [place] [address] Performed By: #### 5 7021-8 ####[facility] [id number] [place] [address] Monocytes (Bld) [#/Vol] 0.38 10*3/uL Normal <0.87 [facility] Comment on above: Order Comment: Speci men Type: BLOOD SPECIMENOrdering Facility: [facility] Address: [address] [place] [address] Performed By: #### 5 7021-8 ####[facility] [id number] [place] [address] Monocytes/100 WBC (Bld) 9.6 % Normal [facility] Comment on above: Order Comment: Speci men Type: BLOOD SPECIMENOrdering Facility: [facility] Address: [address] [place] [address] Performed By: #### 5 7021-8 ####[facility] [id number] [place] [address] Neutrophils (Bld) [#/Vol] 2.07 10*3/uL Normal 1.45-7.50 [facility] Comment on above: Order Comment: Speci men Type: BLOOD SPECIMENOrdering Facility: [facility] Address: [address] [place] [address] Performed By: #### 5 7021-8 ####[facility] [id number] [place] [address] Neutrophils/100 WBC (Bld) 52.3 % Normal [facility] Comment on above: Order Comment: Speci men Type: BLOOD SPECIMENOrdering Facility: [facility] Address: [address] [place] [address] Performed By: #### 5 7021-8 ####[facility] [id number] [place] [address] Nucleated RBC (Bld) [#/Vol] 10*3/uL Normal <0.01 [facility] Comment on above: Order Comment: Speci men Type: BLOOD SPECIMENOrdering Facility: [facility] Address: [address] [place] [address] Performed By: #### 5 7021-8 ####[facility] [id number] [place] [address] Nucleated RBC/100 WBC (Bld) [Ratio] 0.0 /100 WBC Normal [facility] Comment on above: Order Comment: Speci men Type: BLOOD SPECIMENOrdering Facility: [facility] Address: [address] [place] [address] Performed By: #### 5 7021-8 ####[facility] [id number] [place] [address] Platelet mean volume (Bld) [Entitic vol] 9.4 fL Normal 9.0-12.7 [facility] Comment on above: Order Comment: Speci men Type: BLOOD SPECIMENOrdering Facility: [facility] Address: [address] [place] [address] Performed By: #### 5 7021-8 ####[facility] [id number] [place] [address] Platelets (Bld) [#/Vol] 280 10*3/uL Normal 150-400 [facility] Comment on above: Order Comment: Speci men Type: BLOOD SPECIMENOrdering Facility: [facility] Address: [address] [place] [address] Performed By: #### 5 7021-8 ####[facility] [id number] [place] [address] RBC (Bld) [#/Vol] 4.87 10*6/uL Normal 4.20-6.00 [facility] Comment on above: Order Comment: Speci men Type: BLOOD SPECIMENOrdering Facility: [facility] Address: [address] [place] [address] Performed By: #### 5 7021-8 ####[facility] [id number] [place] [address] WBC (Bld) [#/Vol] 3.96 10*3/uL Normal 3.70-11.00 [facility] Comment on above: Order Comment: Speci men Type: BLOOD SPECIMENOrdering Facility: [facility] Address: [place] [address] Performed By: #### 5 7021-8 ####[facility]IA [id number] [place] [address] CNOVSPon 05-21-2023 CNOVSP Visit (SP) Office (HEMASA) ROBISebastianDORYJC Thiago ([id number]) 1955 M Date Time Provider Department 05/21/23 8:30 AM IMMANUEL OSORIO During your visit today, we recorded the following information about you: Temperature Pulse Respiration Blood pressure 98.3 degrees 85/minute 16/minute 146/73 Weight Height 111.6 kg 1.803 m Immanuel Osorio MD 05/22/2023 8:15 AM Signed NAME: Jc Thomas CLINIC NO.: [id number] DATE OF SERVICE: May 21, 2023 (Jo) Some elements in this clinic note that are critical to medical decision making have been carefully reviewed and included from a prior clinic note dated: April 30, 2023 (Jo). Referring Provider: Soledad Mejias Additional Clinicians involved in Jc Thomas's care: DIAGNOSIS: High-grade bladder cancer ASSESSMENT: 68 [...] same. Initial Visit, April 30, 2023: Jc Thomas presents today accompanied by his Snehal for [...] Allergies MED (more content not included)... Normal [facility] Comprehensive metabolic 2000 panelon 05-21-2023 Albumin [Mass/Vol] 4.0 g/dL Normal 3.9-4.9 [facility] Comment on above: Order Comment: Speci men Type: BLOOD SPECIMEN [facility] Address: [address] [place] [address] Performed By: #### 5 7021-8 #### [facility] CLIA [id number] [address] [place] [address] ALP [Catalytic activity/Vol] 114 U/L High 38-113 [facility] Comment on above: Order Comment: Speci men Type: BLOOD SPECIMEN [facility] Address: [address] [place] [address] Performed By: #### 5 7021-8 #### [facility] CLIA [id number] [address] [place] [address] 38082 ALT [Catalytic activity/Vol] 39 U/L Normal 10-54 [facility] Comment on above: Order Comment: Speci men Type: BLOOD SPECIMEN [facility] Address: [address] [place] [address] Performed By: #### 5 7021-8 #### [facility] CLIA [id number] [address] [place] [address] Anion gap [Moles/Vol] 11 mmol/L Normal 9-18 [facility] Comment on above: Order Comment: Speci men Type: BLOOD SPECIMEN [facility] Address: [address] [place] [address] Performed By: #### 5 7021-8 #### [facility] CLIA [id number] [address] [place] [address]75 AST [Catalytic activity/Vol] 46 U/L High 14-40 [facility] Comment on above: Order Comment: Speci men Type: BLOOD SPECIMEN [facility] Address: [address] [place] [address] Performed By: #### 5 7021-8 #### [facility] CLIA [id number] [address] [place] [address] Bilirubin [Mass/Vol] 0.2 mg/dL Normal 0.2-1.3 [facility] Comment on above: Order Comment: Speci men Type: BLOOD SPECIMEN [facility] Address: [address] [place] [address] Performed By: #### 5 7021-8 #### [facility] CLIA [id number] [address] [place] [address] Calcium [Mass/Vol] 9.1 mg/dL Normal 8.5-10.2 [facility] Comment on above: Order Comment: Speci men Type: BLOOD SPECIMEN [facility] Address: [address] [place] [address] Performed By: #### 5 7021-8 #### [facility] CLIA [id number] [address] [place] [address] Chloride [Moles/Vol] 104 mmol/L Normal 97-105 [facility] Comment on above: Order Comment: Speci men Type: BLOOD SPECIMEN [facility] Address: [address] [place] [address] Performed By: #### 5 7021-8 #### [facility] CLIA [id number] [address] [place] [address] CO2 [Moles/Vol] 26 mmol/L Normal 22-30 [facility] Comment on above: Order Comment: Speci men Type: BLOOD SPECIMEN [facility] Address: [address] [place] [address] Performed By: #### 5 7021-8 #### [facility] CLIA [id number] [address] [place] [address] Creatinine [Mass/Vol] 0.84 mg/dL Normal 0.73-1.22 [facility] Comment on above: Order Comment: Annmarie craven Type: BLOOD SPECIMEN [facility] Address: [address] [place] [address] Performed By: #### 5 7021-8 #### [facility] CLIA [id number] [address] [place] [address]83 Creatinine and Glomerular filtration rate.predicted panel (S/P/Bld) 95 mL/min/1.73m??? Normal >=60 [facility] Comment on above: Order Comment: Annmarie craven Type: BLOOD SPECIMEN [facility] Address: [address] [place] [address] Result Comment: Bouchra mated Glomerular Filtration Rate [...] accurately reflect actual GFR. Performed By: #### 5 7021-8 #### [facility] CLIA [id number] [address] [place] [address] Glucose [Mass/Vol] 208 mg/dL High 74-99 [facility] Comment on above: Order Comment: Annmarie craven Type: BLOOD SPECIMEN [facility] Address: [address] [place] [address] Result Comment: The [place] [employer] (ADA) provides guidance for cutoff [...] Standards of Medical Care in Diabetes 2016, [place] [employer]. Diabetes Care. 2016.39(Suppl 1). Performed By: #### 5 7021-8 #### [facility] CLIA [id number] [address] [place] [address] Potassium [Moles/Vol] 4.0 mmol/L Normal 3.7-5.1 [facility] Comment on above: Order Comment: Speci men Type: BLOOD SPECIMEN [facility] Address: [address] [place] [address] Performed By: #### 5 7021-8 #### [facility] CLIA [id number] [address] [place] [address] Protein [Mass/Vol] 7.1 g/dL Normal 6.3-8.0 [facility] Comment on above: Order Comment: Speci men Type: BLOOD SPECIMEN [facility] Address: [address] [place] [address] Performed By: #### 5 7021-8 #### [facility] CLIA [id number] [address] [place] [address] Sodium [Moles/Vol] 141 mmol/L Normal 136-144 [facility] Comment on above: Order Comment: Speci men Type: BLOOD SPECIMEN [facility] Address: [address] [place] [address] Performed By: #### 5 7021-8 #### [facility] CLIA [id number] [address] [place] [address] Urea nitrogen [Mass/Vol] 20 mg/dL Normal 9-24 [facility] Comment on above: Order Comment: Speci men Type: BLOOD SPECIMEN [facility] Address: [address] [place] [address] Performed By: #### 5 7021-8 #### [facility] CLIA [id number] [address] [place] [address] CNPNon 05-14-2023 CNPN Telephone (HEMTSA) JC THOMAS ([id number]) 1955 Date Time Provider Department 05/14/23 [employer] TYRosi RIVERARosi During your visit today, we recorded the following information about you: Cb Roberto 05/14/2023 9:29 AM Signed Patient on 1st time treatment. Patient getting BCG treatment (non chemo) Patient holds medicare coverage with supplement. No financial liability at this time. Allergies As of Date: 05/14/2023 (No Known Allergies) Date Reviewed: 05/07/2023 Reviewed by: Taylor Saenz RN - Fully Assessed Reason for Visit: Benefits Investigation [4098] Prescriptions as of 05/14/2023 - pravastatin (PRAVACHOL) 40 mg tablet TAKE 1 TABLET BY MOUTH EVERY DAY AT THE SAME TIME - omega-3 DHA-EPA (FISH OIL) 1,200 (144-216) mg capsule 1 capsule. Problem List As Of Date: 05/14/2023 (None) Encounter Status:Closed by CB ROBERTO on 05/14/23 [facility] 05-11-2023 [facility] Telephone (HEMASA) JC THOMAS ([id number]) 1955 Date Time Provider Department 05/11/23 ISAÍAS CRUZ During your visit today, we recorded the following information about you: Isaías Cruz RN 05/11/2023 3:46 PM Signed CYCLE 1/DAY [...] attention and after hours number protocol. Isaías Curz RN Allergies As of Date: 05/11/2023 (No Known Allergies) Date Reviewed: 05/07/2023 Reviewed by: Taylor Saenz RN - Fully Assessed Reason for Visit: Care Coordination [3491] Cmt: C1D1 Post Treatment Call Prescriptions as of 05/11/2023 - pravastatin (PRAVACHOL) 40 mg tablet TAKE 1 TABLET BY MOUTH EVERY DAY AT THE SAME TIME - omega-3 DHA-EPA (FISH OIL) 1,200 (144-216) mg capsule 1 capsule. Problem List As Of Date: 05/11/2023 (None) Encounter Status:Closed by ISAÍAS CRUZ on 05/11/23 [facility] 05-08-2023 [facility] Telephone (THIERRY) JC THOMAS ([id number]) 1955 M Date Time Provider Department 05/08/23 [...] Allergies) Date Reviewed: 05/07/2023 Reviewed by: Taylor Saenz RN - Fully Assessed Reason for Visit: Results [95] Primary Visit Diagnosis:Malignant neoplasm of overlapping sites of bladder (HCC) [C67.8] Other Visit Diagnosis:Iron deficiency anemia due to chronic blood loss [D50.0] Order(s):CBC + DIFF [SQCBCDIF] Order #: [id number] FUTURE COMP METABOLIC PANEL [SQCMP] Order #: [id number] FUTURE IRON + TIBC [SQIRON] Order #: [id number] FUTURE FERRITIN BLD [SQFERR] Order #: [id number] FUTURE VITAMIN B12 BLOOD [SQB12] Order #: [id number] FUTURE FOLATE SERUM [SQSERFOL] Order #: [id number] FUTURE Prescriptions as of 05/11/2023 - pravastatin (PRAVACHOL) 40 mg tablet TAKE 1 TABLET BY MOUTH EVERY DAY AT THE SAME TIME - omega-3 DHA-EPA (FISH OIL) 1,200 (144-216) mg capsule 1 capsule. Problem List As Of Date: 05/08/2023 (None) Encounter Status:Closed by ELLYN OROURKE on 05/11/23 Normal [facility] CBC W Auto Differential pane l (Bld)on 05-07-2023 Basophils (Bld) [#/Vol] 10*3/uL Normal <0.11 [facility] Comment on above: Order Comment: Speci men Type: BLOOD SPECIMEN [facility]ing Facility: [facility] Address: [address] [place] [address] Performed By: #### 5 7021-8 #### [facility] CLIA [id number] [address] [place] [address] Basophils/100 WBC (Bld) 0.4 % Normal [facility] Comment on above: Order Comment: Speci men Type: BLOOD SPECIMEN Ordering Facility: [facility] Address: [address] [place] [address] Performed By: #### 5 7021-8 #### [facility] CLIA [id number] [address] [place] [address] 17906 Differential cell count method Nom (Bld) Auto Normal [facility] Comment on above: Order Comment: Speci men Type: BLOOD SPECIMEN Ordering Facility: [facility] Address: [address] [place] [address] Performed By: #### 5 7021-8 #### [facility] CLIA [id number] [address] [place] [address] 76120 Eosinophils (Bld) [#/Vol] 0.13 10*3/uL Normal <0.46 [facility] Comment on above: Order Comment: Speci men Type: BLOOD SPECIMEN Ordering Facility: [facility] Address: [address] [place] [address] Performed By: #### 5 7021-8 #### [facility] CLIA [id number] [address] [place] [address] 27201 Eosinophils/100 WBC (Bld) 2.9 % Normal [facility] Comment on above: Order Comment: Speci men Type: BLOOD SPECIMEN Ordering Facility: [facility] Address: [address] [place] [address] Performed By: #### 5 7021-8 #### [facility] CLIA [id number] [address] [place] [address] 15492 Erythrocyte distribution width (RBC) [Ratio] 17.0 % High 11.5-15.0 [facility] Comment on above: Order Comment: Speci men Type: BLOOD SPECIMEN Ordering Facility: [facility] Address: [address] [place] [address] Performed By: #### 5 7021-8 #### [facility] CLIA [id number] [address] [place] [address] 01324 Hematocrit (Bld) [Volume fraction] 36.5 % Low 39.0-51.0 [facility] Comment on above: Order Comment: Speci men Type: BLOOD SPECIMEN Ordering Facility: [facility] Address: [address] [place] [address] Performed By: #### 5 7021-8 #### [facility] CLIA [id number] [address] [place] [address] 35530 Hemoglobin (Bld) [Mass/Vol] 11.1 g/dL Low 13.0-17.0 [facility] Comment on above: Order Comment: Speci men Type: BLOOD SPECIMEN Ordering Facility: [facility] Address: [address] [place] [address] Performed By: #### 5 7021-8 #### [facility] CLIA [id number] [address] [place] [address] 68417 Immature granulocytes (Bld) [#/Vol] 10*3/uL Normal <0.10 [facility] Comment on above: Order Comment: Speci men Type: BLOOD SPECIMEN Ordering Facility: [facility] Address: [address] [place] [address] Performed By: #### 5 7021-8 #### [facility] CLIA [id number] [address] [place] [address] 85029 Immature granulocytes/100 WBC (Bld) 0.4 % Normal [facility] Comment on above: Order Comment: Speci men Type: BLOOD SPECIMEN Ordering Facility: [facility] Address: [address] [place] [address] Performed By: #### 5 7021-8 #### [facility] CLIA [id number] [address] [place] [address] Lymphocytes (Bld) [#/Vol] 1.35 10*3/uL Normal 1.00-4.00 [facility] Comment on above: Order Comment: Speci men Type: BLOOD SPECIMEN Ordering Facility: [facility] Address: [address] [place] [address] Performed By: #### 5 7021-8 #### [facility] CLIA [id number] [address] [place] [address] 28125 Lymphocytes/100 WBC (Bld) 29.6 % Normal [facility] Comment on above: Order Comment: Speci men Type: BLOOD SPECIMEN Ordering Facility: [facility] Address: [address] [place] [address] Performed By: #### 5 7021-8 #### [facility] CLIA [id number] [address] [place] [address] 29882 MCH (RBC) [Entitic mass] 23.6 pg Low 26.0-34.0 [facility] Comment on above: Order Comment: Speci men Type: BLOOD SPECIMEN Ordering Facility: [facility] Address: [address] [place] [address] Performed By: #### 5 7021-8 #### [facility] CLIA [id number] [address] [place] [address] 21855 MCHC (RBC) [Mass/Vol] 30.4 g/dL Low 30.5-36.0 [facility] Comment on above: Order Comment: Speci men Type: BLOOD SPECIMEN Ordering Facility: [facility] Address: [address] [place] [address] Performed By: #### 5 7021-8 #### [facility] CLIA [id number] [address] [place] [address] 39302 MCV (RBC) [Entitic vol] 77.5 fL Low 80.0-100.0 [facility] Comment on above: Order Comment: Speci men Type: BLOOD SPECIMEN Ordering Facility: [facility] Address: [address] [place] [address] Performed By: #### 5 7021-8 #### [facility] CLIA [id number] [address] [place] [address] 34828 Monocytes (Bld) [#/Vol] 0.39 10*3/uL Normal <0.87 [facility] Comment on above: Order Comment: Speci men Type: BLOOD SPECIMEN Ordering Facility: [facility] Address: [address] [place] [address] Performed By: #### 5 7021-8 #### [facility] CLIA [id number] [address] [place] [address] 63176 Monocytes/100 WBC (Bld) 8.6 % Normal [facility] Comment on above: Order Comment: Speci men Type: BLOOD SPECIMEN Ordering Facility: [facility] Address: [address] [place] [address] Performed By: #### 5 7021-8 #### [facility] CLIA [id number] [address] [place] [address] 79126 Neutrophils (Bld) [#/Vol] 2.65 10*3/uL Normal 1.45-7.50 [facility] Comment on above: Order Comment: Speci men Type: BLOOD SPECIMEN Ordering Facility: [facility] Address: [address] [place] [address] Performed By: #### 5 7021-8 #### [facility] CLIA [id number] [address] [place] [address] 98070 Neutrophils/100 WBC (Bld) 58.1 % Normal [facility] Comment on above: Order Comment: Speci men Type: BLOOD SPECIMEN Ordering Facility: [facility] Address: [address] [place] [address] Performed By: #### 5 7021-8 #### [facility] CLIA [id number] [address] [place] [address] 38907 Nucleated RBC (Bld) [#/Vol] 10*3/uL Normal <0.01 [facility] Comment on above: Order Comment: Speci men Type: BLOOD SPECIMEN Ordering Facility: [facility] Address: [address] [place] [address] Performed By: #### 5 7021-8 #### [facility] CLIA [id number] [address] [place] [address] 34700 Nucleated RBC/100 WBC (Bld) [Ratio] 0.0 /100 WBC Normal [facility] Comment on above: Order Comment: Speci men Type: BLOOD SPECIMEN Ordering Facility: [facility] Address: [address] [place] [address] Performed By: #### 5 7021-8 #### [facility] CLIA [id number] [address] [place] [address] 44534 Platelet mean volume (Bld) [Entitic vol] 9.2 fL Normal 9.0-12.7 [facility] Comment on above: Order Comment: Speci men Type: BLOOD SPECIMEN Ordering Facility: [facility] Address: [address] [place] [address] Performed By: #### 5 7021-8 #### [facility] CLIA [id number] [address] [place] [address] 89453 Platelets (Bld) [#/Vol] 318 10*3/uL Normal 150-400 [facility] Comment on above: Order Comment: Speci men Type: BLOOD SPECIMEN Ordering Facility: [facility] Address: [address] [place] [address] Performed By: #### 5 7021-8 #### [facility] CLIA [id number] [address] [place] [address] 54556 RBC (Bld) [#/Vol] 4.71 10*6/uL Normal 4.20-6.00 [facility] Comment on above: Order Comment: Speci men Type: BLOOD SPECIMEN Ordering Facility: [facility] Address: [address] [place] [address] Performed By: #### 5 7021-8 #### [facility] CLIA [id number] [address] [place] [address] 38239 WBC (Bld) [#/Vol] 4.56 10*3/uL Normal 3.70-11.00 [facility] Comment on above: Order Comment: Speci men Type: BLOOD SPECIMEN Ordering Facility: [facility] Address: [address] [place] [address] Performed By: #### 5 7021-8 #### [facility] CLIA [id number] [address] [place] [address] 06017 Comprehensive metabolic 2000 panelon 05-07-2023 Albumin [Mass/Vol] 4.1 g/dL Normal 3.9-4.9 [facility] Comment on above: Order Comment: Speci men Type: BLOOD SPECIMEN Ordering Facility: [facility] Address: [address] [place] [address] Performed By: #### 5 7021-8 #### [facility] CLIA [id number] [address] [place] [address] 22626 ALP [Catalytic activity/Vol] 117 U/L High 38-113 [facility] Comment on above: Order Comment: Speci men Type: BLOOD SPECIMEN Ordering Facility: [facility] Address: [address] [place] [address] Performed By: #### 5 7021-8 #### [facility] CLIA [id number] [address] [place] [address] 00418 ALT [Catalytic activity/Vol] 31 U/L Normal 10-54 [facility] Comment on above: Order Comment: Speci men Type: BLOOD SPECIMEN Ordering Facility: [facility] Address: [address] [place] [address] Performed By: #### 5 7021-8 #### [facility] CLIA [id number] [address] [place] [address] 34716 Anion gap [Moles/Vol] 8 mmol/L Low 9-18 [facility] Comment on above: Order Comment: Speci men Type: BLOOD SPECIMEN Ordering Facility: [facility] Address: [address] [place] [address] Performed By: #### 5 7021-8 #### [facility] CLIA [id number] [address] [place] [address] AST [Catalytic activity/Vol] 29 U/L Normal 14-40 [facility] Comment on above: Order Comment: Speci men Type: BLOOD SPECIMEN Ordering Facility: [facility] Address: [address] [place] [address] Performed By: #### 5 7021-8 #### [facility] CLIA [id number] [address] [place] [address] 97705 Bilirubin [Mass/Vol] 0.2 mg/dL Normal 0.2-1.3 [facility] Comment on above: Order Comment: Speci men Type: BLOOD SPECIMEN Ordering Facility: [facility] Address: [address] [place] [address] Performed By: #### 5 7021-8 #### [facility] CLIA [id number] [address] [place] [address] 62262 Calcium [Mass/Vol] 8.9 mg/dL Normal 8.5-10.2 [facility] Comment on above: Order Comment: Speci men Type: BLOOD SPECIMEN Ordering Facility: [facility] Address: [address] [place] [address] Performed By: #### 5 7021-8 #### [facility] CLIA [id number] [address] [place] [address] 86803 Chloride [Moles/Vol] 105 mmol/L Normal 97-105 [facility] Comment on above: Order Comment: Speci men Type: BLOOD SPECIMEN Order[facility] Address: [address] [place] [address] Performed By: #### 5 7021-8 #### [facility] CLIA [id number] [address] [place] [address] 23057 CO2 [Moles/Vol] 26 mmol/L Normal 22-30 [facility] Comment on above: Order Comment: Speci men Type: BLOOD SPECIMEN Order[facility] Facility[facility] Address: [address] [place] [address] Performed By: #### 5 7021-8 #### [facility] CLIA [id number] [address] [place] [address] Creatinine [Mass/Vol] 0.88 mg/dL Normal 0.73-1.22 [facility] Comment on above: Order Comment: Annmarie craven Type: BLOOD SPECIMEN Order[facility] Facility[facility] Address: [address] [place] [address] Performed By: #### 5 7021-8 #### [facility] CLIA [id number] [address] [place] [address] 33304 Creatinine and Glomerular filtration rate.predicted panel (S/P/Bld) 94 mL/min/1.73m??? Normal >=60 [facility] Comment on above: Order Comment: Annmarie craven Type: BLOOD SPECIMEN Order[facility] Facility: [facility] Address: [address] [place] [address] Result Comment: Bouchra mated Glomerular Filtration Rate [...] accurately reflect actual GFR. Performed By: #### 5 7021-8 #### [facility] CLIA [id number] [address] [place] [address] 79605 Glucose [Mass/Vol] 146 mg/dL High 74-99 [facility] Comment on above: Order Comment: Annmarie craven Type: BLOOD SPECIMEN Order[facility] Facility[facility] Address: [address] [place] [address] Result Comment: The [place] [employer] (ADA) provides guidance for cutoff [...] Standards of Medical Care in Diabetes 2016, [place] [employer]. Diabetes Care. 2016.39(Suppl 1). Performed By: #### 5 7021-8 #### [facility] CLIA [id number] [address] [place] [address] Potassium [Moles/Vol] 4.1 mmol/L Normal 3.7-5.1 [facility] Comment on above: Order Comment: Speci men Type: BLOOD SPECIMEN Order[facility] Address: [address] [place] [address] Performed By: #### 5 7021-8 #### [facility] CLIA [id number] [address] [place] [address] 22474 Protein [Mass/Vol] 7.3 g/dL Normal 6.3-8.0 [facility] Comment on above: Order Comment: Speci men Type: BLOOD SPECIMEN Order[facility] Address: [address] [place] [address] Performed By: #### 5 7021-8 #### [facility] CLIA [id number] [address] [place] [address] 53672 Sodium [Moles/Vol] 139 mmol/L Normal 136-144 [facility] Comment on above: Order Comment: Speci men Type: BLOOD SPECIMEN Order[facility] Address: [address] [place] [address] Performed By: #### 5 7021-8 #### [facility] CLIA [id number] [address] [place] [address] Urea nitrogen [Mass/Vol] 24 mg/dL Normal 9-24 [facility] Comment on above: Order Comment: Speci men Type: BLOOD SPECIMEN Order[facility] Address: [address] [place] [address] Performed By: #### 5 7021-8 #### [facility] CLIA [id number] [address] [place], [place] [address] Ferritin SerPl-ncon 2022 Ferritin [Mass/Vol] 31.2 ng/mL Normal 30.3-565.7 [facility] Comment on above: Order Comment: Speci men Type: BLOOD SPECIMENOrdering Facility: [facility] Address: [address] [place] [address] Performed By: #### 5 0190-8, 9, 2275-08, 2283-12 ####[facility] [id number] [place] [address] [place] Folate SerPl-mCncon 05-07-20 23 Folate [Mass/Vol] 15.3 ng/mL Normal >4.7 [facility] Comment on above: Order Comment: Speci men Type: BLOOD SPECIMENOrdering Facility: [facility] Address: [address] [place] [address] Performed By: #### 5 0190-8, 9, 2275-08, 2283-12 ####[facility] [id number] [place] [address] [place] Iron and Iron binding capaci panel 05-07-2023 Iron [Mass/Vol] 18 ug/dL Low 41-186 [facility] Comment on above: Order Comment: Speci men Type: BLOOD SPECIMENOrdering Facility: [facility] Address: [address] [place] [address] Performed By: #### 5 0190-8, 2132-01, 2275-08, 2283-12 ####[facility] [id number] [place] [address] [place] Iron binding capacity [Mass/Vol] 399 ug/dL High 232-386 [facility] Comment on above: Order Comment: Speci men Type: BLOOD SPECIMENOrdering Facility: [facility] Address: [address] [place] [address] Performed By: #### 5 0190-8, 2132-01, 2275-4, 2283-12 ####[facility] [id number] [place] [id number] [place] Iron/TIBC [Molar ratio] 4.5 % Low 15.0-57.0 [facility] Comment on above: Order Comment: Speci men Type: BLOOD SPECIMENOrdering Facility: [facility] Address: [address] [place] [address] Performed By: #### 5 0190-8, 9, 4, 2283-12 ####[facility] [id number] [place] [address] [place] Vit B12 [facility] 05-07- 023 Cobalamin (Vitamin B12) [Mass/Vol] 984 pg/mL Normal 232-1245 [facility] Comment on above: Order Comment: Speci men Type: BLOOD SPECIMENOrdering Facility: [facility] Address: [address] [place] [address] Performed By: #### 5 0190-8, 9, 2275-08, 2283-12 ####[facility] [id number] [place] [address] [place] Consultation Noteon 05-05-20 Consultation Note [id number]#1 .00TIFF Normal [facility] Consent for Procedure/Surger yon 05-01-2023 Consent for Procedure/Surgery [id number]#1 .00TIFF Normal [facility] CBC W Auto Differential pane l (Bld)on 04-30-2023 Basophils (Bld) [#/Vol] 0.06 10*3/uL Normal <0.11 [facility] Comment on above: Order Comment: Speci men Type: BLOOD SPECIMEN [facility] Address: [address] [place] [address] Performed By: #### 5 7021-8 #### [facility] CLIA [id number] [address] [place] [address] Basophils/100 WBC (Bld) 0.6 % Normal [facility] Comment on above: Order Comment: Speci men Type: BLOOD SPECIMEN [facility] Address: [address] [place] [address] Performed By: #### 5 7021-8 #### [facility] CLIA [id number] [address] [place] [address] 92609 Differential cell count method Nom (Bld) Auto Normal [facility] Comment on above: Order Comment: Speci men Type: BLOOD SPECIMEN [facility] Address: [address] [place] [address] Performed By: #### 5 7021-8 #### [facility] CLIA [id number] [address] [place] [address] 41767 Eosinophils (Bld) [#/Vol] 0.15 10*3/uL Normal <0.46 [facility] Comment on above: Order Comment: Speci men Type: BLOOD SPECIMEN [facility] Address: [address] [place] [address] Performed By: #### 5 7021-8 #### [facility] CLIA [id number] [address] [place] [address] 85105 Eosinophils/100 WBC (Bld) 1.5 % Normal [facility] Comment on above: Order Comment: Speci men Type: BLOOD SPECIMEN [facility] Address: [address] [place] [address] Performed By: #### 5 7021-8 #### [facility] CLIA [id number] [address] [place] [address] 67696 Erythrocyte distribution width (RBC) [Ratio] 17.1 % High 11.5-15.0 [facility] Comment on above: Order Comment: Speci men Type: BLOOD SPECIMEN [facility] Address: [address] [place] [address] Performed By: #### 5 7021-8 #### [facility] CLIA [id number] [address] [place] [address] Hematocrit (Bld) [Volume fraction] 38.0 % Low 39.0-51.0 [facility] Comment on above: Order Comment: Speci men Type: BLOOD SPECIMEN [facility] Address: [address] [place] [address] Performed By: #### 5 7021-8 #### [facility] CLIA [id number] [address] [place] [address] 03041 Hemoglobin (Bld) [Mass/Vol] 11.9 g/dL Low 13.0-17.0 [facility] Comment on above: Order Comment: Speci men Type: BLOOD SPECIMEN Order[facility] Address: [address] [place] [address] Performed By: #### 5 7021-8 #### [facility] CLIA [id number] [address] [place] [address] 56061 Immature granulocytes (Bld) [#/Vol] 0.04 10*3/uL Normal <0.10 [facility] Comment on above: Order Comment: Speci men Type: BLOOD SPECIMEN [facility] Address: [address] [place] [address] Performed By: #### 5 7021-8 #### [facility] CLIA [id number] [address] [place] [address] 99627 Immature granulocytes/100 WBC (Bld) 0.4 % Normal [facility] Comment on above: Order Comment: Speci men Type: BLOOD SPECIMEN [facility] Address: [address] [place] [address] Performed By: #### 5 7021-8 #### [facility] CLIA [id number] [address] [place] [address] 71710 Lymphocytes (Bld) [#/Vol] 1.44 10*3/uL Normal 1.00-4.00 [facility] Comment on above: Order Comment: Speci men Type: BLOOD SPECIMEN Order[facility] Address: [address] [place] [address] Performed By: #### 5 7021-8 #### [facility] CLIA [id number] [address] [place] [address] 67624 Lymphocytes/100 WBC (Bld) 14.6 % Normal [facility] Comment on above: Order Comment: Speci men Type: BLOOD SPECIMEN [facility] Address: [address] [place] [address] Performed By: #### 5 7021-8 #### [facility] CLIA [id number] [address] [place] [address] 45014 MCH (RBC) [Entitic mass] 24.1 pg Low 26.0-34.0 [facility] Comment on above: Order Comment: Speci men Type: BLOOD SPECIMEN [facility] Address: [address] [place] [address] Performed By: #### 5 7021-8 #### [facility] CLIA [id number] [address] [place] [address] 21962 MCHC (RBC) [Mass/Vol] 31.3 g/dL Normal 30.5-36.0 [facility] Comment on above: Order Comment: Speci men Type: BLOOD SPECIMEN [facility] Address: [address] [place] [address] Performed By: #### 5 7021-8 #### [facility] CLIA [id number] [address] [place] [address] 92331 MCV (RBC) [Entitic vol] 77.1 fL Low 80.0-100.0 [facility] Comment on above: Order Comment: Speci men Type: BLOOD SPECIMEN Ordering Facility: [facility] Address: [address] [place] [address] Performed By: #### 5 7021-8 #### [facility] CLIA [id number] [address] [place] [address] [id number] Monocytes (Bld) [#/Vol] 0.91 10*3/uL High <0.87 [facility] Comment on above: Order Comment: Speci men Type: BLOOD SPECIMEN Ordering Facility: [facility] Address: [address] [place] [address] Performed By: #### 5 7021-8 #### [facility] CLIA [id number] [address] [place] [address] 18857 Monocytes/100 WBC (Bld) 9.2 % Normal [facility] Comment on above: Order Comment: Speci men Type: BLOOD SPECIMEN Ordering Facility: [facility] Address: [address] [place] [address] Performed By: #### 5 7021-8 #### [facility] CLIA [id number] [address] [place] [address]19 Neutrophils (Bld) [#/Vol] 7.26 10*3/uL Normal 1.45-7.50 [facility] Comment on above: Order Comment: Speci men Type: BLOOD SPECIMEN Ordering Facility: [facility] Address: [address] [place] [address] Performed By: #### 5 7021-8 #### [facility] CLIA [id number] [address] [place] [address] Neutrophils/100 WBC (Bld) 73.7 % Normal [facility] Comment on above: Order Comment: Speci men Type: BLOOD SPECIMEN Ordering Facility: [facility] Address: [address] [place] [address] Performed By: #### 5 7021-8 #### [facility] CLIA [id number] [address] [place] [address]504 Nucleated RBC (Bld) [#/Vol] 10*3/uL Normal <0.01 [facility] Comment on above: Order Comment: Speci men Type: BLOOD SPECIMEN Ordering Facility: [facility] Address: [address] [place] [address] Performed By: #### 5 7021-8 #### [facility] CLIA [id number] [address] [place] [address] Nucleated RBC/100 WBC (Bld) [Ratio] 0.0 /100 WBC Normal [facility] Comment on above: Order Comment: Speci men Type: BLOOD SPECIMEN Ordering Facility: [facility] Address: [address] [place] [address] Performed By: #### 5 7021-8 #### [facility] CLIA [id number] [address] [place] [address] Platelet mean volume (Bld) [Entitic vol] 9.5 fL Normal 9.0-12.7 [facility] Comment on above: Order Comment: Speci men Type: BLOOD SPECIMEN Ordering Facility: [facility] Address: [address] [place] [address] Performed By: #### 5 7021-8 #### [facility] CLIA [id number] [address] [place] [address] Platelets (Bld) [#/Vol] 293 10*3/uL Normal 150-400 [facility] Comment on above: Order Comment: Speci men Type: BLOOD SPECIMEN Ordering Facility[facility] Address: [address] [place] [address] Performed By: #### 5 7021-8 #### [facility] CLIA [id number] [address] [place] [address]17 RBC (Bld) [#/Vol] 4.93 10*6/uL Normal 4.20-6.00 [facility] Comment on above: Order Comment: Speci men Type: BLOOD SPECIMEN Ordering Facility[facility] Address: [address] [place] [address] Performed By: #### 5 7021-8 #### [facility] CLIA [id number] [address] [place] [address] 13784 WBC (Bld) [#/Vol] 9.86 10*3/uL Normal 3.70-11.00 [facility] Comment on above: Order Comment: Speci men Type: BLOOD SPECIMEN Ordering Facility: [facility] Address: [place] [address] Performed By: #### 5 7021-8 #### [facility] CLIA [id number] [address] [place] [address] Basophils (Bld) [#/Vol] 0.06 10*3/uL <0.11 k/uL [facility] Basophils/100 WBC (Bld) 0.6 % [facility] Differential cell count method Nom (Bld) Auto [facility] Eosinophils (Bld) [#/Vol] 0.15 10*3/uL <0.46 k/uL [facility] Eosinophils/100 WBC (Bld) 1.5 % [facility] Erythrocyte distribution width (RBC) [Ratio] 17.1 % High 11.5 - 15.0 % [facility] Hematocrit (Bld) [Volume fraction] 38.0 % Low 39.0 - 51.0 % [facility] Hemoglobin (Bld) [Mass/Vol] 11.9 g/dL Low 13.0 - 17.0 g/dL [facility] Immature granulocytes (Bld) [#/Vol] 0.04 10*3/uL <0.10 k/uL [facility] Immature granulocytes/100 WBC (Bld) 0.4 % [facility] Lymphocytes (Bld) [#/Vol] 1.44 10*3/uL 1.00 - 4.00 k/uL [facility] Lymphocytes/100 WBC (Bld) 14.6 % [facility] MCH (RBC) [Entitic mass] 24.1 pg Low 26.0 - 34.0 pg [facility] MCHC (RBC) [Mass/Vol] 31.3 g/dL 30.5 - 36.0 g/dL [facility] MCV (RBC) [Entitic vol] 77.1 fL Low 80.0 - 100.0 fL [facility] Monocytes (Bld) [#/Vol] 0.91 10*3/uL High <0.87 k/uL [facility] Monocytes/100 WBC (Bld) 9.2 % [facility] Neutrophils (Bld) [#/Vol] 7.26 10*3/uL 1.45 - 7.50 k/uL [facility] Neutrophils/100 WBC (Bld) 73.7 % [facility] Nucleated RBC (Bld) [#/Vol] <0.01 k/uL [facility] Nucleated RBC/100 WBC (Bld) [Ratio] 0.0 /100 WBC [facility] Platelet mean volume (Bld) [Entitic vol] 9.5 fL 9.0 - 12.7 fL [facility] Platelets (Bld) [#/Vol] 293 10*3/uL 150 - 400 k/uL [facility] RBC (Bld) [#/Vol] 4.93 10*6/uL 4.20 - 6.0 0 m/uL [facility] WBC (Bld) [#/Vol] 9.86 10*3/uL 3.70 - 11. 00 k/uL [facility] CNOVSPon 04-30-2023 CNOVSP Visit (SP) Office ([place]) JC THOMAS ([id number]) 1955 M Date Time Provider Department 04/30/23 3:45 PM IMMANUEL OSORIO During your visit today, we recorded the following information about you: Temperature Pulse Respiration Blood pressure 99.1 degrees 102/minute 18/minute 143/82 Weight Height 111.9 kg 1.803 m Immanuel Osorio MD 04/30/2023 8:05 PM Signed NAME: Jc Thomas NO.: [id number] DATE OF SERVICE: April 30, 2023 (Michaelvt) Referring Provider: Soledad Mejias Consultation requested by Dr. Mejias for an opinion regarding Mr. Jc Thomas, and my final recommendations will be communicated back to the requesting physician by way of shared medical record or letter via US mail. Additional Clinicians involved in Jc Thomas's care: DIAGNOSIS: High-grade bladder cancer ASSESSMENT: 68 [...] cysts. Initial Visit, April 30, 2023: Jc Thomas presents today accompanied by his Snehal for [...] his urine. 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 - REVIEW [...] 04/30/2023 31. (more content not included)... Normal [facility] Comprehensive metabolic 2000 panelon 04-30-2023 Albumin [Mass/Vol] 4.4 g/dL Normal 3.9-4.9 [facility] Comment on above: Order Comment: Speci men Type: BLOOD SPECIMENOrdering Facility: [facility] Address: [address] [place] [address] Performed By: #### 2 4323-8 ####[facility] [id number] [place] [address] ALP [Catalytic activity/Vol] 106 U/L Normal 38-113 [facility] Comment on above: Order Comment: Speci men Type: BLOOD SPECIMENOrdering Facility: [facility] Address: [address] [place] [address] Performed By: #### 2 4323-8 ####[facility] [id number] [place] [address] ALT [Catalytic activity/Vol] 19 U/L Normal 10-54 [facility] Comment on above: Order Comment: Speci men Type: BLOOD SPECIMENOrdering Facility: [facility] Address: [address] [place] [address] Performed By: #### 2 4323-8 ####[facility] [id number] [place] [address] Anion gap [Moles/Vol] 9 mmol/L Normal 9-18 [facility] Comment on above: Order Comment: Speci men Type: BLOOD SPECIMENOrdering Facility: [facility] Address: [address] [place] [address] Performed By: #### 2 4323-8 ####[facility] [id number] [place] [address] AST [Catalytic activity/Vol] 22 U/L Normal 14-40 [facility] Comment on above: Order Comment: Speci men Type: BLOOD SPECIMENOrdering Facility: [facility] Address: [address] [place] [address] Performed By: #### 2 4323-8 ####[facility] [id number] [place] [address] Bilirubin [Mass/Vol] 0.4 mg/dL Normal 0.2-1.3 [facility] Comment on above: Order Comment: Speci men Type: BLOOD SPECIMENOrdering Facility: [facility] Address: [address] [place] [address] Performed By: #### 2 4323-8 ####[facility] [id number] [place] [address] Calcium [Mass/Vol] 9.4 mg/dL Normal 8.5-10.2 [facility] Comment on above: Order Comment: Speci men Type: BLOOD SPECIMENOrdering Facility: [facility] Address: [address] [place] [address] Performed By: #### 2 4323-8 ####[facility] [id number] [place] [address] Chloride [Moles/Vol] 104 mmol/L Normal 97-105 [facility] Comment on above: Order Comment: Speci men Type: BLOOD SPECIMENOrdering Facility: [facility] Address: [address] [place] [address] Performed By: #### 2 4323-8 ####[facility] [id number] [place] [address] CO2 [Moles/Vol] 27 mmol/L Normal 22-30 [facility] Comment on above: Order Comment: Speci men Type: BLOOD SPECIMENOrdering Facility: [facility] Address: [address] [place] [address] Performed By: #### 2 4323-8 ####[facility] [id number] [place] [address] Creatinine [Mass/Vol] 0.88 mg/dL Normal 0.73-1.22 [facility] Comment on above: Order Comment: Speci men Type: BLOOD SPECIMENOrdering Facility: [facility] Address: [address] [place] [address] Performed By: #### 2 4323-8 ####[facility] [id number] [place] [address] Creatinine and Glomerular filtration rate.predicted panel (S/P/Bld) 94 mL/min/1.73m??? Normal >=60 [facility] Comment on above: Order Comment: Speci men Type: BLOOD SPECIMENOrdering Facility: [facility] Address: [address] [place] [address] Result Comment: Bouchra mated Glomerular Filtration Rate [...] actual GFR. Performed By: #### 2 4323-8 ####[facility] [id number] [place] [address] Glucose [Mass/Vol] 115 mg/dL High 74-99 [facility] Comment on above: Order Comment: Speci men Type: BLOOD SPECIMENOrdering Facility: [facility] Address: [address] [place] [address] Result Comment: The [place] Diabetes [employer] (ADA) provides guidance for cutoff [...] Standards of Medical Care in Diabetes 2016, [place] [employer]. Diabetes Care. 2016.39(Suppl 1). Performed By: #### 2 4323-8 ####[facility] [id number] [place] [address] Potassium [Moles/Vol] 4.2 mmol/L Normal 3.7-5.1 [facility] Comment on above: Order Comment: Speci men Type: BLOOD SPECIMENOrdering Facility: [facility] Address: [address] [place] [address] Performed By: #### 2 4323-8 ####[facility] [id number] [place] [address] Protein [Mass/Vol] 7.5 g/dL Normal 6.3-8.0 [facility] Comment on above: Order Comment: Speci men Type: BLOOD SPECIMENOrdering Facility: [facility] Address: [address] [place] [address] Performed By: #### 2 4323-8 ####[facility] [id number] [place] [address] Sodium [Moles/Vol] 140 mmol/L Normal 136-144 [facility] Comment on above: Order Comment: Speci men Type: BLOOD SPECIMENOrdering Facility: [facility] Address: [address] [place] [address] Performed By: #### 2 4323-8 ####[facility] [id number] [place] [address] Urea nitrogen [Mass/Vol] 28 mg/dL High 9-24 [facility] Comment on above: Order Comment: Speci men Type: BLOOD SPECIMENOrdering Facility: [facility] Address: [address] [place] [address] Performed By: #### 2 4323-8 ####[facility] [id number] [place] [address] Albumin [Mass/Vol] 4.4 g/dL 3.9 - 4.9 g/dL [facility] ALP [Catalytic activity/Vol] 106 U/L 38 - 113 U/L [facility] ALT [Catalytic activity/Vol] 19 U/L 10 - 54 U/L [facility] Anion gap [Moles/Vol] 9 mmol/L 9 - 18 mmol/L [facility] AST [Catalytic activity/Vol] 22 U/L 14 - 40 U/L [facility] Bilirubin [Mass/Vol] 0.4 mg/dL 0.2 - 1.3 mg/dL [facility] Calcium [Mass/Vol] 9.4 mg/dL 8.5 - 10. 2 mg/dL [facility] Chloride [Moles/Vol] 104 mmol/L 97 - 105 mmol/L [facility] CO2 [Moles/Vol] 27 mmol/L 22 - 30 mmol/L [facility] Creatinine [Mass/Vol] 0.88 mg/dL 0.73 - 1.22 mg/dL [facility] Estimated Glomerular Filtration Rate 94 mL/min/1.73m >=60 mL/min/1.73m [facility] Glucose [Mass/Vol] 115 mg/dL High 74 - 99 mg/dL [facility] Potassium [Moles/Vol] 4.2 mmol/L 3.7 - 5.1 mmol/L [facility] Protein [Mass/Vol] 7.5 g/dL 6.3 - 8.0 g/dL [facility] Sodium [Moles/Vol] 140 mmol/L 136 - 144 mmol/L [facility] Urea nitrogen [Mass/Vol] 28 mg/dL High 9 - 24 mg/dL [facility] Ambulatory Visit Summaryon 1 06-25-2022 Ambulatory Visit Summary JC THOMAS :1955 Visit Date:04/24/2023 Ambulatory Visit Instructions Your Care Team Attending Physician - MAGALIE DORMAN, Soledad Linton Primary Care Physician - ISIS LILLY MD This Is Your Medications List aspirin omega-3 [...] 9:00 AM EST Where: [facility] ED Note-Physicianon 04-21-20 ED Note-Physician [id number]#1. 00TIFF [facility] Physician Orderon 04-08-2023 Physician Order [id number]#1 .00TIFF [facility] Ambulatory Visit Summaryon 06-03-2022 Ambulatory Visit Summary JC THOMAS :1955 Visit Date:04/03/2023 Ambulatory Visit Instructions Your [...] 2 wks Where: [facility] [address], [place] [address] [phone] Medications What How Much When Instructions Unchanged [...] the bl (more content not included)... Normal [facility] Pathology Noteon 04-03-2023 Pathology Note [id number]#1 .00TIFF Normal [facility] Patient Educationon 04-03-20 23 Patient Education Oncology Bladder Cancer Bladder cancer [...] Follow these instructions at home: ? Take cqdz-yxf-zjubgbt and prescription medicines only as told by [...] important. Where to find more information ? [place] [employer] (ACS): cancer.org ? National Cancer [place] (NCI): cancer.gov Contact a health care provider [...] have wi (more content not included)... Normal [facility] Urology Office/Clinic Noteon 11-10-2023 Urology Office/Clinic Note Chief Complaint bladder cancer [...] and history for this patient from Dr. Mejias. I have reviewed and verified the staff [...] of smoking. 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 -6 BCGs in 2 weeks at [facility] oncology (due to BCG nathional shortage) -Cysto 1 month after completion of 6 BCGs 2. Bilateral renal cysts (N28.1: Cyst of kidney, acquired) CT AP wo con 02/25/23 - bilat renal peripelvic cysts. No indication for treatment. Follow-up With When Contact Information MAGALIE DORMAN, Soledad Linton, URL [facility] [address], [place] [address] [phone] Additional Instructions: 6 BCGs in 2 wks Patient Education Bladder Cancer ICatherine, personally scribed for Dr. Mejias on 04/03/2023 11:20:25. . Documentation recorded by the scribeCatherine, accurately reflects the services(s) I performed and decisions made by me. Authenticated by Dr. Mejias on 04/03/2023 11:24:07. Problem List/Past Medical History [...] vaccine, inactivat (more content not included)... Normal [facility] Comment on above: Result Comment: Elec tronically Signed By: Soledad MEJIAS MD\.br\Date and Time Signed: 04/03/23 11:24 EST\.br\Electronically Co-Signed By: Catherine Oseguera\.br\Date and Time Co-Signed: 04/03/23 11:21 EST Operative Reporton Operative Report [id number]#1 .00TIFF Normal [facility] Lab Reportson 03-25-2023 Lab Reports [id number]#1 .00TIFF Normal [facility] ECG 12-Leadon 03-18-2023 ECG 12-Lead [id number]#1 .00TIFF Normal [facility] Lab Reportson 03-18-2023 Lab Reports [id number]#1 .00TIFF Normal [facility] RAD - MISCon 03-18-2023 RAD - MISC [id number]#1 .00TIFF Normal [facility] UroVysion Fish and Urine Cyt o ([facility])on 03-11-2023 UVFISH & UC Diagnosis Info Invalid Interpretation Code [facility] Comment on above: Result Comment: A:Ur ine,Urine:Voided [...] cytology, and continued follow-up are recommended.* CPT 97383, 37250. Microscopic Notes - Microscopic Notes - Abnormal cells 9p21 deletions: Abnormal cells aneploid events: Total cells analyzed: 19 Hematuria: Gross Description Site ID:A color Brown fixative Alcohol Received 90 mls of cloudy brown fluid with the patient's name and, Urine on the vial. Electronically signed by : on: 03/11/2023 10:51:04 Performed By: #### 1 [id number] #### [facility] [address] [place] [address] Physician Orderon 03-09-2023 Physician Order [id number] 0 [id number]#1 .00TIFF Normal [facility] Physician Order [id number]#1 .00TIFF Normal [facility] RAD - CT Reporton 03-06-2023 RAD - CT Report [id number]#1 .00TIFF [facility] Physician Referralon 023 Physician Referral [id number]#1 .00TIFF Normal [facility] Consent for Procedure/Surger yon 03-03-2023 Consent for Procedure/Surgery [id number]#1 .00TIFF [facility] Consent for Treatmenton 02-22 Consent for Treatment [id number]#1 .00TIFF [facility] IntraOperative Documentson IntraOperative Documents [id number]#1 .00TIFF Isa [facility] Main OR Intraoperative Recor don 03-03-2023 Main OR Intraoperative Record IntraOp Document Type FTURO Summary Primary Physician: Soledad MEJIAS MD Finalized Date/Time: 03/03/23 08:29:11 Pt. Name: JC THOMAS /Sex: 1955 Male Med Rec #: [id number] Physician: Soledad MEJIAS MD Financial #: [id number] Pt. Type: O Room/Bed: / Admit/Disch: 03/03/23 07:08:25 - Institution: Case Times FTURO Entry 1 Patient Times In Room 03/03/23 08:13:00 Out Room 03/03/23 08:28:00 Procedure Times Start 03/03/23 08:22:00 Stop 03/03/23 08:25:00 Anesthesia Times Last Modified By: Deepa Rodriguez RN 03/03/23 08:28:53 Case Attendance FTURO Entry 1 Entry 2 Entry 3 Case Attendee Soledad MEJIAS MD [employer], Deepa Rodriguez RN, Deepa Perez Role Performed Surgeon - Primary Scrub - Primary Water Reclamation Systems Operator - Primary Time In 03/03/23 08:13:00 03/03/23 08:13:00 03/03/23 08:13:00 Time Out 03/03/23 08:28:00 03/03/23 08:28:00 03/03/23 08:28:00 Procedure CYSTOSCOPY LOCAL(.) CYSTOSCOPY LOCAL(.) CYSTOSCOPY LOCAL(.) Comments Last Modified By: Deepa Rodriguez RN, RN, Kimberly Y Barbee RN, Kimberly Y 03/03/23 08:29:00 03/03/23 08:29:00 03/03/23 08:29:00 Surgical Procedures FTURO Entry 1 Procedure Description Procedure CYSTOSCOPY LOCAL Modifiers . Surgeon Description CYSTOSCOPY LOCAL Primary Procedure Yes Primary Surgeon Soledad MEJIAS MD Start 03/03/23 08:22:00 Stop 03/03/23 08:25:00 [...] Position Verified Availability Equipment, Medication Time Out MAGALIE DORMAN, Soledad Linton, Verified (If Participants Johnna SANDOVAL, Deepa Applicable) Jennifer Aranda RN, Kimberly Y Time [...] By: Deepa Rodriguez RN 03/03/23 08:29 Normal [facility] Main OR Preoperative Recordo n 03-03-2023 Main OR Preoperative Record Holding Area Document Type FTURO Summary Primary Physician: Soledad MEJIAS MD Finalized Date/Time: 03/03/23 08:06:38 Pt. Name: JC THOMAS /Sex: 1955 Male Med Rec #: [id number] Physician: Soledad MEJIAS MD Financial #: [id number] Pt. Type: O Room/Bed: / Admit/Disch: 03/03/23 [...] Complaints of Pain: n/a Skin Integrity Intact, [place], Warm, & Dry Vitals - EU Blood Pressure 160/98 Pulse 76 bpm Respirations 16 br/min SPO2 98 % RN Reviewed Yes Last Modified By: Deepa Rodriguez RN 03/03/23 08:06:36 General Comments: Temp 99.3 Finalized By: Deepa Rodriguez RN Document Signatures Signed By: Alba Childers LPN 03/03/23 07:45 Jennifer VASQUEZ, Deepa Perez 03/03/23 08:06 Normal [facility] Operative Reporton Operative Report Patient: JC THOMAS Age: 68 years Sex: Male : 1955 Associated Diagnoses: None Author: Soledad MEJIAS MD Procedure Operative Information Pre-Op Dx: Gross [...] ible bilateral ureteroscopy and stent placement.. Normal [facility] Comment on above: Result Comment: Elec tronically Signed By: Soledad MEJIAS MD\.br\Date and Time Signed: 03/03/23 08:43 EDT Physician Referralon 023 Physician Referral [id number]#1 .00TIFF Normal [facility] Ambulatory Visit Summaryon 1 Ambulatory Visit Summary JC THOMAS :1955 Visit Date:03/02/2023 Ambulatory Visit Instructions Your Diagnosis Gross hematuria Bladder mass Bilateral renal cysts Tests Performed Urnls Dip Stick Auto w/o Microscopy POC 78725 Your Care Team Attending Physician - MAGALIE DORMAN, Soledad Linton Primary Care Physician - ISIS LILLY MD Referring Physician - ISAMAR GAN HOT [employer]ATE PLYWOOD PRESS FEEDERGailC This Is Your Medications List Contact prescribing [...] Follow Up with MAGALIE DORMAN, Soledad Linton, DARLENE When: Comments: Sched Cysto Where: [facility] [address], [place] [address]- Medications What How Much When Instructions Unchanged [...] Urnls Dip Stick Auto w/o Microscopy POC 38396 (03/02/2023) Bilirubin Urine Dipstick - 1+ Small Blood Urine Dipstick - 3+ Large Glucose Urine Dipstick - Negative Ketones Urine Dipstick - Negative Leukocytes Urine Dipstick - Negative Nitrite Urine Dipstick - Negative Protein Urine Dipstick - 3+ (300 mg/dl) Specific [place] Urine Dipstick - >=1.030 Urine Appearance Urine [...] including vitamins, herbs, eye drops, creams, and yhru-ciu-gxnjyli medicines. ? Any problems you or family [...] tells you to take them. ? Taking stcy-gen-veqeksn medicines, vitamins, herbs, and supplements. Tests You may have an exam or testing, such as: ? X-rays of the bladder, urethra, or kidneys. ? CT scan of the abdomen or pelvis. ? Urine tests to check for sig (more content not included)... Normal [facility] UroVysion Fish and Urine Cyt o ([facility])on 03-02-2023 [facility] Method of Extraction Voided Normal [facility] Comment on above: Performed By: #### 1 [id number] #### [facility] [address] [place] [address] [facility] Number of Jars 1 Invalid Interpretation Code [facility] Comment on above: Performed By: #### 1 [id number] #### [facility] [address] [place] [address] [facility] Specimen Urine Normal [facility] Comment on above: Performed By: #### 1 [id number] #### [facility] [address] [place] [address] [facility] Type of Service Technical Only Normal [facility] Comment on above: Performed By: #### 1 [id number] #### [facility] [address] [place] [address] Complete Blood Count with Au to Diffon 05-16-2021 Basophils (Bld) [#/Vol] 0.02 10*3/uL Normal 0.00-0.20 [facility] Comment on above: Performed By: #### C BCAD, CMP, LIPD #### [facility] [address] [place], [place] [id number] Basophils/100 WBC (Bld) 0.4 % Normal [facility] Comment on above: Performed By: #### C BCAD, CMP, LIPD #### [facility] [address] [place], [place] [id number] Eosinophils (Bld) [#/Vol] 0.22 10*3/uL Normal 0.02-0.50 [facility] Comment on above: Performed By: #### C BCAD, CMP, LIPD #### [facility] [address] [place], [place] [address] Eosinophils/100 WBC (Bld) 4.5 % Normal [facility] Comment on above: Performed By: #### C BCAD, CMP, LIPD #### [facility] [address] [place], [place] [id number] Erythrocyte distribution width (RBC) [Ratio] 13.6 % Normal 11.0-15.0 [facility] Comment on above: Performed By: #### C BCAD, CMP, LIPD #### [facility] [address] [place], [place] [id number] Hematocrit (Bld) [Volume fraction] 46.8 % Normal 38.5-50.0 [facility] Comment on above: Performed By: #### C BCAD, CMP, LIPD #### [facility] [address] [place], [place] [id number] Hemoglobin (Bld) [Mass/Vol] 15.3 g/dL Normal 13.0-17.1 [facility] Comment on above: Performed By: #### C BCAD, CMP, LIPD #### [facility] [address] [place] [address], [place] [id number] Lymphocytes (Bld) [#/Vol] 1.4 10*3/uL Normal 0.9-3.9 [facility] Specialist Comment on above: Performed By: #### C BCAD, CMP, LIPD #### [facility] [address] [place] [address], [place] [id number] Lymphocytes/100 WBC (Bld) 29.2 % Normal [facility] Specialist Comment on above: Performed By: #### C BCAD, CMP, LIPD #### [facility] [address] [place] [address], [place] [id number] MCH (RBC) [Entitic mass] 30.2 pg Normal 27.0-33.0 [facility] Comment on above: Performed By: #### C BCAD, CMP, LIPD #### [facility] [address] [place] [address], [place] [id number] MCHC (RBC) [Mass/Vol] 32.7 g/dL Normal 32.0-36.0 [facility] Specialist Comment on above: Performed By: #### C BCAD, CMP, LIPD #### [facility] [address] [place] [address], [place] [id number] MCV (RBC) [Entitic vol] 92 fL Normal 80-100 [facility] Comment on above: Performed By: #### C BCAD, CMP, LIPD #### [facility] [address] [place] [address], [place] [id number] Monocytes (Bld) [#/Vol] 0.4 10*3/uL Normal 0.2-0.9 [facility] Comment on above: Performed By: #### C BCAD, CMP, LIPD #### [facility] [address] [facility] [place] [id number] Monocytes/100 WBC (Bld) 8.0 % Normal [facility] Specialist Comment on above: Performed By: #### C BCAD, CMP, LIPD #### [facility] [address] [place] [address], [place] [id number] Neutrophils (Bld) [#/Vol] 2.8 10*3/uL Normal 1.5-7.8 [facility] Comment on above: Performed By: #### C BCAD, CMP, LIPD #### [facility] [address] [place] [address], [place] [id number] Neutrophils/100 WBC (Bld) 57.5 % Normal [facility] Comment on above: Performed By: #### C BCAD, CMP, LIPD #### [facility] [address] [place] [address], [place] [id number] Platelet mean volume (Bld) [Entitic vol] 10.20 fL Normal 7.50-12.50 [facility] Specialist Comment on above: Performed By: #### C BCAD, CMP, LIPD #### [facility] [address] [place] [address], [place] [id number] Platelets (Bld) [#/Vol] 251 10*3/uL Normal 140-400 [facility] Specialist Comment on above: Performed By: #### C BCAD, CMP, LIPD #### [facility] [address] [facility] [facility] [place] [id number] RBC (Bld) [#/Vol] 5.07 10*6/uL Normal 4.20-5.80 [facility] Comment on above: Performed By: #### C BCAD, CMP, LIPD #### [facility] [address] [place] [address], [place] [id number] RDW-SD 46.2 fL Normal 37.0-50.0 [facility] [place] [facility] Comment on above: Performed By: #### C BCAD, CMP, LIPD #### [facility] [address] [place] [address], [place] [id number] WBC (Bld) [#/Vol] 4.9 10*3/uL Normal 3.8-11.0 Nora vasquez [place] Founder Comment on above: Performed By: #### C BCAD, CMP, LIPD #### [facility] [address] [place] [address], [place] [id number] Comprehensive Metabolic Pane sara 05-16-2021 Albumin [Mass/Vol] 4.5 g/dL Normal 3.6-5.1 Nora vasquez [place] Founder Comment on above: Performed By: #### C BCAD, CMP, LIPD #### [facility] [address] [place] [address], [place] [id number] Albumin/Globulin [Mass ratio] 1.8 {ratio} Normal 1.0-2.5 [facility] Comment on above: Performed By: #### C BCAD, CMP, LIPD #### [facility] [address] [place] [address], [place] [id number] ALP [Catalytic activity/Vol] 83 U/L Normal 40-129 [facility] Comment on above: Performed By: #### C BCAD, CMP, LIPD #### [facility] [address] [place] [address], [place] [id number] ALT [Catalytic activity/Vol] 24 U/L Normal 9-46 [facility] Comment on above: Result Comment: 04/24 Female reference range changed. Performed By: #### C BCAD, CMP, LIPD #### [facility] [address] [place], [place] [id number] Anion gap [Moles/Vol] 18 mmol/L Normal 12-20 [facility] Comment on above: Result Comment: Effe ctive 05/30/2019 reference range changed. Performed By: #### C BCAD, CMP, LIPD #### [facility] [address] [place] [address], [place] [id number] AST [Catalytic activity/Vol] 21 U/L Normal 10-40 [facility] Comment on above: Performed By: #### C BCAD, CMP, LIPD #### [facility] [address] [place] [address], [place] [id number] Bilirubin [Mass/Vol] 0.50 mg/dL Normal 0.30-1.20 [facility] Specialist Comment on above: Performed By: #### C BCAD, CMP, LIPD #### [facility] [address] [place] [address], [place] [id number] BUN/CREA 36 Ratio High 6-22 [facility] Comment on above: Performed By: #### C BCAD, CMP, LIPD #### [facility] [address] [place] [address], [place] [id number] Calcium [Mass/Vol] 9.5 mg/dL Normal 8.6-10.2 [facility] Comment on above: Performed By: #### C BCAD, CMP, LIPD #### [facility] [address] [place] [address], [place] [id number] Chloride [Moles/Vol] 105 mmol/L Normal 98-107 [facility] Comment on above: Performed By: #### C BCAD, CMP, LIPD #### [facility] [address] [place] [address], [place] [id number] CO2 [Moles/Vol] 23 mmol/L Normal 20-31 [facility] Comment on above: Performed By: #### C BCAD, CMP, LIPD #### [facility] [address] [place] [address], [place] [id number] Creatinine [Mass/Vol] 0.7 mg/dL Normal 0.7-1.4 [facility] Comment on above: Performed By: #### C BCAD, CMP, LIPD #### [facility] [address] [place] [address], [place] [id number] eGFRAA 130 mL/min/1.73m2 Normal >[address] [facility] Comment on above: Performed By: #### C BCAD, CMP, LIPD #### [facility] [address] [place] [address], [place] [id number] eGFRNAA 107 mL/min/1.73m2 Normal >60 [facility] Specialist Comment on above: Performed By: #### C BCAD, CMP, LIPD #### [facility] [address] [place] [address], [place] [id number] Globulin (S) [Mass/Vol] 2.5 g/dL Normal 1.9-3.7 [facility] Comment on above: Performed By: #### C BCAD, CMP, LIPD #### [facility] [address] [place] [address], [place] [id number] Glucose [Mass/Vol] 100 mg/dL High 65-99 [facility] Founder Comment on above: Result Comment: For FASTING Glucose --- ADA reference ranges: Normal 65-99 mg/dl Prediabetes 100-125 Diabetes >/= 126 Performed By: #### C BCAD, CMP, LIPD #### [facility] [address] [place] [address], [place] [id number] Potassium [Moles/Vol] 4.3 mmol/L Normal 3.5-5.5 [facility] Comment on above: Performed By: #### C BCAD, CMP, LIPD #### [facility] [address] [place] [address], [place] [id number] Protein [Mass/Vol] 7.0 g/dL Normal 6.1-8.1 [facility] Founder Comment on above: Performed By: #### C BCAD, CMP, LIPD #### [facility] [address] [place] [address], [place] [id number] Sodium [Moles/Vol] 142 mmol/L Normal 135-146 [facility] Founder Comment on above: Performed By: #### C BCAD, CMP, LIPD #### [facility] [address] [place] [address], [place] [id number] Urea nitrogen [Mass/Vol] 26 mg/dL High 7-25 [facility] Comment on above: Performed By: #### C BCAD, CMP, LIPD #### [facility] [address] [place] [address], [place] [id number] Lipid Panelon 05-16-2021 Cholesterol [Mass/Vol] 215 mg/dL High 125-200 [facility] Comment on above: Result Comment: Low risk < 200mg/dL Borderline risk 201-239 mg/dl High risk > or equal to 240 Performed By: #### C BCAD, CMP, LIPD #### [facility] [address] [place] [address], [place] [id number] Cholesterol in HDL [Mass/Vol] 50 mg/dL Normal >40 [facility] Comment on above: Result Comment: High Cardiovascular Risk HDL <40 mg/dL Low Cardiovascular Risk HDL > or equal to 60 mg/dl Performed By: #### C BCAD, CMP, LIPD #### [facility] [address] [place] [address], [place] [id number] Cholesterol in LDL [Mass/Vol] 122 mg/dL Normal [facility] Comment on above: Result Comment: LDL ATP III CLASSIFICATION LDL less than 100 mg/dl Optimal LDL 100-129 mg/dl Near or above optimal LDL 130-159 Borderline high LDL 160-189 High LDL greater than 189 mg/dl Very High Performed By: #### C BCAD, CMP, LIPD #### [facility] [address] [place], [place] [id number] Cholesterol in VLDL [Mass/Vol] 43 mg/dL Normal [facility] Comment on above: Performed By: #### C BCAD, CMP, LIPD #### [facility] [address] [place] [address], [place] [id number] Cholesterol.total/C holesterol in HDL [Mass ratio] 4 {ratio} Normal [facility] Comment on above: Performed By: #### C BCAD, CMP, LIPD #### [facility] [address] [place] [address], [place] [id number] Triglyceride [Mass/Vol] 214 mg/dL High 30-150 [facility] Comment on above: Result Comment: TRIG ATPIII CLASSIFICATIONS TRIG less than 150 mg/dl Normal TRIG 150-199 mg/dl Borderline High TRIG 200-500 mg/dl High TRIG greather than 500 mg/dl Very High Performed By: #### C BCAD, CMP, LIPD #### [facility] [address] [place] [address], [place] [id number] PSA SCREEN (MEDICARE)on 04-25 TPSA 1.060 ng/mL Normal <4.000 [facility] Comment on above: Result Comment: PSA Test Method: ECLIA/Ronnie e 601 Performed By: #### P SA MC #### [facility] [address] [place] [address], [place] [id number] OPERATIVE NOTEon 04-20-2017 OPERATIVE NOTE OPERATIVE NOTEOPERATION DATE: 67-52-39GDHCMNIJAX:IV sedation, MAC.PREOPERATIVE DIAGNOSIS:Screening colonoscopy.POSTOPERA TIVE DIAGNOSIS: Diverticulosis [...] repeat colonoscopy in 7-10 years. Normal [facility] Vital Signs Date Time Vital Sign Value Performing Clinician Facility 08-25-2023 13:16-0400 Body temperature 97.81 [degF] Duogou Work Phone: [facility] 08-25-2023 13:16-0400 Diastolic blood pressure 61 mm[Hg] Duogou Work Phone: [facility] 08-25-2023 13:16-0400 Heart rate 69 /min [employer]ou Work Phone: [facility] 08-25-2023 13:16-0400 Respiratory rate 16 /min Duogou Work Phone: [facility] 08-25-2023 13:16-0400 SaO2% (BldA) [Mass fraction] 95 % Duogou Work Phone: [facility] 08-25-2023 13:16-0400 Systolic blood pressure 101 mm[Hg] Duogou Work Phone: [facility] 08-18-2023 13:10-0400 Body temperature 98.01 [degF] Chair Jonancy Work Phone: [facility] 08-18-2023 13:10-0400 Diastolic blood pressure 79 mm[Hg] Chair Shellie Work Phone: [facility] 08-18-2023 13:10-0400 Heart rate 89 /min Chair Jonancy Work Phone: [facility] 08-18-2023 13:10-0400 Respiratory rate 16 /min Chair Jonancy Work Phone: [facility] 08-18-2023 13:10-0400 SaO2% (BldA) [Mass fraction] 96 % Chair Jonancy Work Phone: [facility] 08-18-2023 13:10-0400 Systolic blood pressure 121 mm[Hg] Chair Shellie Work Phone: [facility] 08-11-2023 13:00-0400 Body temperature 98.29 [degF] Chair Jonancy Work Phone: [facility] 08-11-2023 13:00-0400 Diastolic blood pressure 91 mm[Hg] Chair Jonancy Work Phone: [facility] 08-11-2023 13:00-0400 Heart rate 100 /min Chair Shellie Work Phone: [facility] 08-11-2023 13:00-0400 Respiratory rate 18 /min Chair Shellie Work Phone: [facility] 08-11-2023 13:00-0400 SaO2% (BldA) [Mass fraction] 96 % Chair Shellie Work Phone: [facility] 08-11-2023 13:00-0400 Systolic blood pressure 162 mm[Hg] Chair Shellie Work Phone: [facility] 06-18-2023 15:16-0500 Body height 180.3 cm Immanuel Osorio MD Work Phone: [facility] 06-18-2023 15:16-0500 Body temperature 98.01 [degF] Immanuel Osorio MD Work Phone: [facility] 06-18-2023 15:16-0500 Body weight 114.4 kg Immanuel Osorio MD Work Phone: [facility] 06-18-2023 15:16-0500 Diastolic blood pressure 89 mm[Hg] Immanuel Osorio MD Work Phone: [facility] 06-18-2023 15:16-0500 Heart rate 108 /min Immanuel Osorio MD Work Phone: [facility] 06-18-2023 15:16-0500 Respiratory rate 18 /min Immanuel Osorio MD Work Phone: [facility] 06-18-2023 15:16-0500 SaO2% (BldA) [Mass fraction] 96 % Immanuel Osorio MD Work Phone: [facility] 06-18-2023 15:16-0500 Systolic blood pressure 134 mm[Hg] Immanuel Osorio MD Work Phone: [facility] 04-30-2023 15:54-0500 Body height 180.3 cm Immanuel Osorio MD Work Phone: [facility] 04-30-2023 15:54-0500 Body temperature 99.1 [degF] Immanuel Osorio MD Work Phone: [facility] 04-30-2023 15:54-0500 Body weight 111.95 kg Immanuel Osorio MD Work Phone: [facility] 04-30-2023 15:54-0500 Diastolic blood pressure 82 mm[Hg] Immanuel Osorio MD Work Phone: [facility] 04-30-2023 15:54-0500 Heart rate 102 /min Immanuel Osorio MD Work Phone: [facility] 04-30-2023 15:54-0500 Respiratory rate 18 /min Immanuel Osorio MD Work Phone: [facility] 04-30-2023 15:54-0500 SaO2% (BldA) [Mass fraction] 95 % Immanuel Osorio MD Work Phone: [facility] 04-30-2023 15:54-0500 Systolic blood pressure 143 mm[Hg] Immanuel Osorio MD Work Phone: [facility] 04-03-2023 10:41-0500 Blood Pressure Location Soledadmary MEJIAS [facility] [place] 04-03-2023 10:41-0500 Diastolic blood pressure 88 mm[Hg] Soledad MEJIAS [facility] 04-03-2023 10:41-0500 Heart rate 75 /min Soledad MEJIAS [facility] [place] 04-03-2023 10:41-0500 Respiratory rate 16 /min Soledad MEJIAS [facility] [place] 04-03-2023 10:41-0500 Systolic blood pressure 138 mm[Hg] Soledadmary MEJIAS [facility] Encounters Encounter Date Encounter Type Care Provider Facility Start: 10-16-2023 ambulatory Soledad MEJIAS Facili ty:[facility] Start: 10-12-2023 ambulatory Soledad R MEJIAS Facili ty:[facility] Start: 10-08-2023 ambulatory Soledad R MEJIAS Facili ty:[id number] Start: 09-28-2023 ambulatory Soledad R MAGALIE Facili ty:[id number] Start: 09-21-2023 End: 09-22-2023 ambulatory Soledadmary MEJIAS [place] [place]: 09-21-2023 End: 09-22-2023 ambulatory Soledad MEJIAS Facility:[facility] Start: 09-21-2023 End: 09-21-2023 Lab Drop off Soledad Shaila MAGALIE [facility] Start: 09-21-2023 End: 09-21-2023 Patient encounter procedure Soledad MEJIAS [facility] Alistair Start: 09-14-2023 End: 09-15-2023 ambulatory Geraldine X Orzech [place] [place] Start: 09-14-2023 End: 09-14-2023 Lab Drop off Geraldine X Orzech [facility] Start: 09-14-2023 End: 09-14-2023 Patient encounter procedure Geraldine X Orzech [facility] Shellie Start: 08-25-2023 End: 08-25-2023 ambulatory Chair 23 Shellie Work Phone: Hematology/Oncology Comment on above: Malignant neoplasm o f overlapping sites of bladder (HCC) Start: 08-18-2023 End: 08-18-2023 ambulatory Chair 23 Shellie Work Phone: Hematology/Oncology Comment on above: Malignant neoplasm o f overlapping sites of bladder (HCC) Start: 08-11-2023 End: 08-11-2023 ambulatory Chair 23 Shellie Work Phone: Hematology/Oncology Comment on above: Malignant neoplasm o f overlapping sites of bladder (HCC) Start: 08-10-2023 Telephone encounter Isaías nicole RN Work Phone: Hematology/Oncology Comment on above: Care Coordination (T reatment Request) Treatment Planning ( Need for BCG orders to be placed) Start: 07-14-2023 End: 07-14-2023 ambulatory SARAN GUNN Not Available Start: 07-06-2023 End: 07-07-2023 ambulatory Soledad MEJIAS Facility:[id number] Start: 06-29-2023 End: 06-29-2023 Lab Drop off Soledad MEJIAS [facility] Start: 06-29-2023 End: 06-30-2023 ambulatory Soledad MEJIAS [place] [place] Start: 06-29-2023 End: 06-29-2023 Patient encounter procedure Soledad MEJIAS [facility] Sarah Ann Start: 06-18-2023 End: 06-18-2023 ambulatory IMMANUEL OSORIO Facility:[facility] Start: 06-18-2023 End: 06-18-2023 Office outpatient visit 15 minutes Immanuel Osorio MD Work Phone: Hematology/Oncology Comment on above: Malignant neoplasm o f overlapping sites of bladder (HCC) (Primary Dx); Iron deficiency anemia due to chronic blood loss Start: 06-11-2023 End: 06-11-2023 ambulatory [facility] Facility:[facility] Start: 06-04-2023 End: 06-05-2023 ambulatory [facility] Facility:[facility] Start: 05-28-2023 End: 05-28-2023 ambulatory [facility] Facility:[facility] Start: 05-21-2023 End: 05-21-2023 ambulatory [facility] Facility:[facility] Start: 05-14-2023 Telephone encounter Financial Navigator Ty Work Phone: Hematology/Oncology Comment on above: Benefits Investigati on Start: 05-14-2023 End: 05-14-2023 ambulatory [facility] Facility:[facility] Start: 05-07-2023 End: 05-08-2023 ambulatory [facility] Facility:[facility] Start: 04-30-2023 End: 05-01-2023 ambulatory [facility] Facility:[facility] Start: 04-30-2023 End: 04-30-2023 Office outpatient new 60 minutes Immanuel Osorio MD Work Phone: Hematology/Oncology Comment on above: Malignant neoplasm o f overlapping sites of bladder (HCC) (Primary Dx) Start: 04-24-2023 End: 04-25-2023 ambulatory Soledad MEJIAS Facility:[facility] Start: 04-24-2023 End: 04-24-2023 Patient encounter procedure Soledad MEJIAS [facility] Start: 04-03-2023 End: 04-04-2023 ambulatory Soledad MEJIAS Facility:[facility] Start: 04-03-2023 End: 04-03-2023 Patient encounter procedure Soledad MEJIAS [facility] Start: 03-26-2023 End: 03-27-2023 ambulatory Soledad MEJIAS Facility:[id number] Start: 03-03-2023 End: 03-04-2023 ambulatory Soledad MEJIAS [place] [place] Start: 03-02-2023 End: 03-03-2023 ambulatory Soledad MEJIAS [place] Start: 03-02-2023 End: 03-03-2023 ambulatory Soledad MEJIAS Facility:[facility] Start: 02-27-2023 ambulatory Soledad MEJIAS Facility :[facility] Start: 04-20-2017 End: 04-20-2017 Ambulatory CYNTHIA VELÁSQUEZ Facility: Procedures Date Procedure Procedure Detail Performing Clinician Start: 03-26-2023 Transurethral resect ion of bladder neoplasm Soledad MEJIAS Start: 02-27-2023 Lipid 1996 panel - S fabian or Jaylyn Osorio MD Work Phone: Start: 07-08-2021 Total knee replacement Soledad MEJIAS Start: 11-02-2015 Arthroscopic knee operation Soledad MAGAILE Comment on above: left Appendix structure ( body structure) Soledad MEJIAS Arthroplasty of knee Soledad MEJIAS Comment on above: right Arthroscopy of knee Soledad MEJIAS Bone spur of bilater al shoulders Soledad MEJIAS Colonoscopy Soledad MEJIAS Fasciotomy of foot Soledad TORRES Comment on above: left Functional endoscopi c sinus surgery (qualifier value) Soledad MEJIAS Comment on above: x2 inguinal hernia repair Dwain MEJIAS multiple surgeries r ight knee Soledad MEJIAS Plantar fasciitis (disorder) Soledad MEJIAS Tonsillectomy Soledad MEJIAS Plan of Treatment Date Care Activity Detail Author Start: 02-28-2028 Lipid 1996 panel - S fabian or Plasma Lipid Screening [facility] Start: 02-28-2028 Lipid panel Lipid Screening [facility] Start: 02-28-2028 Prostate Cancer Screening Discussion Prostate Cancer Screening Discussion [facility] Start: 02-28-2028 Prostate specific antigen measurement Prostate Cancer Screening Discussion [facility] Start: 06-11-2026 Diabetes Screening Diabetes [facility] Start: 05-07-2026 Diabetes Screening Diabetes Screenin [facility] Start: 04-30-2026 Diabetes Screening Diabetes Screenin [facility] Start: 09-17-2023 End: 06-18-2024 CBC W Auto Differential panel - Blood CBC + DIFF Lab Routine Malignant neoplasm of overlapping sites of bladder (HCC) Iron deficiency anemia due to chronic blood loss Expected: 09/17/2023 (Approximate), Expires: 06/18/2024 [facility] Work Phone: Comment on above: Expected: 09/17/2023 (Approximate), Expires: 06/18/2024 Start: 09-17-2023 End: 06-18-2024 Cobalamin (Vitamin B12) [Mass/volume] in Serum or Plasma VITAMIN B12 BLOOD Lab Routine Malignant neoplasm of overlapping sites of bladder (HCC) Iron deficiency anemia due to chronic blood loss Expected: 09/17/2023 (Approximate), Expires: 06/18/2024 [facility] Work Phone: Comment on above: Expected: 09/17/2023 (Approximate), Expires: 06/18/2024 Start: 09-17-2023 End: 06-18-2024 Comprehensive metabolic 2000 panel - Serum or Plasma COMP METABOLIC PANEL Lab Routine Malignant neoplasm of overlapping sites of bladder (HCC) Iron deficiency anemia due to chronic blood loss Expected: 09/17/2023 (Approximate), Expires: 06/18/2024 [facility] Work Phone: Comment on above: Expected: 09/17/2023 (Approximate), Expires: 06/18/2024 Start: 09-17-2023 End: 06-18-2024 Ferritin [Mass/volume] in Serum or Plasma FERRITIN BLD Lab Routine Malignant neoplasm of overlapping sites of bladder (HCC) Iron deficiency anemia due to chronic blood loss Expected: 09/17/2023 (Approximate), Expires: 06/18/2024 [facility] Work Phone: Comment on above: Expected: 09/17/2023 (Approximate), Expires: 06/18/2024 Start: 09-17-2023 End: 06-18-2024 Folate [Mass/volume] in Serum or Plasma FOLATE SERUM Lab Routine Malignant neoplasm of overlapping sites of bladder (HCC) Iron deficiency anemia due to chronic blood loss Expected: 09/17/2023 (Approximate), Expires: 06/18/2024 [facility] Work Phone: Comment on above: Expected: 09/17/2023 (Approximate), Expires: 06/18/2024 Start: 09-17-2023 End: 06-18-2024 Iron and Iron binding capacity panel - Serum or Plasma IRON + TIBC Lab Routine Malignant neoplasm of overlapping sites of bladder (HCC) Iron deficiency anemia due to chronic blood loss Expected: 09/17/2023 (Approximate), Expires: 06/18/2024 [facility] Work Phone: Comment on above: Expected: 09/17/2023 (Approximate), Expires: 06/18/2024 Start: 05-25-2023 Advance Directive Discussion Advance Directive Discussion [facility] Start: 05-25-2023 Depression Assessment Depression Ass essment [facility] Start: 05-07-2023 End: 04-30-2024 CBC W Auto Differential panel - Blood CBC + DIFF Lab Routine Malignant neoplasm of overlapping sites of bladder (HCC) Expected: 05/07/2023 (Approximate), Expires: 04/30/2024 [facility] Work Phone: Comment on above: Expected: 05/07/2023 (Approximate), Expires: 04/30/2024 Start: 05-07-2023 End: 04-30-2024 Cobalamin (Vitamin B12) [Mass/volume] in Serum or Plasma VITAMIN B12 BLOOD Lab Routine Malignant neoplasm of overlapping sites of bladder (HCC) Expected: 05/07/2023 (Approximate), Expires: 04/30/2024 [facility] Work Phone: Comment on above: Expected: 05/07/2023 (Approximate), Expires: 04/30/2024 Start: 05-07-2023 End: 04-30-2024 Comprehensive metabolic 2000 panel - Serum or Plasma COMP METABOLIC PANEL Lab Routine Malignant neoplasm of overlapping sites of bladder (HCC) Expected: 05/07/2023 (Approximate), Expires: 04/30/2024 [facility] Work Phone: Comment on above: Expected: 05/07/2023 (Approximate), Expires: 04/30/2024 Start: 05-07-2023 End: 04-30-2024 Ferritin [Mass/volume] in Serum or Plasma FERRITIN BLD Lab Routine Malignant neoplasm of overlapping sites of bladder (HCC) Expected: 05/07/2023 (Approximate), Expires: 04/30/2024 [facility] Work Phone: Comment on above: Expected: 05/07/2023 (Approximate), Expires: 04/30/2024 Start: 05-07-2023 End: 04-30-2024 Folate [Mass/volume] in Serum or Plasma FOLATE SERUM Lab Routine Malignant neoplasm of overlapping sites of bladder (HCC) Expected: 05/07/2023 (Approximate), Expires: 04/30/2024 [facility] Work Phone: Comment on above: Expected: 05/07/2023 (Approximate), Expires: 04/30/2024 Start: 05-07-2023 End: 04-30-2024 Iron and Iron binding capacity panel - Serum or Plasma IRON + TIBC Lab Routine Malignant neoplasm of overlapping sites of bladder (HCC) Expected: 05/07/2023 (Approximate), Expires: 04/30/2024 [facility] Work Phone: Comment on above: Expected: 05/07/2023 (Approximate), Expires: 04/30/2024 Start: 01-23-2023 Covid-19 Vaccine () Covid-19 Vaccine () [facility] Start: 05-25-2022 Advance Directive Discussion Advance Directive Discussion [facility] Start: 05-25-2022 Depression Assessment Depression Ass essment [facility] Start: 2015 RSV Vaccine (1 - 1-d ose 60+ series) RSV Vaccine (1 - 1-dose 60+ series) [facility] Start: 2005 Shingrix Vaccine (1 of 2) Shingrix Vaccine (1 of 2) [facility] Start: 01-30-2000 Cologuard (FIT-DNA) Cologuard (FIT-D NA) [facility] Start: 01-30-2000 Colonoscopy Colonoscopy [facility] Start: 01-30-2000 Colorectal Cancer Screening Colorectal Cancer Screening [facility] Start: 01-30-[address] Colonography [facility] Start: 01-30-2000 Fecal Occult Blood Fecal Occult Bloo d [facility] Start: 01-30-2000 Screening for malign ant neoplasm of colon [facility] Start: 01-30-2000 [facility] Start: 1974 Urine microalbumin profile DTaP,Tdap,Td Vaccine (1 - Tdap) [facility] Start: 1973 Hepatitis C Screening Hepatitis C [facility] Start: 1973 Hepatitis C screening Hepatitis C [facility] End: 04-29-2024 CBC W Auto Differential panel - Blood CBC + DIFF Lab Routine Malignant neoplasm of overlapping sites of bladder (HCC) Every 3 weeks for 18 Occurrences starting 04/30/2023 until 04/29/2024 [facility] Work Phone: Comment on above: Every 3 weeks for 18 Occurrences starting 04/30/2023 until 04/29/2024 End: 04-29-2024 Comprehensive metabolic 2000 panel - Serum or Plasma COMP METABOLIC PANEL Lab Routine Malignant neoplasm of overlapping sites of bladder (HCC) Every 3 weeks for 18 Occurrences starting 04/30/2023 until 04/29/2024 [facility] Work Phone: Comment on above: Every 3 weeks for 18 Occurrences starting 04/30/2023 until 04/29/2024 [facility] Immunizations Immunization Date Immunization Notes Care Provider [facility] 02-25-2023 influenza virus vacc ine, unspecified formulation Soledad MEJIAS [facility] 03-28-2021 influenza virus vacc ine, unspecified formulation Soledad MEJIAS [facility] 03-28-2021 pneumococcal polysaccharide vaccine, 23 valent Soledad MEJIAS [facility] 08-17-2020 COVID-19, mRNA, LNP- S, PF, 30 mcg/0.3 mL dose Soledad MEJIAS [facility] Comment on above: Reason for Medicatio n: Prophylaxis 07-27-2020 COVID-19, mRNA, LNP- S, PF, 30 mcg/0.3 mL dose Soledad MEJIAS [facility] Comment on above: Reason for Medicatio n: Prophylaxis 04-05-2020 pneumococcal conjuga te vaccine, 13 valent Soledad MEJIAS [facility] 03-22-2020 influenza virus vacc ine, unspecified formulation Soledad MEJIAS [facility] 03-23-2019 influenza virus vacc ine, unspecified formulation Soledad MEJIAS [facility] 02-27-2018 influenza virus vacc ine, unspecified formulation Soledad MEJIAS [facility] 02-16-2017 influenza virus vacc ine, unspecified formulation Soledad [employer] [facility] 02-28-2015 influenza virus vacc ine, unspecified formulation Soledad [employer] [facility] 03-27-2014 influenza virus vacc ine, unspecified formulation Soleadd [employer] [facility] 03-14-2013 influenza virus vacc ine, unspecified formulation Soledad MEJIAS [facility] Payers Date Payer Category Payer Unknown MMO MMO MEDICARE SUPPLEMENT [id number] 2022-Present [phone] [address] [place] [address] Indemnity [id number] 2021 Unknown [id number] 2020 Medicare MEDICARE MEDICAR E A AND B [id number] 2020-Present [phone] [address] [address] [place] [address] Medicare [id number] 2020 Medicare [id number] 1959 Private Health Insurance [id number] 1955 Unknown [id number] [id number]. 1259 1955 Unknown [id number] 2.16.840.1.945149.3.579.2. 1259 1955 Unknown [id number] 2.16.840.1.578763.3.579.2. 1955 Unknown [id number] 2.16.840.1.724871.3.579.2. 1955 Unknown [id number] 2.16.840.1.691734.3.579.2. 1955 Unknown [id number] 2.16.840.1.025904.3.579.2. 1955 Unknown [id number] 2.16.840.1.970373.3.579.2 1955 Unknown [id number] 2.840.1.574022.3.579.2 1955 Unknown [id number] 2.16.840.1.969835.3.579.2 1955 Unknown [id number] 2.16.840.1.738396.3.579.2 1955 Unknown [id number] 2.16840.1.594262.3.579.2. 1955 Unknown [id number] 2.16840.1.859304.3.579.2 1955 Unknown [id number] 2.16.840.1.102798.3.579.2. 1955 Unknown [id number] 2.16.840.1.187503.3.579.2 1955 Unknown [id number] 2.16.840.1.293834.3.579.2 1955 Unknown [id number] 2.16.840.1.551052.3.579.2 1955 Unknown [id number] 2.16.840.1.594978.3.579.2. 727 1955 Unknown [id number] 2.16.840.1.405364.3.579.2. 727 Social History Date Type Detail Facility Start: 03-02-2023 End: 04-30-2023 Tobacco smoking status Never smoked tobacco (finding) [facility] Tobacco smoking status Never [facility] Start: 04-30-2023 End: 06-18-2023 Sex Assigned At Male [facility] Start: 04-30-2023 Tobacco use and exposure Smokeless tobacco non-user [facility] Start: 04-30-2023 End: 06-18-2023 Alcohol intake Lifetime non-drinker (finding) [facility] Start: 04-30-2023 End: 06-18-2023 History of Social function [facility] Start: 1955 Sex Assigned At Not on file [facility] Medical Equipment Procedure Code Equipment Code Equipment Origin al Text Equipment Identifier Dates KNEE TOTAL ARTHROPLASTY Saran Gunn DO 07/08/21 Non Biological Knee L {[id number]}[id number] 0630 [facility] Start: 07-08-2021 Functional Status Date Assessment Result Facility 04-03-2023 Functional Status N/A [facility] Clinical Notes 03-02-2023 to 09-21-2023 Noa Montes RN - 08/25/2023 1:27 PM EDTNoa Montes RN - 08/18/2023 1:30 PM Anna Nixon RN - 08/11/2023 3:29 PM EDTTelephone Encounter - Immanuel Osorio MD - 08/11/2023 9:45 AM EDT Note Date & Type Note Facility 09-21-2023 Evaluation + Plan note Diagnostic Tests PendingUroVysion Fish and Urine Cyto ([facility]) 09/21/23 [facility] 08-25-2023 Note HNO ID: [id number] Author: NOA MONTES RN Service: ? Author Type: Registered Nurse Type: Progress Notes Filed: 08/25/2023 16:01 Note Text: 1318 -- Pt on cart in position of comfort, prepped for BCG. Urojet instilled at this time, followed by 16 fr keating via sterile technique without issue and 10 mL NS balloon inflation complete. Immediate return of clear, yellow urine into collection bag. Pt aware allowing complete bladder drainage prior to BCG instillation. 1338 -- Bladder drainage complete, ~100 mL of clear, yellow urine in keating collection bag. Keating tubing clamped at this time. 1340 -- BCG instilled per orders without issue and pt aware of need to rotate self every 15 mins for entire 2 hr dwell time. Pt able to rotate self without issue, cartside, call narayan in reach, no needs, will monitor. 1420 -- Pt resting on cart in position of comfort with cart side. Rotating self without issue, no leakage or spasms. Call narayan in reach, will continue to monitor. 1501 -- Pt asleep on cart, cart side. Call narayan in reach, will continue to monitor. 1532 -- Pt tolerating BCG without issue, no leakage or spasms noted. Aware of remaining dwell time, no needs, cart side, call narayan in reach. 1542 -- Keating tubing unclamped at this time for bladder drainage. No leaking or spasms noted during entire BCG dwell. 1556 -- Bladder drainage completed at this time, 350 mL of dark yellow urine noted in collection bag. 10 mL NS removed from keating balloon and keating d/c'ed at this time with scant blood noted at tip of catheter after removal; pt tolerated without issue or complaint. Pt dressing self independently and discharged with . Noa Montes RN [facility] 08-25-2023 History of Presen t illness Narrative 1318 -- Pt on cart in position of comfort, prepped for BCG. Urojet instilled at this time, followed by 16 fr keating via sterile technique without issue and 10 mL NS balloon inflation complete. Immediate return of clear, yellow urine into collection bag. Pt aware allowing complete bladder drainage prior to BCG instillation. 1338 -- Bladder drainage complete, ~100 mL of clear, yellow urine in keating collection bag. Keating tubing clamped at this time. 1340 -- BCG instilled per orders without issue and pt aware of need to rotate self every 15 mins for entire 2 hr dwell time. Pt able to rotate self without issue, cartside, call narayan in reach, no needs, will monitor. 1420 -- Pt resting on cart in position of comfort with cart side. Rotating self without issue, no leakage or spasms. Call narayan in reach, will continue to monitor. 1501 -- Pt asleep on cart, cart side. Call narayan in reach, will continue to monitor. 1532 -- Pt tolerating BCG without issue, no leakage or spasms noted. Aware of remaining dwell time, no needs, cart side, call narayan in reach. 1542 -- Keating tubing unclamped at this time for bladder drainage. No leaking or spasms noted during entire BCG dwell. 1556 -- Bladder drainage completed at this time, 350 mL of dark yellow urine noted in collection bag. 10 mL NS removed from keating balloon and keating d/c'ed at this time with scant blood noted at tip of catheter after removal; pt tolerated without issue or complaint. Pt dressing self independently and discharged with . Noa Montes RN documented in this encounter [facility] 08-18-2023 Note HNO ID: [id number] Author: NOA MONTES RN Service: ? Author Type: Registered Nurse Type: Progress Notes Filed: 08/18/2023 15:54 Note Text: 1323 -- Urojet instilled, followed by 16 fr keating via sterile technique with no issues. Immediate return of clear, yellow urine into keating collection bag. Pt aware allowing to drain bladder prior to BCG instillation. No needs, in position of comfort on cart, call narayan in reach. 1334 -- Bladder drainage complete, ~250mL of clear, yellow urine into collection bag noted. Keating tubing clamped at this time. 1335 -- BCG instilled per orders at this time. Keating tubing remains clamped and pt aware to rotate self every 15 mins during dwell; pt states understanding and able to self rotate. No needs, call narayan in reach, will continue to monitor. 1425 -- Pt resting on cart in position of comfort, rotating self without issue. No leaking, spasms, etc noted; call narayan in reach, will continue to monitor. 1450 -- Pt resting on cart, rotating self without issue. No leaking, spasms or other issues noted. Call narayan in reach, aware of remaining dwell time, will continue to monitor. 1535 -- BCG dwell time complete without issue. Keating tubing unclamped at this time and allowing for complete bladder drainage into collection bag at this time. 1548 -- Bladder drainage complete at this time, ~500 mL clear, yellow urine noted in collection bag. 10 mL removed from keating balloon at this time. Scant amount of blood at tip of catheter noted upon removal. Pt dressing independently without issue, ambulatory to exit after. Noa Montes RN [facility] 08-18-2023 History of Presen t illness Narrative 1323 -- Urojet instilled, followed by 16 fr keating via sterile technique with no issues. Immediate return of clear, yellow urine into keating collection bag. Pt aware allowing to drain bladder prior to BCG instillation. No needs, in position of comfort on cart, call narayan in reach. 1334 -- Bladder drainage complete, ~250mL of clear, yellow urine into collection bag noted. Keating tubing clamped at this time. 1335 -- BCG instilled per orders at this time. Keating tubing remains clamped and pt aware to rotate self every 15 mins during dwell; pt states understanding and able to self rotate. No needs, call narayan in reach, will continue to monitor. 1425 -- Pt resting on cart in position of comfort, rotating self without issue. No leaking, spasms, etc noted; call narayan in reach, will continue to monitor. 1450 -- Pt resting on cart, rotating self without issue. No leaking, spasms or other issues noted. Call narayan in reach, aware of remaining dwell time, will continue to monitor. 1535 -- BCG dwell time complete without issue. Keating tubing unclamped at this time and allowing for complete bladder drainage into collection bag at this time. 1548 -- Bladder drainage complete at this time, ~500 mL clear, yellow urine noted in collection bag. 10 mL removed from keating balloon at this time. Scant amount of blood at tip of catheter noted upon removal. Pt dressing independently without issue, ambulatory to exit after. Noa Montes RN documented in this encounter [facility] 08-11-2023 Note HNO ID: [id number] Author: ANNA MENDOZA RN Service: ? Author Type: Registered Nurse Type: Progress Notes Filed: 08/11/2023 15:56 Note Text: Summary: BCG Pt presents ambulatory alone for BCG maintenance therapy. Pt has tolerated BCG instillation well in the past without complications. Pt denies any urinary symptoms including burning, pain, blood or signs and symptoms of infection. 16F keating catheter inserted via sterile technique without complications. 10cc sterile water inserted into balloon to inflate. Catheter secured in place and keating catheter attached to dependent drainage bag below the bladder. 100cc clear yellow urine drained from bladder prior to BCG instillation. BCG instilled. See MAR. Keating catheter clamped to ensure 2 hour dwell time. Pt instructed to rotate position in bed every 15 min throughout. Pt verbalized understanding. Pt denied any pressure or discomfort. Clamp released after 2 hours dwell time. Additional 250cc clear yellow urine/BCG drained from bladder. 10cc sterile water removed from balloon. Keating catheter removed intact without complications. Pt instructed to notify urologist and clinic with any bleeding, discomfort or signs or symptoms of infection with urination. Pt to return to clinic as scheduled for BCG treatment. Pt verbalized understanding. Newton Mendoza RN,BSN,OCN [facility] 08-11-2023 History of Presen t illness Narrative Summary: BCG Pt presents ambulatory alone for BCG maintenance therapy. Pt has tolerated BCG instillation well in the past without complications. Pt denies any urinary symptoms including burning, pain, blood or signs and symptoms of infection. 16F keating catheter inserted via sterile technique without complications. 10cc sterile water inserted into balloon to inflate. Catheter secured in place and keating catheter attached to dependent drainage bag below the bladder. 100cc clear yellow urine drained from bladder prior to BCG instillation. BCG instilled. See MAR. Keating catheter clamped to ensure 2 hour dwell time. Pt instructed to rotate position in bed every 15 min throughout. Pt verbalized understanding. Pt denied any pressure or discomfort. Clamp released after 2 hours dwell time. Additional 250cc clear yellow urine/BCG drained from bladder. 10cc sterile water removed from balloon. Keating catheter removed intact without complications. Pt instructed to notify urologist and clinic with any bleeding, discomfort or signs or symptoms of infection with urination. Pt to return to clinic as scheduled for BCG treatment. Pt verbalized understanding. Newton Mendoza RN,BSN,OCN documented in this encounter [facility] 08-11-2023 Miscellaneous Notes Orders in [place] is on for BCG tomorrow, please place orders. Thank you Kei Snyder PharmD, BCOP documented in this encounter [facility] 08-10-2023 Miscellaneous Notes Patient has been added for 3 doses of BCG in our Tx room. 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 Spoke w/ Dr Osorio. He does not need to see pt this cycle. Would like to see him following his cystoscopy. Bianca @ [facility] notified and will call and inform the pt of tomorrow's appointment at 1 PM. Anticipates pt's cystoscopy to be 09/28/23. Clerical: Pt will need scheduled for BCG once weekly x3. Will be in tomorrow @ 1 PM for his first of 3. Please schedule and make sure pt gets his appointment reminder at tomorrow's treatment. Thanks! Kiik: Please place orders for BCG x 3. Isaías Cruz, RN Pt's next round of maintenance BCG is due September 09. Dr Cast's office requests that this be moved up so that they can do his cysto in August. Would like him scheduled to start this week if possible. Kiki: Spoke w/ Ashley Glynn. Pt could come tomorrow afternoon for BCG. Are you ok w/ prewriting his treatment or do you need to see him this cycle? Isaías Cruz, CHRISTINA documented in this encounter [facility] 06-29-2023 Evaluation + Plan note Diagnostic Tests PendingUrine Cytology ([facility]) 06/29/23 [facility] 06-18-2023 Note HNO ID: [id number] Author: IMMANUEL OSORIO MD Service: ? Author Type: Physician Type: Progress Notes Filed: 06/18/2023 21:23 Note Text: NAME: Janice Jc [facility] NO.: [id number] DATE OF SERVICE: June 18, 2023 (Jo) Some elements in this clinic note that are critical to medical decision making have been carefully reviewed and included from a prior clinic note dated: May 21, 2023 (Jo) Referring Provider: Soledad Mejias Additional Clinicians involved in Jc Thomas's care: DIAGNOSIS: High-grade bladder cancer ASSESSMENT: 68 [...] same. Initial Visit, April 30, 2023: Jc Thomas presents today accompanied by his Snehal for [...] Take 325 mg (more content not included)... [facility] 06-18-2023 Instructions Jamilah Mckeon - 06/18/2023 3:29 PM EST Continue oral iron RTC in 3 months Anticipate maintenance BCG, labs same day documented in this encounter [facility] 06-18-2023 History of Presen t illness Narrative Images from the original note were not included. NAME: Jc Thomas [facility] NO.: [id number] DATE OF SERVICE: June 18, 2023 ([facility]) Some elements in this clinic note that are critical to medical decision making have been carefully reviewed and included from a prior clinic note dated: May 21, 2023 (Jo) Referring Provider: Soledad Mejias Additional Clinicians involved in Jc Thomas's care: DIAGNOSIS: High-grade bladder cancer ASSESSMENT: 68 [...] same. Initial Visit, April 30, 2023: Jc Thomas presents today accompanied by his Snehal for [...] which included preparing to see the patient, [id number] patient care, completing clinical documentation, performing a medically appropriate examination, counseling and educating the patient/family/caregiver, ordering medications, tests, or procedures, independently interpreting results (not separately reported), communicating results to the patient/family/caregiver, and care coordination (not separately reported). Immanuel Osorio MD, CPE Hematology and Oncology Services Provided at: [facility], [place], [place] Scribe Attestation: This note was scribed [...] me and under my direction. CC: Soledad Mejias [address] [facility] [id number] No primary care provider on file. No primary provider on file. documented in this encounter [facility] 06-11-2023 Note HNO ID: [id number] Author: TAYLOR SAENZ RN Service: ? Author Type: Registered Nurse Type: Progress Notes Filed: 06/11/2023 12:28 Note Text: Treatment complete. Keating cath unclamped 500 ml total noted in collection bag. Keating DC as ordered per policy, patient tolerated well. No further questions or concerns Taylor Saenz RN [facility] 06-11-2023 Note HNO ID: [id number] Author: TAYLOR SAENZ RN Service: ? Author Type: Registered Nurse Type: Progress Notes Filed: 06/11/2023 12:28 Note Text: Patient has arrived for #6/6 BCG, 16 fr keating catheter inserted utilizing lidocaine as ordered per protocol. Patient tolerated well, approx 150 ml clear yellow urine noted in collection bag. Taylor Saenz RN [facility] 06-04-2023 Note HNO ID: [id number] Author: NOA MONTES RN Service: ? Author Type: Registered Nurse Type: Progress Notes Filed: 06/04/2023 11:56 Note Text: 0907 -- 16 fr keating catheter placed via sterile technique with slight [...] clear, yellow urine noted in collection bag. Keating tubing clamped at this time and BCG [...] completed; no issues during time of instillation. Keating tubing unclamped at this time, allowing bladder to drain prior to keating d/c. 1139 -- Bladder drainage completed, 10 mL NS deflated from catheter balloon and keating d/c'ed without issue. Pt dressing independently and ambulatory to exit. Noa Montes RN [facility] 05-28-2023 Note HNO ID: [id number] Author: LORETTA RAY RN Service: ? Author Type: Registered Nurse Type: Progress Notes Filed: 05/28/2023 11:52 Note Text: 0855: 16F keating catheter inserted via sterile technique without problems. Clear yellow urine draining via gravity. 0915: 150 mL urine noted in drain bag prior to instillation. BCG instilled and keating clamped. Pt instructed to turn from side to side every 15 minutes. Pt verbalizes understanding and using phone timer. Will monitor. 1015: Pt doing well, denies complaints and continues to turn. 1115: Keating unclamped and draining via gravity. 1125: 600 mL total urine noted in drain bag. Keating dc'd per protocol without problems. Pt tolerated well. Loretta Ray RN [facility] 05-21-2023 Note HNO ID: [id number] Author: Anna Garcia RN Service: ? Author Type: Registered Nurse Type: Progress Notes Filed: 05/21/2023 12:05 PM Note Text: 0930 inserted keating catheter. Clear yellow urine draining to gravity. 0950 instilled BCG and instructed patient to turn every 15 minutes. Patient denied needing anything at this time. Catheter clamped with approximately 125 mls of clear yellow urine. 1050 patient lying on right side, comfortable, denies needs at this time. Will continue to monitor. 1150 unclamped patient's keating to gravity drain. Patient tolerated BCG well. No questions or concerns. 1202-patient keating d/c'd after approximately 150 mls clear yellow urine drained after BCG. No questions or concerns. Patient instructed to d/c home whenever he and his family member are ready. Anna Garcia RN [facility] 05-21-2023 Note HNO ID: [id number] Author: Immanuel Osoiro MD Service: ? Author Type: Physician Type: Progress Notes Filed: 05/22/2023 8:15 AM Note Text: NAME: Jc Thomas CLINIC NO.: [id number] DATE OF SERVICE: May 21, 2023 (Jo) Some elements in this clinic note that are critical to medical decision making have been carefully reviewed and included from a prior clinic note dated: April 30, 2023 (Jo). Referring Provider: Soledad Mejias Additional Clinicians involved in Jc Thomas's care: DIAGNOSIS: High-grade bladder cancer ASSESSMENT: 68 [...] same. Initial Visit, April 30, 2023: Jc Thomas presents today accompanied by his Snehal for [...] OIL) 1,200 (144-216) mg capsule 1 capsule. ___ (more content not included)... [facility] 05-14-2023 Note HNO ID: [id number] Author: Zoila Acosta RN Service: ? Author Type: Registered Nurse Type: Progress Notes Filed: 05/14/2023 11:54 AM Note Text: 0840: 16FR keating catheter inserted successfully using sterile technique. Balloon intact prior to insertion. Approximately 100 ml clear yellow urine collected in urine bag. Patient denies any discomfort or needs at this time. 0901: BCG inserted through keating then clamped. Patient aware to turn every 15 minutes and plans to time and turn himself. Pt denies needs at this time. 0928: Patient turning as instructed with no complaints at this time. 1010: Patient continues to turn as instructed with no complaints. 1047: Patient turning and denies any spasms or discomfort. 1101: Keating catheter unclamped. 1109: Catheter discontinued, balloon intact. Approximately 200 ml clear yellow urine collected in urine bag. Side rail put down for pt to dress. Patient denies any needs and encouraged to leave when ready. Zoila Acosta RN [facility] 05-14-2023 Miscellaneous Notes Patient on 1st time treatment. Patient getting BCG treatment (non chemo) Patient holds medicare coverage with supplement. No financial liability at this time. documented in this encounter [facility] 05-07-2023 Note HNO ID: [id number] Author: Taylor Saenz RN Service: ? Author Type: Registered Nurse Type: Progress Notes Filed: 05/07/2023 4:41 PM Note Text: Instill time complete and keating cath DC per protocol as ordered. 200 ml dark yellow urine noted in collection container. Patient has tolerated well Taylor Saenz RN [facility] 05-07-2023 Note Education (HEMASA) JC THOMAS ([id number]) 1955 M Date Time Provider Department 05/07/23 ISAÍAS CRUZ Reason for Visit: Non-Chemotherapy Treatment [795] Cmt: BCG Primary Visit Diagnosis:Malignant neoplasm of overlapping sites of bladder (HCC) [C67.8] During your visit today, we recorded the following information about you: Allergies As of Date: 05/07/2023 (No Known Allergies) Date Reviewed: 05/07/2023 Reviewed by: Isaías Cruz RN - Fully Assessed Prescriptions as of 05/07/2023 - pravastatin (PRAVACHOL) 40 mg tablet TAKE 1 TABLET BY MOUTH EVERY DAY AT THE SAME TIME - omega-3 DHA-EPA (FISH OIL) 1,200 (144-216) mg capsule 1 capsule. Encounter Status:Closed by ISAÍAS CRUZ on 05/07/23 [facility] 05-07-2023 Note HNO ID: [id number] Author: Isaías Cruz RN Service: ? Author Type: Registered Nurse [...] Spent: 30 minutes REFERRAL (RECOMMENDATION): N/A Isaías Cruz RN [facility] 04-30-2023 Note HNO ID: [id number] Author: Immanuel Osorio MD Service: ? Author Type: Physician Type: Progress Notes Filed: 04/30/2023 8:05 PM Note Text: NAME: Jc Thomas NO.: [id number] DATE OF SERVICE: April 30, 2023 (Jo) Referring Provider: Soledad Mejias Consultation requested by Dr. Mejias for an opinion regarding Mr. Jc Thomas, and my final recommendations will be communicated back to the requesting physician by way of shared medical record or letter via US mail. Additional Clinicians involved in Jc Thomas's care: DIAGNOSIS: High-grade bladder cancer ASSESSMENT: 68 [...] cysts. Initial Visit, April 30, 2023: Jc Thomas presents today accompanied by his Snehal for [...] Sodium (mmol/L) Date (more content not included)... [facility] 04-30-2023 Instructions Immanuel Osorio MD - 04/30/2023 4:40 PM EST Start BCG weekly x 6 next week. Labs on day of start to include anemia labs. RTC with me the third week of BCG. CBC same day. documented in this encounter [facility] 04-30-2023 History of Presen t illness Narrative Images from the original note were not included. NAME: Jc Thomas NO.: [id number] DATE OF SERVICE: April 30, 2023 (Jo) Referring Provider: Soledad Mejias Consultation requested by Dr. Mejias for an opinion regarding Mr. Jc Thomas, and my final recommendations will be communicated back to the requesting physician by way of shared medical record or letter via US mail. Additional Clinicians involved in Jc Thomas's care: DIAGNOSIS: High-grade bladder cancer ASSESSMENT: 68 [...] cysts. Initial Visit, April 30, 2023: Jc Thomas presents today accompanied by his Snehal for [...] which included preparing to see the patient, moyl-ls-xohz patient care, completing clinical documentation, obtaining and/or reviewing separately obtained history, performing a medically appropriate examination, counseling and educating the patient/family/caregiver, ordering medications, tests, or procedures, independently interpreting results (not separately reported), communicating results to the patient/family/caregiver, and care coordination (not separately reported). Immanuel Osorio MD, CPE Hematology and Oncology Services Provided at: [facility], [place], [place] Scribe Attestation: This note was scribed [...] me and under my direction. CC: Soledad Mejias [address] [facility] [address] No primary care provider on file. No primary provider on file. documented in this encounter [facility] 04-03-2023 Hospital Discharg e instructions Patient [...] cells. Follow these instructions at home: Take ttup-qjt-jvgygnf and prescription medicines only as told by [...] is important. Where to find more information [place] [employer] (ACS): cancer.org National Cancer [place] (NCI): cancer.gov Contact a health care provider [...] provider. Document Revised: 04/21/2022 Document Reviewed: 04/21/2022 [employer] Patient Education 2022 Cherrish. Follow Up Care 03/06/2023 14:30:19 With:MAGALIE DORMAN, Soledad Linton, URL Address: [facility] [address] , [place] [address]- [phone] When: Unknown Comments:6 BCGs in 2 wks [facility] Sarah Ann 03-03-2023 Note [id number] [facility] 03-03-2023 Note Custom Cystoscopy ? Voiding after [...] you have a fever over 100 degrees. [facility] 03-02-2023 Note Chief Complaint Referral *Gross Hematuria HPI Staff Evaluation requested by Isamar Gan [employer] FE[employer]ER due to gross hematuria & Bladder Mass. [...] Pt was started on Cipro 500mg BID [id number], has been on them for 5 days, [...] peripelvic cysts Follow-up With When Contact Information Soledad MEJIAS MD, URL [facility] [address], [place] [address]- Additional Instructions: Sched Cysto Patient Education Cystoscopy I, Becca Downs , personally scribed for Dr. Mejias on 03/02/2023 11:44:16. . Documentation recorded by the scribe, Becca Downs, accurately reflects the services(s) I performed and decisions made by me. Problem List/Past Medical History Ongoing Bilateral renal cysts Bladder mass Historical No qualifying data Procedure/Surgical History (more content not included)... [facility] Comment on above: Result Comment: Elec tronically Signed By: Soledad MEJIAS MD\.br\Date and Time Signed: 03/02/23 11:47 EDT\.br\Electronically [...] including vitamins, herbs, eye drops, creams, and uwpw-wfq-xigalmw medicines. ? Any problems you or family [...] tells you to take them. ? Taking tgog-gpl-fkezkqz medicines, vitamins, herbs, and supplements. Tests You [...] these instructions at home: Medicines ? Take wtpp-hak-olovzud and prescription medicines only as told by [...] the department th (more content not included)... [facility] Evaluation + Plan note No data available for this section [facility] Evaluation + Plan note Future Appointments Appointment Date:06/29/2023 09:00:00 AM Scheduled Provider: Location:[facility] Appointment Type:URO Nurse Visit [facility] Evaluation + Plan note Future Appointments Appointment Date:09/21/2023 10:30:00 AM Scheduled Provider: Location:[facility] Appointment Type:URO Nurse Visit [facility]ie Evaluation + Plan note Future Appointments Appointment Date:09/21/2023 10:30:00 AM Scheduled Provider: Location:[facility] [place] Appointment Type:URO Nurse Visit Diagnostic Tests PendingUrine Culture 09/14/23 [facility] Evaluation note Diagnosis Malignant neoplasm of overlapping sites of bladder (HCC)- Primary Malignant neoplasm of other specified sites of bladder [facility] Malignant neoplasm of overlapping sites of bladder (HCC)- Primary Malignant neoplasm of other specified sites of bladder Iron deficiency anemia due to chronic blood loss Iron deficiency anemia secondary to blood loss (chronic) [facility] Malignant neoplasm of overlapping sites of bladder (HCC)- Primary Malignant neoplasm of other specified sites of bladder [facility] Malignant neoplasm of overlapping sites of bladder (HCC) Malignant neoplasm of other specified sites of bladder [facility] Malignant neoplasm of overlapping sites of bladder (HCC) Malignant neoplasm of other specified sites of bladder [facility] Malignant neoplasm of overlapping sites of bladder (HCC) Malignant neoplasm of other specified sites of bladder [facility] No data available for this section [facility] progress note No data available for this section [facility] Summary Purpose Family History No Family History [...] content) DATE CREATED AUTHOR 11/17/2017 [facility] [place] [facility] DATE CREATED AUTHOR AUTHOR'S ORGANIZ ATION 05/17/2021 [facility] dical Specialist DATE CREATED AUTHOR AUTHOR'S ORGANIZ ATION 07/15/2023 [facility] dical Specialists EPIC DATE CREATED AUTHOR AUTHOR'S ORGANIZ ATION 08/26/2023 [facility] DATE CREATED AUTHOR AUTHOR'S ORGANIZ ATION 09/29/2023 Sadiq Fatima [facility] Patient Care team informatio n (unrecognized section and content) Master Ship Relationship Specialty Start Date End Date Isis Lilly MD [address] [facility] [address] [place] [address] Family Medicine 04/30/23 Master Ship Relationship Specialty Start Date End Date Isis Lilly MD [address] [facility] [address] [place] [address] Family Medicine 04/30/23 Immanuel Osorio MD [address] [place] [address] Physician Hematology/Oncology 05/04/23 Edel Christine APRN.RADIO ELECTRICIAN [address] [place] [address] Nurse Practitioner Hematology/Oncology 05/04/23 Isaías Cruz, CHRISTINA [address] [place] [address] [place] [address] Specialty Farm Reporter Hematology/Oncology 05/04/23 Master Ship Relationship Specialty Start Date End Date Isis Lilly MD [address] [facility] [address] [place] [address] PCP - General Family Medicine 05/28/23 Isis Lilly MD [address] [facility] [address] [place] [address] Family Medicine 04/30/23 Immanuel Osorio MD [address] [employer] [facility] [facility] [place] [address] Physician Hematology/Oncology 05/04/23 Edel Christine, SKIRT PANEL ASSEMBLER.RADIO ELECTRICIAN [address] [place] [address] Nurse Practitioner Hematology/Oncology 05/04/23 Isaías Cruz, RN [address] [employer] [facility] [place] [address] Specialty Farm Reporter Hematology/Oncology 05/04/23 Master Ship Relationship Specialty Start Date End Date Isis Lilly MD [address] [place] [address] [place] [address] PCP - General Family Medicine 05/28/23 Isis Lilly MD [address] [place] [address] [place] [address] Family Medicine 04/30/23 Immanuel Osorio MD [address] [place] [address] Physician Hematology/Oncology 05/04/23 Edel Christine, SKIRT PANEL ASSEMBLER.RADIO ELECTRICIAN [address] [place] [address] Nurse Practitioner Hematology/Oncology 05/04/23 Isaías Cruz, RN [address] [place] [address] Specialty Farm Reporter Hematology/Oncology 05/04/23 Master Ship Relationship Specialty Start Date End Date Isis Lilly MD [address] [place] [address] [place] [address] PCP - General Family Medicine 05/28/23 Isis Lilly MD [address] [facility] [place] [address] Family Medicine 04/30/23 Immanuel Osorio MD [address] [place] [address] Physician Hematology/Oncology 05/04/23 Edel Christine, SKIRT PANEL ASSEMBLER.RADIO ELECTRICIAN [address] [place] [address] Nurse Practitioner Hematology/Oncology 05/04/23 Isaías Cruz, CHRISTINA [address] [place] [address] Specialty Farm Reporter Hematology/Oncology 05/04/23 Master Ship Relationship Specialty Start Date End Date Isis Lilly MD [address] [facility] [place] [address] PCP - General Family Medicine 05/28/23 Isis Lilly MD [address] [place] [address] [place] [address] Family Medicine 04/30/23 Immanuel Osorio MD [address] [place] [address] Physician Hematology/Oncology 05/04/23 Edel Christine, SKIRT PANEL ASSEMBLER.RADIO ELECTRICIAN [address] [place] [address] Nurse Practitioner Hematology/Oncology 05/04/23 Isaías Cruz, CHRISTINA [address] [place] [address] Specialty Farm Reporter Hematology/Oncology 05/04/23 Master Ship Relationship Specialty Start Date End Date Isis Lilly MD [address] [place] [address] [place] [address] PCP - General Family Medicine 05/28/23 Isis Lilly MD [address] [facility] [address] [place] [address] Family Medicine 04/30/23 Immanuel Osorio MD [address] [place] [address] Physician Hematology/Oncology 05/04/23 Edel Christine APRN.RADIO ELECTRICIAN [address] [place] [address] Nurse Practitioner Hematology/Oncology 05/04/23 Isaías Cruz, CHRISTINA [address] [place] [address] Specialty Farm Reporter Hematology/Oncology 05/04/23 Master Ship Relationship Specialty Start Date End Date Isis Lilly MD [address] [facility] [address] [place] [address] PCP - General Family Medicine 05/28/23 Isis Lilly MD [address] [place] [address] [place] [address] Family Medicine 04/30/23 Immanuel Osorio MD [address] [place] [address] Physician Hematology/Oncology 05/04/23 Edel Christine APRN.[facility] [address] [place] [address] Nurse Practitioner Hematology/Oncology 05/04/23 Isaías Cruz RN [address] [place] [address] Specialty Farm Reporter Hematology/Oncology 05/04/23 Source Comments (unrecognize d section and content) In the event this informatio n is protected by the Federal Confidentiality of Alcohol and Drug Abuse Patient Records regulations: The Federal rules restrict any use of the information to criminally investigate or prosecute any alcohol or drug abuse patient.[facility] the event this information is protected by the Federal Confidentiality of Alcohol and Drug Abuse Patient Records regulations: The Federal rules restrict any use of the information to criminally investigate or prosecute any alcohol or drug abuse patient.[facility] the event this information is protected by the Federal Confidentiality of Alcohol and Drug Abuse Patient Records regulations: The Federal rules restrict any use of the information to criminally investigate or prosecute any alcohol or drug abuse patient.[facility] the event this information is protected by the Federal Confidentiality of Alcohol and Drug Abuse Patient Records regulations: The Federal rules restrict any use of the information to criminally investigate or prosecute any alcohol or drug abuse patient.[facility] the event this information is protected by the Federal Confidentiality of Alcohol and Drug Abuse Patient Records regulations: The Federal rules restrict any use of the information to criminally investigate or prosecute any alcohol or drug abuse patient.[facility] the event this information is protected by the Federal Confidentiality of Alcohol and Drug Abuse Patient Records regulations: The Federal rules restrict any use of the information to criminally investigate or prosecute any alcohol or drug abuse patient.[facility] the event this information is protected by the Federal Confidentiality of Alcohol and Drug Abuse Patient Records regulations: The Federal rules restrict any use of the information to criminally investigate or prosecute any alcohol or drug abuse patient.[facility] the event this information is protected by the Federal Confidentiality of Alcohol and Drug Abuse Patient Records regulations: The Federal rules restrict any use of the information to criminally investigate or prosecute any alcohol or drug abuse patient.[facility] Reason for Visit (unrecogniz ed section and content) Reason Comments Consult Reason Comments Benefits Investigation Reason Comments Bladder Cancer Reason Comments Care Coordination Treatment Request Reason Comments Treatment Planning Need for BCG orders to be placed Inactive Administered Medications - up to 3 most recent administrations Administered Medications (un recognized section and content) Medication Order MAR Action Action Date Dose Rate Site bcg 50 mg in NaCl 0.9% 50 mL 50 mg, INTRAVESICAL, ONCE, 1 dose, On Thu08/11/23 at 1330, Instill into bladder via catheter and retain for 120 minutes, followed by bladder drainage Hazardous Chemotherapy Drug: Use appropriate PPE. Protect from Light., AMB MED ORDERS Given 08/11/2023 1:27 PM EDT 50 mg lidocaine urojet 2 % 11 mL topical gel (GLYDO) 11 mL, OTHER, ONCE, 1 dose, On Thu08/11/23 at 1330, FOR EXTERNAL USE ONLY Intravesical administration, AMB MED ORDERS Given 08/11/2023 1:14 PM EDT 11 mL Inactive Administered Medications - up to 3 most recent administrations Medication Order MAR Action Action Date Dose Rate Site bcg 50 mg in NaCl 0.9% 50 mL 50 mg, INTRAVESICAL, ONCE, 1 dose, On Thu08/18/23 at 1330, Instill into bladder via catheter and retain for 120 minutes, followed by bladder drainage Hazardous Chemotherapy Drug: Use appropriate PPE. Protect from Light., AMB MED ORDERS Given 08/18/2023 1:35 PM EDT 50 mg lidocaine urojet 2 % 11 mL topical gel (GLYDO) 11 mL, OTHER, ONCE, 1 dose, On 08/18/23 at 1330, FOR EXTERNAL USE ONLY Intravesical administration, AMB MED ORDERS Given 08/18/2023 1:23 PM EDT 11 mL Inactive Administered Medications - up to 3 most recent administrations Medication Order MAR Action Action Date Dose Rate Site bcg 50 mg in NaCl 0.9% 50 mL 50 mg, INTRAVESICAL, ONCE, 1 dose, On Thu08/25/23 at 1330, Instill into bladder via catheter and retain for 120 minutes, followed by bladder drainage Hazardous Chemotherapy Drug: Use appropriate PPE. Protect from Light., AMB MED ORDERS Given 08/25/2023 1:40 PM EDT 50 mg lidocaine urojet 2 % 11 mL topical gel (GLYDO) 11 mL, OTHER, ONCE, 1 dose, On Thu08/25/23 at 1330, FOR EXTERNAL USE ONLY Intravesical administration, AMB MED ORDERS Given 08/25/2023 1:18 PM EDT 11 mL FOR RECORDS PERTAINING TO PATIENTS WHO ARE [...] BE BASED ON THE PRIMARY CLINICAL RECORDS. [facility]. provides no warranty or guarantee of the accuracy or completeness of information in this document.
--- NOTE | 2023-10-01 10:49 | P.GSHP_ITS ---
History of Present Illness History of Present Illness Chief complaint: prostate and bladder tumor Narrative: Patient presents for preadmission testing. The patient states he has a quarterly cystoscopy due to history of bladder cancer. He states he had his last cystoscopy here on September 27 and it was determined that he also had prostate lesions and he is now scheduled for an additional procedure with Dr. Sanders. He states he has had hematuria intermittently which seems to be worse when he does heavy lifting. The patient denies nausea, vomiting, fever, abdominal pain, or any other complaints. Review of Systems ROS Narrative REVIEW OF SYSTEMS: Negative except as stated in HPI, ten or more systems reviewed. Constitutional: No fever , chills, weakness ENT: No sore throat or epistaxis Cardiovascular: No edema, chest pain, palpitations, or activity intolerance Respiratory: No shortness of breath, cough, or wheezing Musculoskeletal: No joint pain or swelling Gastrointestinal: No abdominal pain, constipation, diarrhea, or vomiting Genitourinary: No dysuria Neurological: No numbness, tingling, weakness, or headache Psychiatric: No mood changes. PFSH PFS Medical History (Updated 10/01/23 @ 10:57 by Mary Moreira NP) BPH (benign prostatic hyperplasia) ?N40.0 - Benign prostatic hyperplasia without lower urinary tract symptoms (ICD-10) Prostate tumor ?D49.59 - Neoplasm of unspecified behavior of other genitourinary organ (ICD- 10) Anemia ?D64.9 - Anemia, unspecified (ICD-10) Osteoarthritis ?M19.90 - Unspecified osteoarthritis, unspecified site (ICD-10) High cholesterol ?E78.00 - Pure hypercholesterolemia, unspecified (ICD-10) Bladder mass ?N32.89 - Other specified disorders of bladder (ICD-10) Renal cyst ?N28.1 - Cyst of kidney, acquired (ICD-10) Gross hematuria ?R31.0 - Gross hematuria (ICD-10) Lesion of bladder ?N32.9 - Bladder disorder, unspecified (ICD-10) Bladder tumor ?D49.4 - Neoplasm of unspecified behavior of bladder (ICD-10) Surgical History (Updated 09/29/23 @ 08:52 by Mary Moreira NP) H/O transurethral resection of bladder tumor (TURBT) (07/06/23) ?Z98.890 - Other specified postprocedural states (ICD-10) ?Z86.03 - Personal history of neoplasm of uncertain behavior (ICD-10) H/O cystoscopy (09/28/23) ?Z98.890 - Other specified postprocedural states (ICD-10) H/O cystoscopy ?Z98.890 - Other specified postprocedural states (ICD-10) History of transurethral resection of bladder tumor (TURBT) ?Z98.890 - Other specified postprocedural states (ICD-10) ?Z86.03 - Personal history of neoplasm of uncertain behavior (ICD-10) History of hernia repair ?Z98.890 - Other specified postprocedural states (ICD-10) ?Z87.19 - Personal history of other diseases of the digestive system (ICD-10) History of tonsillectomy ?Z90.89 - Acquired absence of other organs (ICD-10) History of foot surgery ?Z98.890 - Other specified postprocedural states (ICD-10) History of nasal septoplasty ?Z98.890 - Other specified postprocedural states (ICD-10) History of colonoscopy ?Z98.890 - Other specified postprocedural states (ICD-10) History of arthroscopy of shoulder ?Z98.890 - Other specified postprocedural states (ICD-10) History of appendectomy ?Z90.49 - Acquired absence of other specified parts of digestive tract (ICD- 10) History of arthroscopy of knee ?Z98.890 - Other specified postprocedural states (ICD-10) History of arthroscopy of knee ?Z98.890 - Other specified postprocedural states (ICD-10) History of arthroplasty of knee ?Z96.659 - Presence of unspecified artificial knee joint (ICD-10) History of arthroplasty of knee ?Z96.659 - Presence of unspecified artificial knee joint (ICD-10) Family History (Updated 09/17/23 @ 14:08 by Maricel Clark RN) Other Family history of colon cancer Family history of emphysema Heart valve replaced Social History (Updated 09/17/23 @ 14:09 by Maricel Clark RN) Within the past year, how often did you have a drink containing alcohol: never Score interpretation: A score less than 4 is consistent with normal alcohol consumption. Smoking status: Never smoker Non-prescribed substance use: denies use Previous occupational history: retired Highest level of school completed/degree received: high school graduate Meds Home Medications and Allergies Home Medications ?Medication ?Instructions ?Recorded ?Confirmed ?Type pravastatin 40 mg tablet 40 mg PO DAILY 03/16/23 10/01/23 History acetaminophen 325 mg tablet 325 mg PO Q6H PRN pain 07/03/23 10/01/23 History (Tylenol) aspirin 81 mg chewable tablet 81 mg PO DAILY 09/17/23 10/01/23 History omega [id number]-yor-fish oil 1,200 mg 2 cap PO DAILY 09/17/23 10/01/23 History (144 mg-216 mg) capsule (Fish Oil) tramadol 50 mg tablet 50 mg PO Q8H PRN pain 09/17/23 10/01/23 History ferrous sulfate 325 mg (65 mg 325 mg PO DAILY 09/28/23 10/01/23 History iron) tablet (FeroSul) Allergies Allergy/AdvReac Type Severity Reaction Status Date / Time No Known Drug Allergies Allergy Verified 10/01/23 10:19 Exam Narrative Exam Narrative: Constitutional: Awake, alert, comfortable, well-appearing, nontoxic, interactive, vital signs as charted Head: Normocephalic, atraumatic Neck: Supple, normal appearance, normal range of motion, no meningeal signs, no lymphadenopathy Respiratory: No respiratory distress, breath sounds clear Cardiovascular: Regular rate and rhythm, strong and regular heart tones Abdomen: Nontender, normal bowel sounds, soft, no CVA tenderness Musculoskeletal: Normal gait, no swelling or edema Skin: No rashes or induration, no lesions, only visible skin inspected Neuro: No neurological deficits, normal sensation Psychiatric: Oriented ?3, normal affect. Assessment and Plan Assessment and Plan (1) Bladder tumor: (2) Prostate tumor: (3) BPH (benign prostatic hyperplasia): (4) Hematuria: Plan Cystoscopy, TURBT, TURP scheduled with Dr. Sanders October 08, 2023.
[2023-10-01 11:31] LABS: Basophils Absolute Auto 0.1 10^3/uL (0.0-0.1); Basophils Percent Auto 1.1 % (0.2-2.0); Eosinophils Absolute Auto 0.2 10^3/uL (0.0-0.7); Eosinophils Percent Auto 3.4 % (0.9-7.0); Hematocrit 43.3 % (42.0-54.0); Hemoglobin 13.6 g/dL (14.0-18.0); Immature Granulocytes Abs Auto 0.01 10^3/uL (0.00-0.03); Immature Granulocytes Pct Auto 0.2 % (0.0-0.5); Lymphocytes Absolute Auto 1.3 10^3/uL (1.2-3.8); Lymphocytes Percent Auto 29.1 % (20.5-60.0); Mean Corpuscular HGB Conc 31.4 g/dL (29.9-35.2); Mean Corpuscular Hemoglobin 28.7 pg (25.9-34.0); Mean Corpuscular Volume 91.4 fL (80.0-94.0); Mean Platelet Volume 9.9 fL (9.5-13.5); Monocytes Absolute Auto 0.5 10^3/uL (0.3-0.8); Monocytes Percent Auto 11.9 % (1.7-12.0); Neutrophils Absolute Auto 2.4 10^3/uL (1.4-6.5); Neutrophils Percent Auto 54.3 % (43.0-75.0); Platelet Count 261 10^3/uL (150-450); Red Blood Count 4.74 10^6/uL (4.70-6.10); Red Cell Distribution Width 14.2 % (11.0-15.0); White Blood Count 4.4 10^3/uL (4.0-11.0)
[2023-10-01 12:09] LABS: Partial Thromboplastin Time 27.4 sec (22.3-36.2); Prothrombin Time 10.6 sec (9.0-11.6)
[2023-10-01 12:14] LABS: Anion Gap 11.5; BUN Creatinine Ratio 24.1; Calcium 9.3 mg/dL (8.5-10.1); Carbon Dioxide 29.7 mmol/L (21.0-32.0); Chloride 105 mmol/L (98-107); Estimated GFR (African America >60 (>=60); Estimated GFR (Non-African Ame >60 (>=60); Glucose 78 mg/dL (74-106); Potassium 4.2 mmol/L (3.5-5.1); Sodium 142 mmol/L (136-145)
== END 2023-10-01 09:55 | disposition home or self-care (01) ==
LOC: PST 09:54
PROVIDERS: PCP Family Medicine; Visit Provider Urology
DX: Z01.810 Encounter for preprocedural cardiovascular examination (principal); Z01.812 Encounter for preprocedural laboratory examination; Z01.818 Encounter for other preprocedural examination; D49.4 Neoplasm of unspecified behavior of bladder; D49.59 Neoplasm of unspecified behavior of other genitourinary organ
CPT/HCPCS: 36415; 71046; 80048; 84153; 84154; 85025; 85610; 85730; 93005; G0463

== ENCOUNTER 2023-10-08 09:17 | Day surgery (SDC) | payer MEDICARE, OTHER, SELFPAY ==
[2023-10-01 10:42] VITALS: BP 148/98; PULSE 68; TEMP 36.4; O2SAT 97; BMI 34.2
[2023-10-08] VITALS (17 sets, daily range): BP systolic 112–137; BP diastolic 67–86; PULSE 69–86; TEMP 36–36.4; O2SAT 90–97; BMI 34.4
[2023-10-08] MEDS: LACTATED RINGER'S SOLUTION 1,000 ML 50 ML IV ×2 (09:44→14:38)
[2023-10-08] MEDS: CEFAZOLIN SODIUM/DEXTROSE,ISO 1 GM/50 ML IV.SOLN IV ×3 (12:58→23:36)
--- NOTE | 2023-10-08 15:26 | PM.URSON ---
Urology Surgery Operative Note Operative Note Procedure Date: 10/08/23 Time Out Performed: yes Pre-op Diagnosis: Bladder tumors within the prostate; BPH with LUTS Post-op Diagnosis: other (Bladder tumors within the bladder) Procedures performed: 1. Cystoscopy. 2. Transurethral resection of bladder tumors within the prostate 3. Transurethral resection of the prostate. 4. Transurethral resection of bladder tumors within bladder diverticuli Anesthesia: EUGENIOA Primary Surgeon: Blayne Sanders Complications: None Estimated blood loss (mL): 25 Findings: 1. Copious amounts of papillary bladder tumors originating from the prostate and bladder neck. 2. Obstructing prostate in a trilobar fashion. 3. Small papillary tumors within diverticuli of the bladder. Specimens: 1. Bladder tumors Originating in the prostate and prostate tissue sent together. 2. Bladder tumors Drains: 22 [place] three-way coud? 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 Surveillance cystoscopy revealed large bulky papillary TCC appearing tumors obstructing his prostatic urethra. He now presents for a transurethral resection of these tumors originating from the prostate along with a TURP. He has signed an informed consent after risks were explained. Some of these risks include bleeding, infection, anesthesia, retrograde ejaculation, urinary incontinence both temporary and permanent, erectile dysfunction and possible need for further procedures just to name a few. Detailed description of Procedure: The patient was brought to the operating room and placed on the operating room table in the supine position. SCDs were placed on the lower extremities and turned on and functioning during the entire case. Timeout was done by all parties in the room. We all agreed upon the patient's identification and the planned procedures for this patient. Genn. anesthesia was then administered. The patient was then repositioned into the modified dorsal lithotomy position. All pressure points were satisfactorily padded. Genitalia were sterilely prepped and draped in usual fashion.I started by passing a 26 [place] Casper resectoscope per urethra and as I arrived at the Veru I could see the bulky papillary tumors obstructing the channel. I then passed the scope through the prostate and into the bladder. There were bulky tumors throughout the length of the prostate. The ureteral orifices were marked with the loop electrode. I then started to debulk these tumors within the prostate. I then resected posteriorly from the bladder neck to the Veru. I then resected the left lateral lobe from the bladder neck to the Veru and capsular level. The right lateral lobe was resected similarly. The anterior tissue was also resected in a similar manner. Several of the tumors originated from stalk attachments to the anterior tissue. The Ilich evacuator was used several times to get these bladder tumors and prostate chips out of the bladder. They were all sent for permanent sections as 1 pathology specimen labeled bladder tumors or originating from prostate and prostate. The bladder neck was opened up at 5 and 7:00 positions. The apex was then opened up. The resection bed was fully coagulated. Upon completion 1 could see the entire prostatic urethra and bladder neck were now wide open.Previously, they were obstructed from the prostate and the bladder tumors. I then carefully scoped within the bladder. I looked within some of his deep diverticuli and I found some papillary TCC appearing tumors. I then had the anesthesia changed to general endotracheal with paralysis. I then resected within some of these diverticuli so as to remove small tumors. I did not resect the posterior wall of the diverticulum I simply coagulated them. These ticks were on the back wall of the bladder. The Ilich was used to get the tissue out from the bladder. This tissue was sent separately labeled bladder tumors.The resection beds were coagulated fully. Upon completion, there was no evidence of any tumors remaining within the bladder. Some streaky red areas were noted on the mucosal presumedly from BCG effect. At this time the scope was then removed. I then placed a 22 [place] three-way coud? Keating in the bladder. It was manually irrigated with a Judy syringe and then 30 cc of fluid was placed in the balloon. It was taped to traction and CBI was started. It irrigated to clear to pink color. The anesthetic was then reversed. He was then transferred to a [place]ouderton bed and wheeled to PACU in stable condition. Urinary Catheter Management Urinary Catheter Management Urethral: Cath placed during this visit: yes Urethral indwelling: Yes Reason for continuing: surgical procedure Insertion date: 10/08/23
[2023-10-08] MEDS: SOLIFENACIN SUCCINATE 10 MG TABLET PO (15:55)
[2023-10-08] MEDS: 0.9 % SODIUM CHLORIDE 1,000 ML 80 ML IV (16:41)
[2023-10-08] MEDS: SODIUM CHLORIDE IRRIG SOLUTION 3,000 ML 3000 ML IRR ×2 (16:54→19:50)
[2023-10-09] VITALS: BP 104/61; PULSE 67; TEMP 36.6; O2SAT 90
[2023-10-09] MEDS: ACETAMINOPHEN 325 MG TABLET PO (02:55)
[2023-10-09 04:00] VITALS: BP 111/65; PULSE 61; TEMP 36.6; O2SAT 92
[2023-10-09] MEDS: 0.9 % SODIUM CHLORIDE 1,000 ML 80 ML IV (05:04)
--- NOTE | 2023-10-09 05:12 | PC.NURSE ---
traction removed at 0508. pt denies needs at this time. resting in bed with call light in reach.
--- NOTE | 2023-10-09 06:21 | PC.NURSE ---
0558 CBI was discontinued and leg bag placed. Pt up walking the halls with aidgermaine Womack. Pt is now sitting in the chair with call light in reach. Pt denies needs at this time.
[2023-10-09 07:32] VITALS: BP 113/67; PULSE 65; TEMP 36.6; O2SAT 93
[2023-10-09] MEDS: SOLIFENACIN SUCCINATE 10 MG TABLET PO (09:04)
== END 2023-10-09 09:38 | disposition home or self-care (01) ==
LOC: SURGOUT 15:18 → MS 16:01
PROVIDERS: PCP Family Medicine; Visit Provider Urology
PROC: (CPT 52234; principal; 2023-10-08 10:35)
DX: C67.9 Malignant neoplasm of bladder, unspecified (principal); N32.3 Diverticulum of bladder; N40.1 Benign prostatic hyperplasia with lower urinary tract symptoms; Z85.51 Personal history of malignant neoplasm of bladder; Z96.659 Presence of unspecified artificial knee joint; Z90.49 Acquired absence of other specified parts of digestive tract; N42.9 Disorder of prostate, unspecified
CPT/HCPCS: 52234; 52601; 88307; J1094; J2704

== ENCOUNTER 2024-12-22 07:27 | Outpatient (RCR) | payer MEDICARE, OTHER, SELFPAY ==
[2024-12-22 07:43] VITALS: BP 124/78; PULSE 78; TEMP 36.9; O2SAT 98
[2024-12-22] MEDS: LIDOCAINE 2% JELLY 10 ML TOPICAL (07:52)
--- NOTE | 2024-12-22 07:53 | PC.NURSE ---
0752: Using sterile technique, #16Fr. stevens catheter inserted into bladder without difficulty per. CHRISTINA Valle. Immediate return of clear yellow urine noted. Pt. tolerated without c/o.
[2024-12-22] MEDS: GEMCITABINE HCL 2,000 MG in 0.9 % SODIUM CHLORIDE 50 ML 102.6 MG INTRAVESIC (08:20)
--- NOTE | 2024-12-22 08:21 | PC.NURSE ---
0820: 300cc clear yellow urine emptied from bladder. Gemcitabine, 2000mg instilled into bladder via stevens catheter at this time. Instructed pt. to turn side to side and front to back every 15min for 60-90 mins. as tolerated. Pt. relays understanding.
--- NOTE | 2024-12-22 08:25 | PC.NURSE ---
0826: Keating cath removed at this time per pt. request stating he lets medicine dwell in bladder for prescribed time, and then voids medication out.
--- NOTE | 2024-12-22 08:36 | PC.NURSE ---
patient repositioned to left side, patient tolerating well.
--- NOTE | 2024-12-22 09:01 | PC.NURSE ---
1148 repositioned to rt side, patient timming positioning with alarm. tolerating well. offers no complaints
--- NOTE | 2024-12-22 09:14 | PC.NURSE ---
0848 repositioned to rt side. tolerating well. 0902 repostioned to back patient timing repositioning
--- NOTE | 2024-12-22 09:23 | PC.NURSE ---
0915 repostioned to left side
--- NOTE | 2024-12-22 09:32 | PC.NURSE ---
repostioned to back. offers no complaints at this time
--- NOTE | 2024-12-22 09:59 | PC.NURSE ---
0943 repsotioned to abd 1000 ambulates to bathroom, voids qs without difficulty. released ambulatory
== END 2024-12-22 23:59 | disposition home or self-care (01) ==
LOC: INF 07:27
PROVIDERS: PCP Family Medicine; Visit Provider Urology
DX: Z85.51 Personal history of malignant neoplasm of bladder (principal)
CPT/HCPCS: 51720; J9201

== ENCOUNTER 2024-12-27 22:41 | Emergency (ER) | payer MEDICARE, OTHER, SELFPAY ==
--- OUTSIDE RECORDS SUMMARY | 2024-12-14 11:00 | XMS_ITS | Encounter Summary ---
Author Organization [facility] Address [address] [place] [id number] Care Team Providers Care Storeroom Supervisor Name Role Phone Jani Helm MD Unavailable [phone] Immanuel Clark MD Unavailable [phone] Inga Sosa APRN.PLANT WIRE CHIEF Unavailable [phone] Bonita Lemon RN Unavailable [phone] Jani Helm MD Primary Care Provider + [phone] Source Comments In the event this information is protected by the Federal Confidentiality of Alcohol and Drug AbusePatient Records regulations: The Federal rules restrict any use of the information to criminally investigate or prosecute any alcohol or drug abuse patient.[facility] Reason for Visit * Reason Comments Anemia Treatment visit Encounter Details Date Type Department Care Team (Latest Contact Info) Description 12/14/2024 11:00 AM EDT Visit (SP) Office Hematology/Oncology [address] [place] [address] [place] [address] Anushka Vernon APRN.PLANT WIRE CHIEF [address] [place] [address] Iron deficiency anemia due to chronic blood loss (Primary Dx); Malignant neoplasm of overlapping sites of bladder (HCC); Rectal bleeding; Other iron deficiency anemia; Malignant neoplasm of cecum (HCC); Bilateral inguinal hernia without obstruction or gangrene, recurrence not specified; Personal history of malignant neoplasm of bladder; Diverticulosis of colon without hemorrhage Social History Tobacco Use Types Packs/Day Years Used Date Smoking Tobacco: Never Smokeless Tobacco: Never Alcohol Use Standard Drinks/Week Comments Never 0 (1 standard drink = 0.6 oz pur e alcohol) PHQ-2 Answer Date Recorded PHQ-2 score 0 10/01/2023 Area Deprivation Index Answer Date Anthony rded National Score (1-100), lower number is lower ri sk 80 04/30/2023 State Score (1-10), lower number is lower risk 7 04/30/2023 Data from: https://www.neighborhoodatlas.medicine.[facility].edu/. Last address used for calculation [address] 04/30/2023 Sex and Gender Information Value Date Recorded Sex Assigned at Not on file Legal Sex Male 3:20 PM EST Gender Identity Not on file Sexual Orientation Not on file documented as of this encounter Last Filed Vital Signs Vital Sign Reading Time Taken Comments Blood Pressure 128/71 12/14/2024 10:47 AM EDT Pulse 77 12/14/2024 10:47 AM EDT Temperature 36.3 C (97.3 F) 12/14/2024 10:47 AM EDT Respiratory Rate 16 12/14/2024 10:47 AM EDT Oxygen Saturation 96% 12/14/2024 10:47 AM EDT Inhaled Oxygen Concentration - - Weight 111.3 kg (245 lb 6 oz) 12/14/2024 10:47 A M EDT Height 177.5 cm (5' 9.88 ) 12/14/2024 10:47 AM E DT Body Mass Index 35.33 12/14/2024 10:47 AM EDT documented in this encounter Progress Notes * Anushka Vernon APRN.CNP - 12/14/2024 11:00 AM EDT Images from the original note were not included. 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 Given extent of disease, he will need immunotherapy with BCG. Anemia - Appears to be improving with iron replacement. Urethral location of new urothelial tumors noted with most recent cystoscopy - could be because catheter doesn't allow for BCG exposure to prostatic urethral mucosa. 02/16/24: 05/04/24: SUMMARIZED PLAN: 1. Iron deficiency anemia due to chronic blood loss (D50.0) Other iron deficiency anemia (D50.8) Hemoglobin level is stable at 13.6 g/dL today. Recent Monoferric infusion on 10/27. Iron studies from11/22 were low, prompting today's scheduled infusion. - Cancelled today's iron infusion. - Ordered repeat iron studies today to assess current status. - Will consider additional iron infusion based on results. - Will follow up with patient via phone within the next few days to discuss results and next steps. 2. Malignant neoplasm of overlapping sites of bladder (HCC) (C67.8) Patient has a history of bladder cancer, currently in remission. No maintenance BCG therapy due to national shortage. - Patient to follow up with Dr. Sanders to discuss alternative treatment options. - Next cystoscopy scheduled for 01/24. 3. Rectal bleeding (K62.5) Intermittent rectal bleeding, occurring 3-4 times in the past month, likely secondary to malignant neoplasm of cecum. - Monitor frequency and severity of bleeding. - Address underlying cause with upcoming surgical intervention. 4. Malignant neoplasm of cecum (HCC) (C18.0) Diagnosed via colonoscopy at [facility], revealing a 45 mm friable, fungating mass. Pathology confirmed invasive adenocarcinoma. Scheduled for CT and PET scans on 12/21, with surgical consultation on 01/03. - Ensure all medical records and imaging are up-to-date and available for the surgical consultation. - Discuss potential adjuvant therapies post-surgery based on pathology results. 5. Bilateral inguinal hernia without obstruction or gangrene, recurrence not specified (K40.20) Umbilical hernia present for several years, recently increasing in discomfort. Scheduled repair waspostponed due to cecal neoplasm diagnosis. - Prioritize surgical intervention for malignant neoplasm of cecum. - Reassess hernia repair post-oncological treatment. 6. Personal history of malignant neoplasm of bladder (Z85.51) History of bladder cancer, currently in remission. - Continue regular surveillance with cystoscopy. 7. Diverticulosis of colon without hemorrhage (K57.30) Severe diverticulosis noted on colonoscopy, asymptomatic at present. - No specific treatment required at this time. - Monitor for any signs of complications. CASE HISTORY: Reverse Chronological Order 06/03/2024 - Start maintenance BCG weekly x3 03/10/2024-03/24/2024 - Maintenance BCG weekly x3 11/19/2023-12/24/2023 - Induction BCG weekly x6 10/08/2023 - TURBT: A. Prostate tissue, and bladder tumor originating in prostate, TURP: - Benign prostate tissue with patchy nodular glandular and stromal hyperplasia, and the occasionally associated acute and chronic inflammation - Bulky high-grade papillary urothelial carcinoma without obvious stromal invasion (internal investigator) Note: Bulky papillary urothelial carcinoma in part A specimen are often present as small separate tumor clusters in empty spaces between prostate chips. The tumor are only rarely seen to be attached to the surface of rare chips without any distinct invasion os prostate tissue. There are only possible minimal involvement of rare cystitis glandularis glands. There is also no evidence of CIS of the prostate urethra. There are only rare or minor anisonucleosis or nuclear pleomorphism noted, but with occasional small foci of apoptotic tumor degeneration at surface of the various tumor clusters perhigh grade features. B. Urinary bladder, tumor, TURBT: - Focal papillary urothelial neoplasm of low malignant potential (PUNLMP) with mildly associated urothelial dysplasia - Background mild cystitis and glandularis and moderate chronic cystitis as focal nodular lymphoid infiltrations Note: There are patchy moderate cautery degeneration of the part B specimen, limiting its definitive of complete assessment. Occasional muscularis propria muscle are also noted in some fragments otherwise also without tumor involvement. 06/11/2023 - Completion of induction BCG 03/26/2023 - TURBT: - Multiple papillary transitional cell carcinomas on the anterior and back wall and left wall pathology consistent with invasive high-grade urothelial carcinoma with glandular differentiation invasion into lamina propria but not into muscle 03/03/2023 - Cystoscopy: Notable for large blood clot with neoplasm and apparent necrosis on the floor the bladder. Satellite tumors noted adjacent to the mass on the floor of the bladder. 02/25/2023 - CT abdomen pelvis without contrast: Hyperdense mass measuring 4.7 x 3.5 x 2.7 cm in the bladder. Bilateral renal parapelvic cysts. HPI: Updated Visit, December 14, 2024: Patient with a history of bladder cancer and iron deficiency anemia, currently managed with Monoferric infusions, presents with a new diagnosis of colon cancer. On 10/27, patient received a Monoferric iron infusion. Follow-up iron studies on 11/22 showed low levels, prompting a scheduled iron infusion for today, which was deferred pending repeat iron studies. Last Thursday, patient underwent a colonoscopy at [facility] in [place], revealing a 45 mm fungating, invasive mass in the cecum and four polyps. Pathology confirmed invasive adenocarcinoma. Patient reports intermittent rectal bleeding over the past month, occurring 3-4 times, each episode lasting one day and preceded by an upset stomach. Hemoglobin is stable at 13.6 g/dL today, up from 13.4 g/dL last month. Patient is scheduled for a CT and PET scan next Thursday, followed by a surgical consultation on the to discuss resection of the mass. Patient also has a history of bladder cancer, with a cystoscopy scheduled for January 24. Due to a BCG shortage, maintenance therapy is currently on hold. Additionally, patient has a worsening umbilical hernia, with surgery previously scheduled for the but canceled due to the colon cancer diagnosis. Patient reports a 5 lb weight loss attributed to colonoscopy preparations and denies significant symptoms from diverticulitis. Patient is and reports stable emotional well-being. Updated Visit, November 22, 2024: Patient with a history of bladder cancer, diverticulitis, and colonic polyps presents for follow-up. On 11/01, a cystoscopy revealed a stable, pinhead-sized lopez lesion with no changes since the last examination. The patient remains cancer-free, with the next cystoscopy scheduled for 01/24. A few weeks ago, the patient received a Monoferric iron infusion following abnormal iron studies. On 11/08, the patient experienced significant rectal bleeding, prompting a same- day evaluation by their PCP. A colonoscopy is scheduled for 12/29 due to a history of polyps and being overdue for screening by 1 year. The patient has a follow-up appointment with the surgeon on 01/08 to discuss colonoscopy results. The patient also reports an umbilical hernia present for 2 years, which has recently increased in size and become symptomatic. Hernia repair is scheduled for 01/13, contingent on favorable colonoscopy results. The patient is currently undergoing BCG treatments, with the next session planned for 01/09. However, there is a noted shortage of BCG. The patient denies fatigue or shortness of breath and has not experienced significant rectal bleeding since 11/08, with only a minor episode noted on toilet paper. Recent labs show a hemoglobin levelof 13.4 g/dL. Family history is significant for colon cancer in the patient's mother and severe diverticulitis maurice brother. Updated Visit, September 09, 2024: . Drake returns today for a follow-up. Overall he is doing well. His last 2 scopes have been negativefor disease. He will resume weekly maintenance BCG today x 3. His hemoglobin today is 13.1. Iron studies still pending. Patient endorses burning with urination the day of and after BCG installation. Updated Visit, June 03, 2024: Drake returns for a follow up. He is doing well overall. He had a repeat scope last month - no evidence of disease. He is due to resume weekly maintenance BCG today. Hgb is 12.9 today. He endorses taking iron supplements at home. Can consider a colonoscopy in the future. Updated Visit, December 24, 2023: Drake returns today for his final induction BCG treatment. He endorses burning groin pain the day of BCG. He endorses urinating twice as often the few days following each treatment. He is doing well overall though as these symptoms resolve a few days after treatment. His next scope is in about 1 month. Plan to start maintenance BCG in about 2 months. Updated Visit, November 19, 2023: Had TURBT and still has bladder cancer non-invasive in the urethral aspect of the bladder - resected during his recent surgery. Will repeat induction as we suspect he may not have had enough local bcg exposure after leaving the catheter in place. Updated Visit, October 01, 2023: Unfortunately was found to have additional bladder tumors in prostate. No biopsies done and will set him up for TURBT next week. - this one is new since June. Updated Visit, June 18, 2023: Wade returns today with Snehal, doing pretty good. Completed his induction BCG last week. His Hgb has improved but he is still anemic. B12 is lower, which is normal. He has scopes scheduled for next month (07/06). Updated Visit, May 21, 2023: Wade returns today with his Snehal. He denies any problems since starting the BCG. Reviewed his labs, his anemia appears to be improving. We discussed taking his iron supplements with water or something acidic, as opposed to something like milk that will neutralize the acid in his stomach.Discussed surveillance plans once he finishes last BCG, he will need maintenance doses around September and November. Reports he has been dealing with a cough the past few weeks and is planning to discuss withhis PCP, not a productive cough. Taking Robitussin-D and feels he has gotten a little better, Snehal disagrees and thinks he has sounded the same. Initial Visit, April 30, 2023: Wade Camacho presents today accompanied by his Snehal [...] Starting 04/21, he has not had any bleedingand has had the cath removed. Reports exposure to many different chemicals through his work even with extended efforts to maximize efficiency of PPE. He also had significant exposure to asbestos due to taking care of that with work too. We reviewed his labs, he is slightly anemic. This is likely asa result of the bleeding in his urine. 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 REVIEW OF SYSTEMS Per HPI and otherwise negative by full review of organ systems. ECOG PERFORMANCE STATUS: 0 PHYSICAL EXAMINATION: Vitals: BP 128/71 Pulse 77 Temp (Src) 97.3 (Temporal) Resp 16 Ht 5' 9.882 (1.78m) Wt 245lb 6 oz (111.3kg) SpO2 96% BMI 35.33 kg/(m^2). Body surface area is 2.34 meters squared. Exam limited to gross visualization where appropriate. Gen.: This is an age-appropriate patient in no acute distress. Head: Appears atraumatic with no visible lesions. Eyes: Pupils equally round and reactive to light, extraocular muscles are intact. Neck: Supple. Respiratory: Appears to be respiring comfortably. Neurologic: Nonfocal to gross visualization. Alert and oriented ??3. Psychiatric: No evidence of inappropriate anxiety or [...] capsule. LABORATORY VALUES: WBC (k/uL) Date Value 12/14/2024 4.68 RBC (m/uL) Date Value 12/14/2024 5.00 Hemoglobin (g/dL) Date Value 12/14/2024 13.6 Hematocrit (%) Date Value 12/14/2024 42.7 MCV (fL) Date Value 12/14/2024 85.4 MCH (pg) Date Value 12/14/2024 27.2 MCHC (g/dL) Date Value 12/14/2024 31.9 RDW-CV (%) Date Value 12/14/2024 16.2 (H) Platelet Count (k/uL) Date Value 12/14/2024 304 MPV (fL) Date Value 12/14/2024 9.3 Glucose (mg/dL) Date Value 12/14/2024 125 (H) BUN (mg/dL) Date Value 12/14/2024 18 Creatinine (mg/dL) Date Value 12/14/2024 0.81 Sodium (mmol/L) Date Value 12/14/2024 138 Potassium (mmol/L) Date Value 12/14/2024 3.9 Chloride (mmol/L) Date Value 12/14/2024 103 CO2 (mmol/L) Date Value 12/14/2024 28 Protein, Total (g/dL) Date Value 12/14/2024 7.1 Albumin (g/dL) Date Value 12/14/2024 4.0 Calcium, Total (mg/dL) Date Value 12/14/2024 9.1 Alkaline Phosphatase (U/L) Date Value 12/14/2024 89 Bilirubin, Total (mg/dL) Date Value 12/14/2024 0.4 AST (U/L) Date Value 12/14/2024 19 ALT (U/L) Date Value 12/14/2024 21 DIAGNOSIS: (D50.0) Iron deficiency anemia due to chronic blood loss (primary encounter diagnosis) Plan: FERRITIN, IRON AND TIBC (C67.8) Malignant neoplasm of overlapping sites of bladder (HCC) (K62.5) Rectal bleeding (D50.8) Other iron deficiency anemia (C18.0) Malignant neoplasm of cecum (HCC) (K40.20) Bilateral inguinal hernia without obstruction or gangrene, recurrence not specified (Z85.51) Personal history of malignant neoplasm of bladder (K57.30) Diverticulosis of colon without hemorrhage PAST MEDICAL HISTORY Diagnosis Date Adenocarcinoma of cecum (HCC) 11/2024 Bladder cancer (HCC) Iron deficiency anemia Renal cyst PAST SURGICAL HISTORY Procedure Laterality Date COLONOSCOPY COLONSCOPY SCREENING HIGH RISK 11/2024 HERNIA REPAIR HX TONSILLECTOMY HX TOTAL KNEE REPLACEMENT Bilateral 7 knee surgeries Social History Tobacco Use Smoking status: Never Smokeless tobacco: Never Vaping Use Vaping status: Never Used Substance Use Topics Alcohol use: Never Drug use: Never FAMILY HISTORY Problem Relation Age of Onset Colon Cancer Mother Heart disease Mother Hypertension Mother Emphysema Father Alcohol abuse Maternal Grandmother I spent a total of 30 minutes on the date of the service which included preparing to see the patient, [id number] patient care, completing clinical documentation, performing a medically appropriate examination, counseling and educating the patient/family/caregiver, ordering medications, tests, or p rocedures, independently interpreting results (not separately reported), communicating results to the patient/family/caregiver, and care coordination (not separately reported). . Anushka Vernon APRN, PASTER SUPERVISOR-C, OCN Hematology and Oncology Services Provided at: [facility], [place], [place] CC: Blayne Sanders [phone] [facility] [address] No primary care provider on file. 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 Given extent of disease, he will need immunotherapy with BCG. Anemia - Appears to be improving with iron replacement. Urethral location of new urothelial tumors noted with most recent cystoscopy - could be because catheter doesn't allow for BCG exposure to prostatic urethral mucosa. 02/16/24: 05/04/24: PLAN: Proceed maintenance BCG weekly x 3 Please instill and withdraw catheter Allowing patient to move and position and void on his own Next cytoscope is scheduled in October,. RTC in 3 months to continue maintenance BCG weekly x 3 Labs same day, including iron studies HPI: CASE HISTORY: Reverse Chronological Order 06/03/2024 - Start maintenance BCG weekly x3 03/10/2024-03/24/2024 - Maintenance BCG weekly x3 11/19/2023-12/24/2023 - Induction BCG weekly x6 10/08/2023 - TURBT: A. Prostate tissue, and bladder tumor originating in prostate, TURP: - Benign prostate tissue with patchy nodular glandular and stromal hyperplasia, and the occasionally associated acute and chronic inflammation - Bulky high-grade papillary urothelial carcinoma without obvious stromal invasion (internal investigator) Note: Bulky papillary urothelial carcinoma in part A specimen are often present as small separate tumor clusters in empty spaces between prostate chips. The tumor are only rarely seen to be attached to the surface of rare chips without any distinct invasion os prostate tissue. There are only possible minimal involvement of rare cystitis glandularis glands. There is also no evidence of CIS of the prostate urethra. There are only rare or minor anisonucleosis or nuclear pleomorphism noted, but with occasional small foci of apoptotic tumor degeneration at surface of the various tumor clusters perhigh grade features. B. Urinary bladder, tumor, TURBT: - Focal papillary urothelial neoplasm of low malignant potential (PUNLMP) with mildly associated urothelial dysplasia - Background mild cystitis and glandularis and moderate chronic cystitis as focal nodular lymphoid infiltrations Note: There are patchy moderate cautery degeneration of the part B specimen, limiting its definitive of complete assessment. Occasional muscularis propria muscle are also noted in some fragments otherwise also without tumor involvement. 06/11/2023 - Completion of induction BCG 03/26/2023 - TURBT: - Multiple papillary transitional cell carcinomas on the anterior and back wall and left wall pathology consistent with invasive high-grade urothelial carcinoma with glandular differentiation invasion into lamina propria but not into muscle 03/03/2023 - Cystoscopy: Notable for large blood clot with neoplasm and apparent necrosis on the floor the bladder. Satellite tumors noted adjacent to the mass on the floor of the bladder. 02/25/2023 - CT abdomen pelvis without contrast: Hyperdense mass measuring 4.7 x 3.5 x 2.7 cm in the bladder. Bilateral renal parapelvic cysts. Updated Visit, September 09, 2024: . Drake returns today for a follow-up. Overall he is doing well. His last 2 scopes have been negativefor disease. He will resume weekly maintenance BCG today x 3. His hemoglobin today is 13.1. Iron studies still pending. Patient endorses burning with urination the day of and after BCG installation. Updated Visit, June 03, 2024: Drake returns for a follow up. He is doing well overall. He had a repeat scope last month - no evidence of disease. He is due to resume weekly maintenance BCG today. Hgb is 12.9 today. He endorses taking iron supplements at home. Can consider a colonoscopy in the future. Updated Visit, December 24, 2023: Drake returns today for his final induction BCG treatment. He endorses burning groin pain the day of BCG. He endorses urinating twice as often the few days following each treatment. He is doing well overall though as these symptoms resolve a few days after treatment. His next scope is in about 1 month. Plan to start maintenance BCG in about 2 months. Updated Visit, November 19, 2023: Had TURBT and still has bladder cancer non-invasive in the urethral aspect of the bladder - resected during his recent surgery. Will repeat induction as we suspect he may not have had enough local bcg exposure after leaving the catheter in place. Updated Visit, October 01, 2023: Unfortunately was found to have additional bladder tumors in prostate. No biopsies done and will set him up for TURBT next week. - this one is new since June. Updated Visit, June 18, 2023: Wade returns today with Snehal, doing pretty good. Completed his induction BCG last week. His Hgb has improved but he is still anemic. B12 is lower, which is normal. He has scopes scheduled for next month (07/06). Updated Visit, May 21, 2023: Wade returns today with his Snehal. He denies any problems since starting the BCG. Reviewed his labs, his anemia appears to be improving. We discussed taking his iron supplements with water or something acidic, as opposed to something like milk that will neutralize the acid in his stomach.Discussed surveillance plans once he finishes last BCG, he will need maintenance doses around September and November. Reports he has been dealing with a cough the past few weeks and is planning to discuss withhis PCP, not a productive cough. Taking Robitussin-D and feels he has gotten a little better, Snehal disagrees and thinks he has sounded the same. Initial Visit, April 30, 2023: Wade Camacho presents today accompanied by his Snehal [...] Starting 04/21, he has not had any bleedingand has had the cath removed. Reports exposure to many different chemicals through his work even with extended efforts to maximize efficiency of PPE. He also had significant exposure to asbestos due to taking care of that with work too. We reviewed his labs, he is slightly anemic. This is likely asa result of the bleeding in his urine. 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 REVIEW OF SYSTEMS Per HPI and otherwise negative by full review of organ systems. ECOG PERFORMANCE STATUS: 0 PHYSICAL EXAMINATION: Vitals: BP 128/71 Pulse 77 Temp (Src) 97.3 (Temporal) Resp 16 Ht 5' 9.882 (1.78m) Wt 245lb 6 oz (111.3kg) SpO2 96% BMI 35.33 kg/(m^2). Body surface area is 2.34 meters squared. Exam limited to gross visualization where appropriate. Gen.: This is an age-appropriate patient in no acute distress. Head: Appears atraumatic with no visible lesions. Eyes: Pupils equally round and reactive to light, extraocular muscles are intact. Neck: Supple. Respiratory: Appears to be respiring comfortably. Neurologic: Nonfocal to gross visualization. Alert and oriented ??3. Psychiatric: No evidence of inappropriate anxiety or [...] capsule. LABORATORY VALUES: WBC (k/uL) Date Value 12/14/2024 4.68 RBC (m/uL) Date Value 12/14/2024 5.00 Hemoglobin (g/dL) Date Value 12/14/2024 13.6 Hematocrit (%) Date Value 12/14/2024 42.7 MCV (fL) Date Value 12/14/2024 85.4 MCH (pg) Date Value 12/14/2024 27.2 MCHC (g/dL) Date Value 12/14/2024 31.9 RDW-CV (%) Date Value 12/14/2024 16.2 (H) Platelet Count (k/uL) Date Value 12/14/2024 304 MPV (fL) Date Value 12/14/2024 9.3 Glucose (mg/dL) Date Value 12/14/2024 125 (H) BUN (mg/dL) Date Value 12/14/2024 18 Creatinine (mg/dL) Date Value 12/14/2024 0.81 Sodium (mmol/L) Date Value 12/14/2024 138 Potassium (mmol/L) Date Value 12/14/2024 3.9 Chloride (mmol/L) Date Value 12/14/2024 103 CO2 (mmol/L) Date Value 12/14/2024 28 Protein, Total (g/dL) Date Value 12/14/2024 7.1 Albumin (g/dL) Date Value 12/14/2024 4.0 Calcium, Total (mg/dL) Date Value 12/14/2024 9.1 Alkaline Phosphatase (U/L) Date Value 12/14/2024 89 Bilirubin, Total (mg/dL) Date Value 12/14/2024 0.4 AST (U/L) Date Value 12/14/2024 19 ALT (U/L) Date Value 12/14/2024 21 DIAGNOSIS: (D50.0) Iron deficiency anemia due to chronic blood loss (primary encounter diagnosis) Plan: FERRITIN, IRON AND TIBC (C67.8) Malignant neoplasm of overlapping sites of bladder (HCC) (K62.5) Rectal bleeding (D50.8) Other iron deficiency anemia (C18.0) Malignant neoplasm of cecum (HCC) (K40.20) Bilateral inguinal hernia without obstruction or gangrene, recurrence not specified (Z85.51) Personal history of malignant neoplasm of bladder (K57.30) Diverticulosis of colon without hemorrhage PAST MEDICAL HISTORY Diagnosis Date Adenocarcinoma of cecum (HCC) 11/2024 Bladder cancer (HCC) Iron deficiency anemia Renal cyst PAST SURGICAL HISTORY Procedure Laterality Date COLONOSCOPY COLONSCOPY SCREENING HIGH RISK 11/2024 HERNIA REPAIR HX TONSILLECTOMY HX TOTAL KNEE REPLACEMENT Bilateral 7 knee surgeries Social History Tobacco Use Smoking status: Never Smokeless tobacco: Never Vaping Use Vaping status: Never Used Substance Use Topics Alcohol use: Never Drug use: Never FAMILY HISTORY Problem Relation Age of Onset Colon Cancer Mother Heart disease Mother Hypertension Mother Emphysema Father Alcohol abuse Maternal Grandmother I spent a total of 30 minutes on the date of the service which included preparing to see the patient, [id number] patient care, completing clinical documentation, performing a medically appropriate examination, counseling and educating the patient/family/caregiver, ordering medications, tests, or p rocedures, independently interpreting results (not separately reported), communicating results to the patient/family/caregiver, and care coordination (not separately reported). . Anushka Vernon APRN, PASTER SUPERVISOR-C, [facility] Provided at: [place], [place] CC: Blayne Sanders [address] [facility] [id number] No primary care provider on file. No primary provider on file. documented in this encounter Plan of Treatment Scheduled Orders Name Type Priority Associated Diagnoses Orde r Schedule FERRITIN Lab Routine Iron deficiency anemia due to chronic blood loss Expected: 12/14/2024, Expires: 03/15/2025 IRON AND TIBC Lab Routine Iron deficiency anemia due to chronic blood loss Expected: 12/14/2024, Expires: 03/15/2025 documented as of this encounter Visit Diagnoses Diagnosis Iron deficiency anemia due to chronic blood loss- Primary Iron deficiency anemia secondary to blood loss (chronic) Malignant neoplasm of overlapping sites of bladder (HCC) Malignant neoplasm of other specified sites of bladder Rectal bleeding Hemorrhage of rectum and anus Other iron deficiency anemia Malignant neoplasm of cecum (HCC) Malignant neoplasm of cecum Bilateral inguinal hernia without obstruction or gangrene, recurrence not specified Personal history of malignant neoplasm of bladder Diverticulosis of colon without hemorrhage Diverticulosis of colon (without mention of hemorrhage) documented in this encounter Care Teams Storeroom Supervisor Relationship Specialty Start Date End Date Jani Helm MD [address] [facility] [address] [place] [address] PCP - General Family Medicine 05/28/23 Jani Helm MD [address] [facility] [address] [place] [address] Family Medicine 04/30/23 Immaneul Clark MD [address] [place] [address] Physician Hematology/Oncology 05/04/23 Inga Sosa APRN.PLANT WIRE CHIEF [address] [facility] [place] [address] Nurse Practitioner Hematology/Oncology 05/04/23 Bonita Lemon, RN [address] [place] [address] [place] [address] Specialty Lace Winder Hematology/Oncology 05/04/23 documented as of this encounter
--- OUTSIDE RECORDS SUMMARY | 2024-12-20 23:59 | XMS_ITS | Continuity of Care Document ---
Author Organization [facility] Address 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 Name Role Phone MAXX, ISIS Stoddard Primary Care Physician Encounter FT_AMBFIN [id number] Date(s): 12/20/24 - 12/20/24 [facility] [address] [place] [address] [place] [address]- [place] Encounter Diagnosis Personal history of bladder cancer(Discharge Diagnosis) - 12/20/24 Discharge Disposition: Home (Routine DC) Attending Physician: Blayne MEJIAS MD Encounter Type: Clinic Allergies, Adverse Reactions, Alerts No Known Allergies Assessment and Plan Future Appointments Appointment Date:12/27/2024 09:00:00 AM Scheduled Provider: Location:[facility] Appointment Type:URO Nurse Visit Appointment Date:01/20/2025 09:00:00 AM Scheduled Provider: Location:[facility] Appointment Type:Urology CALL PAT FT Appointment Date:01/24/2025 08:00:00 AM Scheduled Provider: Location:[facility] Appointment Type:Urology FT Immunizations Given and Recorded Vaccine Date Status Refusal Reason influenza virus vaccine, inactivated 02/22/24 Anthony rded influenza virus vaccine, inactivated 02/25/23 Anthony rded influenza virus vaccine, inactivated 03/28/21 Anthony rded influenza virus vaccine, inactivated 03/22/20 Anthony rded influenza virus vaccine, inactivated 03/23/19 Anthony rded influenza virus vaccine, inactivated 02/27/18 Anthony rded influenza virus vaccine, inactivated 02/16/17 Anthony rded influenza virus vaccine, inactivated 02/28/15 Anthony rded influenza virus vaccine, inactivated 03/27/14 Anthony rded influenza virus vaccine, inactivated 03/14/13 Anthony rded pneumococcal 23-valent vaccine 03/28/21 Recorded SARS-CoV-2 (COVID-19) mRNA BNT-162b2 vax 1 08/17/20 Given SARS-CoV-2 (COVID-19) mRNA BNT-162b2 vax 2 07/27/20 Given pneumococcal 13-valent vaccine 04/05/20 Recorded 1Reason for Medication: Prophylaxis 2Reason for Medication: Prophylaxis Medications aspirin Refills(s) 0 Start Date: 03/02/23 Status: Ordered Repeat number: 1 Cipro 500 mg Tab 500 mg = 1 tab(s), Oral, Daily, Take 1 tablet the day before the procedure and 1 tablet after the procedure, every 3 months, # 8 tab(s), Refills(s) 0, Pharmacy: [facility]/pharmacy #[id number], 180, cm, 05/04/24 7:55:00 EST, Height/Length Dosing, 109.3, kg, 05/04/24 7:55:00 EST, Weight Dosing Start Date: 05/04/24 Status: Ordered Quantity: 8.0 Unit: tab(s) Repeat number: 1 ferrous fumarate 325 mg oral tablet 325 mg = 1 tab(s), Oral, Daily, # 30 tab(s), Refills(s) 0 Start Date: 02/29/24 Status: Ordered Quantity: 30.0 Unit: tab(s) Repeat number: 1 Fish Oil 1200 mg oral capsule 1,200 mg = 1 cap(s), Oral, BID, Refills(s) 0 Start Date: 10/23/15 Status: Ordered Repeat number: 1 pravastatin 40 mg Tab Refills(s) 0 Start Date: 03/02/23 Status: Ordered Repeat number: 1 Problem List Condition Confirmation Course Effective Dates Status Health Status Informant BPH with urinary obstruction Confirmed Active Bilateral renal cysts Confirmed Active Personal history of bladder cancer Confirmed Active Hypercholesteremia Confirmed Active High triglycerides Confirmed Active Bladder cancer Confirmed Active Bladder mass Confirmed Resolved Osteoarthritis Confirmed Active Medial meniscus tear 1 Confirmed Active 1left knee Procedures Procedure Date Related Diagnosis Body Site Status Flexible cystoscopy 05/04/24 Compl eted TURBT - Transurethral resect ion of bladder tumor 10/08/23 Completed TURP - Transurethral resecti on of prostate 10/08/23 Completed TURBT - Transurethral resect ion of bladder tumor 03/26/23 Completed Total knee replacement 07/08/21 Co mpleted Arthroscopic knee operation 1 11/02/15 Completed Appendix Completed Arthroscopy of knee x6 Co mpleted Bilateral bone spurs of righ t shoulders Completed Colonoscopy Completed FESS - Functional endoscopic sinus surgery x3 2 Completed inguinal hernia repair Co mpleted Knee arthroplasty 3 Compl eted multiple surgeries right knee Completed Plantar fasciitis foot Co mpleted Plantar fasciotomy 4 Comp leted Tonsillectomy Completed 1left 2x2 3right 4left Social History Social History Type Response Smoking Status Never entered on: 05/04/24 Sex Male Sex Representation Male (finding) Implantable Device List Procedure Provider Procedure Date Device Type Site KNEE TOTAL ARTHROPLASTY Jalen Taylor DO 07/08/21 No n Biological Knee L Device Identifier Serial Number Lot or Batch Number Manufacturing Date Expiration Date Distinct Identification Code MRI Safety Implantable Status Assigning Authority [id number] Unknown [id number] Unknown 11/21/22 Unknown Unknown Active GS1 Unknown Unknown [id number] Unknown 04/23/26 Unknown Unknown Active Unknown Unknown Unknown [id number] Unknown 10/22/30 Unknown Unknown Active Unk nown Unknown Unknown [id number] Unknown 10/22/25 Unknown Unknown Active Unk nown Unknown Unknown [id number] Unknown 08/22/30 Unknown Unknown Active Unknown Patient Care team information Care Team Personnel Name: ISIS LILLY MD Position: FT Physician Member Role: Primary Care Physician [address]: [address] [place] [address]- Telecom: Name: Meseret Voss Member Role: [employer]: 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) Care Team Related Persons Name: JOSH THOMAS Name: JOSH THOMAS Name: JOSH THOMAS Name: JOSH THOMAS Insurance Providers Guarantor name: JC THOMAS Health Plan Information #: 1 Payer: Payer Identifier: [id number] Member Number: [id number] Group Number: Subscriber Identifier: [id number] Relationship to Subscriber: Self Coverage Type: MEDICARE Coverage Verification Date: 24 Telecom: DARREN Address: [facility] Plan Information #: 2 Payer: Payer Identifier: [id number] Member Number: [id number] Group Number: [id number] Subscriber Identifier: [id number] Relationship to Subscriber: Self Coverage Type: PRIVATE HEALTH INSURANCE Coverage Verification Date: 24 Telecom: DARREN Address:
--- OUTSIDE RECORDS SUMMARY | 2024-12-21 10:23 | XMS_ITS | Encounter Summary ---
Author Organization [facility] Address [address] [place] [address] Phone Care Team Providers Care Signal Fitter Name Role Phone Chintan Reyes DO Unavailable [phone] Jani Helm MD Primary Care Provider [phone] Reason for Referral * Imaging (Routine) - Authorized Specialty Diagnoses / Procedures Referred By Contac t Referred To Contact Radiology Diagnoses Adenocarcinoma of cecum (Multi) Procedures CT chest abdomen pelvis w IV contrast CT abdomen pelvis w IV contrast Marisela Arreola MD [address] [address] Phone: tel: fax: Referral ID Status Reason Start Date Expiration Date Visits Requested Visits Authorized [id number] Authorized Perform Procedure 12/12/2024 12/12/2025 1 1 Reason for Visit * Imaging (Routine) - Authorized Specialty Diagnoses / Procedures Referred By Contac t Referred To Contact Radiology Diagnoses Adenocarcinoma of cecum (Multi) Procedures CT chest abdomen pelvis w IV contrast CT abdomen pelvis w IV contrast Marisela Arreola MD [address] [place] [address] Phone: tel: fax: Referral ID Status Reason Start Date Expiration Date Visits Requested Visits Authorized [id number] Authorized Perform Procedure 12/12/2024 12/12/2025 1 1 Encounter Details Date Type Department Care Team (Latest Contact Info) Description 12/21/2024 10:23 AM EDT - 12/21/2024 11:59 PM EDT Hospital [place] [facility] [place] [address] [place] [address] Adenocarcinoma of cecum (Multi) Discharge Disposition: Home Social History Tobacco Use Types Packs/Day Years Used Date Smoking Tobacco: Never Smokeless Tobacco: Never Alcohol Use Standard Drinks/Week Comments Never 0 (1 standard drink = 0.6 oz pur e alcohol) Sex and Gender Information Value Date Recorded Sex Assigned at Not on file Legal Sex Male 5:46 AM EST Gender Identity Not on file Sexual Orientation Not on file documented as of this encounter Medications at Time of Discharge naproxen sodium (Aleve) 220 mg tablet Take 1 tablet (220 mg) by mouth every 12 hours if needed. With food or milk omega 4-adw-qgn-fish oil (Fish OiL) 1,200 (144-216) mg capsule Take 1 capsule (1,200 mg) by mouth once daily. pravastatin (Pravachol) 40 mg tablet Take 1 tablet (40 mg) by mouth once daily at bedtime. documented as of this encounter Plan of Treatment Upcoming Encounters Date Type Department Care Team (Late st Contact Info) Description 01/02/2025 [place] [address] [place] [address] [place] [address] Department of Surgery-Colorectal [place], [place] [id number] Scheduled Procedures Name Priority Associated Diagnoses Date/Ti me COLECTOMY, LAPAROSCOPIC Malignant neoplasm of colon, unspecified part of colon (Multi) documented as of this encounter Procedures Procedure Name Priority Date/Time Associated Diagnosis Comments CT CHEST ABDOMEN PELVIS W IV CONTRAST Routine 12/21/2024 11:35 AM EDT Adenocarcinoma of cecum (Multi) documented in this encounter Results * CT chest abdomen pelvis w IV contrast (12/21/2024 11:35 AM EDT) Anatomical Region Laterality Modality Abdominal, Body Computed Tomogra phy 12/23/2024 9:03 PM EDT 12/23/2024 9:03 PM EDT Impressions 12/23/2024 9:01 PM EDT 1. Soft tissue mass within the cecum likely corresponding to patient's biopsy-proven adenocarcinoma. There are numerous enlarged pericecal lymph nodes, concerning for lymph node metastases. 2. There is a mixed sclerotic/lytic lesion within the right symphysis pubis, which is nonspecific and in the absence of additional osseous lesions and no evidence of osseous cortical breakthrough is favored to represent a benign etiology such as sequela of prior insufficiency fracture versus osteitis pubis. Recommend comparison with prior imaging if available. In addition bilateral SI joint suggestive of underlying sacroiliitis 3. No evidence of additional metastatic disease in the chest, abdomen or pelvis. 4. There is a small bowel containing ventral hernia with associated mesenteric fat stranding. However, no evidence of bowel obstruction on the current exam. 5. Indeterminate right adrenal nodule which was also reported on the outside CT abdomen and pelvis on 02/25/2023. 6. Hepatic steatosis. Recommend correlation with LFTs. 7. Cholelithiasis without evidence of acute cholecystitis I personally reviewed the images/study and I agree with the findings as stated by resident physician Dr. Arpan Brooks . This study was interpreted at [place], [place]. MACRO: None Signed by: Edgar Maciel 12/23/2024 9:01 PM Dictation workstation: [id number] Narrative 12/23/2024 9:01 PM EDT Interpreted By: Edgar Maciel and Afshari Mirak Sohrab STUDY: CT CHEST ABDOMEN PELVIS W IV CONTRAST; 12/21/2024 11:35 am INDICATION: Signs/Symptoms:cecal adenocarcinoma. Staging. 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 COMPARISON: Outside CT abdomen and pelvis report from 02/25/2023. ACCESSION NUMBER(S): [id number] ORDERING CLINICIAN: MARISELA ARREOLA TECHNIQUE: Contiguous axial images of the chest, abdomen, and pelvis were obtained after the intravenous administration of 75 mL Omnipaque 350 contrast. Coronal and sagittal reformatted images were reconstructed from the axial data. FINDINGS: CT CHEST: MEDIASTINUM AND LYMPH NODES: Thyroid gland is unremarkable. No enlarged intrathoracic or axillary lymph nodes. Esophagus is unremarkable. VESSELS: Normal caliber aorta without dissection. Mild aortic atherosclerosis. HEART: Normal size. Moderate coronary artery calcifications. No significant pericardial effusion. LUNG, AIRWAYS, PLEURA: No consolidation, pulmonary edema, pleural effusion or pneumothorax. CHEST WALL SOFT TISSUES: No discernible abnormality. OSSEOUS STRUCTURES: No acute osseous abnormality. CT ABDOMEN/PELVIS: ABDOMINAL WALL: There is a small ventral hernia containing a segment of the small bowel without evidence of obstruction. There is fat stranding within the bowel mesentery. Otherwise, abdominal wall is unremarkable. LIVER: Liver measures 19 cm craniocaudally. There is diffuse hypoattenuation of the liver representing hepatic steatosis. No focal lesions. BILE DUCTS: No significant intrahepatic or extrahepatic dilatation. GALLBLADDER: Gallbladder contains multiple stones. No gallbladder distention, wall thickening or pericholecystic fluid collection. PANCREAS: No significant abnormality. SPLEEN: No significant abnormality. ADRENALS: There is a nodule in the right adrenal gland measuring 1.2 cm (series 2, image 74) left adrenal gland is unremarkable. KIDNEYS, URETERS, BLADDER: There are multiple bilateral peripelvic cysts. No nephrolithiasis or hydronephrosis. Bladder is unremarkable. REPRODUCTIVE ORGANS: No significant abnormality. VESSELS: No significant abnormality. RETROPERITONEUM/LYMPH NODES: Multiple enlarged pericecal lymph nodes such as measuring 2.4 x 2.3 cm (series 2, image 113), 0.2 x 1 cm (series 2, image 111), 2.4 x 1.5 cm (series 2, image 107) and 1.3 x 1.1 cm (series 2, image 118). Additional nonspecific prominent retroperitoneal and mesenteric lymph nodes such as a peripancreatic lymph node measuring 0.6 cm (series 2, image 75) are also present. BOWEL/MESENTERY/PERITONEUM: There is a small sliding hiatal hernia. Otherwise, stomach is unremarkable. There is soft tissue density within the cecum measuring 4.4 x 4.4 cm, likely corresponding to patient's recently biopsied neoplasm. There are few prominent mesenteric lymph nodes such as series 2, image 98 measuring 0.7 cm. There is colonic diverticulosis without evidence of acute diverticulitis. Appendix is not well visualized. No ascites, free air, or fluid collection. MUSCULOSKELETAL: No acute osseous abnormality. There is a mixed lytic/sclerotic observation within the right pubic symphysis measuring approximately 3.1 x 2.1 cm (series 2, image 166). There are sclerotic changes in bilateral sacroiliac joints as seen on series 2, image 137, likely represent some degree of sacroiliitis. Procedure Note Edgar Maciel MD - 12/23/2024 Interpreted By: Edgar Maciel, and Dennis Brooks Arpan STUDY: CT CHEST ABDOMEN PELVIS W IV CONTRAST; 12/21/2024 11:35 am INDICATION: Signs/Symptoms:cecal adenocarcinoma. Staging. 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 COMPARISON: Outside CT abdomen and pelvis report from 02/25/2023. ACCESSION NUMBER(S): [id number] ORDERING CLINICIAN: MARISELA ARREOLA TECHNIQUE: Contiguous axial images of the chest, abdomen, and pelvis were obtained after the intravenous administration of 75 mL Omnipaque 350 contrast. Coronal and sagittal reformatted images were reconstructed from the axial data. FINDINGS: CT CHEST: MEDIASTINUM AND LYMPH NODES: Thyroid gland is unremarkable. No enlarged intrathoracic or axillary lymph nodes. Esophagus is unremarkable. VESSELS: Normal caliber aorta without dissection. Mild aortic atherosclerosis. HEART: Normal size. Moderate coronary artery calcifications. No significant pericardial effusion. LUNG, AIRWAYS, PLEURA: No consolidation, pulmonary edema, pleural effusion or pneumothorax. CHEST WALL SOFT TISSUES: No discernible abnormality. OSSEOUS STRUCTURES: No acute osseous abnormality. CT ABDOMEN/PELVIS: ABDOMINAL WALL: There is a small ventral hernia containing a segment of the small bowel without evidence of obstruction. There is fat stranding within the bowel mesentery. Otherwise, abdominal wall is unremarkable. LIVER: Liver measures 19 cm craniocaudally. There is diffuse hypoattenuation of the liver representing hepatic steatosis. No focal lesions. BILE DUCTS: No significant intrahepatic or extrahepatic dilatation. GALLBLADDER: Gallbladder contains multiple stones. No gallbladder distention, wall thickening or pericholecystic fluid collection. PANCREAS: No significant abnormality. SPLEEN: No significant abnormality. ADRENALS: There is a nodule in the right adrenal gland measuring 1.2 cm (series 2, image 74) left adrenal gland is unremarkable. KIDNEYS, URETERS, BLADDER: There are multiple bilateral peripelvic cysts. No nephrolithiasis or hydronephrosis. Bladder is unremarkable. REPRODUCTIVE ORGANS: No significant abnormality. VESSELS: No significant abnormality. RETROPERITONEUM/LYMPH NODES: Multiple enlarged pericecal lymph nodes such as measuring 2.4 x 2.3 cm (series 2, image 113), 0.2 x 1 cm (series 2, image 111), 2.4 x 1.5 cm (series 2, image 107) and 1.3 x 1.1 cm (series 2, image 118). Additional nonspecific prominent retroperitoneal and mesenteric lymph nodes such as a peripancreatic lymph node measuring 0.6 cm (series 2, image 75) are also present. BOWEL/MESENTERY/PERITONEUM: There is a small sliding hiatal hernia. Otherwise, stomach is unremarkable. There is soft tissue density within the cecum measuring 4.4 x 4.4 cm, likely corresponding to patient's recently biopsied neoplasm. There are few prominent mesenteric lymph nodes such as series 2, image 98 measuring 0.7 cm. There is colonic diverticulosis without evidence of acute diverticulitis. Appendix is not well visualized. No ascites, free air, or fluid collection. MUSCULOSKELETAL: No acute osseous abnormality. There is a mixed lytic/sclerotic observation within the right pubic symphysis measuring approximately 3.1 x 2.1 cm (series 2, image 166). There are sclerotic changes in bilateral sacroiliac joints as seen on series 2, image 137, likely represent some degree of sacroiliitis. IMPRESSION: 1. Soft tissue mass within the cecum likely corresponding to patient's biopsy-proven adenocarcinoma. There are numerous enlarged pericecal lymph nodes, concerning for lymph node metastases. 2. There is a mixed sclerotic/lytic lesion within the right symphysis pubis, which is nonspecific and in the absence of additional osseous lesions and no evidence of osseous cortical breakthrough is favored to represent a benign etiology such as sequela of prior insufficiency fracture versus osteitis pubis. Recommend comparison with prior imaging if available. In addition bilateral SI joint suggestive of underlying sacroiliitis 3. No evidence of additional metastatic disease in the chest, abdomen or pelvis. 4. There is a small bowel containing ventral hernia with associated mesenteric fat stranding. However, no evidence of bowel obstruction on the current exam. 5. Indeterminate right adrenal nodule which was also reported on the outside CT abdomen and pelvis on 02/25/2023. 6. Hepatic steatosis. Recommend correlation with LFTs. 7. Cholelithiasis without evidence of acute cholecystitis I personally reviewed the images/study and I agree with the findings as stated by resident physician Dr. Arpan Brooks . This study was interpreted at [facility], [place], [place]. MACRO: None Signed by: Edgar Maciel 12/23/2024 9:01 PM Dictation workstation: [id number] Marisela Arreola MD IMG CT PROCEDURES Final Result documented in this encounter Visit Diagnoses Diagnosis Adenocarcinoma of cecum (Multi) documented in this encounter Administered Medications Inactive Administered Medications - up to 3 most recent administrations Medication Order MAR Action Action Date Dose Rate Site iohexol (OMNIPaque) 350 mg iodine/mL solution 75 mL 75 mL, intravenous, Once in imaging, Starting on Thu12/21/24 at 1035, For 1 dose Given 12/21/2024 11:15 AM EDT 75 mL documented in this encounter Care Teams Signal Fitter Relationship Specialty Start Date End Date Jani Helm MD [address] [facility] [address] [place] [address] PCP - General Family Medicine 11/29/24 Chintan Reyes DO [address] [facility] [address] [place] [address] Referring Physician General Surgery 11/29/24 documented as of this encounter
--- OUTSIDE RECORDS SUMMARY | 2024-12-27 13:00 | XMS_ITS | Encounter Summary ---
Author Organization [facility] Address [address] [place] [address] Phone Care Team Providers Care Solar Design Engineer Name Role Phone Chintan Reyes DO Unavailable [phone] Jani Helm MD Primary Care Provider [phone] Encounter Details Date Type Department Care Team (Late st Contact Info) Description 12/27/2024 1:00 PM EDT Office Visit [place] [id number] [address] [place] [address] Department of Surgery-Colorectal [place], [place] [id number] Social History Tobacco Use Types Packs/Day Years [...] Sign Reading Time Taken Comments Blood Pressure 125/85 12/27/2024 1:15 PM EDT Pulse 73 12/27/2024 1:15 PM EDT Temperature 37.1 C (98.7 F) 12/27/2024 1:15 PM EDT Respiratory Rate - - Oxygen Saturation - - Inhaled Oxygen Concentration - - Weight 111 kg (244 lb) 12/27/2024 1:15 PM EDT Height 180.3 cm (5' 11 ) 12/27/2024 1:15 PM EDT Body Mass Index 34.03 12/27/2024 1:15 PM EDT documented in this encounter Plan of Treatment Upcoming Encounters Date Type Department Care Team (Late st Contact Info) Description 01/02/2025 Hospital Encounter [facility] [place] [address] [place] [address] [place] [address] [facility] Department [place] [address] Scheduled Procedures Name Priority Associated Diagnoses Date/Ti me COLECTOMY, LAPAROSCOPIC Malignant neoplasm of colon, unspecified part of colon (Multi) documented as of this encounter Goals Goal Patient Goal Type Associated Problems Recent Progress Patient-Stated? Author Colorectal ERAS Care Plan Colorectal ERAS No Felicia Sotomayor, RN Autogenerated Goal Care Plan Autogenerated Problem No Felicia Sotomayor, CHRISTINA [facility] Nutrition Goal Care Plan [facility] Nutrition No Felicia Sotomayor, CHRISTINA documented as of this encounter Visit Diagnoses Not on filedocumented in this encounter Additional Health Concerns Active Problems Noted Date Diagnosed Date Colorectal ERAS 12/27/2024 Autogenerated Problem 12/27/2024 ERAS Nutrition 12/27/2024 documented as of this encounter Care Teams Solar Design Engineer Relationship Specialty Start Date End Date Jani Helm MD [address] [facility] [address] [place] [address] PCP - General Family Medicine 11/29/24 Chintan Reyes DO [address] [facility] [address] [place] [address] Referring Physician General Surgery 11/29/24 documented as of this encounter
--- OUTSIDE RECORDS SUMMARY | 2024-12-27 22:59 | XMS_ITS | Encounter Summary ---
Author Organization [facility] Address [address] [place] [address] Care Team Providers Care Breaker Engineer Name Role Phone Jani Helm MD Primary Care Provider [phone] Jani Helm MD Unavailable Jani Helm MD Unavailable Encounter Details Date Type Department Care Team (Late st Contact Info) Description 02/22/2024 Abstract [facility] [place] [facility] [address] [place] [id number] Jani Helm MD [address] [place] [address] Social History Tobacco Use Types Packs/Day Years Used Date Smoking Tobacco: Never Smokeless Tobacco: Never PHQ-2 Answer Date Recorded Patient Health Questionnaire-2 Score 0 02/22/2024 Sex and Gender Information Value Date Recorded Sex Assigned at Not on file Legal Sex Male 7:21 PM EDT Gender Identity Not on file Sexual Orientation Not on file documented as of this encounter Functional Status * Over the past 2 weeks, how often have you been bothered by any of the following problems? Question Answer Date of Assessment Author Little interest or pleasure in doing things Not at all 02/22/2024 9:00 AM EDT Karli Mayer MA Feeling down, depressed, or hopeless Not at all 02/22/2024 9:00 AM EDT Karli Mayer MA Patient Health Questionnaire -2 Score 0 02/22/2024 9:00 AM EDT Karli Mayer MA documented as of this encounter Plan of Treatment Not on file documented as of this encounter Visit Diagnoses Not on filedocumented in this encounter Care Teams Breaker Engineer Relationship Specialty Start Date End Date Jani Helm MD [address] [facility] [address] [place] [address] PCP - General Family Medicine 09/30/22 Jani Helm MD [address] [facility] [address] [place] [address] PCP - ACO Reach 09/23/23 06/30/24 Jani Helm MD [address] [facility] [address] [place] [address] PCP - ACO Reach 07/08/24 08/25/24 documented as of this encounter
--- OUTSIDE RECORDS SUMMARY | 2024-12-27 22:59 | XMS_ITS | Encounter Summary ---
Author Organization [facility] Address [address] [place] [address] Care Team Providers Care Wiener Packer Name Role Phone Jani Helm MD Primary Care Provider [phone] Jani Helm MD Unavailable Jnai Helm MD Unavailable Encounter Details Date Type Department Care Team (Late st Contact Info) Description 02/22/2024 Abstract [facility] [address] [place] [id number] Jani Helm MD [address] [place] [address] Social History Tobacco Use Types Packs/Day Years [...] on filedocumented in this encounter Care Teams Wiener Packer Relationship Specialty Start Date End Date Jani Helm MD [address] [facility] [address] [place] [address] PCP - General Family Medicine 09/30/22 Jani Helm MD [address] [facility] [address] [place] [address] PCP - ACO Reach 09/23/23 06/30/24 Jani Helm MD [address] [facility] [address] [place] [address] PCP - ACO Reach 07/08/24 08/25/24 documented as of this encounter
--- OUTSIDE RECORDS SUMMARY | 2024-12-27 22:59 | XMS_ITS | Encounter Summary ---
Author Organization [facility] Address [address] [facility] [place] [address] Care Team Providers Care Training Assistant Name Role Phone Jani Helm MD Primary Care Provider [phone] Encounter Details Date Type Department Care Team (Late st Contact Info) Description 09/12/2024 Abstract [facility] [address] [facility] [address] [place] [address] Jani Helm MD [address] [facility] [address] [place] [address] Social History Tobacco Use Types Packs/Day Years Used Date Smoking Tobacco: Never Smokeless Tobacco: Never PHQ-2 Answer Date Recorded Patient Health Questionnaire-2 Score 0 02/22/2024 Sex and Gender Information Value Date Recorded Sex Assigned at Not on file Legal Sex Male 7:21 PM EDT Gender Identity Not on file Sexual Orientation Not on file documented as of this encounter Plan of Treatment Not on file documented as of this encounter Visit Diagnoses Not on filedocumented in this encounter Care Teams Training Assistant Relationship Specialty Start Date End Date Jani Helm MD [address] [facility] [address] [place] [address] PCP - General Family Medicine 09/30/22 documented as of this encounter
--- OUTSIDE RECORDS SUMMARY | 2024-12-27 22:59 | XMS_ITS | Encounter Summary ---
Author Organization [facility] Address [address] [place] [address] Care Team Providers Care Food Assembler Name Role Phone Jani Helm MD Primary Care Provider [phone] Encounter Details Date Type Department Care Team (Late st Contact Info) Description 12/14/2024 Clinisync Result Encounter [facility] External Department Unsolicited Provider, Generic External Data Social History Tobacco Use Types Packs/Day Years Used Date Smoking Tobacco: Never Smokeless Tobacco: Never Alcohol Use Standard Drinks/Week Comments Defer 0 (1 standard drink = 0.6 oz pur e alcohol) PHQ-2 Answer Date Recorded Patient Health Questionnaire-2 Score 0 11/08/2024 Sex and Gender Information Value Date Recorded Sex Assigned at Not on file Legal Sex Male 7:21 PM EDT Gender Identity Not on file Sexual Orientation Not on file documented as of this encounter Plan of Treatment Not on file documented as of this encounter Procedures Procedure Name Priority Date/Time Associated Diagnosis Comments [facility] CBC W AUTO DIFF BLD Routine 12/14/2024 10:44 AM EDT [facility] COMP METAB 1999 PNL SERPL Routine 12/14/2024 10:44 AM EDT documented in this encounter Results * (ABNORMAL) [facility] COMP METAB 2000 PNL SERPL (12/14/2024 10:44 AM EDT) [facility] PROT SERPL-MCNC 7.1 6.3 - 8.0 g/dL [facility] ALBUMIN SERPL-[facility]NC 4.0 3.9 - 4.9 g/dL [facility] CALCIUM SERPL-[facility] 9.1 8.5 - 10.2 mg/dL [facility] BILIRUB SERPL-[facility] 0.4 0.2 - 1.3 mg/dL [facility] ALP SERPL-CCNC 89 38 - 113 U/L [facility] AST SERPL-CCNC 19 14 - 40 U/L [facility] ALT SERPL-CCNC 21 10 - 54 U/L [facility] GLUCOSE SERPL-MCNC 125(H) 74 - 99 mg/dL [facility] Comment: The [place] Diabetes Association (ADA) provides guidance for cutoff [...] Standards of Medical Care in Diabetes 2016, [place] Diabetes Association. Diabetes Care. 2016.39(Suppl 1). [facility] BUN SERPL-[facility] 18 9 - 24 mg/dL [facility] CREAT SERPL-MCNC 0.81 0.73 - 1.22 mg/dL [facility] SODIUM SERPL-SCNC 138 136 - 144 mmol/L [facility] POTASSIUM SERPL-SCNC 3.9 3.7 - 5.1 mmol/L [facility] CHLORIDE SERPL-SCNC 103 98 - 107 mmol/L [facility] CO2 SERPL-SCNC 28 22 - 30 mmol/L [facility] ANION GAP SERPL-SCNC 7(L) 8 - 15 mmol/L [facility] EGFRCR SERPLBLD CKD-EPI 2020 95 >=60 mL/min/1.7 3m??? [facility] Comment:Estimated Glomerular Filtration Rate (eGFR) is calculated using the 2020 CKD-EPI creatinine equation. This equation utilizes serum creatinine, sex, and age as parameters. The creatinine assay has traceable calibration to isotope dilution- mass spectrometry. Refer to KDIGO guidelines for clinical interpretation. In patients with unstable renal function, e.g. those with acute kidney injury, the eGFR may not accurately reflect actual GFR. 12/14/2024 10:4 4 AM EDT 12/14/2024 10:44 AM EDT Narrative DC - 12/14/2024 11:13 AM EDT Specimen Type: BLOOD SPECIMEN Ordering Facility: [facility] Address: [address] [place] [address] Original Ordering Provider: HERMINIO GIRALDO us Generic External Data Provider DC F inal Result [facility] [address] [place] [address] * (ABNORMAL) [facility] CBC W AUTO DIFF BLD (12/14/2024 10:44 AM EDT) [facility] WBC # BLD AUTO 4.68 3.70 - 11.00 k/uL [facility] RBC # BLD AUTO 5.00 4.20 - 6.00 m/uL [facility] HGB BLD-MCNC 13.6 13.0 - 17.0 g/dL [facility] HCT VFR BLD AUTO 42.7 39.0 - 51.0 % [facility] MCV RBC AUTO 85.4 80.0 - 100.0 fL [facility]CF [facility] MCH RBC QN AUTO 27.2 26.0 - 34.0 pg CCF [facility] MCHC RBC AUTO-MCNC 31.9 30.5 - 36.0 g/dL [facility] RDW RBC-RTO 16.2(H) 11.5 - 15.0 % [facility] PLATELET # BLD AUTO 304 150 - 400 k/uL [facility] PMV BLD AUTO 9.3 9.0 - 12.7 fL [facility]CF [facility] NEUTROPHILS/LEUK NFR BLD AUTO 57.4 % [facility] NEUTROPHILS # BLD AUTO 2.68 1.45 - 7.50 k/uL [facility] LYMPHOCYTES/LEUK NFR BLD AUTO 27.1 % [facility] LYMPHOCYTES # BLD AUTO 1.27 1.00 - 4.00 k/uL [facility] MONOCYTES/LEUK NFR BLD AUTO 11.5 % [facility]CF MONOCYTES # BLD AUTO 0.54 <0.87 k/uL [facility] EOSINOPHIL/LEUK NFR BLD AUTO 3.0 % [facility]CF EOSINOPHIL # BLD AUTO 0.14 <0.46 k/uL [facility] BASOPHILS/[place] NFR BLD AUTO 0.6 % [facility]CF BASOPHILS # BLD AUTO 0.03 <0.11 k/uL [facility] IMM GRANULOCYTES/LEUK NFR BLD AUTO 0.4 % [facility] IMM GRANULOCYTES # BLD AUTO <0.03 <0.10 k/uL [facility] NRBC/100 WBC BLD-RTO 0.0 /100 WBC [facility]CF NRBC # BLD AUTO <0.01 <0.01 k/uL [facility] DIFFERENTIAL METHOD BLD Auto [facility] 12/14/2024 10:4 4 AM EDT 12/14/2024 10:44 AM EDT Narrative [facility] - 12/14/2024 10:46 AM EDT Specimen Type: BLOOD SPECIMEN Ordering Facility: [facility] Address: [address] [place] [address] Original Ordering Provider: HERMINIO GIRALDO us Generic External Data Provider [facility] F inal Result Performing Organization Address City/State/[facility] Co de Phone Number [facility] [address] [place] [address] documented in this encounter Visit Diagnoses Not on filedocumented in this encounter Care Teams Food Assembler Relationship Specialty Start Date End Date Jani Helm MD [address] [facility] [address] [place] [address] PCP - General Family Medicine 09/30/22 documented as of this encounter
--- OUTSIDE RECORDS SUMMARY | 2024-12-27 22:59 | XMS_ITS | Encounter Summary ---
Author Organization [facility] Address [address] [facility] [place] [address] Care Team Providers Care Senior Network Security Architect Name Role Phone Jani Helm MD Primary Care Provider [phone] Jani Helm MD Unavailable Jani Helm MD Unavailable Encounter Details Date Type Department Care Team (Late st Contact Info) Description 06/06/2024 Abstract [facility] [address] [facility] [address] [place] [id number] Jani Helm MD [address] [facility] [address] [place] [address] Social History Tobacco Use Types Packs/Day Years [...] on filedocumented in this encounter Care Teams Senior Network Security Architect Relationship Specialty Start Date End Date Jani Helm MD [address] [facility] [address] [place] [address] PCP - General Family Medicine 09/30/22 Jani Helm MD [address] [place] [address] PCP - ACO Reach 09/23/23 06/30/24 Jani Helm MD [address] [facility] [address] [place] [address] PCP - ACO Reach 07/08/24 08/25/24 documented as of this encounter
--- OUTSIDE RECORDS SUMMARY | 2024-12-27 22:59 | XMS_ITS | Encounter Summary ---
Author Organization [facility] Address [address] [place] [address] Care Team Providers Care Gas Appliance Installer Name Role Phone Jani Helm MD Unavailable [phone] Immanuel Clark MD Unavailable [phone] Inga Sosa PLATE TAKE OUT WORKER.FISHING MANAGER Unavailable [phone] Bonita Lemon RN Unavailable [phone] Jani Helm MD Primary Care Provider + [phone] Source Comments In the event this information is protected by the Federal Confidentiality of Alcohol and Drug AbusePatient Records regulations: The Federal rules restrict any use of the information to criminally investigate or prosecute any alcohol or drug abuse patient.[facility] Encounter Details Date Type Department Care Team (Late st Contact Info) Description 11/24/2024 Results Follow-Up Hematology/Oncology [address] [facility] [place] [address] Anushka Vernon APRN.FISHING MANAGER [address] [facility] [place] [address] Social History Tobacco Use Types Packs/Day Years [...] is lower risk 7 04/30/2023 Data from: https://www.neighborhoodatlas.[facility].edu/. Last address used for calculation [...] on filedocumented in this encounter Care Teams Gas Appliance Installer Relationship Specialty Start Date End Date Jani Helm MD [address] [place] [address] PCP - General Family Medicine 05/28/23 Jani Helm MD [address] [place] [address] Family Medicine 04/30/23 Immanuel Clark MD [address] [facility] [place] [address] Physician Hematology/Oncology 05/04/23 Inga Sosa APRN.FISHING MANAGER [address] [facility] [place] [address] Nurse Practitioner Hematology/Oncology 05/04/23 Bonita Lemon, CHRISTINA [address] [facility] [place] [address] Specialty Shelter Supervisor Hematology/Oncology 05/04/23 documented as of this encounter
--- OUTSIDE RECORDS SUMMARY | 2024-12-27 22:59 | XMS_ITS | Clinical Summary ---
Author Organization [facility] Address [address] [place] [address] Care Team Providers Care Space Sciences Director Name Role Phone Jani Helm MD Unavailable [phone] Immanuel Clark MD Unavailable [phone] Inga Sosa BAGGAGEMAN.HEALTH SAFETY INSTRUCTOR Unavailable [phone] Bonita Lemon RN Unavailable [phone] Jani Helm MD Primary Care Provider + [phone] Allergies No known active allergies Medications pravastatin (PRAVACHOL) 40 mg tablet TAKE 1 TABLET BY MOUTH EVERY DAY AT THE SAME TIME 03/11/2023 Active omega-3 DHA-EPA (FISH OIL) 1,200 (144-216) mg capsule 1 capsule. Active ferrous sulfate (IRON) 325 mg (65 mg iron) tablet Take 325 mg by mouth once daily. Active Active Problems Problem Noted Date Diagnosed Date Malignant neoplasm of overlapping sites of bladd er 06/18/2023 Iron deficiency anemia due to chronic blood loss 06/18/2023 Encounters Date Type Department Care Team Description 12/26/2024 Telephone Cancer [facility] [address] [place] [address] Anushka Vernon APRN.CNP Appointment 12/14/2024 11:00 AM EDT Visit (SP) Office Hematology/Oncology [address] [place] [address] [place] [address] Anushka Vernon APRN.CNP Iron deficiency anemia due to chronic blood loss (Primary Dx); Malignant neoplasm of overlapping sites of bladder (HCC); Rectal bleeding; Other iron deficiency anemia; Malignant neoplasm of cecum (HCC); Bilateral inguinal hernia without obstruction or gangrene, recurrence not specified; Personal history of malignant neoplasm of bladder; Diverticulosis of colon without hemorrhage 12/14/2024 Travel 11/28/2024 Telephone [facility] [place] [address] Maty Martinez [facility] Medication Follow-up (BCG shortage) 11/24/2024 Results Follow-Up Hematology/Oncology [address] [place] [address] [place] [address] Anushka Vernon APRN.CNP 11/22/2024 11:00 AM EDT Visit (SP) Office Hematology/Oncology [address] [place] [address] [place] [address] Anushka Vernon APRN.CNP Iron deficiency anemia due to chronic blood loss (Primary Dx); Malignant neoplasm of overlapping sites of bladder (HCC); Other iron deficiency anemia; Rectal bleeding 11/22/2024 10:45 AM EDT Office Visit [facility] [address] [place] [address] [place] [address] Iron deficiency anemia due to chronic blood loss; Malignant neoplasm of overlapping sites of bladder (HCC) 11/01/2024 Telephone Hematology/Oncology [address] [place] [address] [place] [address] Bonita Lemon, CHRISTINA Care Coordination (Labs) 10/27/2024 1:00 PM EDT [facility] Hematology/Oncology [address] [place] [address] [place] [address] Iron deficiency anemia due to chronic blood loss (Primary Dx) 10/27/2024 Telephone Hematology/Oncology [address] [place] [address] [place] [address] Zoila Acosta, CHRISTINA Patient Question 10/27/2024 Travel 10/21/2024 Orders Only Hematology/Oncology [address] [place] [address] [place] [address] Immanuel Clark MD from Last 3 Months Immunizations Immunization Administration Dates Next Due influenza (HD-IIV3) vaccine, age 65+ yr, high dose, trivalent, PF (FLUZONE HIGH-DOSE) 03/28/2021,03/22/2020 influenza (HD-IIV4) vaccine, age 65+ yr, high dose, quadrivalent, PF (FLUZONE HIGH-DOSE) 02/22/2024,02/25/2023 influenza (IIV3) vaccine, tr ivalent (AFLURIA, FLULAVAL, FLUVIRIN, FLUZONE) 02/16/2017,03/14/2013 influenza (IIV3) vaccine, tr ivalent, PF (AFLURIA, FLUARIX, FLULAVAL, FLUVIRIN, FLUZONE) 02/28/2015,03/27/2014 influenza (IIV4) vaccine, ag e 6 mo - 64 yr, quadrivalent, PF (AFLURIA, FLUARIX, FLULAVAL, FLUZONE) 02/27/2018 influenza (LAIV) vaccine, na gabi, unspecified formulation 03/23/2019 influenza vaccine, split virus 04/06/2016 pneumococcal conjugate (PCV1 3) vaccine, 13 valent (PREVNAR 13) 04/05/2020 pneumococcal polysaccharide (PPV23) vaccine, 23 valent (PNEUMOVAX 23) 03/28/2021 Family History Medical History Relation Comments Emphysema Father Alcohol abuse Maternal Grandmother Colon Cancer Mother Heart disease Mother Hypertension Mother Relation Status Comments Father Maternal Grandmother Mother Sister Social History Tobacco Use Types Packs/Day Years Used Date Smoking Tobacco: Never Smokeless Tobacco: Never Tobacco Cessation:Counseling Given: Not Answered Alcohol Use Standard Drinks/Week Comments Never 0 (1 standard drink = 0.6 oz pur e alcohol) PHQ-2 Answer Date Recorded PHQ-2 score 0 10/01/2023 Area Deprivation Index Answer Date Anthony rded National Score (1-100), lower number is lower ri sk 80 04/30/2023 State Score (1-10), lower number is lower risk 7 04/30/2023 Data from: https://www.neighborhoodatlas.medicine.[facility].edu/. Last address used for calculation [address] 04/30/2023 Sex and Gender Information Value Date Recorded Sex Assigned at Not on file Legal Sex Male 3:20 PM EST Gender Identity Not on file Sexual Orientation Not on file Last Filed Vital Signs Vital Sign Reading [...] Mass Index 35.33 12/14/2024 10:47 AM EDT Plan of Treatment Health Maintenance Due Date Last Done Comments Anxiety Screening 1973 Depression Screening 1973 Hepatitis C Screening 1973 DTaP,Tdap,Td Vaccine (1 - Tdap) 1974 CT Colonography 01/30/2000 Cologuard (FIT-DNA) 01/30/2000 Fecal Occult Blood 01/30/2000 Sigmoidoscopy 01/30/2000 Shingrix Vaccine (1 of 2) 2005 RSV Vaccine (1 - Risk 60-74 years 1-dose series) 2015 Medicare Annual Wellness Visit 01/24/2020 Advance Directive Discussion 05/25/2024 Influenza Vaccine (#1) 2025 , 02/25/2023, 03/28/2021, Additional history exists Colonoscopy 12/09/2025 12/09/2024, 04/20/2017 Colorectal Cancer Screening 12/09/2025 Diabetes Screening 12/15/2027 12/14/2024, 0 11/22/2024, 09/09/2024, Additional history exists Lipid Screening 02/28/2028 02/27/2023 Pneumococcal Vaccine: 50+ Completed 03/28/2021, 04/2020 Procedures Procedure Name Priority Date/Time Associated Diagnosis Comments COMPREHENSIVE METABOLIC PANEL Routine 12/14/2024 10:44 AM EDT Iron deficiency anemia due to chronic blood loss Malignant neoplasm of overlapping sites of bladder (HCC) CBC + DIFF Routine 12/14/2024 10:44 AM EDT Iron deficiency anemia due to chronic blood loss Malignant neoplasm of overlapping sites of bladder (HCC) EXTERNAL PROCEDURE 11/23/2024 8: 15 AM EDT EXTERNAL LAB 11/23/2024 8:15 AM EDT IRON + TIBC Routine 11/22/2024 10:53 AM EDT Iron deficiency anemia due to chronic blood loss FERRITIN BLD Routine 11/22/2024 10:53 AM EDT Iron deficiency anemia due to chronic blood loss VITAMIN B12 BLOOD Routine 11/22/2024 10: 53 AM EDT Iron deficiency anemia due to chronic blood loss FOLATE SERUM Routine 11/22/2024 10:53 AM EDT Iron deficiency anemia due to chronic blood loss COMPREHENSIVE METABOLIC PANEL Routine 11/22/2024 10:53 AM EDT Malignant neoplasm of overlapping sites of bladder (HCC) CBC + DIFF Routine 11/22/2024 10:53 AM EDT Iron deficiency anemia due to chronic blood loss Malignant neoplasm of overlapping sites of bladder (HCC) from Last 3 Months Results * (ABNORMAL) COMPREHENSIVE METABOLIC PANEL (12/14/2024 10:44 AM EDT) Only the most recent of2 resultswithin the time period is included. Protein, Total 7.1 6.3 - 8.0 g/dL 12/14/2024 11:13 AM EDT [facility] Albumin 4.0 3.9 - 4.9 g/dL 12/14/2024 11:13 AM EDT [facility] Calcium, Total 9.1 8.5 - 10.2 mg/dL 12/14/2024 11:13 AM EDT [facility] Bilirubin, Total 0.4 0.2 - 1.3 mg/dL 12/14/2024 11:13 AM EDT [facility] Alkaline Phosphatase 89 38 - 113 U/L 12/14/2024 11:13 AM [facility] AST 19 14 - 40 U/L 12/14/2024 11:13 AM [facility] ALT 21 10 - 54 U/L 12/14/2024 11:13 AM [facility] Glucose 125(H) 74 - 99 mg/dL 12/14/2024 11:13 AM [facility] Comment: The [place] Diabetes Association (ADA) provides guidance for cutoff [...] Standards of Medical Care in Diabetes 2016, [place] Diabetes Association. Diabetes Care. 2016.39(Suppl 1). BUN 18 9 - 24 mg/dL 12/14/2024 11:13 AM [facility] Creatinine 0.81 0.73 - 1.22 mg/dL 12/14/2024 11:13 AM [facility] Sodium 138 136 - 144 mmol/L 12/14/2024 11:13 AM [facility] Potassium 3.9 3.7 - 5.1 mmol/L 12/14/2024 11:13 AM [facility] Chloride 103 98 - 107 mmol/L 12/14/2024 11:13 AM [facility] CO2 28 22 - 30 mmol/L 12/14/2024 11:13 AM [facility] Anion Gap 7(L) 8 - 15 mmol/L 12/14/2024 11:13 AM [facility] Estimated Glomerular Filtration Rate 95 >=60 mL/min/1. 73m 12/14/2024 11:13 AM [facility] Comment:Estimated Glomerular Filtration Rate (eGFR) is calculated using the 2020 CKD-EPI creatinine equation. This equation utilizes serum creatinine, sex, and age as parameters. The creatinine assay has traceable calibration to isotope dilution- mass spectrometry. Refer to KDIGO guidelines for clinical interpretation. In patients with unstable renal function, e.g. those with acute kidney injury, the eGFR may not accurately reflect actual GFR. Blood BLOOD SPECIMEN / Unknown Venipuncture / Unknown 12/14/2024 10:44 AM EDT 12/14/2024 10:44 AM EDT us Anushka Vernon BAGGAGEMAN.[facility] Final Resul t [facility] [address] [place] [address] * (ABNORMAL) COMPLETE BLOOD COUNT AND DIFFERENTIAL (12/14/2024 10:44 AM EDT) Only the most recent of2 resultswithin the time period is included. WBC 4.68 3.70 - 11.00 k/uL 12/14/2024 10:46 AM [facility] RBC 5.00 4.20 - 6.00 m/uL 12/14/2024 10:46 AM [facility] Hemoglobin 13.6 13.0 - 17.0 g/dL 12/14/2024 10:46 AM [facility] Hematocrit 42.7 39.0 - 51.0 % 12/14/2024 10:46 AM EDT [facility] MCV 85.4 80.0 - 100.0 fL 12/14/2024 [facility] MCH 27.2 26.0 - 34.0 pg 12/14/2024 10:46 AM [facility] MCHC 31.9 30.5 - 36.0 g/dL 12/14/2024 10:46 AM [facility] RDW-CV 16.2(H) 11.5 - 15.0 % 12/14/2024 10:46 AM EDT [facility] Platelet Count 304 150 - 400 k/uL 12/14/2024 10:46 AM EDT [facility] MPV 9.3 9.0 - 12.7 fL 12/14/2024 10:46 AM EDT [facility] Neutrophils % 57.4 % 12/14/2024 10:46 AM EDT [facility] Abs Neut 2.68 1.45 - 7.50 k/uL 12/14/2024 10:46 AM EDT [facility] Lymphocytes % 27.1 % 12/14/2024 10:46 AM EDT [facility] Abs Lymph 1.27 1.00 - 4.00 k/uL 12/14/2024 10:46 AM EDT [facility] Monocytes % 11.5 % 12/14/2024 10:46 AM EDT [facility] Abs [place] 0.54 <0.87 k/uL 12/14/2024 10:46 AM EDT [facility] Eosinophils % 3.0 % 12/14/2024 10:46 AM EDT [facility] Abs Eosin 0.14 <0.46 k/uL 12/14/2024 10:46 AM EDT [facility] Basophils % 0.6 % 12/14/2024 10:46 AM EDT [facility] Abs Baso 0.03 <0.11 k/uL 12/14/2024 10:46 AM EDT [facility] Immature Granulocytes % 0.4 % 12/14/2024 10:46 AM EDT [facility] Abs Immature Gran <0.03 <0.10 k/uL 12/14/2024 10:46 AM EDT [facility] NRBC 0.0 /100 WBC 12/14/2024 10:46 AM EDT [facility] Absolute nRBC <0.01 <0.01 k/uL 12/14/2024 10:46 AM EDT [facility] Diff Type Auto 12/14/2024 10:46 AM EDT [facility] Blood BLOOD SPECIMEN / Unknown Venipuncture / Unknown 12/14/2024 10:44 AM EDT 12/14/2024 10:44 AM EDT us Anushka Vernon BAGGAGEMAN.HEALTH SAFETY INSTRUCTOR LABORATORY Final Resul t [facility] [address] [place] [address] * EXTERNAL PROCEDURE (11/23/2024 8:15 AM EDT) External Provider PA-C PROCEDURE Final Res ult * EXTERNAL LAB (11/23/2024 8:15 AM EDT) External Provider PA-C LABORATORY Final Res ult * VITAMIN B12 (11/22/2024 10:53 AM EDT) Vitamin B12 564 232 - 1,245 pg/mL 11/22/2024 6:10 PM EDT [facility] Blood BLOOD SPECIMEN / Unknown Venipuncture / Unknown 11/22/2024 10:53 AM EDT 11/22/2024 10:53 AM EDT Lacey Lyn PA-C LABORATORY Final Result [facility] [address] [place] [address], * (ABNORMAL) IRON AND TIBC (11/22/2024 10:53 AM EDT) Iron 37(L) 41 - 186 ug/dL 11/22/2024 5:53 PM EDT [facility] TIBC 315 232 - 386 ug/dL 11/22/2024 5:53 PM EDT [facility] Transferrin Saturation 11.7(L) 15.0 - 57.0 % 11/22/2024 5:53 PM EDT [facility] Blood BLOOD SPECIMEN / Unknown Venipuncture / Unknown 11/22/2024 10:53 AM EDT 11/22/2024 10:53 AM EDT Lacey Lyn PA-C LABORATORY Final Result [facility] [address] [place] [address], * FOLATE, SERUM (11/22/2024 10:53 AM EDT) Folate 9.5 >4.7 ng/mL 11/22/2024 6:10 PM EDT [facility] Blood BLOOD SPECIMEN / Unknown Venipuncture / Unknown 11/22/2024 10:53 AM EDT 11/22/2024 10:53 AM EDT Lacey Lyn PA-C LABORATORY Final Result Performing Organization Address City/[facility]/ZIP Co de Phone Number [facility] [address] [place] [address], [place] * FERRITIN (11/22/2024 10:53 AM EDT) Ferritin 149.0 30.3 - 565.7 ng/mL 11/22/2024 6:10 PM EDT [facility] Blood BLOOD SPECIMEN / Unknown Venipuncture / Unknown 11/22/2024 10:53 AM EDT 11/22/2024 10:53 AM EDT Lacey IBRAHIM-C LABORATORY Final Result [facility] [address] [place] [address], from Last 3 Months Insurance MEDICARE MEDICARE SUPPLEMENT Care Teams Space Sciences Director Relationship Specialty Start Date End Date Jani Helm MD [address] [place] [address] [place] [address] PCP - General Family Medicine 05/28/23 Jani Helm MD [address] [place] [address] [place] [address] Family Medicine 04/30/23 Immanuel Clark MD [address] [facility] [place] [address] Physician Hematology/Oncology 05/04/23 Inga Sosa APRN.HEALTH SAFETY INSTRUCTOR [address] [place] [address] Nurse Practitioner Hematology/Oncology 05/04/23 Bonita Lemon, CHRISTINA [address] [facility] [place] [address] Specialty Board Mill Supervisor Hematology/Oncology 05/04/23
--- OUTSIDE RECORDS SUMMARY | 2024-12-27 22:59 | XMS_ITS | Encounter Summary ---
Author Organization [facility] Address [address] [place] [id number] Care Team Providers Care Residential Support Specialist Name Role Phone Jani Helm MD Unavailable [phone] Immanuel Clark MD Unavailable [phone] Inga Sosa APRN.DESK OFFICER Unavailable [phone] Bonita Lemon RN Unavailable [phone] Jani Helm MD Primary Care Provider [phone] Source Comments In the event this information is protected by the Federal Confidentiality of Alcohol and Drug AbusePatient Records regulations: The Federal rules restrict any use of the information to criminally investigate or prosecute any alcohol or drug abuse patient.[facility] Encounter Details Date Type Department Care Team (Latest Contact Info) Description 12/14/2024 Travel Social History Tobacco Use Types Packs/Day Years [...] is lower risk 7 04/30/2023 Data from: https://www.neighborhoodatlas.[email or web address].edu/. Last address used for calculation [address] [...] on filedocumented in this encounter Care Teams Residential Support Specialist Relationship Specialty Start Date End Date Jani Helm MD [address] [facility] [address] [place] [address] PCP - General Family Medicine 05/28/23 Jani Helm MD [address] [facility] [address] [place] [address] Family Medicine 04/30/23 Immanuel Clark MD [address] [place] [address] Physician Hematology/Oncology 05/04/23 Inga Sosa APRN.DESK OFFICER [address] [place] [address] Nurse Practitioner Hematology/Oncology 05/04/23 Bonita Lemon, CHRISTINA [address] [place] [address] Specialty Fruit Harvest Machine Operator Hematology/Oncology 05/04/23 documented as of this encounter
--- OUTSIDE RECORDS SUMMARY | 2024-12-27 22:59 | XMS_ITS | Clinical Summary ---
Author Organization [facility] Healthcare Address [address] [place] [address] Care Team Providers Care Bridge Instructor Name Role Phone Jani Helm MD Primary Care Provider [phone] Allergies No known active allergies Medications omega-3 (fish oil) 600 MG capsule 1 capsule 1 (one) time each day at the same time Active pravastatin (Pravachol) 40 MG tabletIndications:M ixed hyperlipidemia Take 1 tablet (40 mg) by mouth 1 (one) time each day at the same time 100 tablet 3 4 Active Active Problems Problem Noted Date Diagnosed Date Rectal bleeding 11/10/2024 History of colon polyps 11/10/2024 Personal history of bladder cancer 04/05/2024 Body mass index (BMI) 35.0-35.9, adult Assessment & Plan (02/22/2024 9:36 AM EDT): Exercise and Diet Encouraged Morbid (severe) obesity due to excess calories 0 02/22/2024 Assessment & Plan (02/22/2024 9:36 AM EDT): Weight loss encouraged Medicare annual wellness visit, subsequent 02/21 Assessment & Plan (02/22/2024 9:35 AM EDT): Colonoscopy every 10 years or Cologuard every 3 years ages 50-75 Flu Vaccine yearly Pneumovax and Prevnar Mammo yearly for women and PSA yearly for men Labs/Screening yearly to rule out Diabetes, Chronic Kidney disease and liver disease Hepatitis Screen forat risk populations Shingles vaccine after 65 if indicated Tetanus Vaccine every 10 years Lipids yearly under the age of 75 If Smoking history: one time CT scan of chest and Ultrasound of Aorta to screen for Anuerysm Umbilical hernia without obstruction and without gangrene 02/22/2024 Assessment & Plan (02/22/2024 9:50 AM EDT): Watch for strangulation and or incarceration No heavy lifting Weight loss encouraged Bilateral renal cysts 02/11/2024 Malignant neoplasm of bladder, unspecified 02/10 Assessment & Plan (02/22/2024 9:37 AM EDT): This is a chronic medical condition that is stable since last assessment. No changes in treatment are suggested at this time. Continue Current meds. Patient is seeing urology on a regular basis. He also gets scoped and treatments routinely per Urology Bladder mass 02/11/2024 BPH without urinary obstruction 02/11/2024 Tear of medial meniscus of knee 02/11/2024 Overview (02/11/2024): left knee Iron deficiency anemia due to chronic blood loss 06/18/2023 Artificial knee joint present 02/25/2023 Difficulty walking 02/25/2023 Major depressive disorder, single episode, mild 02/25/2023 Assessment & Plan (02/22/2024 9:35 AM EDT): This is a chronic medical condition that is stable since last assessment. No changes in treatment are suggested at this time. Continue Current meds. Osteoarthritis of knee 02/25/2023 Pain in left knee 02/25/2023 Polymyalgia rheumatica (HHS-HCC) 02/25/2023 Pure hypercholesterolemia 02/25/2023 Pure hypertriglyceridemia 02/25/2023 Rosacea 02/25/2023 Hypertension 11/21/2022 Hyperlipidemia 11/21/2022 Encounters Date Type Department Care Team Description 12/21/2024 Clinisync Result Encounter [facility] External Department Unsolicited Provider, Generic External Data 12/15/2024 Abstract [facility] [address] [place] [address] Jani Helm MD 12/14/2024 Clinisync Result Encounter [facility]S External Department Unsolicited Provider, Generic External Data 12/09/2024 Clinisync Result Encounter [facility] External Department Unsolicited Provider, Generic External Data 12/01/2024 Orders Only [facility] [address] [place] [address] [place] [address] Chintan Reyes, 11/28/2024 Orders Only [facility] [address] [place] [address] [address] [place] [address] Natalie Babcock LPN Rectal bleeding; History of colon polyps; Abnormal barium enema 11/28/2024 External Result Encounter [facility] External Department Unsolicited Chintan Reyes, DO 11/23/2024 Abstract [facility] [address] [facility] [address] [place] [phone] Jani Helm MD 11/22/2024 Clinisync Result Encounter [facility] External Department Unsolicited Provider, Generic External Data 11/17/2024 Travel 11/10/2024 3:00 PM EDT Consult [facility] [address] [place] [address] [address] [place] [address] Chintan Reyes, DO History of colon polyps (Primary Dx); Rectal bleeding; Umbilical hernia without obstruction and without gangrene 11/10/2024 Travel 11/09/2024 Travel 11/08/2024 11:30 AM EDT Office Visit [facility] [address] [facility] [address] [place] [phone] Isamar Davidson NP Rectal bleeding (Primary Dx); Umbilical hernia without obstruction and without gangrene 11/08/2024 Bamboo flowsheet [facility] [address] [facility] [address] [place] [phone] Isamar Davidson NP 11/08/2024 Travel from Last 3 Months Immunizations Immunization Administration Dates Next Due Influenza, High Dose Seasonal, Preservative Free 03/28/2021,03/22/2020 Influenza, High-dose Seasona l, Quadrivalent, Preservative Free 02/22/2024,02/25/2023 Influenza, Split (incl. purified surface antigen ) 04/06/2016 Influenza, injectable, quadrivalent, preservativ e free 02/27/2018 Influenza, recombinant, quad rivalent, injectable, preservative free 03/23/2019 Influenza, seasonal, injectable 02/16/2017,03/14 Influenza, seasonal, injectable, preservative fr ee 02/28/2015,03/27/2014 Pneumococcal Conjugate PCV 13 04/05/2020 Pneumococcal Polysaccharide PPSV23 03/28/2021 Family History Medical History Relation Name Comments Colon cancer Mother Breast cancer Neg Hx Ovarian cancer Neg Hx Pancreatic cancer Neg Hx Relation Name Status Comments Brother 2 brothers Father Mother Alive Sister 2 sister Social History Tobacco Use Types Packs/Day Years Used Date Smoking Tobacco: Never Smokeless Tobacco: Never Tobacco Cessation:Counseling Given: Yes Alcohol Use Standard Drinks/Week Comments Defer 0 [...] Sign Reading Time Taken Comments Blood Pressure 142/86 11/10/2024 3:01 PM EDT Pulse 87 11/08/2024 11:27 AM EDT Temperature 36.6 C (97.9 F) 07/14/2023 8:07 AM EST Respiratory Rate 17 11/08/2024 11:27 AM EDT Oxygen Saturation 95% 11/08/2024 11:27 AM EDT Inhaled Oxygen Concentration - - Weight 112 kg (248 lb) 11/10/2024 3:01 PM EDT Height 180.3 cm (5' 11 ) 11/10/2024 3:01 PM EDT Body Mass Index 34.59 11/10/2024 3:01 PM EDT Plan of Treatment Health Maintenance Due Date Last Done Comments CT Colonography 1955 FIT-DNA 1955 FIT 1955 FOBT 1955 Sigmoidoscopy 1955 Influenza Vaccine (#1) 2025 4, 02/25/2023, 03/28/2021, Additional history exists Medicare Annual Wellness (AWV) 02/21/2025 02/22/2024 Colonoscopy 11/28/2034 11/28/2024, 04/20/2017 Colorectal Cancer Screening 11/28/2034 Pneumococcal Vaccine: 65+ Years Completed , 04/05/2020 Procedures Procedure Name Priority Date/Time Associated Diagnosis Comments CT CHEST ABDOMEN PELVIS W IV CONTRAST 12/21/2024 10:23 AM EDT [facility] COMP METAB 2000 PNL SERPL Routine 12/14/2024 10:44 AM EDT [facility] CBC W AUTO DIFF BLD Routine 12/14/2024 10:44 AM EDT SURGICAL PATHOLOGY EXAM Routine 12/09/2024 1:58 PM EDT COLONOSCOPY Routine 11/28/2024 1:34 PM EDT FL BARIUM ENEMA 11/28/2024 12:21 PM EDT [facility] FOLATE SERPL-MCNC Routine 11/22/2024 10:53 AM EDT [facility] FERRITIN SERPL-MCNC Routine 11/22/2024 10:53 AM EDT [facility] VIT B12 SERPL-MCNC Routine 11/22/2024 10:53 AM EDT [facility] IRON+TIBC PNL SERPL Routine 11/22/2024 10:53 AM EDT [facility] COMP METAB 2000 PNL SERPL Routine 11/22/2024 10:53 AM EDT [facility] CBC W AUTO DIFF BLD Routine 11/22/2024 10:53 AM EDT from Last 3 Months Results * CT CHEST ABDOMEN PELVIS W IV CONTRAST (12/21/2024 10:23 AM EDT) Anatomical Region Laterality Modality Other 12/21/2024 10:2 3 AM EDT Narrative 12/23/2024 9:01 PM EDT Source Facility: [facility] Interpreted By: Edgar Maciel and Afshari Mirak Sohrab STUDY: CT CHEST ABDOMEN PELVIS W IV CONTRAST; 12/21/2024 11:35 am INDICATION: Signs/Symptoms:cecal adenocarcinoma. Staging. 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 COMPARISON: Outside CT abdomen and pelvis report from 02/25/2023. ACCESSION NUMBER(S): [id number] ORDERING CLINICIAN: HAMZAH WOODSON TECHNIQUE: Contiguous axial images of the chest, [...] Brooks . This study was interpreted at [place], [place]. MACRO: None Signed by: Edgar Maciel 12/23/2024 9:01 PM Dictation workstation: [id number] Procedure Note Radiology, Radiologist, - 12/23/2024 Source Facility: [facility] Interpreted By: Edgar Maciel, and Dennis Antony STUDY: CT CHEST ABDOMEN PELVIS W IV CONTRAST; 12/21/2024 11:35 am INDICATION: Signs/Symptoms:cecal adenocarcinoma. Staging. 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 COMPARISON: Outside CT abdomen and pelvis report from 02/25/2023. ACCESSION NUMBER(S): [id number] ORDERING CLINICIAN: HAMZAH WOODSON TECHNIQUE: Contiguous axial images of the chest, [...] Brooks . This study was interpreted at [facility], [place], [place]. MACRO: None Signed by: Edgar Maciel 12/23/2024 9:01 PM Dictation workstation: [id number] us Generic External Data Provider [facility] Final Result * (ABNORMAL) [facility] CBC W AUTO DIFF BLD (12/14/2024 10:44 AM EDT) Only the most recent of2 resultswithin the time period is included. [facility] WBC # BLD AUTO 4.68 3.70 [...] EDT Specimen Type: BLOOD SPECIMEN Ordering Facility: [facility] Address: [address] [place] [address] Original Ordering Provider: HERMINIO GIRALDO us Generic External Data Provider DC bowden Result [facility] [address] [place] [address] * (ABNORMAL) [facility] COMP METAB 1999 PNL SERPL (12/14/2024 10:44 AM EDT) Only the most recent of2 resultswithin the time period is included. [facility] PROT SERPL-MCNC 7.1 6.3 - 8.0 [...] 74 - 99 mg/dL [facility] Comment: The [place] [employer] (ADA) provides guidance for cutoff [...] Standards of Medical Care in Diabetes 2016, [place] [employer]. Diabetes Care. 2016.39(Suppl 1). [facility] [...] EDT Specimen Type: BLOOD SPECIMEN Ordering Facility: [facility] Address: [address] [place] [address] Original Ordering Provider: HERMINIO GIRALDO us Generic External Data Provider DC [place]den Result DC CC [address] [place] [address] * SURGICAL PATHOLOGY EXAM (12/09/2024 1:58 PM EDT) Pathologist [address] SURG Pathology report.total SURG SEE COMMENT [place] [address] Surgical Pathology Case: [id number] [place] [address] Authorizing Provider : Hamzah Woodson MD Collected: 12/09/2024 1358 SURG Ordering Location: [facility] Received: 12/09/2024 1438 [place] [address] Pathologist: Domo Lombardi MD [place] [address] Specimens: A) - COLO N - CECUM BIOPSY, cecum mass SURG B) - COLON - ASCENDI NG POLYP, X1 and transverse polyp X 1 SURG C) - COLON - DESCEND ING POLYP, X2 [facility] Path report.final diagnosis [place] [address] SEE COMMENT [place] [address] A. CECUM MASS BIOPSY: SURG -- INVASIVE ADENOCARCINOMA, MODERATELY DIFFERENTIATED, SEE NOTE [place] [address] Note: Immunohistochemical stains for DNA mismatch repair proteins ordered and results will be reported in addendum. [facility] B. ASCENDING X1, TRANSVERSE COLON X1, POLYPS: SURG -- TUBULAR ADENOMA I N TWO FRAGMENTS [place] [address] Note: A separate sma ll fragment of tissue contains invasive adenocarcinoma, morphologically similar to part A, likely carryover. [facility] C. DESCENDING COLON POLYP X2: SURG -- FRAGMENTS OF SESS ILE SERRATED ADENOMA [place] [address] Electronically steven d by Иван Loving MD on 12/12/2024 at 1135 EDT [place] [address] Laboratory comment [place] [address] By the signature on this report, the individual or group listed as making the Final Interpretation/Diagnosi s certifies that they have reviewed this case. [address] SURG Path report.comments SURG Dr.Omar Woodson inform ed of the diagnosis by secure chat on 12/12/2024 at 11:[address] SURG Path report.addendum [place] [address] SEE COMMENT SURG A. COLON - CECUM BIOPSY: ADENOCARCINOMA. [facility] MISMATCH REPAIR PROT EIN EXPRESSION [facility] Protein: Result SURG MLH-1: Expression Present SURG1 PMS-2: Expression Present SURG1 MSH-2: Expression Present SURG1 MSH-6: Expression Present [facility] SUR[facility]1 INTERPRETATION: Neoplasm with normal mismatch repair protein expression. SURG1 The immunohistochemistry study of DNA mismatch repair protein expression reveals the normal presence of hMLH-1, hMSH2, hMSH6 and hPMS2 in the tumor (normal internal controls stain appropriately). [facility] Reference Range: A result is reported Expression Present if any tumor nuclei are stained positive. [facility] The findings do not exclude underlying Hassan Syndrome (HNPCC) because some mutation may result in intact protein expression. In addition, rare alterations can exist in other mismatch proteins, which have not been tested. In addition, some hereditary colorectal cancers are caused by alteration in other pathways unrelated to DNA Mismatch Repair. [facility] COMMENT: KEYTRUDA is indicated for the treatment of adult and pediatric patients with unresectable or metastatic microsatellite instability-high (MSI-H) or mismatch repair deficient (dMMR)solid tumors that have progressed following prior treatment and who have no satisfactory alternative treatment options, or colorectal cancer that has progressed following treatment with fluoropyrimidine, oxaliplatin, and irinotecan. SURG This indication is approved under accelerated approval based on tumor response rate and durability of response. Continued approval for this indication may be contingent upon verification and description of clinical benefit in the confirmatory trials. The safety and effectiveness of KEYTRUDA in pediatric patients with MSI-H central nervous system cancers have not been established. [place]G[address] [place] [address] References: SURG1 Ren Villagomez, et al . Phase 3, open-label, randomized study of first-line pembrolizumab (pembro) vs investigator utility bill complaints-choice chemotherapy for mismatch repair-deficient (dMMR) or microsatellite instability-high (MSI-H) metastatic colorectal carcinoma (mCRC): KEYNOTE-177. (2017): [id number]. [facility] SURG1 Skinny Martínez, et al. KEYNOTE-164: Phase 2 study of pembrolizumab for patients with previously treated, microsatellite instability-high advanced colorectal carcinoma. (2016): [id number]. SURG[address] [place], [place] [address] Carolin Santoyo, et al. Safety and activity of pembrolizumab in patients with locally advanced or metastatic urothelial cancer (KEYNOTE-012): a non-randomized, open-label, phase 1b study. The Lancet Oncology (2017). SURG1 SURG1 Blayne Dasilva et al. OA05. 01 Pembrolizumab in Patients with Extensive-Stage Small Cell Lung Cancer: Updated Survival Results from KEYNOTE-028. Journal of Thoracic Oncology 12.1 (2017): S259. SURG1 SURG1 González Norris, e t al. Pembrolizumab for previously treated advanced cervical squamous cell cancer: Preliminary results from the phase 2 KEYNOTE-158 study. (2017): 2767-6347. [facility] SURG1 Tierney Baron. Immunohistochemistry versus microsatellite instability testing for screening colorectal cancer patients at risk for Hereditary Nonpolyposis Colorectal Cancer Syndrome. Part1: The utility of immunohistochemistry. J Mol Diag 10(4):293-300, 2008. [facility] SURG ARIANA Flowers, Obed SANCHEZ. Colorectal cancer due to deficiency in DNA mismatch repair function: a review. Adv. [place] Pathol 16: 405-17, 2009. SURG1 SURG1 SURG NOTE: [place] [address] Immunohistochemical staining (IHC) is used to determine the presence or absence of protein expression MLH1, MSH2, MSH6 and PMS2. Lymphocytes and normal epithelial cells exhibit strong nuclear staining and serve as Expression Present internal controls for staining of these proteins. Infiltrating tumor cells exhibiting nuclear staining are considered: EXPRESSION PRESENT. MSI-H refers to instability in >30% of microsatellite markers using a PCR-based assay and since most MSI-H tumors correlate well with loss of protein expression for at least 1 of the MMR genes (dMMR), the terms MSI-H and dMMR are often used interchangeably. [facility] SUR[facility] The stated protein mouse and rabbit monoclonal antibodies (MLH1-clone M1([employer]), MSH2- clone [id number]([employer]), MSH6-clone 44 ([employer]), and PMS2- clone [id number]([employer])) staining are performed on formalin fixed paraffin embedded specimens. The method employed was a standard peroxidase labeled-polymer detection system from [employer] ([employer] DAB). Each assay was performed using appropriate Expression Present and negative controls, as well as evaluation of internal controls. [facility] SURG1 [facility] SURG1 ASR: SURG One or more of the reagents used to perform assays on this specimen MAY have contained components considered to be analyte specific reagents (ASR's). ASR's have not been cleared or approved by the U.S. Food and Drug Administration. These assays were developed and their performance characteristics determined by the Department of Pathology at [facility]. The assays were performed with appropriate Expression Present and negative controls, which stained appropriately. SURG1 SURG1 CAUTIONS: SURG1 Test results should be interpreted in context of clinical findings, family history, and other laboratory data. If results obtained do not match other clinical or laboratory findings, please contact the laboratory for possible interpretation. Misinterpretation of results may occur if the information provided is inaccurate or incomplete. SURG1 Addendum electronica lly signed by Domo Lombardi MD on 12/13/2024 at 1435 EDT SURG1 [facility] SURG1 Path report.relevant Hx SURG SEE COMMENT SURG1 History of diverticulitis [Z87.19] SURG1 Rectal bleed [K62.5] SURG1 Abnormal barium enem a [R93.3] SURG1 SURG1 Path report.gross observation SURG1 SEE COMMENT SURG1 A. Received in formalin, labeled with the patient's name and hospital number and cecum biopsy , are multiple fragments of bruno, soft tissue aggregating to 1.0 x 0.6 x 0.2 cm. The specimen is submitted in toto in three cassettes. [facility] SURG1 [facility] SURG1 B. Received in formalin, labeled with the patient's name and hospital number and ascending and transverse polyp , are multiple fragments of bruno, soft tissue aggregating to 0.8 x 0.3 x 0.2 cm. The specimen is submitted in toto in one cassette. [facility] SURG1 [facility] SURG1 C. Received in formalin, labeled with the patient's name and hospital number and descending polyp , is one fragment of bruno, soft tissue measuring 1.2 x 0.9 x 0.1 cm. The specimen is submitted in toto in one cassette. [facility] SURG1 JS SURG1 SURG1 LAB AP ASR DISCLAIMER SURG One or more of the reagents used to perform assays on this specimen MAY have contained components considered to be analyte specific reagents (ASR's). ASR's have not been cleared or approved by the U.S. Food and Drug Administration. These assays were developed and their performance characteristics determined by the Department of Pathology at [facility]. The FDA does not require this test to go through premarket FDA review. This test is used for clinical purposes. It should not be regarded as investigational or for research. This laboratory is certified under the Clinical Laboratory Improvement Amendments (CLIA) as qualified to perform high complexity clinical laboratory testing. The assays were performed with appropriate positive and negative controls which stained appropriately. Tissue 12/09/2024 1:58 PM EDT 12/09/2024 5:07 PM EDT Narrative [facility] - 12/13/2024 2:35 PM EDT Original Ordering Provider: HAMZAH WOODSON us Generic External Data Provider [facility] E dited Result - Final [facility] * Colonoscopy (11/28/2024 1:34 PM EDT) Anatomical Region Laterality Modality Endoscopy Chintan Reyes DO ENDOSCOPY PROCEDURE ORDER EN[place] Final Result * FL BARIUM ENEMA (11/28/2024 12:21 PM EDT) Anatomical Region Laterality Modality Radiographic [facility] 11/28/2024 12:2 1 PM EDT Impressions 11/28/2024 12:33 PM EDT Persistent filling defect within the cecum. Concern for polyp/mass. Primary concern for malignancy. Sigmoid diverticulosis. Impression dictated by: Tito Hogan M.D. 11/28/2024 12:30 PM Dictation Location: [place] [address] Transcribed By: [facility] 11/28/24 1230 Dictated By: Tito Hogan DO 11/28/24 1221 Signed By: <Electronically signed by Tito Hogan DO in OV> 11/28/24 1230 Narrative 11/28/2024 12:33 PM EDT [facility] [place] [address] Fluoroscopy Report Signed Patient: Wade Camacho MR#: [id number] 56 : 1955 Acct:[id number] Age/Sex: 69 / M ADM Date: 11/28/24 Loc: XD Room: Type: [facility] CLI Attending Dr: Chintan Reyes DO Copies to: Chintan Reyes DO Ordering Provider: Chintan Reyes DO Date of Service: 11/28/24 FL/FL barium enema: RECTAL BLEEDING HX OF POLYPS SINGLE CONTRAST BARIUM ENEMA History: Incomplete colonoscopy. Rectal bleeding. History of diverticulitis. History of bladder cancer. Appendectomy. Cumulative Air Kerma in mGy: 548.46 mGy Findings: Passage of contrast from the rectum to the cecum identified with reflux into the small bowel. History of appendectomy. There are numerous diverticuli of the sigmoid colon with associated nonspecific narrowing of the lumen. There is a persistent filling defect identified within the cecum. Concern for polyp/mass. No mucosal abnormality of the colon identified. FL/FL barium enema Procedure Note Radiology, Radiologist, MD - 11/28/2024 [facility] [place] [address] [place] [address] Fluoroscopy Report Signed Patient: Wade Camacho TMR#: [id number] [birth year] : 5Acct:[id number] Age/Sex: 69 / MADM Date: 11/28/24 Loc: XD Room:Type: [facility] CLI Attending Dr: Chintan Reyes DO Copies to: Chintan Reyes DO Ordering Provider: Chintan Reyes DO Date of Service: 11/28/24 FL/FL barium enema: RECTAL BLEEDING HX OFPOLYPS SINGLE CONTRAST BARIUM ENEMA History: Incomplete colonoscopy. Rectal bleeding. History ofdiverticulitis. History of bladder cancer. Appendectomy. Cumulative Air Kerma in mGy: 548.46 mGy Findings: Passage of contrast from the rectum to the cecum identified with refluxinto the small bowel. History of appendectomy. There are numerous diverticuli of the sigmoidcolon with associated nonspecific narrowing of the lumen. There is a persistent filling defect identified within the cecum. Concernfor polyp/mass. No mucosal abnormality of the colon identified. FL/FL barium enema IMPRESSION: Persistent filling defect within the cecum. Concern for polyp/mass.Primary concern for malignancy. Sigmoid diverticulosis. Impression dictated by: Tito Hogan M.D. 11/28/2024 12:30 PM Dictation Location: [facility] Transcribed By: [facility] 11/28/24 1230 Dictated By: Tito Hogan DO 11/28/24 1221 Signed By: <Electronically signed by Tito Hogan DO in OV> 11/28/24 1230 us Chintan Reyes DO IMG XR PROCEDURES Final R esult * [facility] VIT B12 SERPL-MCNC (11/22/2024 10:53 AM EDT) [facility] VIT B12 SERPL-MCNC 564 232 - 1,245 pg/mL [facility] 11/22/2024 10:5 3 AM EDT 11/22/2024 2:37 PM EDT Narrative [facility] - 11/22/2024 6:10 PM EDT Specimen Type: BLOOD SPECIMEN Ordering Facility: [facility] Address: [address] [place] [address] Original Ordering Provider: MICHAEL SCHMITT us Generic External Data Provider DC bowden Result [facility] [address] [facility] [place] [place] [address] * (ABNORMAL) [facility] IRON+TIBC PNL SERPL (11/22/2024 10:53 AM EDT) [facility] IRON SERPL-MCNC 37(L) 41 - 186 ug/dL C[facility] TIBC SERPL-MCNC 315 232 - 386 ug/dL CCF [facility] IRON/TIBC SERPL-SRTO 11.7(L) 15.0 - 57.0 % [facility] 11/22/2024 10:5 3 AM EDT 11/22/2024 2:37 PM EDT Narrative CLINISYNC - 11/22/2024 5:53 PM EDT Specimen Type: BLOOD SPECIMEN Ordering Facility: [facility] Address: [address] [place] [address] Original Ordering Provider: MICHAEL SCHMITT us Generic External Data Provider CLIN[facility]NC F inal Result Performing Organization Address [facility] Co de Phone Number [facility] [address] [place] [phone] * [facility] FOLATE SERPL-MCNC (11/22/2024 10:53 AM EDT) [facility] FOLATE SERPL-MCNC 9.5 >4.7 ng/mL [facility] 11/22/2024 10:5 3 AM EDT 11/22/2024 2:37 PM EDT Narrative CLINISYNC - 11/22/2024 6:10 PM EDT Specimen Type: BLOOD SPECIMEN Ordering Facility: [facility] Address: [address] [place] [address] Original Ordering Provider: MICHAEL SCHMITT us Generic External Data Provider CLIN[facility]NC F inal Result Performing Organization Address [facility] de Phone Number [facility] [address] [place], [place] [phone] * [facility] FERRITIN SERPL-MCNC (11/22/2024 10:53 AM EDT) [facility] FERRITIN SERPL-MCNC 149.0 30.3 - 565.7 ng/mL [facility] 11/22/2024 10:5 3 AM EDT 11/22/2024 2:37 PM EDT Narrative CLINISYNC - 11/22/2024 6:10 PM EDT Specimen Type: BLOOD SPECIMEN Ordering Facility: [facility] Address: [address] [place] [address] Original Ordering Provider: MICHAEL SCHMITT us Generic External Data Provider CLIN[facility]NC F inagirish Result DC [facility] [address] [facility] [address] [place] [address] from Last 3 Months Insurance [employer] [place] Care Teams Bridge Instructor Relationship Specialty Start Date End Date Jani Helm MD [address] [address] PCP - General Family Medicine 09/30/22
--- OUTSIDE RECORDS SUMMARY | 2024-12-27 22:59 | XMS_ITS | Encounter Summary ---
Author Organization [facility] Address [address] [place] [address] Care Team Providers Care Political Director Name Role Phone Jani Helm MD Unavailable [phone] Immanuel Clark MD Unavailable [phone] Inga Sosa SENIOR CONTRACTS MANAGER.PROFESSOR OF PSYCHIATRY Unavailable [phone] Bonita Lemon RN Unavailable [phone] Jani Helm MD Primary Care Provider + [phone] Source Comments In the event this information is protected by the Federal Confidentiality of Alcohol and Drug AbusePatient Records regulations: The Federal rules restrict any use of the information to criminally investigate or prosecute any alcohol or drug abuse patient.[facility] Encounter Details Date Type Department Care Team (Late st Contact Info) Description 04/27/2023 Abstract Hematology/Oncology [address] [place] [address] Immanuel Clark MD [address] [place] [address] Social History Tobacco Use Types Packs/Day Years Used Date Smoking Tobacco: Never Assessed Area Deprivation Index Answer Date Anthony rded National Score (1-100), lower number is lower ri sk 80 04/30/2023 State Score (1-10), lower number is lower risk 7 04/30/2023 Data from: https://www.neighborhoodatlas.medicine.[facility].edu/. Last address used for calculation [address] [...] on filedocumented in this encounter Care Teams Political Director Relationship Specialty Start Date End Date Jani Helm MD [address] [facility] 110 [place] [address] PCP - General Family Medicine 05/28/23 Jani Helm MD [address] [facility] 110 [place] [address] Family Medicine 04/30/23 Immanuel Clark MD [address] [place] [address] Physician Hematology/Oncology 05/04/23 Inga Sosa APRN.PROFESSOR OF PSYCHIATRY [address] [place] [address] Nurse Practitioner Hematology/Oncology 05/04/23 Bonita Lemon, CHRISTINA [address] [place] [address] Specialty Artisan Plasterer Hematology/Oncology 05/04/23 documented as of this encounter
--- OUTSIDE RECORDS SUMMARY | 2024-12-27 22:59 | XMS_ITS | Encounter Summary ---
Author Organization [facility] Address [address] [place] [address] Care Team Providers Care Watershed Tender Name Role Phone Jani Helm MD Primary Care Provider [phone] Encounter Details Date Type Department Care Team (Late st Contact Info) Description 11/28/2024 External Result Encounter [facility] External Department Unsolicited Chintan Reyes, DO [address] [place] [address] Social History Tobacco Use Types Packs/Day Years [...] Procedure Name Priority Date/Time Associated Diagnosis Comments FL BARIUM ENEMA 11/28/2024 12:21 PM EDT documented in this encounter Results * FL BARIUM ENEMA (11/28/2024 12:21 PM EDT) Anatomical Region Laterality Modality Radiographic Laverne ging 11/28/2024 12:2 1 PM EDT Impressions 11/28/2024 12:33 PM EDT Persistent filling defect within the cecum. Concern for polyp/mass. Primary concern for malignancy. Sigmoid diverticulosis. Impression dictated by: Tito Hogan M.D. 11/28/2024 12:30 PM Dictation Location: [id number] Transcribed By: [facility] 11/28/24 1230 Dictated By: Tito Hogan DO 11/28/24 1221 Signed By: <Electronically signed by Tito Hogan DO in OV> 11/28/24 1230 Narrative 11/28/2024 12:33 PM EDT [facility] Main [place] [id number] Fluoroscopy Report Signed Patient: Wade Camacho MR#: [id number] 56 : 1955 Acct:[id number] Age/Sex: 69 / M ADM Date: 11/28/24 Loc: XD Room: Type: REG CLI Attending Dr: Chintan Reyes DO Copies [...] Procedure Note Radiology, Radiologist, MD - 11/28/2024 [facility] [address] [place] [id number] Fluoroscopy Report Signed Patient: Wade Camacho TMR#: [id number] 56 : 5Acct:[id number] Age/Sex: 69 / MADM Date: 11/28/24 Loc: XD Room:Type: REG CLI Attending Dr: Chintan Reyes DO Copies [...] Hogan M.D. 11/28/2024 12:30 PM Dictation Location: [facility] Transcribed By: [facility] 11/28/24 1230 Dictated By: Tito Hogan DO 11/28/24 1221 Signed By: <Electronically signed by Tito Hogan DO in OV> 11/28/24 1230 Chintan Reyes DO IMG XR PROCEDURES Final R esult documented in this encounter Visit Diagnoses Not on filedocumented in this encounter Care Teams Watershed Tender Relationship Specialty Start Date End Date Jani Helm MD [address] [place] [address] PCP - General Family Medicine 09/30/22 documented as of this encounter
--- OUTSIDE RECORDS SUMMARY | 2024-12-27 22:59 | XMS_ITS | Encounter Summary ---
Author Organization [facility] Address [address] [place] [address] Care Team Providers Care Hearing Therapy Director Name Role Phone Jani Helm MD Primary Care Provider [phone] Encounter Details Date Type Department Care Team (Late st Contact Info) Description 12/21/2024 Clinisync Result Encounter [facility] External [...] W IV CONTRAST 12/21/2024 10:23 AM EDT documented in this encounter Results * CT CHEST ABDOMEN PELVIS W IV CONTRAST (12/21/2024 10:23 AM EDT) Anatomical Region Laterality Modality Other 12/21/2024 10:2 3 AM EDT Narrative 12/23/2024 9:01 PM EDT Source Facility: [facility] Interpreted By: Edgar Maciel and Afshari Mirak Sohrab STUDY: CT CHEST ABDOMEN PELVIS W IV CONTRAST; 12/21/2024 11:35 am INDICATION: Signs/Symptoms:cecal adenocarcinoma. Staging. 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 COMPARISON: Outside CT abdomen and pelvis report from 02/25/2023. ACCESSION NUMBER(S): [id number] ORDERING CLINICIAN: MARISELA ARREOLA TECHNIQUE: Contiguous axial [...] Brooks . This study was interpreted at [place], [place]. MACRO: None Signed by: Edgar Maciel 12/23/2024 9:01 PM Dictation workstation: [id number] Procedure Note Radiology, Radiologist, - 12/23/2024 Source Facility: [facility] Interpreted By: Edgar Maciel, Jose Antony STUDY: CT CHEST ABDOMEN PELVIS W IV CONTRAST; 12/21/2024 11:35 am INDICATION: Signs/Symptoms:cecal adenocarcinoma. Staging. 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 COMPARISON: Outside CT abdomen and pelvis report from 02/25/2023. ACCESSION NUMBER(S): [id number] ORDERING CLINICIAN: MARISELA ARREOLA TECHNIQUE: Contiguous axial [...] Brooks . This study was interpreted at [facility], [place], [place]. MACRO: None Signed by: Edgar Maciel 12/23/2024 9:01 PM Dictation workstation: [id number] us Generic External Data Provider [facility] Final Result documented in this encounter Visit Diagnoses Not on filedocumented in this encounter Care Teams Hearing Therapy Director Relationship Specialty Start Date End Date Jani Helm MD [address] [place] [id number] PCP - General Family Medicine 09/30/22 documented as of this encounter
--- OUTSIDE RECORDS SUMMARY | 2024-12-27 22:59 | XMS_ITS | Encounter Summary ---
Author Organization [facility] Address [address] [place] [address] Care Team Providers Care Scratcher Tender Name Role Phone Jani Helm MD Unavailable [phone] Immanuel Clark MD Unavailable [phone] Inga Sosa TRIMMING INSPECTOR.LINING STRAP CLOSER Unavailable [phone] Bonita Lemon RN Unavailable [phone] Jani Helm MD Primary Care Provider + [phone] Source Comments In the event this information is protected by the Federal Confidentiality of Alcohol and Drug AbusePatient Records regulations: The Federal rules restrict any use of the information to criminally investigate or prosecute any alcohol or drug abuse patient.[facility] Reason for Visit * Reason Comments Appointment Encounter Details Date Type Department Care Team (Late st Contact Info) Description 12/26/2024 Telephone Cancer Appts [facility] [address] Anushka Vernon APRN.[facility] [address] [place] [address] Appointment Social History Tobacco Use Types Packs/Day Years [...] is lower risk 7 04/30/2023 Data from: https://www.neighborhoodatlas.medicine.[facility]/. Last address used for calculation [address] 04/30/2023 Sex and Gender Information Value Date Recorded Sex Assigned at Not on file Legal Sex Male 3:20 PM EST Gender Identity Not on file Sexual Orientation Not on file documented as of this encounter Miscellaneous Notes * Telephone Encounter - Anushka Vernon APRN.CNP - 12/27/2024 8:16 AM EDT Called and spoke with patient regarding repeating iron studies. Patient is following up with surgery today to have a consultation regarding recently diagnosed with colon cancer. He has been receivingbladder instillation treatments with Dr. Sanders office due to BCG shortage. He will call call me jad mora after he sees surgery to discuss getting labs done. * Telephone Encounter - Sindy Riggins - 12/26/2024 12:16 PM EDT Just following up from this patient's visit on 12/14. Does he need scheduled for any appointments atthis time? Sindy Riggins documented in this encounter Plan of Treatment Not on file documented as of this encounter Visit Diagnoses Not on filedocumented in this encounter Care Teams Scratcher Tender Relationship Specialty Start Date End Date Jani Helm MD [address] [place] [address] [place] [address] PCP - General Family Medicine 05/28/23 Jani Helm MD [address] [place] [address] [place] [address] Family Medicine 04/30/23 Immanuel Clark MD [address] [place] [address] [place] [address] Physician Hematology/Oncology 05/04/23 Inga Sosa APRN.[facility] [address] [place] [address] [place] [address] Nurse Practitioner Hematology/Oncology 05/04/23 Bonita Lemon, CHRISTINA [address] [place] [address] [place] [address] Specialty Loans Consultant Hematology/Oncology 05/04/23 documented as of this encounter
--- OUTSIDE RECORDS SUMMARY | 2024-12-27 22:59 | XMS_ITS | Encounter Summary ---
Author Organization [facility] Address [address] [facility] [place] [address] Care Team Providers Care Medical Research Tech Name Role Phone Jani Helm MD Primary Care Provider [phone] Jani Helm MD Unavailable Jani Helm MD Unavailable Encounter Details Date Type Department Care Team (Late st Contact Info) Description 04/05/2024 Abstract [facility] [place] [facility] [address] [facility] 110 [place] [id number] Jani Helm MD [address] [facility] 110 [place] [address] Social History Tobacco Use Types Packs/Day Years [...] on filedocumented in this encounter Care Teams Medical Research Tech Relationship Specialty Start Date End Date Jani Helm MD [address] [facility] 110 [place] [address] PCP - General Family Medicine 09/30/22 Jani Helm MD [address] [place] [address] PCP - ACO Reach 09/23/23 06/30/24 Jani Helm MD 112 [facility] 110 [place] [address] PCP - ACO Reach 07/08/24 08/25/24 documented as of this encounter
--- OUTSIDE RECORDS SUMMARY | 2024-12-27 22:59 | XMS_ITS ---
Author Organization [facility] Address [address] [place] [address] Care Team Providers Care Economic Consultant Name Role Phone Jani Helm MD Unavailable [phone] Immanuel Clark MD Unavailable [phone] Inga Sosa SYSTEMS CONSULTANT.WORKFORCE DEVELOPMENT ASSISTANT Unavailable [phone] Bonita Lemon RN Unavailable [phone] Jani Helm MD Primary Care Provider [phone] Active Problems Problem Noted Date Diagnosed Date Malignant neoplasm of overlapping sites of bladd er 06/18/2023 Iron deficiency anemia due to chronic blood loss 06/18/2023 Current Treatment and Therapy Plans BLADDER INSTILLATION* Plan Start Date:03/10/2024 Plan Provider:Immanuel Clark MD Linked Problems Malignant neoplasm of overla pping sites of bladder (HCC) Treatment Medications bcg vaccine for bladder irri gation Other Current Plans AMB FERRIC DERISOMALTOSE ONCE* Plan Start Date:10/27/2024 Plan Provider:Immanuel Clark MD Linked Problems Iron deficiency anemia due t o chronic blood loss Treatment Medications Current Day (Day 1 , Cycle 2 - Planned for 12/14/2024) ferric derisomaltose iv jennifer yback in NaCl 0.9% 100 mL (MONOFERRIC) ferric derisomaltose 1,000 mg in NaCl 0.9% 100 mL (MONOFERRIC) Past Treatment and Therapy Plans
--- OUTSIDE RECORDS SUMMARY | 2024-12-27 22:59 | XMS_ITS | Encounter Summary ---
Author Organization [facility] Address [address] [facility] [place] [address] Care Team Providers Care Optical Effects Layout Person Name Role Phone Jani Helm MD Primary Care Provider [phone] Jani Helm MD Unavailable Jani Helm MD Unavailable Encounter Details Date Type Department Care Team (Late st Contact Info) Description 05/12/2024 Abstract [facility] [place] [facility] [address] [facility] 110 [place] [phone] Jani Helm MD [address] [facility] 110 [place] [address] Social History Tobacco Use Types Packs/Day Years [...] on filedocumented in this encounter Care Teams Optical Effects Layout Person Relationship Specialty Start Date End Date Jani Helm MD [address] [facility] 110 [place] [address] PCP - General Family Medicine 09/30/22 Jani Helm MD [address] [place] [address] PCP - ACO Reach 09/23/23 06/30/24 Jani Helm MD 112 [facility] 110 [place] [address] PCP - ACO Reach 07/08/24 08/25/24 documented as of this encounter
--- OUTSIDE RECORDS SUMMARY | 2024-12-27 22:59 | XMS_ITS | Encounter Summary ---
Author Organization [facility] Address [address] [facility] [place] [address] Care Team Providers Care Insulation Board Back Tender Name Role Phone Jani Helm MD Primary Care Provider [phone] Encounter Details Date Type Department Care Team (Late st Contact Info) Description 11/23/2024 Abstract [facility] [place] [facility] [address] [place] [place] [address] Jani Helm MD [address] [place] [address] Social History Tobacco Use Types Packs/Day Years [...] on filedocumented in this encounter Care Teams Insulation Board Back Tender Relationship Specialty Start Date End Date Jani Helm MD [address] [place] [address] PCP - General Family Medicine 09/30/22 documented as of this encounter
--- OUTSIDE RECORDS SUMMARY | 2024-12-27 22:59 | XMS_ITS | Encounter Summary ---
Author Organization [facility] Address [address] [facility] [place] [address] Care Team Providers Care Strap Folding Machine Operator Name Role Phone Jani Helm MD Primary Care Provider [phone] Encounter Details Date Type Department Care Team (Late st Contact Info) Description 12/15/2024 Abstract [facility] [address] [place] [address] Jani Helm MD [address] [place] [address] Social History Tobacco Use Types Packs/Day Years [...] on filedocumented in this encounter Care Teams Strap Folding Machine Operator Relationship Specialty Start Date End Date Jani Helm MD [address] [place] [address] PCP - General Family Medicine 09/30/22 documented as of this encounter
--- OUTSIDE RECORDS SUMMARY | 2024-12-27 22:59 | XMS_ITS | Encounter Summary ---
Author Organization [facility] Address [address] [place] [address] Care Team Providers Care Correctional Counselor/Case Manager Name Role Phone Jani Helm MD Primary Care Provider Encounter Details Date Type Department Care Team (Late st Contact Info) Description 12/01/2024 Orders Only [facility] [address] [facility] 150 [place] [id number] Chintan Reyes DO [address] [facility] 150 [place] [address] Social History Tobacco Use Types [...] Procedure Name Priority Date/Time Associated Diagnosis Comments COLONOSCOPY Routine 11/28/2024 1:34 PM EDT documented in this encounter Results * Colonoscopy (11/28/2024 1:34 PM EDT) Anatomical Region Laterality Modality Endoscopy Chintan Reyes DO ENDOSCOPY PROCEDURE ORDER [place] Final Result documented in this encounter Visit Diagnoses Not on filedocumented in this encounter Care Teams Correctional Counselor/Case Manager Relationship Specialty Start Date End Date Jani Helm MD 112 [facility] 110 [place] [address] PCP - General Family Medicine 09/30/22 documented as of this encounter
--- OUTSIDE RECORDS SUMMARY | 2024-12-27 22:59 | XMS_ITS | Encounter Summary ---
Author Organization [facility] Address [address] [facility] [address] Care Team Providers Care Sheet Mill Supervisor Name Role Phone Jani Helm MD Primary Care Provider [phone] Jani Helm MD Unavailable Jani Helm MD Unavailable Encounter Details Date Type Department Care Team (Late st Contact Info) Description 05/12/2024 Abstract [facility] [place] [facility] [address] [facility] 110 [place] [address] Jani Helm MD [address] [facility] 110 [place] [address] Social History Tobacco Use Types Packs/Day Years [...] on filedocumented in this encounter Care Teams Sheet Mill Supervisor Relationship Specialty Start Date End Date Jani Helm MD [address] [facility] 110 [place] [address] PCP - General Family Medicine 09/30/22 Jani Helm MD [address] 110 [place] [address] PCP - ACO Reach 09/23/23 06/30/24 Jani Helm MD 112 [facility] 110 [place] [address] PCP - ACO Reach 07/08/24 08/25/24 documented as of this encounter
--- OUTSIDE RECORDS SUMMARY | 2024-12-27 22:59 | XMS_ITS | Encounter Summary ---
Author Organization [facility] Address [address] [place] [address] Care Team Providers Care Cellar Hand Name Role Phone Jani Helm MD Unavailable [phone] Immanuel Clark MD Unavailable [phone] Inga Sosa JET ENGINE MECHANIC.SPRAY II PAINTER Unavailable [phone] Bonita Lemon RN Unavailable [phone] Jani Helm MD Primary Care Provider + [phone] Source Comments In the event this information is protected by the Federal Confidentiality of Alcohol and Drug AbusePatient Records regulations: The Federal rules restrict any use of the information to criminally investigate or prosecute any alcohol or drug abuse patient.[facility] Reason for Visit * Reason Comments Orders Encounter Details Date Type Department Care Team (Late st Contact Info) Description 03/04/2024 Telephone Hematology/Oncology [address] [place], [place] [address] [address] Immanuel Clark MD [address] [place] [address] [place] [address] Orders Social History Tobacco Use Types Packs/Day Years [...] is lower risk 7 04/30/2023 Data from: https://www.neighborhoodatlas.medicine.[facility]/. Last address used for calculation [address] 04/30/2023 Sex and Gender Information Value Date Recorded Sex Assigned at Not on file Legal Sex Male 3:20 PM EST Gender Identity Not on file Sexual Orientation Not on file documented as of this encounter Miscellaneous Notes * Telephone Encounter - Immanuel Clark MD - 03/07/2024 9:31 AM EDT Yes - instill, withdraw and release home. * Telephone Encounter - Krystyna Moreira RN - 03/04/2024 10:06 AM EDT Pt is scheduled for his next [address] orders. Also, do you want us to continue to instill and remove catheter? documented in this encounter Plan of Treatment Not on file documented as of this encounter Visit Diagnoses Not on filedocumented in this encounter Care Teams Cellar Hand Relationship Specialty Start Date End Date Jani Helm MD [address] [facility] 110 [place] [address] PCP - General Family Medicine 05/28/23 Jani Helm MD [address] [facility] 110 [place] [address] Family Medicine 04/30/23 Immanuel Clark MD [address] [place] [address] [place] [address] Physician Hematology/Oncology 05/04/23 Inga Sosa APRN.SPRAY II PAINTER [address] [place] [address] [place] [address] Nurse Practitioner Hematology/Oncology 05/04/23 Bonita Lemon, CHRISTINA [address] [place] [address] [place] [address] Specialty Tailing Machine Operator Hematology/Oncology 05/04/23 documented as of this encounter
--- OUTSIDE RECORDS SUMMARY | 2024-12-27 23:00 | XMS_ITS | Encounter Summary ---
Author Organization [facility] Address [address] [place] [address] Care Team Providers Care Grinding Wheel Dresser Name Role Phone Jani Helm MD Unavailable Jani Helm MD Primary Care Provider [phone] Jani Helm MD Unavailable Jani Helm MD Unavailable Encounter Details Date Type Department Care Team (Late st Contact Info) Description 03/03/2023 Abstract [facility] [place] [facility] [address] [facility] 110 [place] [address] Jani Helm MD [address] [facility] 110 [place] [address] Social History Tobacco Use Types Packs/Day Years Used Date Smoking Tobacco: Never Smokeless Tobacco: Never Sex and Gender Information Value Date Recorded Sex Assigned at Not on file Legal Sex Male 7:21 PM EDT Gender Identity Not on file Sexual Orientation Not on file documented as of this encounter Plan of Treatment Not on file documented as of this encounter Visit Diagnoses Not on filedocumented in this encounter Care Teams Grinding Wheel Dresser Relationship Specialty Start Date End Date Jani Helm MD [address] [facility] 110 [place] [address] PCP - ACO Reach 10/16/22 07/23/23 Jani Helm MD [address] [facility] 110 [place] [address] PCP - General Family Medicine 09/30/22 Jani Helm MD [address] [facility] 110 [place] [address] PCP - ACO Reach 09/23/23 06/30/24 Jani Helm MD [address] [facility] 110 [place] [address] PCP - ACO Reach 07/08/24 08/25/24 documented as of this encounter
--- OUTSIDE RECORDS SUMMARY | 2024-12-27 23:00 | XMS_ITS | Encounter Summary ---
Author Organization [facility] Address [address] [place] [address] Care Team Providers Care Cloth Folder Machine Name Role Phone Jani Helm MD Unavailable Jani Helm MD Primary Care Provider [phone] Jani Helm MD Unavailable Jani Helm MD Unavailable Encounter Details Date Type Department Care Team (Late st Contact Info) Description 03/16/2023 Clinisync Result Encounter [facility] External Department Unsolicited [...] Procedure Name Priority Date/Time Associated Diagnosis Comments ECG 12-LEAD 03/16/2023 9:28 AM EDT documented in this encounter Results * ECG 12-LEAD (03/16/2023 9:28 AM EDT) Anatomical Region Laterality Modality Other 03/16/2023 9:28 AM EDT Narrative 03/16/2023 9:28 AM EDT The [address] [address] Electrocardiograph Report Signed Patient: WADE CAMACHO MR#: [id number] : 1955 Acct:[id number] Age/Sex: 68 / M ADM Date: 03/16/23 Loc: PST Attending Dr: Soledad Mejias M.D. Ordering Physician: Soledad Mejias M.D. 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 Signed By: 03/17/23708 DD/ 7 TD/TT: Conversion Man: Procedure Note Radiology, Radiologist, MD - 03/17/2023 [place] [address] Electrocardiograph Report Signed Patient: WADE CAMACHO TMR#: [id number] : 5Acct:[id number] Age/Sex: 68 / MADM Date: 03/16/23 Loc: PST Attending Dr: Soledad Mejias M.D. Ordering Physician: Soledad Mejias M.D. 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 Signed By:03/17/23708 DD/ 7 TD/TT: Conversion Man: us Generic External Data Provider [facility] Final Result documented in this encounter Visit Diagnoses Not on filedocumented in this encounter Care Teams Cloth Folder Machine Relationship Specialty Start Date End Date Jani Helm MD [address] [facility] [address] [place] [address] PCP - ACO Reach 10/16/22 07/23/23 Jani Helm MD [address] [facility] 110 [place] [address] PCP - General Family Medicine 09/30/22 Jani Helm MD [address] [facility] 110 [place] [address] PCP - ACO Reach 09/23/23 06/30/24 Jani Helm MD [address] [facility] 110 [place] [address] PCP - ACO Reach 07/08/24 08/25/24 documented as of this encounter
--- OUTSIDE RECORDS SUMMARY | 2024-12-27 23:00 | XMS_ITS | Encounter Summary ---
Author Organization [facility] Address [address] [place] [address] Care Team Providers Care Curriculum Consultant Name Role Phone Jani Helm MD Unavailable Jani Helm MD Primary Care Provider [phone] Jani Helm MD Unavailable Jani Helm MD Unavailable Encounter Details Date Type Department Care Team (Late st Contact Info) Description 12/29/2022 Abstract [facility] [address] [facility] 110 [place] [address] Jani Helm MD [address] [facility] 110 [place] [address] Social History Tobacco Use Types Packs/Day Years Used Date Smoking Tobacco: Never Assessed Sex and Gender Information Value Date Recorded Sex Assigned at Not on file Legal Sex Male 7:21 PM EDT Gender Identity Not on file Sexual Orientation Not on file documented as of this encounter Plan of Treatment Not on file documented as of this encounter Visit Diagnoses Not on filedocumented in this encounter Care Teams Curriculum Consultant Relationship Specialty Start Date End Date Jani Helm MD [address] [facility] 110 [place] [address] PCP - ACO Reach 10/16/22 07/23/23 Jani Helm MD [address] [facility] 110 [place] [address] PCP - General Family Medicine 09/30/22 Jani Helm MD [address] [facility] 110 [place] [address] PCP - ACO Reach 09/23/23 06/30/24 Jani Helm MD [address] [facility] 110 [place] [address] PCP - ACO Reach 07/08/24 08/25/24 documented as of this encounter
--- OUTSIDE RECORDS SUMMARY | 2024-12-27 23:00 | XMS_ITS | Encounter Summary ---
Author Organization [facility] Address [address] [place] [address] Care Team Providers Care Clipper Operator Name Role Phone Jani Helm MD Primary Care Provider [phone] Jani Helm MD Unavailable Jani Helm MD Unavailable Encounter Details Date Type Department Care Team (Late st Contact Info) Description 02/22/2024 Abstract [facility] [address] [facility] 110 [place] [address] Jani Helm MD [address] [facility] 110 [place] [address] Social History Tobacco Use Types Packs/Day Years [...] on filedocumented in this encounter Care Teams Clipper Operator Relationship Specialty Start Date End Date Jani Helm MD [address] [facility] 110 [place] [address] PCP - General Family Medicine 09/30/22 Jani Helm MD [address] [facility] 110 [place] [address] PCP - ACO Reach 09/23/23 06/30/24 Jani Helm MD [address] [facility] 110 [place] [address] PCP - ACO Reach 07/08/24 08/25/24 documented as of this encounter
--- OUTSIDE RECORDS SUMMARY | 2024-12-27 23:00 | XMS_ITS | Encounter Summary ---
Author Organization [facility] Address [address] [place] [address] Care Team Providers Care Hand Almond Blancher Name Role Phone Jani Helm MD Primary Care Provider [phone] Jani Helm MD Unavailable Jani Helm MD Unavailable Encounter Details Date Type Department Care Team (Late st Contact Info) Description 09/15/2023 Orders Only [facility] [address] [facility] 110 [place] [address] Unallocated, Noms Provider, [address] [place], [place] [address] Social History Tobacco Use Types Packs/Day Years [...] Procedure Name Priority Date/Time Associated Diagnosis Comments SCANNED LABS Routine 09/15/2023 1:52 PM EDT documented in this encounter Results * SCANNED LABS (09/15/2023 1:52 PM EDT) us Noms Provider Unallocated LAB CHG PERFORMABLE S Final Result documented in this encounter Visit Diagnoses Not on filedocumented in this encounter Care Teams Hand Almond Blancher Relationship Specialty Start Date End Date Jani Helm MD [address] [facility] 110 [place], [place] [address] PCP - General Family Medicine 5/9/23 Jani Helm MD [address] [facility] 110 [place], [place] [address] PCP - ACO Reach 09/23/23 06/30/24 Jani Helm MD [address] [facility] [address] [place] [address] PCP - ACO Reach 07/08/24 08/25/24 documented as of this encounter
--- OUTSIDE RECORDS SUMMARY | 2024-12-27 23:00 | XMS_ITS | Encounter Summary ---
Author Organization [facility] Address [address] [place] [address] Phone Care Team Providers Care Dance Entertainer Name Role Phone Chintan Reyes DO Unavailable [phone] Jani Helm MD Primary Care Provider [phone] Reason for Visit * Reason Comments order blood work Encounter Details Date Type Department Care Team (Late Contact Info) Description 12/27/2024 Orders Only [facility] [address] [place] [address] Felicia Sotomayor, RN Malignant neoplasm of colon, unspecified part of colon (Multi) Social History Tobacco Use Types Packs/Day Years [...] Encounters Date Type Department Care Team (Late Contact Info) Description 01/02/[address] [facility] [place] [address] [place] [address] [place] [address] Department [place] [address] Pending Results Name Type Priority Associated Diagnoses Date /Time CBC Lab Routine Malignant neoplasm of colon, unspecified part of colon (Multi) 12/27/2024 3:59 PM EDT Basic metabolic panel Lab Routine Malignant neoplasm of colon, unspecified part of colon (Multi) 12/27/2024 3:59 PM EDT Scheduled Orders Name Type Priority Associated Diagnoses Orde r Schedule Type And Screen Is this order related to or an upcoming surgery? Yes; Where will this surgery/delivery be performed? [facility]; What is the date of the surgery? 01/02/2025; Has this patient ever had a transfusion? Unknown; ... Lab Routine Malignant neoplasm of colon, unspecified part of colon (Multi) Expected: 12/27/2024 (Approximate), Expires: 12/27/2025 CBC Lab Routine Malignant neoplasm of colon, unspecified part of colon (Multi) Expected: 12/27/2024 (Approximate), Expires: 12/27/2025 Basic metabolic panel Lab Routine Malignant neoplasm of colon, unspecified part of colon (Multi) Expected: 12/27/2024 (Approximate), Expires: 12/27/2025 Scheduled Procedures Name Priority Associated Diagnoses Date/Ti me COLECTOMY, LAPAROSCOPIC Malignant neoplasm of colon, unspecified part of colon (Multi) documented as of this encounter Goals Goal Patient Goal Type Associated Problems Recent Progress Patient-Stated? Author Colorectal ERAS Care Plan Colorectal ERAS No Felicia Sotomayor, CHRISTINA Autogenerated Goal Care Plan Autogenerated Problem No Felicia Sotomayor, CHRISTINA ERAS Nutrition Goal Care Plan ERA Nutrition No Felicia Sotomayor, CHRISTINA documented as of this encounter Visit Diagnoses Diagnosis Malignant neoplasm of colon, unspecified part of colon (Multi) documented in this encounter Additional Health Concerns Active Problems Noted Date Diagnosed Date Colorectal ERAS 12/27/2024 Autogenerated Problem 12/27/2024 ERAS Nutrition 12/27/2024 documented as of this encounter Care Teams Dance Entertainer Relationship Specialty Start Date End Date Jani Helm MD [address] [facility] 110 [place] [address] PCP - General Family Medicine 11/29/24 Chintan Reyes DO 703 [facility] 150 [place] [address] Referring Physician General Surgery 11/29/24 documented as of this encounter
--- OUTSIDE RECORDS SUMMARY | 2024-12-27 23:00 | XMS_ITS | Encounter Summary ---
Author Organization [facility] Address [address] [place] [address] Care Team Providers Care Sqe Name Role Phone Jani Helm MD Unavailable Jani Helm MD Primary Care Provider [phone] Jani Helm MD Unavailable Jani Helm MD Unavailable Encounter Details Date Type Department Care Team (Late st Contact Info) Description 12/09/2022 Abstract [facility] [place] [facility] [address] [facility] 110 [place] [address] Jani Helm MD [address] [facility] 110 [place] [address] Social History Tobacco Use Types Packs/Day Years [...] on filedocumented in this encounter Care Teams Sqe Relationship Specialty Start Date End Date Jani Helm MD [address] [facility] 110 [place] [address] PCP - ACO Reach 10/16/22 07/23/23 Jani Helm MD [address] [facility] 110 [place] [address] PCP - General Family Medicine 09/30/22 Jani Helm MD [address] [facility] 110 [place] [address] PCP - ACO Reach 09/23/23 06/30/24 Jani Helm MD [address] [facility] 110 [place] [address] PCP - ACO Reach 07/08/24 08/25/24 documented as of this encounter
--- OUTSIDE RECORDS SUMMARY | 2024-12-27 23:00 | XMS_ITS | Encounter Summary ---
Author Organization [facility] Address [address] [place] [address] Phone Care Team Providers Care Credit Control Assistant Name Role Phone Chintan Reyes DO Unavailable [phone] Jani Helm MD Primary Care Provider [phone] Reason for Visit * Reason Onset Date Comments Med Refill 12/27/2024 Encounter Details Date Type Department Care Team (Late Contact Info) Description 12/27/[address] [facility] [address] [place] [address] Felicia Sotomayor, CHRISTINA Malignant neoplasm of colon, unspecified part of [...] (Late Contact Info) Description 01/02/2025 Hospital [place] [address] [place] [address] [place] [address] Department of Surgery-Colorectal [place] [id number] Scheduled Procedures Name Priority Associated Diagnoses Date/Ti me COLECTOMY, LAPAROSCOPIC Malignant neoplasm of colon, unspecified part of colon (Multi) documented as of this encounter Goals Goal Patient Goal Type Associated Problems Recent Progress Patient-Stated? Author Colorectal ERAS Care Plan Colorectal ERAS No Felicia Sotomayor, RN Autogenerated Goal Care Plan Autogenerated Problem No Felicia Sotomayor, RN [facility] Nutrition Goal Care Plan [facility] Nutrition No Felicia Sotomayor, RN documented as of this encounter Visit Diagnoses Diagnosis Malignant neoplasm of colon, unspecified part of colon (Multi) Malignant neoplasm of colon- Primary Malignant neoplasm of colon, unspecified site documented in this encounter Additional Health Concerns Active Problems Noted Date Diagnosed Date Colorectal ERAS 12/27/2024 Autogenerated Problem 12/27/2024 [facility] Nutrition 12/27/2024 documented as of this encounter Care Teams Credit Control Assistant Relationship Specialty Start Date End Date Jani Helm MD [address] [facility] 110 [place] [address] PCP - General Family Medicine 11/29/24 Chintan Reyes DO 703 [facility] 150 [place] [address] Referring Physician General Surgery 11/29/24 documented as of this encounter
--- OUTSIDE RECORDS SUMMARY | 2024-12-27 23:00 | XMS_ITS | Encounter Summary ---
Author Organization [facility] Address [address] [place] [address] Care Team Providers Care Education Assistant Name Role Phone Jani Helm MD Primary Care Provider [phone] Jani Helm MD Unavailable Jani Helm MD Unavailable Encounter Details Date Type Department Care Team (Late st Contact Info) Description 11/18/2023 Abstract [facility] [place] [facility] [address] [facility] 110 [place] [address] Jani Helm MD [address] [facility] 110 [place] [address] Social History Tobacco Use Types Packs/Day Years [...] on filedocumented in this encounter Care Teams Education Assistant Relationship Specialty Start Date End Date Jani Helm MD [address] [facility] 110 [place] [address] PCP - General Family Medicine 09/30/22 Jani Helm MD [address] [facility] 110 [place] [address] PCP - ACO Reach 09/23/23 06/30/24 Jani Helm MD 112 [facility] 110 [place] [address] PCP - ACO Reach 07/08/24 08/25/24 documented as of this encounter
--- OUTSIDE RECORDS SUMMARY | 2024-12-27 23:00 | XMS_ITS | Encounter Summary ---
Author Organization [facility] Address [address] [place] [id number] Phone Care Team Providers Care Sales Outfitter Name Role Phone Chintan Reyes DO Unavailable [phone] Jani Helm MD Primary Care Provider [phone] Encounter Details Date Type Department Care Team (Latest Contact Info) Description 12/27/2024 Travel Social History Tobacco Use Types Packs/Day [...] st Contact Info) Description 01/02/2025 Hospital Encounter [facility] [address] [place] [address] [place] [address] [facility] Department of Surgery-Colorectal [place] [id number] Scheduled Procedures Name Priority Associated Diagnoses Date/Ti me COLECTOMY, LAPAROSCOPIC Malignant neoplasm of colon, unspecified part of colon (Multi) documented as of this encounter Goals Goal Patient Goal Type Associated Problems Recent Progress Patient-Stated? Author Colorectal ERAS Care Plan Colorectal ERAS No Felicia Sotomayor, RN Autogenerated Goal Care Plan Autogenerated Problem No Felicia Sotomayor, RN ERAS Nutrition Goal Care Plan [facility] Nutrition No Felicia Sotomayor RN documented as of this encounter Visit Diagnoses Not on filedocumented in this encounter Additional Health Concerns Active Problems Noted Date Diagnosed Date Colorectal ERAS 12/27/2024 Autogenerated Problem 12/27/2024 ERAS Nutrition 12/27/2024 documented as of this encounter Care Teams Sales Outfitter Relationship Specialty Start Date End Date Jani Helm MD 112 [facility] 110 [place] [address] PCP - General Family Medicine 11/29/24 Chintan Reyes DO 703 [facility] 150 [place] [address] Referring Physician General Surgery 11/29/24 documented as of this encounter
--- OUTSIDE RECORDS SUMMARY | 2024-12-27 23:00 | XMS_ITS | Encounter Summary ---
Author Organization [facility] Address [address] [place] [address] Care Team Providers Care Jig Grinder Set Up Operator Name Role Phone Jani Helm MD Primary Care Provider [phone] Jani Helm MD Unavailable Jani Helm MD Unavailable Encounter Details Date Type Department Care Team (Late st Contact Info) Description 10/05/2023 Abstract [facility] [place] [facility] [address] [place] 110 [place] [address] Jani Helm MD [address] [facility] 110 [place] [address] Social History Tobacco Use Types Packs/Day Years [...] on filedocumented in this encounter Care Teams Jig Grinder Set Up Operator Relationship Specialty Start Date End Date Jani Helm MD [address] [facility] 110 [place] [address] PCP - General Family Medicine 09/30/22 Jani Helm MD [address] [facility] 110 [place] [address] PCP - ACO Reach 09/23/23 06/30/24 Jani Helm MD 112 [facility] 110 [place] [address] PCP - ACO Reach 07/08/24 08/25/24 documented as of this encounter
--- OUTSIDE RECORDS SUMMARY | 2024-12-27 23:00 | XMS_ITS | Encounter Summary ---
Author Organization [facility] Address [address] [place] [address] Care Team Providers Care Landscape Drafter Name Role Phone Jani Helm MD Unavailable Jani Helm MD Primary Care Provider [phone] Jani Helm MD Unavailable Jani Helm MD Unavailable Encounter Details Date Type Department Care Team (Late st Contact Info) Description 03/12/2023 Orders Only [facility] [address] [facility] [address] [place] [address] A, Unknown Practice [address] [place], [place] [address] Social History Tobacco Use Types Packs/Day Years [...] Date/Time Associated Diagnosis Comments SCANNED LABS Routine 03/02/2023 9:17 AM EDT documented in this encounter Results * SCANNED LABS (03/02/2023 9:17 AM EDT) us Unknown Practice A LAB CHG PERFORMABLES Final Re sult documented in this encounter Visit Diagnoses Not on filedocumented in this encounter Care Teams Landscape Drafter Relationship Specialty Start Date End Date Jani Helm MD [address] [facility] [address] [place] [phone] PCP - ACO Reach 10/16/22 07/23/23 Jani Helm MD [address] [facility] 110 [place] [address] PCP - General Family Medicine 09/30/22 Jani Helm MD [address] [facility] 110 [place] [address] PCP - ACO Reach 09/23/23 06/30/24 Jani Helm MD [address] [facility] 110 [place] [address] PCP - ACO Reach 07/08/24 08/25/24 documented as of this encounter
--- OUTSIDE RECORDS SUMMARY | 2024-12-27 23:00 | XMS_ITS | Encounter Summary ---
Author Organization [facility] Address [address] [place] [address] Care Team Providers Care Director Of Intelligence Name Role Phone Jani Helm MD Primary Care Provider [phone] Jani Helm MD Unavailable Jani Helm MD Unavailable Encounter Details Date Type Department Care Team (Late st Contact Info) Description 11/23/2023 Abstract [facility] [place] [facility] [address] [facility] 110 [place] [phone] Jani Helm MD [address] [facility] 110 [place] [address] Social History Tobacco Use Types Packs/Day Years [...] on filedocumented in this encounter Care Teams Director Of Intelligence Relationship Specialty Start Date End Date Jani Helm MD [address] [facility] 110 [place] [address] PCP - General Family Medicine 09/30/22 Jani Helm MD [address] [facility] 110 [place] [address] PCP - ACO Reach 09/23/23 06/30/24 Jani Helm MD 112 [facility] 110 [place] [address] PCP - ACO Reach 07/08/24 08/25/24 documented as of this encounter
--- OUTSIDE RECORDS SUMMARY | 2024-12-27 23:00 | XMS_ITS | Encounter Summary ---
Author Organization [facility] Address [address] [place] [address] Care Team Providers Care Platinumsmith Name Role Phone Jani Helm MD Unavailable Jani eHlm MD Primary Care Provider [phone] Jani Helm MD Unavailable Jani Helm MD Unavailable Encounter Details Date Type Department Care Team (Late st Contact Info) Description 03/16/2023 Orders Only [facility] [address] [place] [address] [place] [address] A, Unknown Practice [address] [place], [place] [phone] Social History Tobacco Use Types Packs/Day Years [...] Procedure Name Priority Date/Time Associated Diagnosis Comments XR CHEST 2 VIEWS Routine 03/16/2023 2:52 PM EDT documented in this encounter Results * XR chest 2 views (03/16/2023 2:52 PM EDT) Anatomical Region Laterality Modality Chest Radiographic Laverne ging us Unknown Practice A IMG XR PROCEDURES Final Resul t documented in this encounter Visit Diagnoses Not on filedocumented in this encounter Care Teams Platinumsmith Relationship Specialty Start Date End Date Jani Helm MD [address] [place] [address] [place] [id number] PCP - ACO Reach 10/16/22 07/23/23 Jani Helm MD [address] [facility] 110 [place] [address] PCP - General Family Medicine 09/30/22 Jani Helm MD [address] [facility] 110 [place] [address] PCP - ACO Reach 09/23/23 06/30/24 Jani Helm MD [address] [facility] 110 [place] [address] PCP - ACO Reach 07/08/24 08/25/24 documented as of this encounter
--- OUTSIDE RECORDS SUMMARY | 2024-12-27 23:00 | XMS_ITS | Encounter Summary ---
Author Organization [facility] Address [address] [place] [address] Care Team Providers Care Sales Effectiveness Manager Name Role Phone Jani Helm MD Unavailable Jani Helm MD Primary Care Provider [phone] Jani Helm MD Unavailable Jani Helm MD Unavailable Encounter Details Date Type Department Care Team (Late st Contact Info) Description 04/20/2023 Abstract [facility] [address] [facility] 110 [place] [phone] Jani Helm MD [address] [facility] 110 [place] [address] Social History Tobacco Use Types Packs/Day Years [...] on filedocumented in this encounter Care Teams Sales Effectiveness Manager Relationship Specialty Start Date End Date Jani Helm MD [address] [facility] 110 [place] [address] PCP - ACO Reach 10/16/22 07/23/23 Jani Helm MD [address] [facility] 110 [place] [address] PCP - General Family Medicine 09/30/22 Jani Helm MD [address] [facility] 110 [place] [address] PCP - ACO Reach 09/23/23 06/30/24 Jani Helm MD [address] [facility] 110 [place] [address] PCP - ACO Reach 07/08/24 08/25/24 documented as of this encounter
--- OUTSIDE RECORDS SUMMARY | 2024-12-27 23:00 | XMS_ITS | Encounter Summary ---
Author Organization [facility] Address [address] [place] [address] Care Team Providers Care Portfolio Architect Name Role Phone Jani Helm MD Unavailable Jani Helm MD Primary Care Provider [phone] Jani Helm MD Unavailable Jani Helm MD Unavailable Encounter Details Date Type Department Care Team (Late st Contact Info) Description 07/02/2023 Orders Only [facility] [address] [place] [address] [place] [address] A, Unknown Practice [address] [place], [place] [phone] Social History Tobacco Use Types Packs/Day Years [...] Date/Time Associated Diagnosis Comments SCANNED LABS Routine 06/29/2023 2:40 PM EST documented in this encounter Results * SCANNED LABS (06/29/2023 2:40 PM EST) us Unknown Practice A LAB CHG PERFORMABLES Final Re sult documented in this encounter Visit Diagnoses Not on filedocumented in this encounter Care Teams Portfolio Architect Relationship Specialty Start Date End Date Jani Helm MD [address] [place] [address] [place] [id number] PCP - ACO Reach 5/25/23 2/29/24 Jani Helm MD [address] [facility] 110 [place] [address] PCP - General Family Medicine 09/30/22 Jani Helm MD [address] [facility] 110 [place] [address] PCP - ACO Reach 09/23/23 06/30/24 Jani Helm MD [address] [facility] 110 [place] [address] PCP - ACO Reach 07/08/24 08/25/24 documented as of this encounter
--- OUTSIDE RECORDS SUMMARY | 2024-12-27 23:00 | XMS_ITS | Encounter Summary ---
Author Organization [facility] Address [address] [place] [address] Phone Care Team Providers Care Senior Support Engineer Name Role Phone Chintan Reyes DO Unavailable [phone] Jani Helm MD Primary Care Provider [phone] Encounter Details Date Type Department Care Team (Latest Contact Info) Description 12/27/2024 Prep for Procedure [facility] [address] [place] [address] Felicia Sotomayor, CHRISTINA Malignant neoplasm of colon, unspecified part of colon (Multi) (Primary Dx) Social History Tobacco Use Types Packs/Day Years [...] st Contact Info) Description 01/02/2025 Hospital Encounter [facility] [address] [place] [address] [place] [address] Department of Surgery-Colorectal [place], [place] [id number] Scheduled Procedures Name Priority Associated Diagnoses Date/Ti me COLECTOMY, LAPAROSCOPIC Malignant neoplasm of colon, unspecified part of colon (Multi) documented as of this encounter Goals Goal Patient Goal Type Associated Problems Recent Progress Patient-Stated? Author Colorectal ERAS Care Plan Colorectal ERAS No Felicia Sotomayor, RN Autogenerated Goal Care Plan Autogenerated Problem No Felicia Sotomayor, RN [facility] Nutrition Goal Care Plan [facility] Nutrition No Felicia Sotomayor, RN documented as of this encounter Visit Diagnoses Diagnosis Malignant neoplasm of colon, unspecified part of colon (Multi)- Primary Malignant neoplasm of colon- Primary Malignant neoplasm of colon, unspecified site documented in this encounter Additional Health Concerns Active Problems Noted Date Diagnosed Date Colorectal ERAS 12/27/2024 Autogenerated Problem 12/27/2024 [facility] Nutrition 12/27/2024 documented as of this encounter Care Teams Senior Support Engineer Relationship Specialty Start Date End Date Jani Helm MD 112 [facility] 110 [place] [address] PCP - General Family Medicine 11/29/24 Chintan Reyes DO [address] [facility] 150 [place] [address] Referring Physician General Surgery 11/29/24 documented as of this encounter
--- OUTSIDE RECORDS SUMMARY | 2024-12-27 23:00 | XMS_ITS | Encounter Summary ---
Author Organization [facility] Address [address] [place] [address] Care Team Providers Care Manager Of Broadcast Content Name Role Phone Jani Helm MD Unavailable Jani Helm MD Primary Care Provider [phone] Jani Helm MD Unavailable Jani Helm MD Unavailable Encounter Details Date Type Department Care Team (Late st Contact Info) Description 02/25/2023 [facility] [address] [place] [address] [place] [address] A, Unknown Practice [address] [place], [place] [phone] Social History Tobacco Use Types Packs/Day Years [...] Name Priority Date/Time Associated Diagnosis Comments CT ABDOMEN & PELVIS WO Routine 02/25/2023 1:58 PM EDT documented in this encounter Results * CT ABDOMEN & PELVIS WO (02/25/2023 1:58 PM EDT) Anatomical Region Laterality Modality Radiographic Laverne ging us Unknown Practice A IMG XR PROCEDURES Final Resul t documented in this encounter Visit Diagnoses Not on filedocumented in this encounter Care Teams Manager Of Broadcast Content Relationship Specialty Start Date End Date Jani Helm MD [address] [place] [address] [place] [address] PCP - ACO Reach 10/16/22 07/23/23 Jani Helm MD [address] [facility] 110 [place] [address] PCP - General Family Medicine 09/30/22 Jani Helm MD [address] [facility] 110 [place] [address] PCP - ACO Reach 09/23/23 06/30/24 Jani Helm MD [address] [facility] 110 [place] [address] PCP - ACO Reach 07/08/24 08/25/24 documented as of this encounter
--- OUTSIDE RECORDS SUMMARY | 2024-12-27 23:00 | XMS_ITS | Encounter Summary ---
Author Organization [facility] Address [address] [place] [address] Care Team Providers Care Sumac Tanner Name Role Phone Jani Helm MD Unavailable Jani Helm MD Primary Care Provider [phone] Jani Helm MD Unavailable Jani Helm MD Unavailable Encounter Details Date Type Department Care Team (Late st Contact Info) Description 04/20/2023 Abstract [facility] [address] [facility] 110 [place] [phone] Jani Helm MD [address] [facility] 110 [place] [address] Social History Tobacco Use Types Packs/Day Years [...] on filedocumented in this encounter Care Teams Sumac Tanner Relationship Specialty Start Date End Date Jani Helm MD [address] [facility] 110 [place] [address] PCP - ACO Reach 10/16/22 07/23/23 Jani Helm MD [address] [facility] 110 [place] [address] PCP - General Family Medicine 09/30/22 Jani Helm MD [address] [facility] 110 [place] [address] PCP - ACO Reach 09/23/23 06/30/24 Jani Helm MD [address] [facility] 110 [place] [address] PCP - ACO Reach 07/08/24 08/25/24 documented as of this encounter
--- OUTSIDE RECORDS SUMMARY | 2024-12-27 23:00 | XMS_ITS | Encounter Summary ---
Author Organization [facility] Address [address] [place] [address] Care Team Providers Care Detacker Name Role Phone Jani Helm MD Unavailable Jani Helm MD Primary Care Provider [phone] Jani Helm MD Unavailable Jani Helm MD Unavailable Encounter Details Date Type Department Care Team (Late st Contact Info) Description 12/10/2022 Abstract [facility] [address] [facility] 110 [place] [address] Jani Helm MD [address] [facility] 110 [place] [address] Social History Tobacco Use Types Packs/Day Years [...] on filedocumented in this encounter Care Teams Detacker Relationship Specialty Start Date End Date Jani Helm MD [address] [facility] 110 [place] [address] PCP - ACO Reach 10/16/22 07/23/23 Jani Helm MD [address] [facility] 110 [place] [address] PCP - General Family Medicine 09/30/22 Jani Helm MD [address] [facility] 110 [place] [address] PCP - ACO Reach 09/23/23 06/30/24 Jani Helm MD [address] [facility] 110 [place] [address] PCP - ACO Reach 07/08/24 08/25/24 documented as of this encounter
--- OUTSIDE RECORDS SUMMARY | 2024-12-27 23:00 | XMS_ITS | Encounter Summary ---
Author Organization [facility] Address [address] [place] [address] Care Team Providers Care Timber Spotter Name Role Phone Jani Helm MD Unavailable Jani Helm MD Primary Care Provider [phone] Jani Helm MD Unavailable Jani Helm MD Unavailable Encounter Details Date Type Department Care Team (Late st Contact Info) Description 03/26/2023 Abstract [facility] [address] [facility] 110 [place] [phone] Jani Helm MD [address] [facility] 110 [place] [address] Social History Tobacco Use Types Packs/Day Years [...] on filedocumented in this encounter Care Teams Timber Spotter Relationship Specialty Start Date End Date Jani Helm MD [address] [facility] 110 [place] [address] PCP - ACO Reach 10/16/22 07/23/23 Jani Helm MD [address] [facility] 110 [place] [address] PCP - General Family Medicine 09/30/22 Jani Helm MD [address] [facility] 110 [place] [address] PCP - ACO Reach 09/23/23 06/30/24 Jani Helm MD [address] [facility] 110 [place] [address] PCP - ACO Reach 07/08/24 08/25/24 documented as of this encounter
--- OUTSIDE RECORDS SUMMARY | 2024-12-27 23:00 | XMS_ITS | Encounter Summary ---
Author Organization [facility] Address [address] [facility] [place] [address] Care Team Providers Care Motor Polarizer Name Role Phone Jani Lilly MD Unavailable Jani Lilly MD Primary Care Provider [phone] Jani Lilly MD Unavailable Jani Lilly MD Unavailable Encounter Details Date Type Department Care Team (Late st Contact Info) Description 02/25/2023 Clinisync Result Encounter [facility] External Department Unsolicited Amalia Gan, CORPORATE ASSOCIATE [address] [facility] 110 [place] [address] Social History Tobacco Use Types Packs/Day Years [...] Name Priority Date/Time Associated Diagnosis Comments CT ABDOMEN/PELVIS WO CONT 02/25/2023 12:59 PM EDT documented in this encounter Results * CT ABDOMEN/PELVIS WO CONT (02/25/2023 12:59 PM EDT) Anatomical Region Laterality Modality Radiographic Laverne ging 02/25/2023 12:5 9 PM EDT Narrative 02/25/2023 12:59 PM EDT [facility] [address] [place] [address] CT Scan Report Signed Patient: WADE CAMACHO MR#: [id number] : 1955 Acct:[id number] Age/Sex: 68 / M ADM Date: 02/25/23 Loc: CT Attending Dr: AMALIA GAN Ordering Physician: AMALIA GAN Date of Service: 02/25/23 Procedure(s): CT abdomen pelvis wo con Accession Number(s): [id number] cc: JANI LILLY [place] [id number] Patient Name: WADE CAMACHO MRN: [facility]:[id number] date: 1955 Sex: M Assigned Patient Location: CT Current Patient Location: CT Accession/Order Number: [id number] Exam Date: 02/25/2023 12:36 Report Date: 02/25/2023 12:59 At the request of: AMALIA GAN Procedure: CT abdomen pelvis wo con EXAM: CT abdomen pelvis wo con HISTORY: Gross hematuria R31.0 COMPARISON: None. TECHNIQUE: Axial soft tissue windows of the abdomen and pelvis with coronal and sagittal reformats. CT dose reduction technique was used including Automated Exposure Control. . Findings: Lack of intravenous contrast limits evaluation. ABDOMEN: The liver, spleen, and pancreas are unremarkable. Small stones within the gallbladder. Unremarkable left adrenal gland. Within the medial limb of the right adrenal gland there is a 1.1 cm nodule. This has signal characteristics most consistent of lipid rich adenoma. Mild nonspecific bilateral perinephric fat stranding. There are bilateral peripelvic cysts. No renal stones or collecting system dilatation. The bilateral ureters are nondilated. Evaluation of the bowel is limited given the absence of oral contrast. There are colonic diverticula. No bowel obstruction. Small hiatal hernia. The appendix is nondilated definitely identified. The aorta is normal caliber. No enlarged abdominal lymph nodes or free abdominal fluid. Small fat-containing umbilicus hernia. Pelvis: The bladder is fluid-filled. There is a hyperdense mass measuring approximately 4.7 x 3.5 x 2.7 cm. This originates from the dome of the bladder. There are small calcifications The prostate is not significantly enlarged. No enlarged pelvic lymph nodes or free pelvic fluid. No aggressive sclerotic or lytic osseous lesions. 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 CT/CT abdomen pelvis wo con IMPRESSION: 1. No bladder mass concerning for malignancy. Recommend cystoscopy. 2. Cholelithiasis. 3. Right adrenal lipid rich adenoma 4. Bilateral renal peripelvic cyst 5. Diverticulosis. Electronically authenticated by: EARL JUDGE Date: 02/25/2023 12:59 Dictated By: Earl Judge M.D. Signed By: 02/25/23 1302 DD/ 1259 TD/TT: Rock Lather: Procedure Note Radiology, Radiologist, MD - 02/26/2023 [place] [address] CT Scan Report Signed Patient: WADE CAMACHO TMR#: [id number] : 5Acct:[id number] Age/Sex: 68 / MADM Date: 02/25/23 Loc: CT Attending Dr: AMALIA GAN Ordering Physician: AMALIA GAN Date of Service: 02/25/23 Procedure(s): CT abdomen pelvis wo con Accession Number(s): [id number] cc: JANI LILLY [place] [id number] Patient Name: WADE CAMACHO MRN: [facility]:[id number] date: 1955 Sex: M Assigned Patient Location: CT Current Patient Location: CT Accession/Order Number: [id number] Exam Date: 02/25/2023 12:36 Report Date: 02/25/2023 12:59 At the request of: AMALIA GAN Procedure: CT abdomen pelvis wo con EXAM: CT abdomen pelvis wo con HISTORY: Gross hematuria R31.0 COMPARISON: None. TECHNIQUE: Axial soft tissue windows of the abdomen and pelvis withcoronal and sagittal reformats. CT dose reduction technique was used includingAutomated Exposure Control. . Findings: Lack of intravenous contrast limits evaluation. ABDOMEN: The liver, spleen, and pancreas are unremarkable. Small stones within the gallbladder. Unremarkable left adrenal gland. Within the medial limb of the rightadrenal gland there is a 1.1 cm nodule. This has signal characteristics most consistent of lipid rich adenoma. Mild nonspecific bilateral perinephric fat stranding. There are bilateral peripelvic cysts. No renal stones or collecting system dilatation. The bilateral ureters are nondilated. Evaluation of the bowel is limited given the absence of oral contrast.There are colonic diverticula. No bowel obstruction. Small hiatal hernia. The appendix is nondilated definitely identified. The aorta is normal caliber. No enlarged abdominal lymph nodes or free abdominal fluid. Small fat-containing umbilicus hernia. Pelvis: The bladder is fluid-filled. There is a hyperdense mass measuring approximately 4.7 x 3.5 x 2.7 cm. This originates from the dome of the bladder. Thereare small calcifications The prostate is not significantly enlarged. No enlarged pelvic lymph nodes or free pelvic fluid. No aggressive sclerotic or lytic osseous lesions. 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 CT/CT abdomen pelvis wo con IMPRESSION: 1. No bladder mass concerning for malignancy. Recommend cystoscopy. 2. Cholelithiasis. 3. Right adrenal lipid rich adenoma 4. Bilateral renal peripelvic cyst 5. Diverticulosis. Electronically authenticated by: EARL JUDGE Date: 02/25/2023 12:59 Dictated By: Earl Judge M.D. Signed By:02/25/23 1302 DD/ 1259 TD/TT: Rock Lather: Amalia Gan CORPORATE ASSOCIATE IMG XR PROCEDURES Final Resu lt documented in this encounter Visit Diagnoses Not on filedocumented in this encounter Care Teams Motor Polarizer Relationship Specialty Start Date End Date Jani Lilly MD [address] [address] PCP - ACO Reach 10/16/22 07/23/23 Jani Lilly MD [address] [place] [address] PCP - General Family Medicine 09/30/22 Jani Lilly MD [address] [place] [address] PCP - ACO Reach 09/23/23 06/30/24 Jani Lilly MD [address] [place] [id number] PCP - ACO Reach 07/08/24 08/25/24 documented as of this encounter
--- OUTSIDE RECORDS SUMMARY | 2024-12-27 23:00 | XMS_ITS | Encounter Summary ---
Author Organization [facility] Address [address] [place] [address] Care Team Providers Care Computer Hardware Developer Name Role Phone Jani Helm MD Primary Care Provider [phone] Jani Helm MD Unavailable Jani Helm MD Unavailable Encounter Details Date Type Department Care Team (Late st Contact Info) Description 10/05/2023 Abstract [facility] [address] [facility] 110 [place] [phone] Jani Helm MD [address] [facility] 110 [place] [address] Social History Tobacco Use Types Packs/Day Years [...] on filedocumented in this encounter Care Teams Computer Hardware Developer Relationship Specialty Start Date End Date Jani Helm MD [address] [facility] 110 [place] [address] PCP - General Family Medicine 09/30/22 Jani Helm MD [address] [facility] 110 [place] [address] PCP - ACO Reach 09/23/23 06/30/24 Jani Helm MD 112 [facility] 110 [place] [address] PCP - ACO Reach 07/08/24 08/25/24 documented as of this encounter
--- OUTSIDE RECORDS SUMMARY | 2024-12-27 23:00 | XMS_ITS | Clinical Summary ---
Author Organization [facility] Address [address] [place] [address] Phone Care Team Providers Care Welfare Worker Name Role Phone Chintan Reyes DO Unavailable [phone] Jani Helm MD Primary Care Provider [phone] Allergies No known active allergies Medications omega 2-phd-uzh-fish oil (Fish OiL) 1,200 (144-216) mg capsule Take 1 capsule (1,200 mg) by mouth once daily. Active naproxen sodium (Aleve) 220 mg tablet Take 1 tablet (220 mg) by mouth every 12 hours if needed. With food or milk Active pravastatin (Pravachol) 40 mg tablet Take 1 tablet (40 mg) by mouth once daily at bedtime. Active gabapentin (Neurontin) 100 mg capsuleIndicatio ns:Malignant neoplasm of colon, unspecified part of colon (Multi) Take 1 capsule at bedtime for three nights before surgery. 3 capsule 5 Active metroNIDAZOLE (Flagyl) 250 mg tabletIndication s:Malignant neoplasm of colon, unspecified part of colon (Multi) Take 1 tablet at 6pm, 7pm and 11pm the night before surgery. 3 tablet 5 Active neomycin (Mycifradin) 500 mg tabletIndication s:Malignant neoplasm of colon, unspecified part of colon (Multi) Take two tablets (1000 mg) at 6pm, 7pm and 11pm the night before surgery. 6 tablet 5 Active sodium,potassium ,mag sulfates (Suprep Bowel Prep Kit) 17.5-3.13-1.6 gram solutionIndicati ons:Colon cancer screening Take 1 bottle by mouth every 12 hours. 2 each 12/10/19 25 Discontinu ed(Therapy completed) Active Problems Problem Noted Date Diagnosed Date Malignant neoplasm of colon 12/27/2024 History of colon polyps 11/10/2024 Rectal bleeding 11/10/2024 Personal history of bladder cancer 04/05/2024 Morbid (severe) obesity due to excess calories ( Multi) 02/22/2024 Umbilical hernia without obstruction and without gangrene 02/22/2024 Bilateral renal cysts 02/11/2024 Bladder mass 02/11/2024 BPH without urinary obstruction 02/11/2024 Malignant neoplasm of bladder, unspecified 02/10 Tear of medial meniscus of knee 02/11/2024 Overview (11/29/2024): left knee Iron deficiency anemia due to chronic blood loss 06/18/2023 Artificial knee joint present 02/25/2023 Difficulty walking 02/25/2023 Major depressive disorder, single episode, mild 02/25/2023 Osteoarthritis of knee 02/25/2023 Pain in left knee 02/25/2023 Polymyalgia rheumatica (Multi) 02/25/2023 Pure hypercholesterolemia 02/25/2023 Pure hypertriglyceridemia 02/25/2023 Rosacea 02/25/2023 Hyperlipidemia 11/21/2022 Hypertension 11/21/2022 Encounters Date Type Department Care Team Description 12/27/2024 1:00 PM EDT Office Visit [facility] [address], [place] [phone] Gio Benjamin MD 12/27/2024 Prep for Procedure [facility] [address] [place] [phone] Felicia Sotomayor, RN Malignant neoplasm of colon, unspecified part of colon (Multi) (Primary Dx) 12/27/2024 Orders Only [facility] [address] [place] [phone] Felicia Sotomayor, RN Malignant neoplasm of colon, unspecified part of colon (Multi) 12/27/2024 Refill [facility] [address] [place] [address] Felicia Sotomayor, RN Malignant neoplasm of colon, unspecified part of colon (Multi) 12/27/2024 Orders Only [facility] [address] [place] [address] Felicia Sotomayor, RN Malignant neoplasm of colon, unspecified part of colon (Multi) 12/27/2024 Travel 12/21/2024 10:23 AM EDT - 12/21/2024 11:59 PM EDT Hospital Encounter [address] [address] Adenocarcinoma of cecum (Multi) Discharge Disposition: Home 12/13/2024 Results Follow-Up [facility] [address] [facility] [place] [address] Hamzah Woodson MD Surgical Pathology Exam 12/09/2024 1:45 PM EDT Anesthesia Event [address] [address] x1 Tash Pitts MD Solt, Alexander W, CAA 12/09/2024 12:26 PM EDT - 12/09/2024 11:59 PM EDT Hospital Encounter [address] [address] x1 Hamzah Woodson MD Adenocarcinoma of cecum (Multi) (Primary Dx); History of diverticulitis; Rectal bleed; Abnormal barium enema Discharge Disposition: Home 12/09/2024 Travel 11/29/2024 Telephone [facility] [address] [place] [address] Inez Bonilla MA Schedule 11/29/2024 Orders Only [facility] [address] [place] [address] Inez Bonilla MA Colon cancer screening 11/29/2024 Orders Only [facility] [address] [place] [address] Inez Bonilla MA 11/29/2024 Telephone [facility] [address] [place] [address] Nely Song, CHRISTINA Care Coordination (Referral from Dr. Chintan Reyes) from Last 3 Months Immunizations Immunization Administration Dates Next Due Flu vaccine (IIV4), preservative free *Check age /dose* 02/27/2018 Flu vaccine, quadrivalent, h igh-dose, preservative free, age 65y+ (FLUZONE) 02/22/2024,02/25/2023 Flu vaccine, quadrivalent, r ecombinant, preservative free, adult (FLUBLOK) 03/23/2019 Flu vaccine, trivalent, pres ervative free, HIGH-DOSE, age 65y+ (Fluzone) 03/28/2021,03/22/2020 Flu vaccine, trivalent, pres ervative free, age 6 months and greater (Fluarix/Fluzone/Flulaval) 02/28/2015,03/27/2014 Influenza, Split (incl. purified surface antigen ) 04/06/2016 Influenza, seasonal, injectable 02/16/2017,03/14 Pneumococcal conjugate vaccine, 13-valent (PREVN AR 13) 04/05/2020 Pneumococcal polysaccharide vaccine, 23-valent, age 2 years and older (PNEUMOVAX 23) 03/28/2021 Social History Tobacco Use Types Packs/Day Years [...] F) 12/27/2024 1:15 PM EDT Respiratory Rate 18 12/09/2024 3:07 PM EDT Oxygen Saturation 96% 12/09/2024 3:07 PM EDT Inhaled Oxygen Concentration - - Weight 111 kg (244 lb) 12/27/2024 1:15 PM EDT Height 180.3 cm (5' 11 ) 12/27/2024 1:15 PM EDT Body Mass Index 34.03 12/27/2024 1:15 PM EDT Plan of Treatment Upcoming Encounters Date Type Department Care Team (Late st Contact Info) Description 01/02/[address] [facility] [address] [place] [address] [place] [address] Department of [place] [address] Scheduled Procedures Name Priority Associated Diagnoses Date/Ti me COLECTOMY, LAPAROSCOPIC Malignant neoplasm of colon, unspecified part of colon (Multi) Health Maintenance Due Date Last Done Comments CT Colonography 1955 FIT-DNA (Cologuard) 1955 FIT 1955 Lipid Panel 1955 Medicare Annual Wellness Visit (AWV) 1955 Sigmoidoscopy 1955 MMR Vaccines (1 of 1 - Standard series) 01/30/1956 Diabetes Screening 1973 Hepatitis C Screening 1973 Hepatitis A Vaccines (1 of 2 - Risk 2-dose series) 1974 DTaP/Tdap/Td Vaccines (1 - Tdap) 1977 PSA Prostate Cancer Screening 2005 Zoster Vaccines (1 of 2) 2005 Hepatitis B Vaccines (1 of 3 - Risk 3-dose series) 2015 RSV High Risk: (Elderly (60+) or Population) (1 - Risk 60-74 years 1-dose series) 2015 COVID-19 Vaccine (1 - 2023- season) 2024 Influenza Vaccine (#1) 2025 , 02/25/2023, 03/28/2021, Additional history exists Colonoscopy 12/09/2034 12/09/2024, 0711/2024, 04/20/2017 Colorectal Cancer Screening 12/09/2034 Pneumococcal Vaccine Completed 03/28/2021, 04/05/20 HIB Vaccines Aged Out No longer eligi ble based on patient's age to complete this topic HPV Vaccines Aged Out No longer eligi ble based on patient's age to complete this topic IPV Vaccines Aged Out No longer eligi ble based on patient's age to complete this topic Meningococcal Vaccine Aged Out No sara bruno eligible based on patient's age to complete this topic Rotavirus Vaccines Aged Out No longer eligible based on patient's age to complete this topic Goals Goal Patient Goal Type Associated Problems Recent Progress Patient-Stated? Author Colorectal ERAS Care Plan Colorectal ERAS No Felicia Sotomayor, CHRISTINA Autogenerated Goal Care Plan Autogenerated Problem No Felicia Sotomayor, CHRISTINA ERAS Nutrition Goal Care Plan ERA Nutrition No Felicia Sotomayor, eyelet operator Procedure Name Priority Date/Time Associated Diagnosis Comments CT CHEST ABDOMEN PELVIS W IV CONTRAST Routine 12/21/2024 11:35 AM EDT Adenocarcinoma of cecum (Multi) COLONOSCOPY Routine 12/09/2024 2:21 PM EDT History of diverticulitis Rectal bleed Abnormal barium enema SURGICAL PATHOLOGY EXAM STAT 12/09/2024 1:58 PM EDT History of diverticulitis Rectal bleed Abnormal barium enema from Last 3 Months Results * CT chest abdomen pelvis w [...] Brooks . This study was interpreted at [place], [place]. MACRO: None Signed by: Edgar Maciel 12/23/2024 9:01 PM Dictation workstation: [id number] Narrative 12/23/2024 9:01 PM EDT Interpreted By: Edgar Maciel and Afshari Mirak Sohrab STUDY: CT CHEST ABDOMEN PELVIS W IV CONTRAST; 12/21/2024 11:35 am INDICATION: Signs/Symptoms:cecal adenocarcinoma. Staging. 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 COMPARISON: Outside CT abdomen and pelvis report from 02/25/2023. ACCESSION NUMBER(S): [id number] ORDERING CLINICIAN: HAMZAH WOODSON TECHNIQUE: Contiguous axial [...] Maciel MD - 12/23/2024 Interpreted By: Edgar Maciel and Afshari Mirak [facility] STUDY: CT CHEST ABDOMEN PELVIS W IV CONTRAST; 12/21/2024 11:35 am INDICATION: Signs/Symptoms:cecal adenocarcinoma. Staging. 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 COMPARISON: Outside CT abdomen and pelvis report from 02/25/2023. ACCESSION NUMBER(S): [id number] ORDERING CLINICIAN: HAMZAH WOODSON TECHNIQUE: Contiguous axial [...] Brooks . This study was interpreted at [facility], [place], [place]. MACRO: None Signed by: Edgar Maciel 12/23/2024 9:01 PM Dictation workstation: [id number] Hamzah Woodson MD IM CT PROCEDURES Final Result * Colonoscopy Diagnostic (12/09/2024 2:21 PM EDT) Anatomical Region Laterality Modality Endoscopy, Endos copy Addenda Addendum by Hazmah Woodson MD on 12/12/2024 11:39 AM EDT Table formatting from the original result was not included. Impression Single malignant-appearing, friable, fungating and invasive mass measuring 4.5 cm x 2.5 cm in the cecum; performed cold forceps biopsy 4 polyps in the ascending colon, transverse colon and descending colon were removed with cold snare Severe diverticulosis in the sigmoid colon Findings Single malignant-appearing, friable, fungating and invasive mass measuring 4.5 cm x 2.5 cm in the cecum; performed cold forceps biopsy Four sessile and adenomatous-appearing polyps measuring 5-9 mm in the ascending colon, transverse colon and descending colon; no bleeding was observed; performed cold snare with complete en bloc removal and retrieved specimen Severe diverticulosis with multiple diverticula in the sigmoid colon Recommendation Await pathology results Follow up with Dr. Thomas Benjamin Indication History of diverticulitis Rectal bleed Abnormal barium enema Post-Op Diagnosis None Staff Staff Role Hamzah Woodson MD Proceduralist Medications See Anesthesia Record. Preprocedure A history and physical has been performed, and patient medication allergies have been reviewed. The patient's tolerance of previous anesthesia has been reviewed. The risks and benefits of the procedure and the sedation options and risks were discussed with the patient. All questions were answered and informed consent obtained. Details of the Procedure The patient underwent monitored anesthesia care, which was administered by an anesthesia professional. The patient's blood pressure, ECG, ETCO2, heart rate, level of consciousness, oxygen and respirations were monitored throughout the procedure. A digital rectal exam was performed. The scope was introduced through the anus and advanced to the cecum. Retroflexion was performed in the rectum. The quality of bowel preparation was evaluated using the [place] Bowel Preparation Scale with scores of: right colon = 2, transverse colon = 3, left colon = 2. The total BBPS score was 7. Bowel prep was adequate. The patient experienced no blood loss. The procedure was not difficult. The patient tolerated the procedure well. There were no apparent adverse events. Events Procedure Events Event Event Time ENDO SCOPE IN TIME 12/09/2024 1:53 PM ENDO CECUM REACHED 12/09/2024 1:57 PM ENDO SCOPE OUT TIME 12/09/2024 2:13 PM Specimens ID Type Source Tests Collected by Time 1 : cecum mass Tissue COLON - CECUM BIOPSY SURGICAL PATHOLOGY EXAM Alyssa KaurKAILA 12/09/2024 1358 2 : X1 and transverse polyp X 1 Tissue COLON - ASCENDING POLYP SURGICAL PATHOLOGY EXAM Alyssa Kaur KAILA 12/09/2024 1403 3 : X2 Tissue COLON - DESCENDING POLYP SURGICAL PATHOLOGY EXAM Alyssa Kaur KAILA 12/09/[address] [facility] [address] [facility] [address] Referring Provider Chintan Reyes DO Procedure Provider MD Chintan Patel Hamzah Woodson MD ENDOSCOPY PROCEDURE ORDERABLES E dited Result - Final * Surgical Pathology Exam (12/09/2024 1:58 PM EDT) Case Report Surgical Pathology Case: [id number] Authorizing Provider: Hamzah Woodson MD Collected: 12/09/2024 1358 [place] [facility] [place]ceived: 12/09/2024 1438 Pathologist: Domo Lombardi MD Specimens: A) - COLON - CECUM BIOPSY, cecum mass B) - COLON - ASCENDING POLYP, X1 and transverse polyp X 1 C) - COLON - DESCENDING POLYP, X2 12/13/2024 2:35 PM EDT [facility] FINAL DIAGNOSIS A. CECUM MASS BIOPSY: -- INVASIVE ADENOCARCINOMA, MODERATELY DIFFERENTIATED, SEE NOTE Note: Immunohistochemical stains for DNA mismatch repair proteins ordered and results will be reported in addendum. B. ASCENDING X1, TRANSVERSE COLON X1, POLYPS: -- TUBULAR ADENOMA IN TWO FRAGMENTS Note: A separate small fragment of tissue contains invasive adenocarcinoma, morphologically similar to part A, likely carryover. C. DESCENDING COLON POLYP X2: -- FRAGMENTS OF SESSILE SERRATED ADENOMA 12/13/2024 2:35 PM EDT [facility] at 1135 EDT By the signature on this report, the individual or group listed as making the Final Interpretation/Diagnos is certifies that they have reviewed this case. 12/13/2024 2:35 PM EDT [facility] Comment Dr.Omar Woodson inform ed of the diagnosis by secure chat on 12/12/2024 at 11:34 am. 12/13/2024 2:35 PM EDT [facility] Addendum A. COLON - CECUM BIOPSY: ADENOCARCINOMA. MISMATCH REPAIR PROTEIN EXPRESSION Protein: Result MLH-1: Expression Present PMS-2: Expression Present MSH-2: Expression Present MSH-6: Expression Present INTERPRETATION: Neoplasm with normal mismatch repair protein expression. The immunohistochemistry study of DNA mismatch repair protein expression reveals the normal presence of hMLH-1, hMSH2, hMSH6 and hPMS2 in the tumor (normal internal controls stain appropriately). Reference Range: A result is reported Expression Present if any tumor nuclei are stained positive. The findings do not exclude underlying Hassan Syndrome (HNPCC) because some mutation may result in intact protein expression. In addition, rare alterations can exist in other mismatch proteins, which have not been tested. In addition, some hereditary colorectal cancers are caused by alteration in other pathways unrelated to DNA Mismatch Repair. COMMENT: KEYTRUDA is indicated for the treatment of adult and pediatric patients with unresectable or metastatic microsatellite instability-high (MSI-H) or mismatch repair deficient (dMMR)solid tumors that have progressed following prior treatment and who have no satisfactory alternative treatment options, or colorectal cancer that has progressed following treatment with fluoropyrimidine, oxaliplatin, and irinotecan. This indication is approved under accelerated approval based on tumor response rate and durability of response. Continued approval for this indication may be contingent upon verification and description of clinical benefit in the confirmatory trials. The safety and effectiveness of KEYTRUDA in pediatric patients with MSI-H central nervous system cancers have not been established. References: Ren Villagomez., et al. Phase 3, open-label, randomized study of first-line pembrolizumab (pembro) vs claim investigator-choice chemotherapy for mismatch repair-deficient (dMMR) or microsatellite instability-high (MSI-H) metastatic colorectal carcinoma (mCRC): KEYNOTE-177. (2017): [id number]. Skinny Martínez, et al. KEYNOTE-164: Phase 2 study of pembrolizumab for patients with previously treated, microsatellite instability-high advanced colorectal carcinoma. (2016): [id number]. Carolin Santoyo et al. Safety and activity of pembrolizumab in patients with locally advanced or metastatic urothelial cancer (KEYNOTE-012): a non-randomized, open-label, phase 1b study. The Lancet Oncology (2017). Blayne Dasilva et al. OA05. 01 Pembrolizumab in Patients with Extensive-Stage Small Cell Lung Cancer: Updated Survival Results from KEYNOTE-028. Journal of Thoracic Oncology 12.1 (2017): S259. González Norris, et al. Pembrolizumab for previously treated advanced cervical squamous cell cancer: Preliminary results from the phase 2 KEYNOTE-158 study. (2017): 7399-8156. Tierney Baron. Immunohistochemistry versus microsatellite instability testing for screening colorectal cancer patients at risk for Hereditary Nonpolyposis Colorectal Cancer Syndrome. Part1: The utility of immunohistochemistry. J Mol Diag 10(4):293-300, 2008. ARIANA Flowers, Obed SANCHEZ. Colorectal cancer due to deficiency in DNA mismatch repair function: a review. Adv. [place] Pathol 16: 405-17, 2009. NOTE: Immunohistochemical staining (IHC) is used to determine [...] MSI-H and dMMR are often used interchangeably. The stated protein mouse and rabbit monoclonal antibodies (MLH1-clone M1([employer]), MSH2- clone [id number]([employer]), MSH6-clone 44 ([employer]), and PMS2- clone [id number]([employer])) staining are performed on formalin fixed paraffin embedded specimens. The method employed was a standard peroxidase labeled-polymer detection system from [facility] Systems (ultraView Tate DAB). Each assay was performed using appropriate Expression Present and negative controls, as well as evaluation of internal controls. ASR: One or more of the reagents used to perform assays on this specimen MAY have contained components considered to be analyte specific reagents (ASR's). ASR's have not been cleared or approved by the U.S. Food and Drug Administration. These assays were developed and their performance characteristics determined by the Department of Pathology at [facility]. The assays were performed with appropriate Expression Present and negative controls, which stained appropriately. CAUTIONS: Test results should be interpreted in context of clinical findings, family history, and other laboratory data. If results obtained do not match other clinical or laboratory findings, please contact the laboratory for possible interpretation. Misinterpretation of results may occur if the information provided is inaccurate or incomplete. 12/13/2024 2:35 PM EDT [facility] Addendum electronically signed by Domo Lombardi MD on 12/13/2024 at 1435 EDT Clinical History History of diverticulitis [Z87.19] Rectal bleed [K62.5] Abnormal barium enema [R93.3] 12/13/2024 2:35 PM EDT [facility] Gross Description A. Received in formalin, labeled with the patient's name and hospital number and cecum biopsy , are multiple fragments of bruno, soft tissue aggregating to 1.0 x 0.6 x 0.2 cm. The specimen is submitted in toto in three cassettes. JS B. Received in formalin, labeled with the patient's name and hospital number and ascending and transverse polyp , are multiple fragments of bruno, soft tissue aggregating to 0.8 x 0.3 x 0.2 cm. The specimen is submitted in toto in one cassette. JS C. Received in formalin, labeled with the patient's name and hospital number and descending polyp , is one fragment of bruno, soft tissue measuring 1.2 x 0.9 x 0.1 cm. The specimen is submitted in toto in one cassette. JS 12/13/2024 2:35 PM EDT [facility] Disclaimer One or more of the reagents used to perform assays on this specimen MAY have contained components considered to be analyte specific reagents (ASR's). ASR's have not been cleared or approved by the U.S. Food and Drug Administration. These assays were developed and their performance characteristics determined by the Department of Pathology at [facility]. The FDA does not require this [...] positive and negative controls which stained appropriately. 12/13/2024 2:35 PM EDT [facility] Tissue (COLON - CECUM BIOPSY) 12/09/2024 1:58 PM EDT 12/09/2024 2:38 PM EDT Tissue specimen (specimen) (COLON - ASCENDING POLYP) 12/09/2024 2:03 PM EDT 12/09/2024 2:38 PM EDT Tissue specimen (specimen) (COLON - DESCENDING POLYP) 12/09/2024 2:10 PM EDT 12/09/2024 2:38 PM EDT Hamzah Woodson MD LAB PATHOLOGY ORDERABLES Edited Result - Final [facility] [address] [facility] [id number] [place] [address] [facility] [address] [place] [address] from Last 3 Months Additional Health Concerns Active Problems Noted Date Diagnosed Date Colorectal ERAS 12/27/2024 Autogenerated Problem 12/27/2024 ERAS Nutrition 12/27/2024 Insurance MEDICARE PART A AND B [facility] MEDICARE SUPPLEMENT Member Subscriber Plan / Payer (Ef fective 2024-Present) Name:Wade Camacho Relation to Subscriber:Self Name:Wade Camacho Payer ID:Not on file Type:Not on file Address: [address] [place] [id number] MEDICARE PART A AND B [facility] MEDICARE SUPPLEMENT Member Subscriber Plan / Payer (Ef fective 2024-Present) Name:Wade Camacho Relation to Subscriber:Self Name:Wade Camacho Payer ID:Not on file Type:Not on file Address: [address] [place] [id number] Care Teams Welfare Worker Relationship Specialty Start Date End Date Jani Helm MD [address] [facility] [address] [place] [address] PCP - General Family Medicine 11/29/24 Chintan Reyes DO [address] [facility] [address] [place] [address] Referring Physician General Surgery 11/29/24
--- OUTSIDE RECORDS SUMMARY | 2024-12-27 23:00 | XMS_ITS | Encounter Summary ---
Author Organization [facility] Address [address] [place] [address] Care Team Providers Care Aoc Director Intelligence Officer Name Role Phone Jani Helm MD Unavailable Jani Helm MD Primary Care Provider [phone] Jani Helm MD Unavailable Jani Helm MD Unavailable Encounter Details Date Type Department Care Team (Late st Contact Info) Description 01/15/2023 Abstract [facility] [address] [facility] [address] [place] [phone] Jani Helm MD [address] [facility] [address] [place] [address] Social History Tobacco Use Types Packs/Day Years [...] on filedocumented in this encounter Care Teams Aoc Director Intelligence Officer Relationship Specialty Start Date End Date Jani Helm MD [address] [facility] [address] [place] [address] PCP - ACO Reach 10/16/22 07/23/23 Jani Helm MD [address] [facility] [address] [place] [address] PCP - General Family Medicine 09/30/22 Jani Helm MD [address] [facility] [address] [place] [address] PCP - ACO Reach 09/23/23 06/30/24 Jani Helm MD [address] [facility] [address] [place] [address] PCP - ACO Reach 07/08/24 08/25/24 documented as of this encounter
--- OUTSIDE RECORDS SUMMARY | 2024-12-27 23:00 | XMS_ITS | Encounter Summary ---
Author Organization [facility] Address [address] [place] [address] Phone Care Team Providers Care Early Childhood Coordinator Name Role Phone Chintan Reyes DO Unavailable [phone] Jani Helm MD Primary Care Provider [phone] Reason for Visit * Reason Comments order CEA level Encounter Details Date Type Department Care Team ([facility] Contact Info) Description 12/27/2024 Orders Only [facility] [address] [place] [address] Felicia Sotomayor, RN Malignant neoplasm of colon, [...] (Late Contact Info) Description 01/02/2025 Hospital Encounter [facility] [place] [address] [place] [address] [place] [address] Department [place] [address] Pending Results Name Type Priority Associated Diagnoses Date /Time CEA Lab Routine Malignant neoplasm of colon, unspecified part of colon (Multi) 12/27/2024 3:57 PM EDT Scheduled Orders Name Type Priority Associated Diagnoses Orde r Schedule CEA Lab Routine Malignant neoplasm of colon, unspecified [...] Plan Autogenerated Problem No Felicia Sotomayor, CHRISTINA [facility] Nutrition Goal Care Plan [facility] Nutrition No Felicia Sotomayor, CHRISTINA documented as of this encounter Visit Diagnoses Diagnosis Malignant neoplasm of colon, unspecified part of colon (Multi) documented in this encounter Additional Health Concerns Active Problems Noted Date Diagnosed Date Colorectal ERAS 12/27/2024 Autogenerated Problem 12/27/2024 ERA Nutrition 12/27/2024 documented as of this encounter Care Teams Early Childhood Coordinator Relationship Specialty Start Date End Date Jani Helm MD 112 [facility] 110 [place] [address] PCP - General Family Medicine 11/29/24 Chintan Reyes DO 703 [facility] 150 [place] [address] Referring Physician General Surgery 11/29/24 documented as of this encounter
--- OUTSIDE RECORDS SUMMARY | 2024-12-27 23:00 | XMS_ITS | Encounter Summary ---
Author Organization [facility] Address [address] [place] [address] Phone Care Team Providers Care Project Architect Name Role Phone Chintan Reyes DO Unavailable [phone] Jani Helm MD Primary Care Provider [phone] Encounter Details Date Type Department Care Team (Latest Contact Info) Description 12/13/2024 Results Follow-Up [facility] [address] [place] [address] Hamzah Woodson MD [address] [employer] [facility] 309 [place] [address] Surgical Pathology Exam Social History Tobacco Use Types Packs/Day Years [...] st Contact Info) Description 01/02/2025 Hospital [place] [address] [place] [address] [place] [address] Department [place] [address] Scheduled Procedures Name Priority Associated Diagnoses Date/Ti me COLECTOMY, LAPAROSCOPIC Malignant neoplasm of colon, unspecified part of colon (Multi) documented as of this encounter Visit Diagnoses Not on filedocumented in this encounter Care Teams Project Architect Relationship Specialty Start Date End Date Jani Helm MD 112 [facility] 110 [place] [address] PCP - General Family Medicine 11/29/24 Chintan Reyes DO [address] [place] [address] 150 [place] [address] Referring Physician General Surgery 11/29/24 documented as of this encounter
--- OUTSIDE RECORDS SUMMARY | 2024-12-27 23:00 | XMS_ITS | Encounter Summary ---
Author Organization [facility] Address [address] [place] [address] Care Team Providers Care Leave Manager Name Role Phone Jani Helm MD Primary Care Provider [phone] Jani Helm MD Unavailable Jani Helm MD Unavailable Encounter Details Date Type Department Care Team (Late st Contact Info) Description 09/18/2023 Orders Only [facility] [address] [place] [address] Unallocated, Noms Provider, [address] [place], [place] [id number] Social History Tobacco Use Types Packs/Day Years [...] Date/Time Associated Diagnosis Comments SCANNED LABS Routine 09/14/2023 9:01 AM EDT documented in this encounter Results * SCANNED LABS (09/14/2023 9:01 AM EDT) us Noms Provider Unallocated LAB CHG PERFORMABLE S Final Result documented in this encounter Visit Diagnoses Not on filedocumented in this encounter Care Teams Leave Manager Relationship Specialty Start Date End Date Jani Helm MD [address] [place], [place] [id number] PCP - General Family Medicine 5/9/23 Jani Helm MD [address] 110 [place], [place] [address] PCP - ACO Reach 09/23/23 06/30/24 Jani Helm MD [address] [place] [address] PCP - ACO Reach 07/08/24 08/25/24 documented as of this encounter
--- OUTSIDE RECORDS SUMMARY | 2024-12-27 23:00 | XMS_ITS | Encounter Summary ---
Author Organization [facility] Address [address] [place] [address] Care Team Providers Care Motion Picture Actor Name Role Phone Jani Lilly MD Unavailable Jani Lilly MD Primary Care Provider [phone] Jani Lilly MD Unavailable Jani Lilly MD [...] Priority Date/Time Associated Diagnosis Comments XR CHEST 2V 03/16/2023 10:17 AM EDT documented in this encounter Results * XR CHEST 2V (03/16/2023 10:17 AM EDT) Anatomical Region Laterality Modality Other 03/16/2023 10:1 7 AM EDT Narrative 03/16/2023 10:17 AM EDT The [address] [address] XRay Report Signed Patient: WADE CAMACHO MR#: [id number] : 1955 Acct:[id number] Age/Sex: 68 / M ADM Date: 03/16/23 Loc: PST Attending Dr: Soledad Mejias M.D. Ordering Physician: Soledad Mejias M.D. Date of Service: 03/16/23 Procedure(s): XR chest 2V Accession Number(s): [id number] cc: JANI LILLY ; Soledad Mejias M.D. The [address] [address] Patient Name: WADE CAMACHO MRN: [id number] date: 1955 Sex: M Assigned Patient Location: [facility] Current Patient Location: [facility] Accession/Order Number: [id number] Exam Date: 03/16/2023 09:40 Report Date: 03/16/2023 10:17 At the request of: SOLEDAD MEJIAS Procedure: XR chest 2V EXAM: XR chest 2V HISTORY: Preop exam COMPARISON: None. TECHNIQUE: PA and lateral views of the chest. FINDINGS: The cardiomediastinal silhouette is normal. No focal consolidation is identified. There is no pneumothorax. No pleural effusion is noted. The osseous structures are intact. XR/XR chest 2V IMPRESSION: No acute cardiopulmonary process. Electronically authenticated by: ENE STORM Date: 03/16/2023 10:17 Dictated By: Ene Storm M.D. Signed By: 03/16/23 1019 DD/ 1017 TD/TT: Linux System Admin: Procedure Note Radiology, Radiologist, MD - 03/16/2023 [place] [address] XRay Report Signed Patient: WADE CAMACHO TMR#: [id number] : 5Acct:[id number] Age/Sex: 68 / MADM Date: 03/16/23 Loc: [facility] Attending Dr: Soledad Mejias M.D. Ordering Physician: Soledad Mejias M.D. Date of Service: 03/16/23 Procedure(s): XR chest 2V Accession Number(s): [id number] cc: JANI LILLY ; Soledad Mejias M.D. The [address] [id number] Patient Name: WADE CAMACHO MRN: [id number] date: 1955 Sex: M Assigned Patient Location: [facility] Current Patient Location: [facility] Accession/Order Number: [id number] Exam Date: 03/16/2023 09:40 Report Date: 03/16/2023 10:17 At the request of: SOLEDAD MEJIAS Procedure: XR chest 2V EXAM: XR chest 2V HISTORY: Preop exam COMPARISON: None. TECHNIQUE: PA and lateral views of the chest. FINDINGS: The cardiomediastinal silhouette is normal. No focal consolidation is identified. There is no pneumothorax. No pleural effusion is noted. The osseous structures are intact. XR/XR chest 2V IMPRESSION: No acute cardiopulmonary process. Electronically authenticated by: ENE STORM Date: 03/16/2023 10:17 Dictated By: Ene Storm M.D. Signed By:03/16/23 1019 DD/ 1017 TD/TT: Linux System Admin: Generic External Data Provider [facility] Final Result documented in this encounter Visit Diagnoses Not on filedocumented in this encounter Care Teams Motion Picture Actor Relationship Specialty Start Date End Date Jani Lilly MD [address] [facility] [address] [place] [address] PCP - ACO Reach 10/16/22 07/23/23 Jani Lilly MD [address] [place] [address] PCP - General Family Medicine 09/30/22 Jani Lilly MD [address] [place] [address] PCP - ACO Reach 09/23/23 06/30/24 Jani Lilly MD [address] [place] [address] PCP - ACO Reach 07/08/24 08/25/24 documented as of this encounter
--- OUTSIDE RECORDS SUMMARY | 2024-12-27 23:00 | XMS_ITS | Encounter Summary ---
Author Organization [facility] Address [address] [place] [address] Care Team Providers Care Kiln Hand Name Role Phone Jani Helm MD Unavailable Jani Helm MD Primary Care Provider [phone] Jani Helm MD Unavailable Jani Helm MD Unavailable Encounter Details Date Type Department Care Team (Late st Contact Info) Description 06/19/2023 Abstract [facility] [place] [facility] [address] [facility] 110 [place] [address] Jani Helm MD [address] [facility] 110 [place] [address] Social History Tobacco Use Types Packs/Day Years [...] on filedocumented in this encounter Care Teams Kiln Hand Relationship Specialty Start Date End Date Jani Helm MD [address] [facility] 110 [place] [address] PCP - ACO Reach 10/16/22 07/23/23 Jani Helm MD [address] [facility] 110 [place] [address] PCP - General Family Medicine 09/30/22 Jani Helm MD [address] [facility] 110 [place] [address] PCP - ACO Reach 09/23/23 06/30/24 Jani Helm MD [address] [facility] 110 [place] [address] PCP - ACO Reach 07/08/24 08/25/24 documented as of this encounter
--- OUTSIDE RECORDS SUMMARY | 2024-12-27 23:00 | XMS_ITS | Encounter Summary ---
Author Organization [facility] Address [address] [place] [address] Care Team Providers Care American Board Certified Orthotist Name Role Phone Jani Lilly MD Primary Care Provider [phone] Jani Lilly MD Unavailable Jani Lilly MD Unavailable Encounter Details Date Type Department Care Team (Late st Contact Info) Description 10/02/2023 Clinisync Result Encounter [facility] External Department Unsolicited [...] Date/Time Associated Diagnosis Comments XR CHEST 2V 10/02/2023 10:13 AM EDT documented in this encounter Results * XR CHEST 2V (10/02/2023 10:13 AM EDT) Anatomical Region Laterality Modality Other 10/02/2023 10:1 3 AM EDT Narrative 10/02/2023 10:16 AM EDT The [address] [address] XRay Report Signed Patient: WADE CAMACHO MR#: [id number] : 1955 Acct:[id number] Age/Sex: 68 / M ADM Date: 10/01/23 Loc: PST Attending Dr: Soledad Mejias M.D. Ordering Physician: Soledad Mejias M.D. Date of Service: 10/01/23 Procedure(s): XR chest 2V Accession Number(s): [id number] cc: JANI LILLY ; Soledad Mejias M.D. The [place] [id number] Patient Name: WADE CAMACHO MRN: [id number] date: 1955 Sex: M Assigned Patient Location: [facility] Current Patient Location: Accession/Order Number: [id number] Exam Date: 10/01/2023 11:14 Report Date: 10/02/2023 10:13 At the request of: SOLEDAD MEJIAS Procedure: XR chest 2V EXAMINATION: XR chest 2V HISTORY: COPD COMPARISON: XR chest 03/16/2023 FINDINGS: LUNGS: Stable opacity within left lung base favoring a prominent pericardial fat pad. No acute infiltrates. VASCULATURE: No increased pulmonary vasculature. PLEURA: No pneumothorax, effusion, or pleural thickening. CARDIAC: No cardiomegaly or cardiac silhouette abnormality. MEDIASTINUM: No visible mass or adenopathy. BONES: No fracture or visible bone lesion. OTHER: Negative. XR/XR chest 2V IMPRESSION: 1. No acute cardiopulmonary process. 2. No significant hyperexpansion. Electronically authenticated by: ADA ARAMBULA Date: 10/02/2023 10:13 Dictated By: Ada Arambula M.D. Signed By: 10/02/23 1016 DD/ 1013 TD/TT: Service Center Assistant: Procedure Note Radiology, Radiologist, MD - 10/02/2023 [place] [address] XRay Report Signed Patient: WADE CAMACHO TMR#: [id number] : 5Acct:[id number] Age/Sex: 68 / MADM Date: 10/01/23 Loc: [facility] Attending Dr: Soledad Mejias M.D. Ordering Physician: Soledad Mejias M.D. Date of Service: 10/01/23 Procedure(s): XR chest 2V Accession Number(s): [id number] cc: JANI LILLY ; Soledad Mejias M.D. [address] [address] Patient Name: WADE CAMACHO MRN: [facility]:[id number] date: 1955 Sex: M Assigned Patient Location: [facility] Current Patient Location: Accession/Order Number: [id number] Exam Date: 10/01/2023 11:14 Report Date: 10/02/2023 10:13 At the request of: SOLEDAD MEJIAS Procedure: XR chest 2V EXAMINATION: XR chest 2V HISTORY: COPD COMPARISON: XR chest 03/16/2023 FINDINGS: LUNGS: Stable opacity within left lung base favoring a prominentpericardial fat pad. No acute infiltrates. VASCULATURE: No increased pulmonary vasculature. PLEURA: No pneumothorax, effusion, or pleural thickening. CARDIAC: No cardiomegaly or cardiac silhouette abnormality. MEDIASTINUM: No visible mass or adenopathy. BONES: No fracture or visible bone lesion. OTHER: Negative. XR/XR chest 2V IMPRESSION: 1. No acute cardiopulmonary process. 2. No significant hyperexpansion. Electronically authenticated by: ADA ARAMBULA Date: 10/02/2023 10:13 Dictated By: Ada Arambula M.D. Signed By:10/02/23 1016 DD/ 1013 TD/TT: Service Center Assistant: Generic External Data Provider [facility] Final Result documented in this encounter Visit Diagnoses Not on filedocumented in this encounter Care Teams American Board Certified Orthotist Relationship Specialty Start Date End Date Jani Lilly MD [address] [address] PCP - General Family Medicine 09/30/22 Jani Lilly MD [address] [facility] 110 [place] [address] PCP - ACO Reach 09/23/23 06/30/24 Jani Lilly MD [address] [place] [address] [place] [address] PCP - ACO Reach 07/08/24 08/25/24 documented as of this encounter
--- OUTSIDE RECORDS SUMMARY | 2024-12-27 23:00 | XMS_ITS | Encounter Summary ---
Author Organization [facility] Address [address] [place] [address] Care Team Providers Care Insurance Policy Clerk Name Role Phone Jani Helm MD Primary Care Provider [phone] Jani Helm MD Unavailable Jani Helm MD Unavailable Encounter Details Date Type Department Care Team (Late st Contact Info) Description 12/28/2023 Abstract [facility] [place] [facility] [address] [facility] 110 [place] [address] Jani Helm MD [address] [facility] 110 [place] [address] Social History Tobacco Use Types Packs/Day Years [...] on filedocumented in this encounter Care Teams Insurance Policy Clerk Relationship Specialty Start Date End Date Jani Helm MD [address] [facility] 110 [place] [address] PCP - General Family Medicine 09/30/22 Jani Helm MD [address] [facility] 110 [place] [address] PCP - ACO Reach 09/23/23 06/30/24 Jani Helm MD 112 [facility] 110 [place] [address] PCP - ACO Reach 07/08/24 08/25/24 documented as of this encounter
[2024-12-27 23:16] VITALS: BP 152/89; PULSE 81; TEMP 36.8; O2SAT 97; BMI 34.2
--- NOTE | 2024-12-27 23:38 | ED.ALLEREA1 ---
HPI - Allergic Reaction General Chief complaint: Allergic Reaction Stated complaint: BROKE OUT IN HIVES Time Seen by Provider: 12/27/24 23:31 Source: patient Mode of arrival: walk-in Limitations: no limitations History of Present Illness HPI narrative: history of bladder ca and now colon CA. Scheduled for surgery of his colon next week. Today developed generalized urticarial rash that started with his umbilical hernia band but has since spread in gen. distribution to include face and back. No dyspnea or joint swelling. no fever or nausea. Now presents with complaint of intense itching Related Data Home Medications ?Medication ?Instructions ?Recorded ?Confirmed pravastatin 40 mg tablet 40 mg PO DAILY 03/16/23 12/22/24 acetaminophen 325 mg tablet 325 mg PO Q6H PRN pain 07/03/23 12/22/24 (Tylenol) aspirin 81 mg chewable tablet 81 mg PO DAILY 09/17/23 12/22/24 omega 0-pgp-lhh-fish oil 1,200 mg 2 cap PO DAILY 09/17/23 12/22/24 (144 mg-216 mg) capsule (Fish Oil) tramadol 50 mg tablet 50 mg PO Q8H PRN pain 09/17/23 12/22/24 ferrous sulfate 325 mg (65 mg 325 mg PO DAILY 09/28/23 12/22/24 iron) tablet (FeroSul) Previous Rx's ?Medication ?Instructions ?Recorded solifenacin 10 mg tablet (Vesicare) 10 mg PO DAILY #7 tabs 10/08/23 Allergies Allergy/AdvReac Type Severity Reaction Status Date / Time No Known Drug Allergies Allergy Verified 12/27/24 23:16 Review of Systems ROS Status of ROS 10 or more systems reviewed and unremarkable except as noted in history and below [facility] Medical History (Updated 12/28/24 @ 02:44 by Flaco Tang MD) BPH (benign prostatic hyperplasia) ?N40.0 - Benign prostatic hyperplasia without lower urinary tract symptoms (ICD-10) Prostate tumor ?D49.59 - Neoplasm of unspecified behavior of other genitourinary organ (ICD-10) Anemia ?D64.9 - Anemia, unspecified (ICD-10) Osteoarthritis ?M19.90 - Unspecified osteoarthritis, unspecified site (ICD-10) High cholesterol ?E78.00 - Pure hypercholesterolemia, unspecified (ICD-10) Bladder mass ?N32.89 - Other specified disorders of bladder (ICD-10) Renal cyst ?N28.1 - Cyst of kidney, acquired (ICD-10) Gross hematuria ?R31.0 - Gross hematuria (ICD-10) Lesion of bladder ?N32.9 - Bladder disorder, unspecified (ICD-10) Bladder tumor ?D49.4 - Neoplasm of unspecified behavior of bladder (ICD-10) Surgical History (Updated 09/29/23 @ 08:52 by Mary Moreira NP) H/O transurethral resection of bladder tumor (TURBT) (07/06/23) ?Z98.890 - Other specified postprocedural states (ICD-10) ?Z86.03 - Personal history of neoplasm of uncertain behavior (ICD-10) H/O cystoscopy (09/28/23) ?Z98.890 - Other specified postprocedural states (ICD-10) H/O cystoscopy ?Z98.890 - Other specified postprocedural states (ICD-10) History of transurethral resection of bladder tumor (TURBT) ?Z98.890 - Other specified postprocedural states (ICD-10) ?Z86.03 - Personal history of neoplasm of uncertain behavior (ICD-10) History of hernia repair ?Z98.890 - Other specified postprocedural states (ICD-10) ?Z87.19 - Personal history of other diseases of the digestive system (ICD-10) History of tonsillectomy ?Z90.89 - Acquired absence of other organs (ICD-10) History of foot surgery ?Z98.890 - Other specified postprocedural states (ICD-10) History of nasal septoplasty ?Z98.890 - Other specified postprocedural states (ICD-10) History of colonoscopy ?Z98.890 - Other specified postprocedural states (ICD-10) History of arthroscopy of shoulder ?Z98.890 - Other specified postprocedural states (ICD-10) History of appendectomy ?Z90.49 - Acquired absence of other specified parts of digestive tract (ICD-10) History of arthroscopy of knee ?Z98.890 - Other specified postprocedural states (ICD-10) History of arthroscopy of knee ?Z98.890 - Other specified postprocedural states (ICD-10) History of arthroplasty of knee ?Z96.659 - Presence of unspecified artificial knee joint (ICD-10) History of arthroplasty of knee ?Z96.659 - Presence of unspecified artificial knee joint (ICD-10) Family History (Updated 09/17/23 @ 14:08 by Maricel Clark, RN) Other Family history of colon cancer Family history of emphysema Heart valve replaced Social History (Updated 09/17/23 @ 14:09 by Maricel Clark RN) Within the past year, how often did you have a drink containing alcohol: never Score interpretation: A score less than 4 is consistent with normal alcohol consumption. Smoking status: Never smoker Non-prescribed substance use: denies use Previous occupational history: retired Highest level of school completed/degree received: high school graduate Little interest or pleasure in doing things: not at all Feeling down, depressed, or hopeless: not at all Exam Constitutional Vital Signs, click to edit/add: Last Vital Signs Temp 98.3 F 12/27/24 23:16 Pulse 81 12/27/24 23:16 Resp 19 12/27/24 23:16 BP 152/89 H 12/27/24 23:16 Pulse Ox 97 12/27/24 23:16 O2 Del Method Room Air 12/27/24 23:16 Common normals: no apparent distress, average body habitus, oriented x3, no limitations, healthy appearing, alert and well nourished [facility] Common normals: normocephalic and head/scalp atraumatic Mouth: oral and palatal mucosa normal Eye Common normals: EOMs intact bilaterally and conjunctivae normal Respiratory Common normals: normal respiratory effort, no retractions, no use of accessory muscles and clear to auscultation bilaterally Cardio Common normals: regular rate, regular rhythm, S1 normal heart sound and S2 normal heart sound GI Common normals: Normal to inspection, nondistended, normoactive bowel sounds present, soft to palpation and non-tender Extremity Common normals: normal to inspection and full ROM Neuro Common normals: oriented x3, CN's II-XII intact bilaterally, moves all extremities and no focal motor deficits Psych Appearance: grossly normal Course Vital Signs Vital signs: Vital Signs Temperature 98.3 F 12/27/24 23:16 Pulse Rate 81 12/27/24 23:16 Respiratory Rate 19 12/27/24 23:16 Blood Pressure 152/89 H 12/27/24 23:16 Pulse Oximetry 97 12/27/24 23:16 Oxygen Delivery Method Room Air 12/27/24 23:16 Temperature 98.3 F 12/27/24 23:16 Pulse Rate 81 12/27/24 23:16 Respiratory Rate 19 12/27/24 23:16 Blood Pressure 152/89 H 12/27/24 23:16 Pulse Oximetry 97 12/27/24 23:16 Oxygen Delivery Method Room Air 12/27/24 23:16 MDM - Allergic Reaction MDM Narrative Medical decision making narrative: patient presents with diffuse urticarial rash. no respiratory symptoms and oral pharynx exam is normal. treated with solumedrol, pepcid and benadryl. Rash starting fading prior to d/c amd pruritis improved. Discharged home with a prescription of prednisone and advised to use benadryl and to follow up with his doctor in the next couple of days for recheck Discharge Plan Discharge Chief Complaint: Allergic Reaction Clinical Impression: Urticaria Patient Disposition: Home, Self-Care Prescriptions / Home Meds: No Action pravastatin 40 mg tablet 40 mg PO DAILY solifenacin [Vesicare] 10 mg tablet 10 mg PO DAILY Qty: 7 0RF acetaminophen [Tylenol] 325 mg tablet 325 mg PO Q6H PRN (Reason: pain) omega 5-ltb-zys-fish oil [Fish Oil] 1,200 (144-216) mg capsule 2 cap PO DAILY tramadol 50 mg tablet 50 mg PO Q8H PRN (Reason: pain) aspirin 81 mg tablet,chewable 81 mg PO DAILY ferrous sulfate [FeroSul] 325 mg (65 mg iron) tablet 325 mg PO DAILY Print Language: Cambodian Instructions: Urticaria (ED) Additional Instructions: use benadryl 25-50mg three times per day for 3 days Referrals: ISIS LILLY [Primary Care Provider, Family Practice] - 1 week
[2024-12-27] MEDS: DIPHENHYDRAMINE HCL 50 MG/ML VIAL 25 MG IVP (23:53)
[2024-12-27] MEDS: METHYLPREDNISOLONE SOD SUCC PF 125 MG/2 ML VIAL IVP (23:54)
[2024-12-27] MEDS: FAMOTIDINE/PF 20 MG/2 ML VIAL IV (23:54)
--- NOTE | 2024-12-28 00:50 | PC.NURSE ---
this patient's rash on his abdomen is less red in color and itching has decreased per this patient
[2024-12-28 01:39] LABS: Hematocrit 40.0 % (42.0-54.0); Hemoglobin 12.9 g/dL (14.0-18.0); Immature Granulocytes Abs Auto 0.03 10^3/uL (0.00-0.03); Immature Granulocytes Pct Auto 0.6 % (0.0-0.5); Lymphocytes Absolute Auto 0.9 10^3/uL (1.2-3.8); Mean Corpuscular HGB Conc 32.3 g/dL (29.9-35.2); Mean Corpuscular Hemoglobin 27.5 pg (25.9-34.0); Mean Corpuscular Volume 85.3 fL (80.0-94.0); Platelet Count 301 10^3/uL (150-450); Red Blood Count 4.69 10^6/uL (4.70-6.10); White Blood Count 5.0 10^3/uL (4.0-11.0)
[2024-12-28 01:51] LABS: Anion Gap 12.0; Blood Urea Nitrogen 18.0 mg/dL (7.0-18.0); Calcium 8.9 mg/dL (8.5-10.1); Carbon Dioxide 27.3 mmol/L (21.0-32.0); Chloride 106 mmol/L (98-107); Estimated GFR (African America >60 (>=60 mL/min/1.73m^2); Estimated GFR (Non-African Ame >60 (>=60 mL/min/1.73m^2); Glucose 164 mg/dL (74-106); Potassium 3.3 mmol/L (3.5-5.1); Sodium 142 mmol/L (136-145)
[2024-12-28 02:53] VITALS: BP 139/86; PULSE 64; TEMP 36.7; O2SAT 96
[2024-12-28] MEDS: PREDNISONE 20 MG TABLET 40 MG PO (02:56)
--- NOTE | 2024-12-28 03:05 | PC.NURSE ---
i gave this patient verbal and written discharge orders, 1 Rx and 1 take home medication and this patient voices yes to understanding these. at time of discharge this patient voices no concerns, needs and shows no signs of distress
== END 2024-12-28 03:07 | disposition home or self-care (01) ==
PROVIDERS: Emergency Provider Internal Medicine; PCP Family Medicine
DX: L50.9 Urticaria, unspecified (principal); C18.8 Malignant neoplasm of overlapping sites of colon; Z85.51 Personal history of malignant neoplasm of bladder; Z90.49 Acquired absence of other specified parts of digestive tract; Z96.659 Presence of unspecified artificial knee joint
CPT/HCPCS: 36415; 80048; 85025; 96374; 96375; 99285; J1200; J2919; J3490; J7512

== ENCOUNTER 2025-01-20 07:49 | Outpatient (RCR) | payer MEDICARE, OTHER, SELFPAY ==
[2025-01-12 07:40] VITALS: BP 138/81; PULSE 80; TEMP 36.2; O2SAT 99
[2025-01-12] MEDS: LIDOCAINE 2% JELLY 10 ML TOPICAL (08:07)
[2025-01-12] MEDS: GEMCITABINE HCL 2,000 MG in 0.9 % SODIUM CHLORIDE 50 ML 102.6 MG INTRAVESIC (08:20)
--- NOTE | 2025-01-12 08:27 | PC.NURSE ---
0828 Gemcitibine instillation via stevens, tolerated well. rodney garcia'juliette. patient starts self timing for 11.5 mins currently supine with knees bent up.
--- NOTE | 2025-01-12 08:39 | PC.NURSE ---
Addendum entered by Braeden Steve RN 01/12/25 09:12: incorrect time, should have [id number]. Original Note: 0940 repositioned to left side. patient self timing. tolerating well
--- NOTE | 2025-01-12 09:11 | PC.NURSE ---
0850 repositioned prone. tolerting well 0900 repositioned to rt side 0910 repositioned to supine. tolerates well.
--- NOTE | 2025-01-12 11:05 | PC.NURSE ---
0920 patient repositions rt side 0930 repositions to abdomen 0940 Patient up dresses ambultates to bathroom to void. tolerated well. released ambulatory
[2025-01-20 07:55] VITALS: BP 129/81; PULSE 76; TEMP 36.8; O2SAT 96
[2025-01-20] MEDS: LIDOCAINE 2% JELLY 10 ML TOPICAL (08:17)
[2025-01-20] MEDS: GEMCITABINE HCL 2,000 MG in 0.9 % SODIUM CHLORIDE 50 ML 102.6 MG INTRAVESIC (08:18)
== END 2025-01-22 23:59 | disposition home or self-care (01) ==
LOC: INF 07:49
PROVIDERS: PCP Family Medicine; Visit Provider Urology
DX: Z85.51 Personal history of malignant neoplasm of bladder (principal)
CPT/HCPCS: 51720; J9201